=== PATIENT | female | born 1990 | race Caucasian/White ===

== ENCOUNTER 2017-12-17 17:15 | Outpatient (CLI) | payer MEDICAID, SELFPAY ==
[2017-12-17 18:26] VITALS: BMI 34.2
--- NOTE | 2017-12-17 18:59 | OB.TRI.NOTE ---
History of Present Illness Date of Service: 12/17/17 Was patient seen by the physician?: Yes Reason For Visit: R/O LABOR Date of Service: 12/17/17 Final PETE Source: US <20 weeks Gestational age: 32.2 History of Present Illness: 27yo G! @ 32 2/7wga with c/o severe, sudden, sharp lower abdominal pains x 3. Pains were short lived and lasted for several seconds. Denies nausea, vomiting, diarrhea. She relates baseline constipation since the beginning of . Also complaints of frontal headache. She has a history of chronic headaches and previously took Ibuprofen up to 4 times daily outside of . She notes that the headaches she has now persists despite Tylenol. She denies ear pain, sore throat. +rhinorrhea, denies congestion. She notes dizziness with sudden movements. + FM, no leaking of fluid or vaginal bleeding. Home Medications Medication Instructions Recorded HydrOXYzine [Atarax] 25 mg PO PRN PRN 12/17/17 Ranitidine [Zantac] 150 mg PO DAILY 12/17/17 Allergies No Known Allergies Allergy (Verified 12/17/17 18:29) Physical Exam Vitals: AVSS General: Alert, Oriented x3, Cooperative, No apparent distress Cardiovascular: Regular rate, Regular Rhythm Lungs: Normal air movement Abdomen: Soft, Non Tender, Non-Distended, Gravid Extremities:: No edema Estimated gestational size: Appropriate for gestational size NST - FHR Rate Baby A Baseline: 125 Variability:: Moderate Accelerations:: 15 x 15 Decelerations:: None NST Reactive:: Yes FHR Category:: Category I Uterine Activity:: 0/10 Impression/Plan 27yo G1 @ 32 2/7wga with false labor, Cat I FHR -History not c/w preeclampsia, suggestive of sinus headache. otc sinus remedies reviewed. -Bennett Dugan discussed. Reviewed si/sx labor. -d/c home, f/u in office with Dr. Urias as scheduled for transfer of OB care Code Visit Office Visits / Consults: [id number] OV L2 New
--- NOTE | 2017-12-17 19:07 | OB.TRI.HP_ITS ---
History of Present Illness Date of Service: 12/17/17 Was patient seen by the physician?: Yes Reason For Visit: R/O LABOR Date of Service: 12/17/17 Final PETE Source: US <20 weeks Gestational age: 32.2 History of Present Illness: 27yo G! @ 32 2/7wga with c/o severe, sudden, sharp lower abdominal pains x 3. Pains were short lived and lasted for several seconds. Denies nausea, vomiting , diarrhea. She relates baseline constipation since the beginning of . Also complaints of frontal headache. She has a history of chronic headaches and previously took Ibuprofen up to 4 times daily outside of . She notes that the headaches she has now persists despite Tylenol. She denies ear pain, sore throat. +rhinorrhea, denies congestion. She notes dizziness with sudden movements. + FM, no leaking of fluid or vaginal bleeding. Home Medications Medication Instructions Recorded HydrOXYzine [Atarax] 25 mg PO PRN PRN 12/17/17 Ranitidine [Zantac] 150 mg PO DAILY 12/17/17 Allergies No Known Allergies Allergy (Verified 12/17/17 18:29) Physical Exam Vitals: AVSS General: Alert, Oriented x3, Cooperative, No apparent distress Cardiovascular: Regular rate, Regular Rhythm Lungs: Normal air movement Abdomen: Soft, Non Tender, Non-Distended, Gravid Extremities:: No edema Estimated gestational size: Appropriate for gestational size NST - FHR Rate Baby A Baseline: 125 Variability:: Moderate Accelerations:: 15 x 15 Decelerations:: None NST Reactive:: Yes FHR Category:: Category I Uterine Activity:: 0/10 Impression/Plan 27yo G1 @ 32 2/7wga with false labor, Cat I FHR -History not c/w preeclampsia, suggestive of sinus headache. otc sinus remedies reviewed. -Bennett Dugan discussed. Reviewed si/sx labor. -d/c home, f/u in office with Dr. Urias as scheduled for transfer of OB care Code Visit Office Visits / Consults: [id number] OV L2 New
== END 2017-12-17 19:10 | disposition home or self-care (01) ==
LOC: WPOUT 17:39 → WP 17:40
PROVIDERS: Family Provider Family Medicine; PCP Family Medicine; Visit Provider Obstetrics & Gynecology
DX: O47.03 False labor before 37 completed weeks of gestation, third trimester (principal); O99.89 Other specified diseases and conditions complicating pregnancy, childbirth and the puerperium; R51 Headache; Z3A.32 32 weeks gestation of pregnancy
CPT/HCPCS: 59025; 59050; 99218; G0378

== ENCOUNTER → 2018-01-17 11:20 | Outpatient (CLI) | payer MEDICAID, SELFPAY | PROVIDERS: Visit Provider Obstetrics & Gynecology | DX: Z36.85 Encounter for antenatal screening for Streptococcus B (principal) | CPT/HCPCS: 87077; 87081; 87186 ==

== ENCOUNTER 2018-01-26 02:40 | Outpatient (CLI) | payer MEDICAID, SELFPAY ==
[2018-01-26 03:12] VITALS: BMI 35.4
[2018-01-26 03:27] LABS: Red Blood Cells-Urine 0 SEEN /hpf (0-5)
[2018-01-26 03:30] LABS: Color, Urine Yellow (Yellow); Glucose, Dipstick Normal (Normal); Ketone-Dipstick 5 mg/dl (Negative); Leukocyte Esterase-Dipstick 25 /ul (Negative); Nitrite-Dipstick Negative (Negative); Occult Blood-Urine Negative /ul (Negative); Protein-Dipstick 15 mg/dl (Negative); Urine Bilirubin Dipstick Negative (Negative); Urine Clarity Sl. Cloudy (Clear); Urine Urobilinogen Normal (Normal); Urine pH 6.5 (5.0 - 8.0)
[2018-01-26 03:39] LABS: Amorphous Sediment 1+; Bacteria RARE /hpf (None Seen); Mucous, Urine 1+ /hpf (<or=2+); Squamous Epithelial Cells - UA 5-10 SEEN /hpf (5-10); White Blood Cells 0-5 SEEN /hpf (0-5)
[2018-01-26 03:42] LABS: ROM Internal Control Test YES-OK TO RESULT pt. (Internal QC); ROM Patient Test Negative (Negative)
[2018-01-26] MEDS: Nalbuphine 10 MG/ML Ampul 5 MG IM (05:15)
--- NOTE | 2018-01-26 09:20 | OB.TRI.NOTE ---
History of Present Illness Was patient seen by the physician?: No Reason For Visit: R/O LABOR Date of Service: 01/26/18 Gestational age: 38+ weeks History of Present Illness: 38+ week intrauterine presents with vaginal discomfort and pain. care remarkable for late presentation of care to our practice. Home Medications Medication Instructions Recorded Hydroxyzine HCl 25 mg PO QHS 05/03/17 Vits [Prenatabs FA] 1 tablet PO DAILY 08/23/17 Ranitidine [Zantac] 150 mg PO BID 08/23/17 Miconazole Nitrate [Monistat 7] 1 applic VAGINAL QHS 01/26/18 Allergies No Known Allergies Allergy (Verified 01/26/18 03:12) NST - FHR Rate Baby A NST Reactive:: Yes Impression/Plan 38+ week intrauterine with vaginal discomfort likely false labor. Pain subsided after observation and a single dose of IM Nubain. Released to home with routine instructions. Reactive NST. No cervical change after several hours of observation.
== END 2018-01-26 09:05 | disposition home or self-care (01) ==
LOC: WPOUT 03:07 → WP 03:08
PROVIDERS: Family Provider Family Medicine; PCP Family Medicine; Visit Provider Obstetrics & Gynecology
DX: O26.893 Other specified pregnancy related conditions, third trimester (principal); R10.2 Pelvic and perineal pain; Z3A.38 38 weeks gestation of pregnancy
CPT/HCPCS: 96374; 59025; 59050; 81001; 84112; 99218; G0378

== ENCOUNTER 2018-02-09 04:00 | Inpatient (IN) | payer MEDICAID, SELFPAY ==
[2018-02-09 03:58] LABS: ROM Internal Control Test YES-OK TO RESULT pt. (Internal QC)
[2018-02-09 03:59] LABS: ROM Patient Test POSITIVE (Negative)
[2018-02-09] MEDS: Lactated Ringers 1,000 ML 50 ML IV (04:15)
[2018-02-09 04:34] VITALS: BMI 35.6
[2018-02-09 04:43] LABS: Hematocrit 34.3 % (37-47); Hemoglobin 11.5 g/dl (12.0-15.0); Mean Corp Hgb Conc 33.5 g/gl (32-36); Mean Corpuscular Hgb 27.4 pg (27.0-32.0); Mean Corpuscular Volume 81.9 fL (81-99); Platelet Count 262 K/mm3 (150-450); RBC Distribution Width CV 14.6 % (11.6-14.6); RBC Distribution Width SD 42.6 fl (35.1-43.9); Red Blood Count 4.19 M/mm3 (4.2-5.4); White Blood Count 13.1 K/mm3 (4.4-11.0)
[2018-02-09 04:51] LABS: Scan Indicated on CBC? Y/N NO
[2018-02-09] MEDS: fentaNYL-bupivacaine (epidural) 100 ML BAG EPIDURAL (05:41)
[2018-02-09] MEDS: Oxytocin 30 units/NS 500 ml 30 UNITS/500 ML IV.SOLN IV (08:24)
[2018-02-09] MEDS: Acetaminophen 325 MG Tablet PO (10:05)
--- NOTE | 2018-02-09 10:28 | PCM.PN.OB ---
Subjective: Comfortable with epidural. Feels some pressure with contractions. Objective: Afeb VSS FHR tracing Cat 1 with some variable decelerations with contractions. - Physical Exam General: Alert, Oriented x3, Cooperative, No apparent distress Comment: CE FD +2 station Weight: 195 lb Body Mass Index (BMI) 35.6 Laboratory Tests Past 24 Hrs 02/09/18 02/09/18 02/09/18 03:45 04:15 04:15 WBC 13.1 H RBC 4.19 L Hgb 11.5 L Hct 34.3 L MCV 81.9 MCH 27.4 MCHC 33.5 RDW 14.6 RDW Differential 42.6 Plt Count 262 MPV 9.0 Vag Amniotic Fld Detect POSITIVE H Blood Type O POSITIVE Antibody Screen NEGATIVE Medical Necessity - Tobacco Use Smoking Status: Light Smoker (<10/day) Assessment/Plan Will start pushing efforts. Reassuring FHR tracing.
[2018-02-09] MEDS: Oxytocin 30 units/NS 500 ml 30 UNITS/500 ML IV.SOLN 334 UNITS IV (10:45)
--- NOTE | 2018-02-09 10:54 | PCM.OB.VAG ---
- Problem List (1) Spontaneous vaginal delivery Status: Acute Vaginal Delivery Maternal Presentation: Active Labor, Spontaneous Rupture of Membranes Presents at 40 weeks ega with SROM Amniotic Membrane Rupture Type: Spontaneous at home Rupture of Membrane time: 0400 Amniotic Fluid Description: Clear Final PETE: 02/09/18 Final PETE Source: US <20 weeks Gestational age: 40 Weeks and 0 Days doctor who attended delivery (if requested by OB): Joseph Moran Date of Procedure: 02/09/18 Pre-Operative Diagnosis: Labor Post-Operative Diagnosis: Same Surgery/ Procedure Performed: Spontaneous Vaginal Delivery Anesthesiologist: Souleymane Ortiz Type of Anesthesia: Epidural Description of Procedure: Progressed to FD then pushed for a short time to deliver a live female without complication. There was a loose nuchal cord x 1 which was reduced easily at delivery. Dr. Alfaro was present at delivery due to meconium stained amniotic fluid. Apgars were 8/9. The placenta delivered spontaneously intact with a centrally located 3VC. The upper vagina, cervix lower vagina and perineum were intact. The uterus contracted well after delivery. Presentation: Vertex Placental Delivery Description: Spontaneous Placenta Disposition: [facility] Percentage of Placenta Abruption: 0 Cord Vessel Description: 3 Vessels Nuchal Cord Compression: Without compression Cord Entanglement: Around neck x 1, loose Drain: Gallardo to straight drain Estimated Blood Loss: 200cc A gender: Female (1 minute): 8 (5 minute): 9 Episiotomy Description: None Laceration: None Medications given after delivery: IV Pitocin Complications: None
--- NOTE | 2018-02-09 11:01 | DCINST_ITS ---
Discharge Diet: No Restrictions Discharge Activity: Return to Normal Activity, May Drive, May Shower Return to work on:: 04/11/18 May shower in (days): 0 May resume sexual activity in: 4-6 weeks Call your doctor if your incision/area has: Sudden Increased Bleeding, Increased Pain/ Swelling, Foul Smelling Discharge Call your doctor if you observe: Fever of 101 or Higher, Inability to urinate, Inability to have a bowel movement, Using more than one pad per hour, Shortness of breath, Chest pain, Calf discomfort, Uncontrolled pain Cleanse incision/area with: Soap & Water Additional Instructions: If you experience any of the following, contact your healthcare provider. * Bleeding that soaks a pad every hour for 2 hours * Fever 100.4 or higher * Unrelieved incision or abdominal pain * Swelling, redness, discharge or bleeding from your incision or episiotomy site * Your incision begins to separate * Problems urinating (including inability to urinate or burning while urinating) . * Visual changes * Severe headache * Flu-like symptoms * Pain or redness in one of both of your breasts * Pain, warmth, tenderness or swelling in your legs, especially the calf area * Frequent nausea and vomiting * Symptoms of depression or anxiety If you experience any of the following, call 911 or go to the nearest Emergency Room. * Chest pain * Problems breathing * Seizure activity * Partial or complete paralysis of a body part, slurred speech, weakness or drooping of the face, or a sudden inability to walk or hold your balance Allergies/Adverse Reactions: Allergies No Known Allergies Allergy (Verified 02/09/18 04:38) Medications to take at Discharge Hydroxyzine HCl 25 mg PO QHS 05/03/17 Vits [Prenatabs FA ] 1 tablet PO DAILY 08/23/17 Ranitidine [Zantac] 150 mg PO BID 08/23/17 Ibuprofen [Motrin] 800 mg PO TID PRN PRN #30 tab 02/09/18 The following prescriptions were given: Ibuprofen [Motrin] 800 mg PO TID PRN PRN #30 tab PRN Reason: pain or cramping Please Follow Up With: Mel Urias MD When: 6 weeks Primary Care Physician: Don Solis MD [Primary Care Provider] - Proposed Discharge Date: 02/11/18
[2018-02-09] MEDS: Oxytocin 30 units/NS 500 ml 30 UNITS/500 ML IV.SOLN 167 UNITS IV (11:17)
[2018-02-09] MEDS: Lactated Ringers 1,000 ML 15 ML IV (12:17)
[2018-02-09] MEDS: Ibuprofen 600 MG Tablet PO (12:47)
[2018-02-09] MEDS: 0.9% Saline Lock 10 ML Syringe IV (12:47)
[2018-02-09 15:50] VITALS: BP 124/70; PULSE 72; RESP 18; TEMP 36.8
[2018-02-09] MEDS: oxyCODONE 5 MG Tablet PO ×2 (15:51→21:44)
[2018-02-09 19:45] VITALS: BP 127/81; PULSE 63; RESP 16; TEMP 36.6; O2SAT 96
[2018-02-09] MEDS: Famotidine 20 MG Tablet PO (21:45)
[2018-02-09] MEDS: hydrOXYzine PAM 25 MG Capsule PO (21:45)
--- NOTE | 2018-02-09 22:49 | NURSING ---
mom not in room, diaper changing demo given to dad. Dad states he has never changed a diaper. Bulb syringe demo given to dad.
[2018-02-10] VITALS: BP 126/80; PULSE 68; RESP 17; TEMP 36.7; O2SAT 95
[2018-02-10 03:20] VITALS: BP 110/64; PULSE 74; RESP 18; TEMP 36.8; O2SAT 95
[2018-02-10] MEDS: Ibuprofen 600 MG Tablet PO (06:01)
[2018-02-10 06:28] LABS: Hematocrit 32.8 % (37-47); Hemoglobin 10.7 g/dl (12.0-15.0); Mean Corp Hgb Conc 32.6 g/gl (32-36); Mean Corpuscular Volume 82.8 fL (81-99); Mean Platelet Vol. 8.7 fl (6.2-12.0); Platelet Count 208 K/mm3 (150-450); RBC Distribution Width CV 14.5 % (11.6-14.6); RBC Distribution Width SD 44.1 fl (35.1-43.9); Red Blood Count 3.96 M/mm3 (4.2-5.4); Scan Indicated on CBC? Y/N NO; White Blood Count 13.6 K/mm3 (4.4-11.0)
[2018-02-10 08:23] VITALS: BP 121/77; PULSE 77; RESP 18; TEMP 37
--- NOTE | 2018-02-10 08:23 | PCM.PN.OB ---
Patient Problems: Active and Suspected Problems Spontaneous vaginal delivery (Acute) Subjective: Complaints of some uterine cramping and left lower abdomen pain. Bleeding light. Bottle feeding. Objective: Afeb VSS Hgb stable PP day#1. - Physical Exam General: Alert, Oriented x3, Cooperative, No apparent distress Lungs: Clear to auscultation, Normal air movement Cardiovascular: Regular rate, Regular Rhythm Abdomen: Soft, Non Tender, Non-Distended, - - Fundus firm nontender Extremities: No edema Skin: No rashes Neurological: Neuro grossly intact Psych/Mental Status: Normal Affect Comment: Lochia light Vital Signs Temp Pulse Resp BP Pulse Ox 98.3 F 74 18 110/64 95 02/10/18 03:20 02/10/18 03:20 02/10/18 03:20 02/10/18 03:20 02/10/18 03:20 Oxygen Delivery Method Room Air Weight: 195 lb Body Mass Index (BMI) 35.6 Intake and Output for Last 24 Hours 02/08/18 02/09/18 02/10/18 23:59 23:59 23:59 Intake Total 2348 / 2348 Output Total 900 / 900 Balance 1448 / 1448 Laboratory Tests Past 24 Hrs 02/10/18 06:05 WBC 13.6 H RBC 3.96 L Hgb 10.7 L Hct 32.8 L MCV 82.8 MCH 27.0 MCHC 32.6 RDW 14.5 RDW Differential 44.1 H Plt Count 208 MPV 8.7 Medical Necessity - Tobacco Use Smoking Status: Light Smoker (<10/day) Assessment/Plan Active and Suspected Problems Spontaneous vaginal delivery (Acute) Doing well on PP day#1. Will hold discharge until after clinical social work therapist consult completed tomorrow.
[2018-02-10 14:00] VITALS: BP 132/88; PULSE 67; RESP 18; TEMP 36.6
[2018-02-10 20:00] VITALS: BP 142/88; PULSE 75; RESP 16; TEMP 36.3; O2SAT 99
[2018-02-10] MEDS: Acetaminophen 500 MG Tablet 1000 MG PO (20:14)
--- NOTE | 2018-02-10 20:30 | NURSING ---
pt expressed concern to this RN regarding children services coming to see her tomorrow and pt was questioning why they would be coming to talk with her. This RN discussed [facility] social services manager would be coming to talk with her tomorrow prior to discharge to home due to history of anxiety. pt reported to this RN that she was concerned that children services would be coming to talk to her due to having an open case against her due to someone getting mad and called them and accused me of being on drugs when i was .
--- NOTE | 2018-02-10 21:05 | NURSING ---
nicotine patch present to right deltoid
[2018-02-10] MEDS: Famotidine 20 MG Tablet PO (22:05)
[2018-02-11 00:46] VITALS: BP 120/78; PULSE 76; RESP 16; TEMP 36.6; O2SAT 99
[2018-02-11] MEDS: Ibuprofen 600 MG Tablet PO (00:48)
--- NOTE | 2018-02-11 00:57 | NURSING ---
pt requested nicotine patch to be removed due to making my arm sore RN removed nicotine patch from right deltoid and discarded it.
--- NOTE | 2018-02-11 01:00 | NURSING ---
FOB called this RN into room due to pt having severe abd pain. pt rates pain to upper right abd, stabbing in nature, and tender upon palpation. pt reports increased pain with deep breathing. pt denies chest pressure/pain/ SOB. pt denies headache or nausea, reflexes brisk +3. no clonus, trace edema noted to BLE. vital signs obtained(see vital sign intervention), medicated with Motrin. will continue to monitor
[2018-02-11 01:51] VITALS: BP 129/87; PULSE 63; RESP 16; TEMP 36.9; O2SAT 98
--- NOTE | 2018-02-11 02:02 | NURSING ---
pt reports improvement in right upper quadrant pain after motrin was given. pt requesting baby to go to [place] for her and fob to get some rest. rooming in discussed and encouraged, pt and fob verbalized understanding and requested baby to go to [place].
--- NOTE | 2018-02-11 06:54 | PN.OBGYN_ITS ---
Patient Problems: Active and Suspected Problems Spontaneous vaginal delivery (Acute) Subjective: Doing well. Some cramping. Bleeding light. Objective: Afeb VSS - Physical Exam General: Alert, Oriented x3, Cooperative, No apparent distress Lungs: Clear to auscultation, Normal air movement Cardiovascular: Regular rate, Regular Rhythm Abdomen: Soft, Non Tender, Non-Distended, - - Fundus nontender Extremities: No edema Skin: No rashes Neurological: Neuro grossly intact Psych/Mental Status: Normal Affect Comment: Lochia light Vital Signs Temp Pulse Resp BP Pulse Ox 98.4 F 63 16 129/87 H 98 02/11/18 01:51 02/11/18 01:51 02/11/18 01:51 02/11/18 01:51 02/11/18 01:51 Oxygen Delivery Method Room Air Weight: 195 lb Body Mass Index (BMI) 35.6 Intake and Output for Last 24 Hours 02/09/18 02/10/18 02/11/18 23:59 23:59 23:59 Intake Total 2348 / 2348 Output Total 900 / 900 Balance 1448 / 1448 Medical Necessity - Tobacco Use Smoking Status: Light Smoker (<10/day) Assessment/Plan Active and Suspected Problems Spontaneous vaginal delivery (Acute) Doing well on PP day#2. Cleared for discharge home today. May be discharged after social service coordinator consult today.
--- NOTE | 2018-02-11 06:54 | PCM.DC.SUM ---
Discharge Date and Diagnosis - Problem List Patient Problems: Active and Suspected Problems Spontaneous vaginal delivery (Acute) Date of Admission: 02/09/18 Date of Discharge: 02/11/18 - Primary Discharge Diagnosis Active and Suspected Problems Spontaneous vaginal delivery (Acute) Hospital Course and Treatment Consultations 02/09/18 04:06 Consult: Anesthesia Routine Comment: Reason For Exam: labor Operations: None Procedures: - - Epidural, pitocin augmentation, Summary of Care Provided: The patient is a 27 year old F [admitted in active labor with SROM. Progressed to FD pushed for short time to deliver a live without complication., Post course unremarkable. Discharged home on PP day#2.] Discharge Diet: No Restrictions Discharge Activity: Return to Normal Activity, May Drive, May Shower Return to work on:: 04/11/18 May shower in (days): 0 May resume sexual activity in: 4-6 weeks Call your doctor if your incision/area has: Sudden Increased Bleeding, Increased Pain/ Swelling, Foul Smelling Discharge Call your doctor if you observe: Fever of 101 or Higher, Inability to urinate, Inability to have a bowel movement, Using more than one pad per hour, Shortness of breath, Chest pain, Calf discomfort, Uncontrolled pain Cleanse incision/area with: Soap & Water Home Medications: Medications to take at Discharge RX: Hydroxyzine HCl 25 mg PO QHS 05/03/17 RX: Vits [Prenatabs FA ] 1 tablet PO DAILY 08/23/17 RX: Ranitidine [Zantac] 150 mg PO BID 08/23/17 RX: Ibuprofen [Motrin] 800 mg PO TID PRN PRN #30 tab 02/09/18 Following Prescrptions Were Given to Patient: RX: Ibuprofen [Motrin] 800 mg PO TID PRN PRN #30 tab PRN Reason: pain or cramping Primary Care Physician: Don Solis MD [Primary Care Provider] - Please Follow Up With: Mel Urias MD When: 6 weeks Disposition: Home Minutes spent on discharge:: 15 Patient Condition:: Good Medical Necessity - Tobacco Use Smoking Status: Light Smoker (<10/day) Meaningful Use Info Meaningful Use Diagnoses (Choose all that apply): None applicable
[2018-02-11 08:14] VITALS: BP 127/82; PULSE 70; RESP 16; TEMP 36.6; O2SAT 98
[2018-02-11 08:16] VITALS: PULSE 70; RESP 16; O2SAT 98
[2018-02-11] MEDS: Famotidine 20 MG Tablet PO (11:54)
[2018-02-11] MEDS: Prenatal Vits Tablet 1 TABLET PO (11:54)
--- NOTE | 2018-02-11 11:57 | NURSING ---
This certified nursing attendant gave a vitamin and pepcid with Ezequiel Soni, student nurse. Although the med was due at 1000, the high school social studies tutor, Josephine was in with patient and this certified nursing attendant waited until Josephine's assessment was completed as to not interrupt.
--- NOTE | 2018-02-11 12:06 | NURSING ---
medications given with instructor, Shaneka Olguin.
--- NOTE | 2018-02-11 13:09 | NURSING ---
This director school of nursing reviewed the charting completed by the student Ezequiel Soni, and it is complete.
[2018-02-11 14:02] VITALS: BP 133/87; PULSE 66; RESP 16; TEMP 36.4; O2SAT 96
[2018-02-11 14:03] VITALS: PULSE 66; O2SAT 96
--- NOTE | 2018-02-12 11:38 | CASEMGMT ---
Social Work - Labor and Delivery Unit Summary: Social Work Assessment completed with patient/mother of baby (MOB) on 02-11-18, prior to MOB being discharged, and after referral received from the tin dipper. Full assessment details documented in the infant's chart. Referral related to MOB having a history of anxiety and noncustody of older child who is 4 years old. MOB also shared during assessment with this verse writer a history of involvement with [facility] during this . Through conversation with MOB, the MOB did agree to have nephrology social worker arranged mental health intake, choosing [facility] as the mental health provider. MOB also agreed to a [facility] referral. MOB reporting to have support at home, and to have needed baby supplies. MOB was discharged on 02-11-18, going to hotel status on the labor and delivery unit while baby remained a patient for NIGHAT scoring. MOB disclosed to this verse writer during assessment on 02-11-18 of maternal opiate prescription use in the third trimester. MOB had reported prescriptions had been prescribed due to dental issues. 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 MOB denies use of any illicit drug use during or history of such outside of , as well as denies allegations of homelessness that the child's father accused MOB in 2016. This verse writer did call [facility] ([facility]) on 02-11-18 about baby born this admission, as well as [facility] in [place] (related to information MOB shared with this verse writer about the 4 year old). MOB was made aware of intent to call both children services agencies. (See more detailed note in baby's chart, which is linked to this visit number for MOB) Today, 02-12-18, this verse writer received message from MOB that has chosen to go with [facility] for counseling. Arranged mental health intake for MOB at [facility], met with MOB in room on the labor and delivery unit, reviewing date and time of appointment with MOB. Father of baby (FOB) also in the room at the time. MOB reports agreement to the date and time arranged, denies any needs or concerns with arrangements made for mental health follow up. Provided MOB with community resources information, verbally reviewing information given, and also reviewed also plan to make referral to [facility]. MOB expressed thanks for information given, and denies other needs for home going. Spoke with pediatric hospitalist today and babys NIGHAT scores have been in the lower range. Baby is cleared medically for discharge today. Called [facility] ([facility]) egg factory worker, January Tray at [phone], extension [phone]. Message left with updates on NIGHAT scores and intention for baby to be discharged home today. Assessment: MOB sitting in bed when nephrology social worker arrived today, [facility], appearing to be sleeping. MOB gazed at baby and smiled. FOB sitting on bed, calm and gazing at baby. MOB thanked this verse writer for resources, reports agreement to follow up and denies other needs for home going. Intervention: Provided MOB with list of community resources for [facility], including handouts on [facility], Moms/Dads support group, shaken baby/tips to soothe baby, and safe sleeping. Information given on mood and anxiety disorders. Information given about [place] [employer] services. Information on metro approached apartments in this area. Submitted [facility] referral through the [facility] secure web based online referral system. Release of information signed to [facility] today, mental health intake set for MOB on Sunday02-19-18 at 1315 with Laila De La Cruz. On 02-11-18, referrals made to [facility] in [place] and to [facility] in [place] on. (See previous social work documentation this admission for details of referrals) Plan: MOB and baby to home today. Referrals and resources in place. No other services requested or indicated. -KAYE Turcios, JUNIOR ENGINEER
== END 2018-02-11 14:20 | disposition home or self-care (01) | DRG 373 ==
LOC: WPOUT 04:02
PROVIDERS: Admitting Provider Obstetrics & Gynecology; Family Provider Family Medicine; PCP Family Medicine; Visit Provider Obstetrics & Gynecology
DX: O42.02 Full-term premature rupture of membranes, onset of labor within 24 hours of rupture (principal); O69.81X0 Labor and delivery complicated by cord around neck, without compression, not applicable or unspecified; O77.0 Labor and delivery complicated by meconium in amniotic fluid; O99.333 Smoking (tobacco) complicating pregnancy, third trimester; O99.820 Streptococcus B carrier state complicating pregnancy; O99.613 Diseases of the digestive system complicating pregnancy, third trimester; K21.9 Gastro-esophageal reflux disease without esophagitis; O99.343 Other mental disorders complicating pregnancy, third trimester; F41.9 Anxiety disorder, unspecified; Z3A.40 40 weeks gestation of pregnancy; Z37.0 Single live birth
CPT/HCPCS: 59050; 84112; 85027; 86850; 86900; 99218; J7120; A4216; G0378; J0290

== ENCOUNTER → 2018-03-26 14:13 | Outpatient (CLI) | payer MEDICAID, SELFPAY ==
[2018-03-29 12:59] LABS: HPV Reflexed? NOT INDICATED
== END ==
PROVIDERS: Visit Provider Obstetrics & Gynecology
DX: Z12.4 Encounter for screening for malignant neoplasm of cervix (principal)
CPT/HCPCS: 88175; G0145

== ENCOUNTER 2018-03-27 13:49 | Emergency (ER) | payer MEDICAID, SELFPAY ==
[2018-03-27 13:50] VITALS: BP 143/93; PULSE 65; RESP 16; TEMP 36.9; O2SAT 97; BMI 34.5
--- NOTE | 2018-03-27 14:33 | ED.DCSUM_ITS ---
- ER Visit Summary Date of Service: 03/27/18 Chief Complaint: [Infected fingers] History of Present Illness: The patient is a 27 F [presents to the emergency department complaint of infection to her fingers. Patient states that 2 days ago she was cutting her nail cuticles and skin around the edges of her nails and then went swimming in a pond. Patient states that in the past she has had small infections like this before that with just drain small amounts and then heal without too much discomfort. Patient complains of discomfort today to the right ring finger and left index finger around the nails. Patient states that on the left index finger she was able to peel the edge of the nail back and then nail fold and had small amount of drainage from the wound no slightly green in color and and the swelling went down. Patient complaining of most of the discomfort to the right ring finger today. Patient denies any fevers. Patient up-to-date on tetanus.] Physical Examination: [HEENT-PERRLA, EOMI. Cranial nerves II through XII grossly intact. TMs clear. Mucous membranes moist. No adenopathy. Cardiovascular-regular rate and rhythm without murmur or ectopy Lungs-clear to auscultation, chest wall stable without crepitus or subcu emphysema Abdomen-normoactive bowel sounds, soft, nontender, no rebound or rigidity, no peritoneal signs. Extremities-intact ?4, normal range of motion, normal pulses, atraumatic. Right hand-patient does have what appears to be early paronychia of the right ring finger with some erythema around the nail but there is no drainage noted there is no real fluctuance noted. Patient also has some erythema around the nail of the left index finger with some tenderness to palpation and there was some small amount of drainage noted next to the nail here.] Test Results: [None indicated] Emergency Department Course and Treatment: [Patient advised to use warm soaks and will start on Keflex and Bactrim.] Treatment Plan: [Keflex and Bactrim and warm soaks. Patient will be referred to Dr. Danny Nuñez who is on-call for orthopedics for follow-up in 3-5 days. Patient advised to return if increasing pain, redness, swelling, or condition should worsen in any way. Patient understands that sometimes these paronychia need to be drained although I do not feel they are amenable to this at this point as they are early.] Disposition: [Discharged home in stable condition] Impression: [Paronychia right ring finger and left index finger] This note was generated with fitkit dictation software. It may contain incorrect words, spelling, and punctuation that were not noted in review of the chart prior to signing ED Disposition - Plan for ED Patient: Chief Complaint: Other, Pain/Inj Referrals: Don Solis MD [Primary Care Provider] -
--- NOTE | 2018-03-27 14:33 | ED.DEP ---
ED Disposition - Plan for ED Patient: Chief Complaint: Other, Pain/Inj Instructions: ED Fingernail Infec Prescriptions: Cephalexin [Keflex] 250 mg PO Q6 #40 cap Smz/Tmp Ds [Bactrim Ds] 1 tab PO BID #20 tab Referrals: Danny Nuñez DO [STAFF PHYSICIAN] - 3-5 Days
[2018-03-27] MEDS: Smz/Tmp Ds Tablet 1 TABLET PO (14:37)
[2018-03-27] MEDS: Cephalexin 250 MG Capsule 500 MG PO (14:37)
[2018-03-27 14:43] VITALS: RESP 16
--- NOTE | 2018-03-27 14:44 | ED.RN ---
REVIEWED D/C INSTRUCTIONS, FOLLOW UP CARE, PRESCRIPTIONS, AND S/S THAT WOULD WARRANT A RETURN TO THE ED WITH PT. PT VERBALIZED AN UNDERSTANDING AND DENIES FURTHER QUESTIONS FOR THIS RN. PT SKIN P/W/D, RESP EVEN AND UNLABORED, PT A&O X 3, NO DISTRESS NOTED. PT AMBULATED OUT OF ED, GAIT STEADY.
== END 2018-03-27 14:45 | disposition home or self-care (01) ==
LOC: ED 14:32
PROVIDERS: Emergency Provider Emergency Medicine; Family Provider Family Medicine; PCP Family Medicine
DX: L03.011 Cellulitis of right finger (principal); Z90.89 Acquired absence of other organs; Z72.0 Tobacco use
CPT/HCPCS: 99283

== ENCOUNTER 2018-04-15 15:59 | Emergency (ER) | payer MEDICAID, SELFPAY ==
[2018-04-15 15:59] VITALS: BP 154/96; PULSE 74; RESP 14; TEMP 36.1; O2SAT 96; BMI 32.9
--- NOTE | 2018-04-15 17:12 | ED.VISSUMM ---
- ER Visit Summary Date of Service: 04/15/18 Chief Complaint: Abscess left axilla History of Present Illness: The patient is a 27 F presenting with abscess left axilla. She noticed this on . She states this progressively worsened. It has not drained at home. No fever. No history of same. No other complaints. Physical Examination: Vitals are stable. Patient is afebrile. Alert no acute distress. HEENT exam is unremarkable. Neck is supple. Lungs are clear and equal bilaterally. Heart is regular rate and rhythm. Extremities 2 cm abscess left axilla with induration and area of fluctuance. 1 cm indurated abscess Skin is warm and dry. No focal neurologic deficit. Remainder of exam is unremarkable. Emergency Department Course and Treatment: I&D was performed. Anesthetized with lidocaine, incised with 11 blade. Moderate amount of pus was drained. Probed to break up loculations. Irrigated with saline. Patient tolerated this well. She is given Bactrim and Keflex. Advised follow-up with her primary care physician. Advised return to ED for worsening complaints. Disposition: Discharge home Impression: Abscess left axilla, incision and drainage This note was generated with [employer] dictation software. It may contain incorrect words, spelling, and punctuation that were not noted in review of the chart prior to signing ED Disposition - Plan for ED Patient: Chief Complaint: Abscess Instructions: ED Abscess IandD Prescriptions: Cephalexin [Keflex] 500 mg PO Q6 #40 capsule Smz/Tmp Ds [Bactrim Ds] 1 tablet PO BID #14 tablet Referrals: Don Solis MD [Primary Care Provider] -
[2018-04-15] MEDS: Cephalexin 250 MG Capsule 500 MG PO (17:41)
[2018-04-15] MEDS: Smz/Tmp Ds Tablet 1 TABLET PO (17:41)
[2018-04-15] MEDS: HYDROcodone Bitartrate/Apap 5/325 Tablet PO (17:56)
== END 2018-04-15 18:00 | disposition home or self-care (01) ==
PROVIDERS: Emergency Provider Emergency Medicine; Family Provider Family Medicine; PCP Family Medicine
DX: L02.412 Cutaneous abscess of left axilla (principal); B96.89 Other specified bacterial agents as the cause of diseases classified elsewhere; Z72.0 Tobacco use
CPT/HCPCS: 10060; 99283

== ENCOUNTER 2018-04-18 21:05 | Emergency (ER) | payer MEDICAID, SELFPAY ==
[2018-04-18 21:06] VITALS: BP 149/103; PULSE 77; RESP 18; TEMP 36.6; O2SAT 100; BMI 31.6
--- NOTE | 2018-04-18 22:00 | ED.VISSUMM ---
- ER Visit Summary Date of Service: 04/18/18 Chief Complaint: Abscess left axilla History of Present Illness: The patient is a 27 F here 3 days ago for abscess left axilla that was drained. States another region inferior to this has gotten larger. Tender. Ibuprofen 30 minutes ago. Patient does shave her armpits. Prior to 3 days a denies any previous abscesses. No fevers. No history of diabetes. She is taking her antibiotics of Bactrim and Keflex. Physical Examination: General: Alert and oriented ?3, no acute distress HEENT: Normocephalic, atraumatic. Moist mucosa membranes Neck: supple, nontender. Cardiovascular: Regular rate and rhythm, no murmurs Respiratory: Normal breath sounds, symmetric, no distress Abdomen: Soft, nontender, nondistended Extremities: Nontender, no edema, pulses intact ?4 Neuro: no focal neurological deficits. Skin: Left axilla, 2 x 2 centimeter induration slight erythema inferior. Additional 1 cm induration with a cruciate incision that is healed, there is no drainage, minimal erythema. Nontender. Test Results: [] Emergency Department Course and Treatment: Patient with an additional abscess inferior to her recent abscess. Nontoxic. Discussed incision and drainage which she agreed. There was copious exudates, wound care discussed. She will continue her antibiotics. She continue ibuprofen. She will follow-up as an outpatient. Return if any worsening symptoms. All questions were answered. Treatment Plan: [] Disposition: Discharge Impression: 1. Abscess left axilla status post incision and drainage This note was generated with [employer] dictation software. It may contain incorrect words, spelling, and punctuation that were not noted in review of the chart prior to signing ED Disposition - Plan for ED Patient: Disposition: Home or Assisted Living Chief Complaint: Abscess Diagnosis: Abscess of left axilla Instructions: ED Abscess IandD Referrals: Don Solis MD [Primary Care Provider] - 3-5 Days Additional Instructions: Finish your antibiotics. Continue Motrin every 6 hours as needed.
[2018-04-18 23:22] VITALS: BP 136/90; PULSE 78; RESP 16; O2SAT 98
== END 2018-04-18 23:22 | disposition home or self-care (01) ==
PROVIDERS: Emergency Provider Emergency Medicine; Family Provider Family Medicine; PCP Family Medicine
DX: L02.412 Cutaneous abscess of left axilla (principal); Z72.0 Tobacco use
CPT/HCPCS: 10060; 99283

== ENCOUNTER 2018-04-22 15:18 | Emergency (ER) | payer MEDICAID, SELFPAY ==
[2018-04-22 15:19] VITALS: BP 127/94; PULSE 83; RESP 18; TEMP 36.3; O2SAT 99; BMI 31.6
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
[2018-04-22] MEDS: HYDROcodone Bitartrate/Apap 5/325 Tablet PO (16:01)
[2018-04-22] MEDS: Ondansetron ODT 4 MG Tablet PO (16:01)
== END 2018-04-22 16:03 | disposition home or self-care (01) ==
LOC: ED 15:53
PROVIDERS: Emergency Provider Emergency Medicine; Family Provider Family Medicine; PCP Family Medicine
DX: M54.2 Cervicalgia (principal); Z72.0 Tobacco use
CPT/HCPCS: 99283

== ENCOUNTER 2018-12-15 10:21 | Emergency (ER) | payer MEDICAID, SELFPAY ==
[2018-12-15 10:23] VITALS: BP 100/49; PULSE 117; RESP 28; TEMP 36.6; O2SAT 100; BMI 26.5
[2018-12-15 10:38] VITALS: BP 112/75; PULSE 122; RESP 16; TEMP 36.8; O2SAT 98
--- NOTE | 2018-12-15 11:07 | CT_ITS ---
STUDY: CT ABDOMEN AND PELVIS WITHOUT CONTRAST REASON FOR EXAM: Female, 28 years old. Left flank pain RADIATION DOSAGE (If Supplied By Facility): CTDIvol = ( 6.10 ) mGy, DLP = ( 322.93 ) mGycm TECHNIQUE: Transaxial images were obtained from the dome of the diaphragm to the symphysis pubis without oral contrast, and without intravenous contrast. Sagittal and coronal images were reconstructed. Individualized dose optimization techniques were used for this CT. COMPARISON: None. FINDINGS: The visualized lung bases are unremarkable. The visualized portions of the heart are within normal limits. The liver is mildly, diffusely enlarged with diffuse diminished density. Normal gallbladder and extrahepatic biliary system. Normal spleen. Normal pancreas. Normal bilateral adrenal glands. Normal right kidney. Mild degree of fullness of the left collecting system with perinephric and periureteral edema. No ureteral calculi are identified, however. Nonobstructing calculus of the upper left kidney measures 3 mm. Normal visualized stomach. No small bowel dilation identified. Much of the small bowel is situated in the right abdomen with medialization of the cecum and right colon. The duodenal-jejunal junction is right of midline. Small calcifications in the central mesentery (axial image 125) likely sequela of prior infection or surgery (probable appendectomy) Normal abdominal aorta. Normal inferior vena cava. Normal retroperitoneum. Normal urinary bladder. Normal abdominal wall. Normal osseous structures. CT/Abdomen/Pelvis without Cont IMPRESSION: 1. Mild ectasis and left perinephric/periureteral stranding suggesting recently passed stone or urinary tract infection/pyelonephritis. Correlation with urinalysis is suggested. No urinary calcifications are seen. 2. Nonobstructing left renal calculus. 3. Suspect bowel malrotation but no evidence of bowel obstruction or acute inflammatory process. Electronically Signed: Garcia Linton MD at 12:31 EST , Service support ,
--- NOTE | 2018-12-15 11:08 | ED.VISSUMM ---
- ER Visit Summary Date of Service: 12/15/18 Chief Complaint: Left flank pain History of Present Illness: The patient is a 28 F who presents with left flank pain that has been constant for the past 3 days. Patient describes the pain is sharp and stabbing. Patient states pain is worse with deep breathing and coughing. Patient states the pain does radiate into her left leg. Patient denies any nausea or vomiting. Patient denies any diarrhea, melena, or hematochezia. Patient does admit to some burning at the end of urination. Patient denies any hematuria. Patient admits to subjective fevers. Physical Examination: Vital signs are stable except for tachycardia of 122. Patient is afebrile. Patient is in no acute distress. Oral mucosa is pink and moist. Neck is supple. Trachea is midline. There is no JVD noted. Heart was regular and tachycardic. Lungs are clear and equal bilateral. Abdomen is soft. There is some left upper and lower quadrant tenderness. There is left CVA tenderness. There is no rebound or guarding noted. Cranial nerves II through XII are intact. There are no focal motor or sensory deficits noted. The remaining physical exam is within normal limits. Test Results: CBC showed a mild leukocytosis of 14.5. Urinalysis shows evidence of urinary tract infection. Basic metabolic profile showed a mild hypokalemia of 3.0. CT scan of the abdomen and pelvis was obtained. There is some left perinephric stranding consistent with pyelonephritis. Emergency Department Course and Treatment: Patient was given IV fluids, Toradol, and Zofran here. Patient was sleeping but later stated her pain was starting to come back. Patient was given a dose of morphine. Patient was given a dose of IV Rocephin. Patient was given a prescription for Macrobid. Patient was given p.o. fluids here. Patient was able to tolerate p.o. fluids. Patient was instructed to start with liquids and advance her diet as tolerated. Patient was instructed to follow-up with her primary care physician in 3-5 days. Patient understood and was agreeable with the plan. All questions were answered. Disposition: Discharge home Impression: Pyelonephritis This note was generated with [employer] dictation software. It may contain incorrect words, spelling, and punctuation that were not noted in review of the chart prior to signing ED Disposition - Plan for ED Patient: Disposition: Home or Assisted Living Diagnosis: Pyelonephritis Instructions: ED Kidney Infec Female Prescriptions: Nitrofurantoin Macrocrystals [Macrobid] 100 mg PO Q12 #14 cap Referrals: Don Solis MD [Primary Care Provider] -
[2018-12-15] MEDS: Ketorolac 30 MG/ML Syringe IV (11:13)
[2018-12-15] MEDS: 0.9% Normal Saline 1,000 ML 250 ML IV (11:13)
[2018-12-15] MEDS: Ondansetron 4 MG/2 ML Vial IV (11:13)
[2018-12-15 11:20] LABS: Color, Urine Yellow (Yellow); Glucose, Dipstick Normal (Normal); Ketone-Dipstick 5 mg/dl (Negative); Leukocyte Esterase-Dipstick 500 /ul (Negative); Nitrite-Dipstick Negative (Negative); Occult Blood-Urine 25 /ul (Negative); Protein-Dipstick 100 mg/dl (Negative); Urine Bilirubin Dipstick Negative (Negative); Urine Clarity Cloudy (Clear); Urine Urobilinogen 1 mg/dl (Normal)
[2018-12-15 11:23] LABS: Absolute Lymphocyte Count 1.55 X10^3/ul (0.83-4.51); Absolute Neutrophil Count 11.3 X10^3/uL (2.0-7.7); Basophil# 0.02 X10^3/uL; Basophil% 0.1 % (0-1); Eosinophils% 0.7 % (0-5); Hematocrit 38.1 % (37-47); Hemoglobin 12.6 g/dl (12.0-15.0); Lymphocyte # 1.55 X10^3/ul (4.0); Lymphocyte % 10.7 % (19-41); Mean Corp Hgb Conc 33.1 g/gl (32-36); Mean Corpuscular Hgb 27.3 pg (27.0-32.0); Mean Corpuscular Volume 82.6 fL (81-99); Mean Platelet Vol. 8.4 fl (6.2-12.0); Monocyte# 1.53 X10^3/uL; Monocyte% 10.5 % (0-10); Neutrophil % 77.9 % (47-70); Platelet Count 263 K/mm3 (150-450); RBC Distribution Width SD 39.6 fl (35.1-43.9); Red Blood Count 4.61 M/mm3 (4.2-5.4); White Blood Count 14.5 K/mm3 (4.4-11.0)
[2018-12-15 11:24] LABS: Differential Indicated SCAN CRITERIA MET; POSITIVE COUNT NO; POSITIVE DIFFERENTIAL YES; POSITIVE MORPHOLOGY NO
[2018-12-15 11:29] VITALS: BP 119/74; PULSE 102; RESP 16; TEMP 36.8; O2SAT 97
[2018-12-15 11:35] LABS: Bacteria 1+ /hpf (None Seen); Hyaline Cast 0-5 SEEN /lpf (0-5); Mucous, Urine RARE /hpf (<or=2+); Red Blood Cells-Urine 0-5 SEEN /hpf (0-5); Squamous Epithelial Cells - UA 5-10 SEEN /hpf (5-10); White Blood Cells 25-50 SEEN /hpf (0-5)
[2018-12-15 11:37] LABS: BUN 14 mg/dL (7-18); Creatinine, Serum 0.75 mg/dL (0.55-1.02); EST Glomerular Filtration Rate 99 mL/min (>60); Est Glom Filt Rate - Afr Amer 120 mL/min (>60); Glucose 93 mg/dL (74-106)
[2018-12-15 11:38] LABS: Anion Gap 9 (5-15); BUN/Creat Ratio 18.7 RATIO (10-20); Calcium,Total 8.3 mg/dL (8.5-10.1); Chloride 106 mmol/L (98-107); Sodium Level 137 mmol/L (136-145)
[2018-12-15 11:57] LABS: Pregnancy, Serum, hCG Quali. NEGATIVE Negative (0-9 Nonpreg)
[2018-12-15 12:05] VITALS: BP 123/69; PULSE 97; RESP 18; TEMP 36.7; O2SAT 100
[2018-12-15 13:00] VITALS: BP 120/76; PULSE 91; RESP 20; TEMP 37; O2SAT 96
[2018-12-15] MEDS: Morphine 2 MG/ML Syringe IV (13:21)
[2018-12-15] MEDS: Ceftriaxone 1 GM/50 ML BAG IV (13:21)
== END 2018-12-15 14:05 | disposition home or self-care (01) ==
PROVIDERS: Emergency Provider Emergency Medicine; Family Provider Family Medicine; PCP Family Medicine
DX: N12 Tubulo-interstitial nephritis, not specified as acute or chronic (principal); F41.9 Anxiety disorder, unspecified; Z72.0 Tobacco use
CPT/HCPCS: 74176; 80048; 81001; 84703; 85025; 96365; 96375; 99282; J7030; A4216; J2405

== ENCOUNTER 2019-04-21 20:14 | Emergency (ER) | payer MEDICAID, SELFPAY ==
[2019-04-21 20:15] VITALS: BP 128/94; PULSE 110; RESP 17; TEMP 36.6; O2SAT 98; BMI 26.5
[2019-04-21 21:16] LABS: Color, Urine Yellow (Yellow); Glucose, Dipstick Normal (Normal); Ketone-Dipstick 5 mg/dl (Negative); Leukocyte Esterase-Dipstick 500 /ul (Negative); Nitrite-Dipstick Negative (Negative); Occult Blood-Urine 150 /ul (Negative); Protein-Dipstick 100 mg/dl (Negative); Urine Bilirubin Dipstick Negative (Negative); Urine Clarity Sl. Cloudy (Clear); Urine Urobilinogen Normal (Normal); Urine pH 6.5 (5.0 - 8.0)
[2019-04-21 21:32] LABS: Bacteria 2+ /hpf (None Seen); Mucous, Urine 1+ /hpf (<or=2+); Red Blood Cells-Urine 25-50 SEEN /hpf (0-5); Squamous Epithelial Cells - UA 10-25 SEEN /hpf (5-10); White Blood Cells >100 SEEN /hpf (0-5)
--- NOTE | 2019-04-21 21:46 | ED.VISSUMM ---
- ER Visit Summary Date of Service: 04/21/19 Chief Complaint: Migraine, flank pain] History of Present Illness: The patient is a 28 F who has a history of migraines and recurrent pyelonephritis presents to the emergency department headache and flank pain. The patient states that for the past 3 days, she had a dull progressive migraine. States it feels similar to her prior headaches. She describes nausea and a few bouts of vomiting. Over the past 24 hours, she had dysuria, urinary frequency, and right flank pain. She has not noticed any blood in the urine. She denies any fevers or chills. She states she cannot find anything to help her get comfortable. Physical Examination: Well-appearing patient is in no acute distress. Head is normocephalic, atraumatic. Pupils equal round reactive, extraocular muscles intact. There is no temporal artery tenderness. There is no vesicular rash. Neck supple. Kernig's and Brudzinski's are negative. Heart regular rate and rhythm. Lungs clear, chest nontender. Abdomen soft, nontender, nondistended. Neuro exam displays no focal or lateralizing deficit. 2+ symmetric lower extremity reflexes. No clonus. No ataxia or gait abnormality. No significant CVA tenderness. Test Results: [] Emergency Department Course and Treatment: The patient has a reassuring neurologic examination. She is not encephalopathic. Her abdomen was soft and nontender. She was treated with migraine abortive medications. Screening labs do show mild leukocytosis. She also has evidence of urinary tract infection. I do suspect that she likely has pyelonephritis. On reevaluation, she is feeling markedly improved. She was given IV Rocephin. I do feel the patient is safe for outpatient therapy. I am going to continue her on Bactrim and she also given Zofran for nausea. She was counseled on concerning symptoms and reasons to return. She will be discharged home. Treatment Plan: [] Disposition: Discharge Impression: 1. Migraine 2. Pyelonephritis This note was generated with [employer] dictation software. It may contain incorrect words, spelling, and punctuation that were not noted in review of the chart prior to signing ED Disposition - Plan for ED Patient: Instructions: HEADACHE, Migraine (Classical), PYELONEPHRITIS, Female (Adult) Prescriptions: Smz/Tmp Ds [Bactrim Ds] 1 tab PO BID #14 tab Prescription Printed Ondansetron [Zofran Odt] 4 mg PO Q8H PRN PRN #10 tab PRN Reason: Nausea Prescription Printed Referrals: Don Solis MD [Primary Care Provider] -
[2019-04-21] MEDS: Ketorolac 30 MG/ML Syringe IV (21:47)
[2019-04-21] MEDS: proCHLORPERazine 10 MG/2 ML Vial IV (21:47)
[2019-04-21] MEDS: Morphine 4 MG/ML Syringe IV (21:47)
[2019-04-21] MEDS: DiphenhydrAMINE 50 MG/ML Syringe IV (21:48)
[2019-04-21] MEDS: 0.9% Normal Saline 1,000 ML 999 ML IV (21:48)
[2019-04-21] MEDS: Ceftriaxone 1 GM/50 ML BAG IV (21:48)
[2019-04-21 21:52] LABS: Absolute Lymphocyte Count 1.47 X10^3/ul (0.83-4.51); Absolute Neutrophil Count 12.6 X10^3/uL (2.0-7.7); Basophil# 0.01 X10^3/uL; Basophil% 0.1 % (0-1); Eosinophil# 0.01 X10^3/uL; Eosinophils% 0.1 % (0-5); Hematocrit 39.1 % (37-47); Hemoglobin 12.8 g/dl (12.0-15.0); Lymphocyte # 1.47 X10^3/ul (4.0); Lymphocyte % 9.5 % (19-41); Mean Corp Hgb Conc 32.7 g/gl (32-36); Mean Corpuscular Hgb 25.8 pg (27.0-32.0); Mean Corpuscular Volume 78.8 fL (81-99); Mean Platelet Vol. 8.4 fl (6.2-12.0); Monocyte# 1.32 X10^3/uL; Monocyte% 8.5 % (0-10); Neutrophil # 12.64 X10^3/uL (2.7-7.7); Neutrophil % 81.6 % (47-70); Platelet Count 318 K/mm3 (150-450); RBC Distribution Width CV 14.2 % (11.6-14.6); RBC Distribution Width SD 40.2 fl (35.1-43.9); Red Blood Count 4.96 M/mm3 (4.2-5.4); White Blood Count 15.5 K/mm3 (4.4-11.0)
[2019-04-21 21:56] LABS: POSITIVE COUNT NO; POSITIVE DIFFERENTIAL NO; POSITIVE MORPHOLOGY NO
--- NOTE | 2019-04-21 21:59 | ED.RN ---
MOTHER OF THIS PT CALLED AND REQUESTED TO SPEAK TO HER DAUGHTER, PT DECLINED THIS CALL AND THAT WAS RELAYED TO CALLER, MOTHER WAS VERY RUDE AND ACCUSED ME OF JUST NOT WANTING TO LET HER SPEAK TO HER DAUGHTER AND HUNG UP THE PHONE
[2019-04-21 22:00] LABS: Anion Gap 6 (5-15); BUN 6 mg/dL (7-18); BUN/Creat Ratio 8.2 RATIO (10-20); Calcium,Total 8.6 mg/dL (8.5-10.1); Chloride 102 mmol/L (98-107); Creatinine, Serum 0.73 mg/dL (0.55-1.02); EST Glomerular Filtration Rate 102 mL/min (>60); Est Glom Filt Rate - Afr Amer 124 mL/min (>60); Estimated Creatinine Clearance 92.36 ml/min; Glucose 119 mg/dL (74-106); Potassium 3.5 mmol/L (3.5-5.1); Sodium Level 134 mmol/L (136-145)
[2019-04-21 22:03] LABS: Internal QC Validated? YES +Cl - CLEAR BKGD; Pregnancy, Serum, hCG Quali. NEGATIVE Negative
[2019-04-21 23:48] VITALS: BP 105/70; PULSE 85; RESP 16; RESP 18; O2SAT 100; O2SAT 99
== END 2019-04-21 23:49 | disposition home or self-care (01) ==
LOC: ED 22:37
PROVIDERS: Emergency Provider Emergency Medicine; Family Provider Family Medicine; PCP Family Medicine
DX: G43.909 Migraine, unspecified, not intractable, without status migrainosus (principal); N12 Tubulo-interstitial nephritis, not specified as acute or chronic
CPT/HCPCS: 80048; 81001; 84703; 85025; 87077; 87086; 87088; 87186; 96365; 96366; 96375; 99284; J7030; A4216

== ENCOUNTER 2019-09-16 10:27 | Emergency (ER) | payer SELFPAY ==
[2019-09-16 10:28] VITALS: BP 127/91; PULSE 82; RESP 16; TEMP 36.8; O2SAT 100; BMI 29.0
--- NOTE | 2019-09-16 10:48 | ED.VIS.GEN ---
History of Present Illness Chief Complaint: Upper Extremity Injury Informant: Patient Onset: Weeks - 2 Narrative: Presents for evaluation of bilateral Pain and burning sensation in hands for 2 weeks. Symptoms worsen in the morning. 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 [id number]. Sent from work for evaluation. Is not claiming as Worker's Comp. Reports that intermittent symptoms started 2 years ago. Denies any trauma. No history of gastric ulcers or kidney injury. Prior similar symptoms: Yes Past Medical History - Allergies and Home Meds Allergies/Adverse Reactions: Allergies No Known Allergies Allergy (Verified 09/16/19 10:28) Primary Care Physician: Don Solis MD [Primary Care Provider] - Smoking Status: Light Smoker (<10/day) Review of Systems General: Denies: Chills, Fever, Sweats Eyes: Denies: Visual changes - bilaterally, Diplopia ENT: Denies: Rhinorrhea, Sore throat Cardiovascular: Denies: Chest pain, Palpitations Respiratory: Denies: Dyspnea, Cough, Dyspnea on exertion Gastrointestinal: Denies: Abdominal pain, Nausea, Vomiting, Diarrhea, Melena, Hematochezia Genitourinary: Denies: Dysuria, Hematuria, Frequency Musculoskeletal: Reports: Arthralgias. Denies: Back pain, Extremity Pain Skin: Denies: Rash, Wounds Neurological: Reports: Parasthesia. Denies: Headache, Weakness, Numbness Physical Exam Vital Signs/Narrative: Vital Signs Temp Pulse Resp BP Pulse Ox 09/16/19 10:28 98.2 F 82 16 127/91 H 100 Inital Vital Signs reviewed: Yes General: Well nourished, Well developed, No Acute Distress Head: Normocephalic, Atraumatic Eyes: Perrl, EOMI ENT: Moist mucous membranes, No rhinorrhea Neck: Supple, Nontender Cardiovascular: Regular rate, Regular rhythm, No murmurs Respiratory: No distress, CTA bilaterally, Chest nontender Abdomen: Soft, Nontender, Nondistended, Normal bowel sounds Back: Nontender, Normal Inspection Extremities: No edema, - - Positive failings test to both upper extremities. Cap refill is intact in all digits. Strength intact to handgrip. Skin: Normal color, No rash Neurological: Alert, Oriented x3, Cranial nerves II-XII grossly intact, Normal Strength, Normal Sensation Psychological: Normal affect, Normal Mood Diagnostic/Tx/Re-eval - Medical Decision Making Patient exam concerns for carpal tunnel syndrome. Bilateral wrist splints, started on NSAIDs in the ED. Work note given. Discussed maintaining splints especially when she sleeps, follow-up as an outpatient further testing and treatment as needed. All questions were answered. ED Disposition - Plan for ED Patient: Disposition: Home or Assisted Living Diagnosis: Bilateral carpal tunnel syndrome Instructions: What Is Carpal Tunnel Syndrome (CTS)?, Carpal Tunnel Syndrome Prevention Tips Prescriptions: Ibuprofen [Motrin] 600 mg PO Q6H PRN PRN #20 tablet PRN Reason: Pain Score 1-10/10 Referrals: Don Solis MD [Primary Care Provider] - 5-7 Days
[2019-09-16] MEDS: Ibuprofen 600 MG Tablet PO (10:55)
[2019-09-16 11:46] VITALS: RESP 16
== END 2019-09-16 11:46 | disposition home or self-care (01) ==
LOC: ED 10:51
PROVIDERS: Emergency Provider Emergency Medicine; Family Provider Family Medicine; PCP Family Medicine
DX: G56.03 Carpal tunnel syndrome, bilateral upper limbs (principal); F17.200 Nicotine dependence, unspecified, uncomplicated
CPT/HCPCS: 99283

== ENCOUNTER → 2020-12-22 11:57 | Outpatient (CLI) | payer MEDICAID, SELFPAY ==
[2020-12-25 03:06] LABS: Chlamydia By Nucleic Acid AMP Negative (Negative)
[2020-12-25 09:19] LABS: Gonococcus By Nucleic Acid AMP Negative (Negative)
[2020-12-29 12:53] LABS: HPV APTIMA, High Risk Positive (Negative)
[2020-12-29 12:57] LABS: HPV Reflexed? YES, CHARGE PATIENT
== END ==
PROVIDERS: PCP Family Medicine; Visit Provider Student in an Organized Health Care Education/Training Program
DX: Z34.81 Encounter for supervision of other normal pregnancy, first trimester (principal)
CPT/HCPCS: 87491; 87591; 87624; 88175; G0145

== ENCOUNTER 2021-04-02 22:47 | Emergency (ER) | payer MEDICAID, SELFPAY ==
[2021-04-02 22:49] VITALS: BP 161/128; PULSE 132; RESP 15; TEMP 37.9; O2SAT 99; BMI 34.6
[2021-04-02 22:52] VITALS: BP 161/128; PULSE 132; RESP 15; TEMP 37.9; O2SAT 99
[2021-04-02] MEDS: 0.9% Normal Saline 1,000 ML 1000 ML IV (23:24)
[2021-04-02] MEDS: Morphine 4 MG/ML Syringe IV (23:25)
[2021-04-02] MEDS: Ondansetron 4 MG/2 ML Vial IV (23:25)
[2021-04-02 23:30] LABS: Absolute Neutrophil Count 18.3 X10^3/uL (2.0-7.7); Basophil# 0.04 X10^3/uL; Basophil% 0.2 % (0-1); Eosinophil# 0.03 X10^3/uL; Eosinophils% 0.1 % (0-5); Hematocrit 31.4 % (37-47); Hemoglobin 10.6 g/dL (12.0-15.0); Lymphocyte % 3.8 % (19-41); Mean Corp Hgb Conc 33.8 g/dL (32-36); Mean Corpuscular Hgb 27.2 pg (27.0-32.0); Mean Corpuscular Volume 80.7 fL (81-99); Mean Platelet Vol. 9.1 fl (6.2-12.0); Monocyte# 1.33 X10^3/uL; Monocyte% 6.4 % (0-10); NRBC Flagged by Analyzer 0 % (0-5); Neutrophil % 87.8 % (47-70); Platelet Count 222 K/mm3 (150-450); RBC Distribution Width CV 14.4 % (11.6-14.6); RBC Distribution Width SD 42.2 fl (35.1-43.9); Red Blood Count 3.89 M/mm3 (4.2-5.4); White Blood Count 20.9 K/mm3 (4.4-11.0)
[2021-04-02 23:36] LABS: Mucous, Urine 0 SEEN /hpf (<or=2+)
--- NOTE | 2021-04-02 23:38 | ED.VIS.GI ---
HPI HPI - GI History of Present Illness Chief Complaint: Abd Pain Informant: patient Abdominal Pain/Flank Pain Onset: Days (4) Context: Gradual Onset Timing: Continuous Quality: Sharp Location: RUQ and RLQ Worsened by: Nothing Relieved by: Nothing Nausea/Vomiting/Emesis GI Symptom: Negative for Nausea and Vomiting Diarrhea/Melena/Hematochezia GI Symptom: Negative for Diarrhea, Melena and Hematochezia Associated Symptoms Associated Symptoms: Negative for Dysuria and Hematuria Narrative Narrative: Patient presents with abdominal pain that has been getting worse over the past 4 days. Patient states pain is constant. Patient states pain is sharp. Patient states the pain is worse over the right side of her abdomen. Patient denies any nausea or vomiting. Patient denies any diarrhea, melena, or hematochezia. Patient states nothing makes her pain better or worse. Patient denies any dysuria or hematuria. Patient states she has been having some difficulty urinating however. PFSH PFSH Home Medications hydroxyzine HCl 25 mg PO QHS 05/03/17 [History Last Taken 12/15/18] Ranitidine [Zantac] 150 mg PO DAILY 12/17/17 [History Last Taken 12/17/17 09:00] hydroxyzine HCl 25 mg PO PRN PRN 12/17/17 [History Last Taken Unknown] Control 1 tab PO DAILY 04/15/18 [History Last Taken 12/15/18] ondansetron 4 mg PO Q8H PRN PRN #10 tab 04/21/19 [Rx Last Taken Unknown] ranitidine HCl 150 mg PO DAILY 04/21/19 [History Last Taken Unknown] sulfamethoxazole-trimethoprim 1 tab PO BID #14 tab 04/21/19 [Rx Last Taken Unknown] ibuprofen 600 mg PO Q6H PRN PRN #20 tab 09/16/19 [Rx Last Taken Unknown] gabapentin 300 mg PO QHS 04/02/21 [History Last Taken Unknown] amoxicillin-pot clavulanate 875 mg PO Q12H #20 tablet 04/03/21 [Rx Last Taken Unknown] Allergy/AdvReac Type Severity Reaction Status Date / Time No Known Allergies Allergy Verified 04/02/21 22:57 Social History Smoking Status: Light Smoker (<10/day) ROS ROS ED Constitutional Constitutional ED: Denies chills or fever(s) ENT ENT ED: Denies rhinorrhea or sore throat Cardiovascular Cardiovascular: Denies chest pain or palpitations Respiratory/Chest Respiratory/Chest: Denies cough or dyspnea Gastrointestinal Gastrointestinal: Reports abdominal pain; Denies diarrhea, nausea or vomiting Genitourinary Genitourinary ED: Denies dysuria or hematuria Musculoskeletal Musculoskeletal: Denies back pain or neck pain Integumentary Denies abscess or rash Neurologic Neurologic: Denies paresthesias or weakness Allergic/Immunologic Allergic/Immunologic ED: Denies mouth swelling or urticaria EXAM Physical Exam Const Vital Signs: 04/02/21 22:49 04/02/21 22:52 04/02/21 23:52 Temperature 100.3 F H 100.3 F H 100.1 F H Temperature Source Oral Oral Oral Pulse Rate 132 H 132 H 84 Respiratory Rate 15 15 16 Blood Pressure 161/128 H 161/128 H 152/90 H Blood Pressure Mean 139 139 110 Pulse Ox 99 99 99 Oxygen Delivery Method Room Air Room Air Room Air Positive well nourished and well developed General Appearance ED: well developed HEENT Reports moist mucous membranes Neck supple and no JVD Resp normal respiratory effort and clear to auscultation bilaterally Cardio regular rate, regular rhythm and no murmurs GI non-distended Palpation: soft and tender RUQ; Negative for guarding or rebound tenderness present Neuro CN's II-XII intact bilaterally, moves all extremities and no sensory deficits noted Sensorium / Orientation: alert, oriented to person, oriented to place and oriented to time Psych mental status grossly normal MDM MDM MDM Narrative Medical decision making narrative: Patient was given IV fluids, morphine, and Zofran. CBC shows a leukocytosis of 20.9. Comprehensive metabolic profile was essentially within normal limits. Quantitative [place]CG [place] [address]. Urinalysis shows leukocyte esterase of 500 with positive nitrites. There were greater than 100 white blood cells. There were 10-25 epithelial cells. There is 3+ bacteria. Urine culture was sent. Patient was given a dose of Rocephin. Patient was still having pain on her right side. Patient was given a dose of Dilaudid. Patient states she is feeling better and wants to go home. I offered admission, but she states she would feel better if she went home. Patient was given a prescription for Augmentin. Patient was instructed to follow-up with her primary care physician and [employer] in 2 to 3 days. Patient was instructed return if worse in any way. Patient understood and was agreeable with the plan. All questions were answered. Lab Data Attestation: I reviewed the patient's lab results. Labs: Laboratory Results - last 24 hr 04/02/21 04/02/21 04/02/21 22:50 22:50 22:50 WBC 20.9 H RBC 3.89 L Hgb 10.6 L Hct 31.4 L MCV 80.7 L MCH 27.2 MCHC 33.8 RDW Std Deviation 42.2 RDW Coeff of Erika 14.4 Plt Count 222 MPV 9.1 Immature Gran % (Auto) 1.700 H Neut % (Auto) 87.8 H Lymph % (Auto) 3.8 L [place] % (Auto) 6.4 Eos % (Auto) 0.1 Baso % (Auto) 0.2 Absolute Neuts (auto) 18.3 H Absolute Lymphs (auto) 0.80 L Nucleated RBC % 0 Sodium 135 L Potassium 3.4 L Chloride 103 Carbon Dioxide 22.0 Anion Gap 10 BUN 7 Creatinine 0.64 Estim Creat Clear Calc 103.51 Est GFR (MDRD) Af Amer 142 Est GFR (MDRD) Non-Af 117 BUN/Creatinine Ratio 10.9 Glucose 89 Calcium 8.3 L Total Bilirubin 0.40 AST 14 L ALT 14 Alkaline Phosphatase 162 H Total Protein 5.5 L Albumin 1.7 L Globulin 3.8 Albumin/Globulin Ratio 0.4 L HCG, Quant 10113 H Urine Color Urine Clarity Urine pH Ur Specific [place] Urine Protein Urine Glucose (UA) Urine Ketones Urine Occult Blood Urine Nitrite Urine Bilirubin Urine Urobilinogen Ur Leukocyte Esterase Urine RBC Urine WBC Ur Squamous Epith Cells Ur Transition Epith Cell Urine Bacteria Urine Mucus 04/02/21 23:30 WBC RBC Hgb Hct MCV MCH MCHC RDW Std Deviation RDW Coeff of Erika Plt Count MPV Immature Gran % (Auto) Neut % (Auto) Lymph % (Auto) [place] % (Auto) Eos % (Auto) Baso % (Auto) Absolute Neuts (auto) Absolute Lymphs (auto) Nucleated RBC % Sodium Potassium Chloride Carbon Dioxide Anion Gap BUN Creatinine Estim Creat Clear Calc Est GFR (MDRD) Af Amer Est GFR (MDRD) Non-Af BUN/Creatinine Ratio Glucose Calcium Total Bilirubin AST ALT Alkaline Phosphatase Total Protein Albumin Globulin Albumin/Globulin Ratio HCG, Quant Urine Color Yellow Urine Clarity Sl. Cloudy Urine pH 7.0 Ur Specific [place] 1.005 Urine Protein 30 H Urine Glucose (UA) Normal Urine Ketones Negative Urine Occult Blood 250 H Urine Nitrite Positive H Urine Bilirubin Negative Urine Urobilinogen Normal Ur Leukocyte Esterase 500 H Urine RBC 5-10 SEEN Urine WBC >100 SEEN Ur Squamous Epith Cells 10-25 SEEN Ur Transition Epith Cell 5-10 SEEN Urine Bacteria 3+ Urine Mucus 0 SEEN Discharge Plan Triage Chief Complaint: Abd Pain ED Provider: Ismael Donahue Dx/Rx/DC Orders Clinical Impression: Pyelonephritis Instructions: ED Pyelonephritis, Female (Adult) Prescriptions: New amoxicillin-pot clavulanate [amoxicillin-pot clavulanate] 875 MG tablet 875 mg PO Q12H Qty: 20 RF: 0 No Action hydroxyzine HCl 25 MG tablet 25 mg PO QHS RF: 0 hydroxyzine HCl 10 MG tablet 25 mg PO PRN PRN (Reason: Anxiety) RF: 0 Ranitidine [Zantac] 150 MG tablet 150 mg PO DAILY RF: 0 Control 1 tab PO DAILY RF: 0 ranitidine HCl 150 MG tablet 150 mg PO DAILY RF: 0 sulfamethoxazole-trimethoprim 1 TABLET tablet 1 tab PO BID Qty: 14 RF: 0 ondansetron 4 MG tablet 4 mg PO Q8H PRN PRN (Reason: Nausea) Qty: 10 RF: 0 ibuprofen 600 MG tablet 600 mg PO Q6H PRN PRN (Reason: Pain Score 1-10/10) Qty: 20 RF: 0 gabapentin 300 mg capsule 300 mg PO QHS RF: 0 Primary Care Provider: Don Solis Referrals: Don Solis MD [Primary Care Provider] - 3-5 Days Disposition Disposition: Home, self care
[2021-04-02 23:45] LABS: Color, Urine Yellow (Yellow); Glucose, Dipstick Normal (Normal); Ketone-Dipstick Negative (Negative); Leukocyte Esterase-Dipstick 500 /ul (Negative); Nitrite-Dipstick Positive (Negative); Occult Blood-Urine 250 /ul (Negative); Protein-Dipstick 30 mg/dl (Negative); Specific Gravity, Urine 1.005 (1.002-1.030); Urine Bilirubin Dipstick Negative (Negative); Urine Clarity Sl. Cloudy (Clear); Urine Urobilinogen Normal (Normal)
[2021-04-02 23:52] VITALS: BP 152/90; PULSE 84; RESP 16; TEMP 37.8; O2SAT 99
[2021-04-02 23:52] LABS: ALB/GLOB Ratio 0.4 RATIO (0.9-2.4); AST(SGOT) 14 U/L (15-37); Alanine Aminotransfer ALT/SGPT 14 U/L (13-56); Albumin, Serum 1.7 g/dL (3.2-5.0); Alkaline Phosphatase 162 U/L (45-117); Anion Gap 10 (5-15); BUN 7 mg/dL (7-18); BUN/Creat Ratio 10.9 RATIO (10-20); Calcium,Total 8.3 mg/dL (8.5-10.1); Chloride 103 mmol/L (98-107); Creatinine, Serum 0.64 mg/dL (0.55-1.02); EST Glomerular Filtration Rate 117 mL/min (>60); Est Glom Filt Rate - Afr Amer 142 mL/min (>60); Estimated Creatinine Clearance 103.51 ml/min; Globulin 3.8 g/dL (2.2-4.2); Glucose 89 mg/dL (74-106); Potassium 3.4 mmol/L (3.5-5.1); Protein, Total 5.5 g/dL (6.4-8.2); Sodium Level 135 mmol/L (136-145)
[2021-04-02 23:59] LABS: Bacteria 3+ /hpf (None Seen); Red Blood Cells-Urine 5-10 SEEN /hpf (0-5); Squamous Epithelial Cells - UA 10-25 SEEN /hpf (5-10); Transitional Epithelial - Ur 5-10 SEEN /hpf (0-5); White Blood Cells >100 SEEN /hpf (0-5)
[2021-04-03 00:14] LABS: hCG Titer Quant., Serum 10431 mIU/mL (1-3)
[2021-04-03] MEDS: Ceftriaxone 1 GM/50 ML BAG IV (00:24)
[2021-04-03] MEDS: HYDROmorphone 1 MG/ML Syringe 0.5 MG IV (00:32)
[2021-04-03 02:20] VITALS: BP 123/83; PULSE 140; RESP 18; O2SAT 94
== END 2021-04-03 02:21 | disposition home or self-care (01) ==
PROVIDERS: Emergency Provider Emergency Medicine; PCP Family Medicine
DX: N12 Tubulo-interstitial nephritis, not specified as acute or chronic (principal); F17.200 Nicotine dependence, unspecified, uncomplicated; Z79.899 Other long term (current) drug therapy
CPT/HCPCS: 80053; 81001; 84702; 85025; 87086; 87088; 87186; 96365; 96375; 99285; J7050; J2405

== ENCOUNTER 2021-06-27 23:19 | Emergency (ER) | payer MEDICAID, SELFPAY ==
[2021-06-27 23:20] VITALS: BP 158/103; PULSE 82; RESP 16; TEMP 36.3; O2SAT 99; BMI 32.0
--- NOTE | 2021-06-27 23:39 | RAD_ITS ---
STUDY: X-RAY - RIGHT ANKLE REASON FOR EXAM: Female, 30 years old. ROLLED ANKLE TECHNIQUE: 3 view(s) of the ankle. COMPARISON: None. FINDINGS: Normal visualized distal tibia and fibula. Normal medial and lateral malleoli. Normal tibiotalar articulation and ankle mortise. There is a subtle calcific density lateral to the medial malleolus on the AP view not seen on other views. There is a visualized plantar spur. The visualized subtalar, talonavicular, calcaneocuboid and tarsal articulations are normal. The soft tissue structures are unremarkable. RAD/Ankle min 3 Views IMPRESSION: Subtle punctate calcification projected tibial talar joint may represent soft tissue calcification doubtful for motion there is no significant soft tissue edema. However, If pain persists an MRI may be warranted. Plantar spur. Electronically Signed: Ruby Matta MD at 0:49 EDT Tel , Service support ,
--- NOTE | 2021-06-28 01:23 | ED.VIS.LOWEX ---
HPI History of Present Illness Chief Complaint: Lower Extremity Injury Informant: patient Occured/Mechanism Mechanism/Context: Yes injury Onset/Context/Timing Onset: Yesterday Context: Sudden Onset Timing: Continuous Quality of Pain: Sharp Current Severity: Mild Maximum Severity: Mild Associated Symptoms Associated Symptoms: Negative for Parasthesia, Weakness and Loss of Funtion Narrative Narrative: 30-year-old female jumped out of the back of the truck and twisted her right ankle inverting it. This occurred around 3:00 on Sunday. She is complaining of pain and difficulty ambulating. No prior history of fracture or surgery to this ankle. She denies any knee or hip pain or other injuries. Prior similar symptoms: No Recent Illness/Hospitalization: No [facility] Medical History Carpal tunnel syndrome Pyelonephritis Home Medications hydroxyzine HCl 25 mg PO QHS 05/03/17 [History Last Taken 12/15/18] Ranitidine [Zantac] 150 mg PO DAILY 12/17/17 [History Last Taken 12/17/17 09:00] hydroxyzine HCl 25 mg PO PRN PRN 12/17/17 [History Last Taken Unknown] Control 1 tab PO DAILY 04/15/18 [History Last Taken 12/15/18] ondansetron 4 mg PO Q8H PRN PRN #10 tab 04/21/19 [Rx Last Taken Unknown] ranitidine HCl 150 mg PO DAILY 04/21/19 [History Last Taken Unknown] sulfamethoxazole-trimethoprim 1 tab PO BID #14 tab 04/21/19 [Rx Last Taken Unknown] ibuprofen 600 mg PO Q6H PRN PRN #20 tab 09/16/19 [Rx Last Taken Unknown] gabapentin 300 mg PO QHS 04/02/21 [History Last Taken Unknown] amoxicillin-pot clavulanate 875 mg PO Q12H #20 tablet 04/03/21 [Rx Last Taken Unknown] Allergy/AdvReac Type Severity Reaction Status Date / Time No Known Allergies Allergy Verified 06/27/21 23:22 Social History Smoking Status: Light Smoker (<10/day) ROS ROS ED ROS Narrative Denies recent illness. Review of Systems ROS Unobtainable: Denies due to encephalopathy Constitutional Constitutional ED: Denies chills, fever(s) or subjective Eyes Eyes: Denies change in vision ENT ENT ED: Denies ear pain or sore throat Cardiovascular Cardiovascular: Denies chest pain Respiratory/Chest Respiratory/Chest: Denies cough or dyspnea Gastrointestinal Gastrointestinal: Denies abdominal pain, diarrhea, nausea or vomiting Genitourinary Genitourinary ED: Denies dysuria Musculoskeletal Musculoskeletal: Denies myalgias Integumentary Denies rash Neurologic Neurologic: Denies headache(s) Psychiatric Psychiatric: Denies depression Endocrine Endocrinology: Denies polyuria Hematologic/Lymphatic Hematologic/Lymphatic: Denies easy bruising Allergic/Immunologic Allergic/Immunologic ED: Denies urticaria EXAM Physical Exam Narrative Exam Narrative: Well-appearing 22-year-old female. Vital signs stable afebrile. H EENT exam atraumatic. Neck nontender. Lungs are clear. Heart regular rhythm. Chest nontender. Abdomen soft nontender. Back nontender. Remedies moves all 4. Neurovascularly intact right hip and knee are nontender full range of motion no swelling. Right ankle minimal swelling and tenderness in the lateral malleolus. Medial malleolus nontender. Achilles tendon intact. Dorsi plantarflexion intact. Palpable DP pulse. Able to wiggle her toes. No deformity or significant tenderness to the foot. Otherwise exam unremarkable. Const Vital Signs: 06/27/21 23:20 Temperature 97.4 F L Temperature Source Temporal Pulse Rate 82 Respiratory Rate 16 Blood Pressure 158/103 H Blood Pressure Mean 121 Pulse Ox 99 Oxygen Delivery Method Room Air Positive well nourished and well developed; Negative for obese, cachectic, contractures or unkempt General Appearance ED: well developed and NAD; Negative for unkempt, cachectic or contractures Nutritional Appearance: Negative for cachectic or obese HEENT Reports moist mucous membranes normocephalic and atraumatic; Negative for trauma or tenderness Eyes PERRL Neck full ROM and supple Thyroid: Negative for tender Chest Wall inspection of chest normal and palpation of chest normal Resp normal respiratory effort, no retractions and clear to auscultation bilaterally Auscultation: Negative for rales, rhonchi or wheezes Cardio regular rate, regular rhythm, S1 normal heart sound, S2 normal heart sound and no murmurs GI non-tender, non-distended and no masses Inspection: Negative for abdominal distention Auscultation: normoactive bowel sounds Palpation: soft; Negative for tender or guarding Back/Spine no CVA tenderness General Back: Negative for CVA tenderness Cervical Spine: Negative for cervical spine tenderness Thoracic Spine / Upper Back: Negative for thoracic spinal tenderness Lumbar Spine / Lower Back: Negative for lumbar spinal tenderness Extremity normal to inspection Extremity Narrative: Except right ankle mild swelling lateral malleolus. Mild tenderness. Achilles tendon intact. Dorsi plantar flexion intact. DP pulse intact. No deformity tenderness to the foot. Able to wiggle toes. Normal touch sensation. Neuro oriented x3 and moves all extremities Sensorium / Orientation: alert, oriented to person, oriented to place and oriented to time; Negative for orientation impaired, confused, lethargic or stuporous Motor Exam: strength 5/5 throughout Psych mental status grossly normal Appearance: Negative for unkempt Skin Lesions: no lesions Rashes: no rashes MDM MDM MDM Narrative Medical decision making narrative: X-rays obtained right ankle 3 views showed no acute abnormality. Interpreted by myself and the radiologist. Patient be placed in an Aircast and crutches and increase activity as tolerated. Ice and elevate. Motrin for pain. Radiography Diagnostic Testing: Radiology Impression Ankle X-Ray 06/27/21 23:39 IMPRESSION: Subtle punctate calcification projected tibial talar joint may represent soft tissue calcification doubtful for motion there is no significant soft tissue edema. However, If pain persists an MRI may be warranted. Plantar spur. Electronically Signed: Ruby Matta MD at 0:49 EDT Tel , Service support , Right ankle x-ray 3 views interpreted by myself and radiologist shows no acute abnormality. No fracture. No significant soft tissue swelling. No dislocation. Discharge Plan Triage Chief Complaint: Lower Extremity Injury ED Provider: Ash Ortega Dx/Rx/DC Orders Clinical Impression: Moderate right ankle sprain Instructions: ED Ankle Sprain (Adult) Prescriptions: No Action hydroxyzine HCl 25 MG tablet 25 mg PO QHS RF: 0 hydroxyzine HCl 10 MG tablet 25 mg PO PRN PRN (Reason: Anxiety) RF: 0 Ranitidine [Zantac] 150 MG tablet 150 mg PO DAILY RF: 0 Control 1 tab PO DAILY RF: 0 ranitidine HCl 150 MG tablet 150 mg PO DAILY RF: 0 sulfamethoxazole-trimethoprim 1 TABLET tablet 1 tab PO BID Qty: 14 RF: 0 ondansetron 4 MG tablet 4 mg PO Q8H PRN PRN (Reason: Nausea) Qty: 10 RF: 0 ibuprofen 600 MG tablet 600 mg PO Q6H PRN PRN (Reason: Pain Score 1-10/10) Qty: 20 RF: 0 gabapentin 300 mg capsule 300 mg PO QHS RF: 0 amoxicillin-pot clavulanate [amoxicillin-pot clavulanate] 875 MG tablet 875 mg PO Q12H Qty: 20 RF: 0 Primary Care Provider: Don Solis Referrals: Don Solis MD [Primary Care Provider] - 1 Week if not improving Activity Restrictions/Additional Instructions: Ice and elevate your right ankle to decrease pain and swelling. Slowly increase activity as tolerated. Follow-up with your doctor if not improving in 7 to 10 days. Motrin for pain and swelling and Tylenol for pain. Disposition Disposition: Home, Self Care
[2021-06-28] MEDS: Ibuprofen 600 MG Tablet PO (01:48)
== END 2021-06-28 01:48 | disposition home or self-care (01) ==
LOC: ED 06-28 01:28
PROVIDERS: Emergency Provider Emergency Medicine; PCP Family Medicine
DX: S93.401A Sprain of unspecified ligament of right ankle, initial encounter (principal); F17.200 Nicotine dependence, unspecified, uncomplicated; X50.1XXA Overexertion from prolonged static or awkward postures, initial encounter
CPT/HCPCS: 73610; 99284

== ENCOUNTER 2022-01-15 19:51 | Emergency (ER) | payer MEDICAID, SELFPAY ==
[2022-01-15 19:52] VITALS: BP 142/106; PULSE 88; RESP 16; RESP 18; TEMP 35.6; O2SAT 100; BMI 31.0
--- NOTE | 2022-01-15 20:05 | RAD_ITS ---
INDICATION: chest pain EXAMINATION/TECHNIQUE: X-RAY - XR Chest 1 View COMPARISON: None. FINDINGS: LINES/DEVICES: None. LUNGS: Symmetric normal lung volumes. No airspace opacity or abnormal interstitial pattern. No nodule or mass. No pleural effusion or pneumothorax. MEDIASTINUM AND CARDIOVASCULAR STRUCTURES: Normal size and contour of the cardiomediastinal silhouette. No evidence of pulmonary vascular congestion. BONES AND SOFT TISSUES: There is a mild, gradual, lateral curvature thoracic spine, convex left. No focal malalignment. Normal shape and vertebrae. No fracture or focal osseous lesion. RAD/Chest 1 View (Portable) IMPRESSION: 1. No radiographic evidence of acute cardiopulmonary disease. 2. Mild, gradual lateral curvature thoracic spine, convex left. Correlate clinically for possible scoliosis. Electronically Signed: Joshua Castro DO at 20:49 EDT ,
--- NOTE | 2022-01-15 20:05 | EKG12_ITS ---
Test Reason : CP Blood Pressure : / mmHG Vent. Rate : 084 BPM Atrial Rate : 084 BPM P-R Int : 140 ms QRS Dur : 088 ms QT Int : 388 ms P-R-T Axes : 040 021 035 degrees QTc Int : 458 ms Normal sinus rhythm Normal ECG Confirmed by LUANA MALLORY, LIZANDRO ([id number]), editor producer RADHA FAGAN ([id number]) on 01/19/2022 9:20:57 AM Referred By: EDWARDO Confirmed By:LIZANDRO CRAFT MD
[2022-01-15 20:36] LABS: Absolute Lymphocyte Count 2.48 X10^3/uL (0.83-4.51); Absolute Neutrophil Count 4.6 X10^3/uL (2.0-7.7); Basophil# 0.02 X10^3/uL; Basophil% 0.3 % (0-1); Eosinophil# 0.21 X10^3/uL; Eosinophils% 2.7 % (0-5); Hematocrit 40.8 % (37-47); Hemoglobin 13.6 g/dL (12.0-15.0); Lymphocyte # 2.48 X10^3/ul (0.83-4.51); Mean Corp Hgb Conc 33.3 g/dL (32-36); Mean Corpuscular Hgb 25.6 pg (27.0-32.0); Mean Corpuscular Volume 76.8 fL (81-99); Mean Platelet Vol. 8.3 fl (6.2-12.0); Monocyte# 0.44 X10^3/uL; Monocyte% 5.7 % (0-10); NRBC Flagged by Analyzer 0 % (0-5); Neutrophil # 4.58 X10^3/uL (2.7-7.7); Neutrophil % 59.2 % (47-70); Platelet Count 408 K/mm3 (150-450); RBC Distribution Width CV 14.8 % (11.6-14.6); RBC Distribution Width SD 41.1 fl (35.1-43.9); Red Blood Count 5.31 M/mm3 (4.2-5.4); White Blood Count 7.7 K/mm3 (4.4-11.0)
--- NOTE | 2022-01-15 20:38 | ED.VIS.CHEST ---
HPI History of Present Illness Chief Complaint: Chest Pain Narrative Narrative: Patient presenting with chest pain. He states he became very upset and hot headed and when she does this her blood pressure and heart rate go up. She states she took her metoprolol 25 mg which she normally takes. She states he is currently feeling more calm but felt like her anxiety had taken over and she was scared she might faint. Patient denies any history of CA. No history of DVT/PE. Patient states she does have hypertension which is known and is always worse when she gets angry. [facility] Medical History Carpal tunnel syndrome Pyelonephritis Home Medications hydroxyzine HCl 25 mg PO QHS 05/03/17 [History Last Taken 12/15/18] Ranitidine [Zantac] 150 mg PO DAILY 12/17/17 [History Last Taken 12/17/17 09:00] ranitidine HCl 150 mg PO DAILY 04/21/19 [History Last Taken Unknown] sulfamethoxazole-trimethoprim 1 tab PO BID #14 tab 04/21/19 [Rx Last Taken Unknown] gabapentin 300 mg PO QHS 04/02/21 [History Last Taken Unknown] buspirone 5 mg PO DAILY 01/15/22 [History Last Taken Unknown] metoprolol succinate 25 mg PO DAILY 01/15/22 [History Last Taken Unknown] Allergy/AdvReac Type Severity Reaction Status Date / Time No Known Allergies Allergy Verified 06/27/21 23:22 Social History Smoking Status: Light Smoker (<10/day) [facility] ED Constitutional Constitutional ED: Denies chills or fever(s) Eyes Eyes: Denies blurry vision or change in vision ENT ENT ED: Denies rhinorrhea or sore throat Cardiovascular Cardiovascular: Reports as per HPI Respiratory/Chest Respiratory/Chest: Denies cough or dyspnea Gastrointestinal Gastrointestinal: Denies abdominal pain, nausea or vomiting Genitourinary Genitourinary ED: Denies dysuria Musculoskeletal Musculoskeletal: Denies arthralgias or myalgias Integumentary Denies rash Neurologic Neurologic: Denies headache(s) or paresthesias Psychiatric Psychiatric: Reports anxiety; Denies depression EXAM Physical Exam Const Vital Signs: 01/15/22 19:52 01/15/22 20:16 Temperature 96.0 F L Temperature Source Temporal Pulse Rate 88 Respiratory Rate 18 Blood Pressure 142/106 H Blood Pressure Mean 118 Pulse Ox 100 Oxygen Delivery Method Room Air Room Air Positive well developed General Appearance ED: well developed and NAD; Negative for pallor HEENT Reports moist mucous membranes normocephalic and atraumatic Eyes PERRL and EOMs intact bilaterally Resp normal respiratory effort Effort and Inspection: respiratory distress Cardio regular rate and regular rhythm GI normal to inspection, nondistended, normoactive bowel sounds Neuro oriented x3 Sensorium / Orientation: awake and alert Psych mental status grossly normal Mood & Affect: anxious Skin General Skin Exam: Negative for jaundice or pallor Heart Score History: Slightly/Non-Suspicious ECG: Normal Age: </= 45 years Risk Factors: 1 or 2 Risk Factors Troponin: </= Normal Limit Score: 1 MDM MDM MDM Narrative Medical decision making narrative: Patient presenting with chest pain after becoming angry. Is currently feeling better and her anxiety is resolving. I obtained an EKG which on my interpretation shows a normal sinus rhythm with a ventricular rate of 84 bpm without sign of ischemic change. Chest x-ray my interpretation shows no acute cardiopulmonary process and the radiologist does agree. CBC currently within normal limits. BMP shows normal renal function. Electrolytes are normal exception of potassium of 3.0 which was repleted with 40 mill complex of potassium. Patient counseled on high potassium diet as it appears that she always has low potassium. Chest x-ray on my interpretation shows no acute cardiopulmonary process and the radiologist does agree. High-sensitivity troponin is 16. I do not believe the patient needs a delta troponin as this does not sound cardiac in nature and I believe that she likely was just angry. Impression: 1. Chest pain noncardiac 2. Hypokalemia Lab Data Attestation: I reviewed the patient's lab results. Labs: Laboratory Results - last 24 hr 01/15/22 01/15/22 20:20 20:20 WBC 7.7 RBC 5.31 Hgb 13.6 Hct 40.8 MCV 76.8 L MCH 25.6 L MCHC 33.3 RDW Std Deviation 41.1 RDW Coeff of Erika 14.8 H Plt Count 408 MPV 8.3 Immature Gran % (Auto) 0.100 Neut % (Auto) 59.2 Lymph % (Auto) 32.0 [place] % (Auto) 5.7 Eos % (Auto) 2.7 Baso % (Auto) 0.3 Absolute Neuts (auto) 4.6 Absolute Lymphs (auto) 2.48 Nucleated RBC % 0 Sodium 140 Potassium 3.0 L Chloride 109 H Carbon Dioxide 25.0 Anion Gap 6 BUN 10 Creatinine 0.78 Estim Creat Clear Calc 84.17 Est GFR (MDRD) Af Amer 113 Est GFR (MDRD) Non-Af 93 BUN/Creatinine Ratio 12.9 Glucose 86 Calcium 9.3 Troponin I High Sens 15 Radiography Diagnostic Testing: Clinical Impression(s) from Imaging Studies Chest X-Ray 01/15/22 20:05 IMPRESSION: 1. No radiographic evidence of acute cardiopulmonary disease. 2. Mild, gradual lateral curvature thoracic spine, convex left. Correlate clinically for possible scoliosis. Electronically Signed: Joshua Castro DO at 20:49 EDT , Discharge Plan Triage Chief Complaint: Chest Pain ED Provider: Huy Hammond Dx/Rx/DC Orders Instructions: ED Chest Pain, Noncardiac Prescriptions: No Action hydroxyzine HCl 25 MG tablet 25 mg PO QHS RF: 0 Ranitidine [Zantac] 150 MG tablet 150 mg PO DAILY RF: 0 ranitidine HCl 150 MG tablet 150 mg PO DAILY RF: 0 sulfamethoxazole-trimethoprim 1 TABLET tablet 1 tab PO BID Qty: 14 RF: 0 gabapentin 300 mg capsule 300 mg PO QHS RF: 0 buspirone 5 mg tablet 5 mg PO DAILY RF: 0 metoprolol succinate 25 mg Tablet Extended Release 24 Hr 25 mg PO DAILY RF: 0 Primary Care Provider: Don Solis Referrals: Don Solis MD [Primary Care Provider] - Disposition Disposition: Home, Self Care
[2022-01-15 21:14] LABS: Anion Gap 6 (5-15); BUN 10 mg/dL (7-18); BUN/Creat Ratio 12.9 RATIO (10-20); Calcium,Total 9.3 mg/dL (8.5-10.1); Chloride 109 mmol/L (98-107); Creatinine, Serum 0.78 mg/dL (0.55-1.02); EST Glomerular Filtration Rate 93 mL/min (>60); Est Glom Filt Rate - Afr Amer 113 mL/min (>60); Estimated Creatinine Clearance 84.17 ml/min; Glucose 86 mg/dL (74-106); Sodium Level 140 mmol/L (136-145); Troponin-I HS 15 pg/mL (3.0-54.0)
[2022-01-15] MEDS: Potassium Chloride Oral Tablet 20 MEQ 40 MEQ PO (21:55)
[2022-01-15 21:57] VITALS: BP 148/105; PULSE 83; RESP 16; O2SAT 100
[2022-01-15 22:01] VITALS: BP 148/105; PULSE 83; RESP 16; O2SAT 100
== END 2022-01-15 22:04 | disposition home or self-care (01) ==
PROVIDERS: Emergency Provider Student in an Organized Health Care Education/Training Program; PCP Family Medicine; Visit Provider Student in an Organized Health Care Education/Training Program
DX: R07.89 Other chest pain (principal); E87.6 Hypokalemia; F17.200 Nicotine dependence, unspecified, uncomplicated; Z79.899 Other long term (current) drug therapy
CPT/HCPCS: 71045; 80048; 84484; 85025; 93005; 99284; A4216

== ENCOUNTER 2022-03-02 18:50 | Emergency (ER) | payer MEDICAID, SELFPAY ==
[2022-03-02 18:51] VITALS: BP 94/64; PULSE 109; RESP 24; TEMP 36; O2SAT 97; BMI 29.2
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
[2022-03-02] MEDS: Lidocaine 1% (20 ml mdv) 20 ML Vial INFILT (20:23)
[2022-03-02] MEDS: Ibuprofen 400 MG Tablet 800 MG PO (20:23)
== END 2022-03-02 20:30 | disposition home or self-care (01) ==
PROVIDERS: Emergency Provider Emergency Medicine; PCP Family Medicine; Visit Provider Emergency Medicine
DX: S01.81XA Laceration without foreign body of other part of head, initial encounter (principal); F17.200 Nicotine dependence, unspecified, uncomplicated; X58.XXXA Exposure to other specified factors, initial encounter
CPT/HCPCS: 12011; 99283

== ENCOUNTER 2022-03-09 13:11 | Emergency (ER) | payer MEDICAID, SELFPAY ==
[2022-03-09 13:12] VITALS: BP 124/79; PULSE 94; RESP 16; TEMP 36.6; O2SAT 100; BMI 30.2
--- NOTE | 2022-03-09 13:42 | EDS_ITS ---
HPI <DANIEL Smith - Last Filed: 03/09/22 13:46> History of Present Illness Chief Complaint: Wound Check Narrative Narrative: 31-year-old female presents to the emergency department for a suture removal. Patient had a facial injury 1 week ago, 2 simple interrupted sutures were placed to the right eyebrow. There was no indication of any infection. Patient is here because she could not get into her PCP to have the sutures removed. Patient denies any complications. PFSH <DANIEL Smith - Last Filed: 03/09/22 13:46> [facility] Medical History Carpal tunnel syndrome Pyelonephritis Home Medications hydroxyzine HCl 25 mg PO QHS 05/03/17 [History Last Taken 12/15/18] Ranitidine [Zantac] 150 mg PO DAILY 12/17/17 [History Last Taken 12/17/17 09:00] ranitidine HCl 150 mg PO DAILY 04/21/19 [History Last Taken Unknown] sulfamethoxazole-trimethoprim 1 tab PO BID #14 tab 04/21/19 [Rx Last Taken Unknown] gabapentin 300 mg PO QHS 04/02/21 [History Last Taken Unknown] buspirone 5 mg PO DAILY 01/15/22 [History Last Taken Unknown] metoprolol succinate 25 mg PO DAILY 01/15/22 [History Last Taken Unknown] Allergy/AdvReac Type Severity Reaction Status Date / Time No Known Allergies Allergy Verified 03/09/22 13:13 Social History (Updated 03/02/22 @ 20:[address] Jose J Meng DO) Smoking Status: Light Smoker (<10/day) ROS <DANIEL Smith - Last Filed: 03/09/22 13:46> ROS ED ROS Narrative Constitutional: Negative for fever, chills, weight loss, weakness Eyes: Negative for vision loss, vision change, double vision. Positive for 2 sutures to the right eyebrow ENT: Negative for any sore throat, ear pain, congestion Cardiovascular: Negative for any chest pain, tightness, palpitations, racing heartbeat Respiratory: Negative for any cough, sputum production, hemoptysis, shortness of breath, shortness of breath on exertion, orthopnea Gastrointestinal: Negative for any abdominal pain, nausea, vomiting, diarrhea, constipation, blood in stool, blood in vomit : Negative for any urinary frequency, incontinence, dysuria, retention, blood in urine Muscle skeletal: Negative for any muscle joint pain, stiffness, myalgias, arthralgias, neck pain, back pain Neurological: Negative for any headache, dizziness, syncope, numbness or tingling Skin: Negative for any rashes, lumps, itching, abrasions, lacerations Psychiatric: Negative for any depression, anxiety, stress, suicidal ideation, homicidal ideation Hematologic: Negative for any easy bruising, excessive bruising, easy bleeding Allergies: Negative for any eczema, hives, rash EXAM <DANIEL Smith - Last Filed: 03/09/22 13:46> Physical Exam Narrative Exam Narrative: Vital signs reviewed. HEET: Head normocephalic atraumatic, TMs clear bilaterally. Posterior pharynx is clear, moist mucous membranes. Nares clear bilaterally. Patient did have 2 simple interrupted sutures placed to the right eyebrow, there was no signs or symptoms of infection, negative for any erythema, edema. Negative for any drainage. I was able to remove the sutures easily in its entirety. Patient tolerated well Neck: Supple with no lymphadenopathy or tenderness. No signs of meningismus, negative jolt sign. Skin: Clean dry and intact with no rash, purpura, petechiae, vesicles or pustules. Backslash flank: No CVA tenderness, no midline spinal tenderness, no deformity. Psych: Normal mood and affect. No SI, HI or acute psychosis. Const Vital Signs: 03/09/22 13:12 Temperature 97.9 F Temperature Source Temporal Pulse Rate 94 Respiratory Rate 16 Blood Pressure 124/79 H Blood Pressure Mean 94 Pulse Ox 100 Oxygen Delivery Method Room Air Positive well nourished and well developed General Appearance ED: well developed <Dr. Eliot Rushing MD - Last Filed: 03/09/22 13:48> Physical Exam Const Vital Signs: 03/09/22 13:12 Temperature 97.9 F Temperature Source Temporal Pulse Rate 94 Respiratory Rate 16 Blood Pressure 124/79 H Blood Pressure Mean 94 Pulse Ox 100 Oxygen Delivery Method Room Air MDM <DANIEL Smith - Last Filed: 03/09/22 13:46> MDM MDM Narrative Medical decision making narrative: Patient appears well, patient appears nontoxic, vital signs are stable. Patient presents to the emergency department to have sutures removed from her right eyebrow. Patient had no complaints, the sutures looked well, there was no signs or symptoms of infection. I was able to take these 2 sutures out without complication. Patient tolerated well. <Dr. Eliot Rushing MD - Last Filed: 03/09/22 13:48> [facility] Narrative Medical decision making narrative: Seen and evaluated independently and in conjunction with nurse practitioner. Agree with notes above unless documented otherwise. Patient here for suture removal. No pain or symptoms of infection or discharge. Exam: Healing laceration right lateral eyebrow without tenderness it is mildly swollen no dehiscence or bleeding or purulent discharge. Sutures removed without difficulty or dehiscence. Supportive care advised. <Dr. Eliot Rushing MD - Last Filed: 03/09/22 13:48> Other Procedures Procedure(s): #2 Sutures removed without complication after isopropanol prep. Tolerated well. Discharge Plan Triage Chief Complaint: Wound Check ED Midlevel Provider: Valerio Taveras ED Provider: Eliot Rushing Dx/Rx/DC Orders Clinical Impression: Visit for suture removal Instructions: ED Stitches/Staple Removal No ... Prescriptions: No Action hydroxyzine HCl 25 MG tablet 25 mg PO QHS RF: 0 Ranitidine [Zantac] 150 MG tablet 150 mg PO DAILY RF: 0 ranitidine HCl 150 MG tablet 150 mg PO DAILY RF: 0 sulfamethoxazole-trimethoprim 1 TABLET tablet 1 tab PO BID Qty: 14 RF: 0 gabapentin 300 mg capsule 300 mg PO QHS RF: 0 buspirone 5 mg tablet 5 mg PO DAILY RF: 0 metoprolol succinate 25 mg Tablet Extended Release 24 Hr 25 mg PO DAILY RF: 0 Primary Care Provider: Don Solis Referrals: Don Solis MD [Primary Care Provider] - Print Language: Bahraini Disposition Disposition: Home, Self Care
== END 2022-03-09 13:53 | disposition home or self-care (01) ==
PROVIDERS: Emergency Provider Emergency Medicine; PCP Family Medicine; Visit Provider Emergency Medicine
DX: Z48.02 Encounter for removal of sutures (principal); F17.200 Nicotine dependence, unspecified, uncomplicated
CPT/HCPCS: 99282

== ENCOUNTER 2022-11-03 07:10 | Emergency (ER) | payer MEDICAID, SELFPAY ==
[2022-11-03 07:11] VITALS: BP 128/76; PULSE 110; RESP 16; TEMP 36.2; O2SAT 100; BMI 25.6
--- NOTE | 2022-11-03 07:54 | ED.VIS.FEGU ---
HPI HPI - Female History of Present Illness Chief Complaint: Vag Bld, Preg Informant: patient Narrative Narrative: Presents increasing vaginal bleeding today. Is day 5 of her menstrual period. Typically lasts 5 days a day was increased going through 4 pads an hour states had discomfort when she placed the pads. No lightheaded symptoms no anticoagulations. She states occasional abnormal menstrual. She missed her menstrual period 2 months ago had a normal one last month. Sexually active. Her youngest child is 1-1/2 years old. Her last delivery was in [facility]. She is seeing [facility] here once before with 1 delivery. Prior similar symptoms: Yes [facility] Medical History Carpal tunnel syndrome Pyelonephritis Home Medications hydroxyzine HCl 25 mg tablet 25 mg PO QHS anxiety 05/03/17 [History Last Taken 12/15/18] Ranitidine [Zantac] 150 mg PO DAILY 12/17/17 [History Last Taken 12/17/17 09:00] ranitidine HCl 150 mg tablet 150 mg PO DAILY 04/21/19 [History Last Taken Unknown] sulfamethoxazole 800 mg-trimethoprim 160 mg tablet 1 tab PO BID #14 tabs 04/21/19 [Rx Last Taken Unknown] gabapentin 300 mg capsule 300 mg PO QHS 04/02/21 [History Last Taken Unknown] buspirone 5 mg tablet 5 mg PO DAILY 01/15/22 [History Last Taken Unknown] metoprolol succinate 25 mg tablet,extended release 24 hr 25 mg PO DAILY 01/15/22 [History Last Taken Unknown] Allergy/AdvReac Type Severity Reaction Status Date / Time No Known Allergies Allergy Verified 11/03/22 07:13 Social History Smoking Status: Light Smoker (<10/day) ROS ROS ED Constitutional Constitutional ED: Denies chills, fever(s) or sweats Eyes Eyes: Denies change in vision ENT ENT ED: Denies dysphagia or sore throat Cardiovascular Cardiovascular: Denies chest pain, leg edema, palpitations or racing heartbeat Respiratory/Chest Respiratory/Chest: Denies cough, dyspnea or dyspnea on exertion Gastrointestinal Gastrointestinal: Denies abdominal pain, diarrhea, nausea or vomiting Genitourinary Genitourinary ED: Reports other Details: Abnormal vaginal bleeding ; Denies dysuria, hematuria or urinary frequency Musculoskeletal Musculoskeletal: Denies back pain, extremity pain or neck pain Integumentary Denies rash or wounds Neurologic Neurologic: Denies headache(s), paresthesias or weakness EXAM Physical Exam Const Vital Signs: 11/03/22 07:11 11/03/22 11:16 11/03/22 11:16 Temperature 97.1 F L 97.8 F Temperature Source Temporal Pulse Rate 110 H 78 Respiratory Rate 16 16 16 Blood Pressure 128/76 H Blood Pressure Mean 93 Pulse Ox 100 99 99 Oxygen Delivery Method Room Air Room Air Positive well nourished and well developed General Appearance ED: well developed and NAD HEENT Reports moist mucous membranes normocephalic and atraumatic Eyes PERRL, EOMs intact bilaterally and conjunctivae normal General Eye ED: Yes normal appearance of both eyes Neck no lymphadenopathy and supple General: Negative for tenderness Chest Wall Chest: Negative for tenderness Resp normal respiratory effort and normal air movement Effort and Inspection: symmetric chest movement; Negative for respiratory distress Cardio regular rate, regular rhythm and no murmurs Peripheral Pulses: pulses 2+ throughout GI normal to inspection, nondistended, normoactive bowel sounds and non-tender Palpation: Negative for guarding or rebound tenderness present Narrative: Declined pelvic exam Back/Spine no CVA tenderness and no thoracic nor lumbar tenderness Extremity normal to inspection General Extremety ED: Negative for edema or tenderness General Extremity: Negative for edema Neuro oriented x3 and no sensory deficits noted Sensorium / Orientation: awake and alert Skin no rashes or lesions noted and no wounds MDM MDM MDM Narrative Medical decision making narrative: Patient presents dysfunctional uterine bleeding day 5. Nontoxic. No anticoagulation medicines. Work-up with a urine was positive. No pelvic pain currently for concerns for ectopic . Patient had ABO Rh in the system she is O+ from records. Quant hCG is 2904. Initial plan for pelvic exam however reevaluation she declined this. She has seen [facility] in the past. Discussed threatened miscarriage with the patient. She is a G5, P3 currently with 1 miscarriage in the past. Discussed pelvic rest. Discussed monitoring bleeding. Discussed following with her OB for recheck quant and further testing as an outpatient. Return precautions. All questions were answered. Lab Data Attestation: I reviewed the patient's lab results. Labs: Laboratory Results - last 24 hr 11/03/22 11/03/22 11/03/22 08:09 08:09 09:35 HCG, Quant 2904 H Urine Color Red Urine Clarity Turbid Urine pH 5.0 Ur Specific [place] 1.020 Urine Protein 500 H Urine Glucose (UA) Normal Urine Ketones 15 H Urine Occult Blood 250 H Urine Nitrite Negative Urine Bilirubin Negative Urine Urobilinogen Normal Ur Leukocyte Esterase Negative Urine RBC > 100 SEEN Urine WBC 5-10 SEEN Ur Squamous Epith Cells 0-5 SEEN Ur Transition Epith Cell 0 SEEN Urine Bacteria 0 SEEN Urine Mucus 0 SEEN Urine Test Positive H Chlam trachomat DNA PCR Cancelled N.gonorrhoeae DNA (PCR) Cancelled Discharge Plan Triage Chief Complaint: Vag Bld, Preg ED Provider: Anson García Dx/Rx/DC Orders Clinical Impression: Miscarriage, threatened, early Instructions: ED Possible Miscarriage ... Prescriptions: No Action hydroxyzine HCl 25 MG tablet 25 mg PO QHS Ranitidine [Zantac] 150 MG tablet 150 mg PO DAILY ranitidine HCl 150 MG tablet 150 mg PO DAILY sulfamethoxazole-trimethoprim 1 TABLET tablet 1 tab PO BID Qty: 14 0RF gabapentin 300 mg capsule 300 mg PO QHS Label Comments: take 1 capsule by mouth at bedtime buspirone 5 mg tablet 5 mg PO DAILY metoprolol succinate 25 mg Tablet Extended Release 24 Hr 25 mg PO DAILY Primary Care Provider: Don Solis Referrals: Don Solis MD [Primary Care Provider] - Rahul Villanueva MD [Med Staff - Active Staff] - 3-5 Days Activity Restrictions/Additional Instructions: hCG quant 2904. Start prenatals. Pelvic rest. Monitor for bleeding. Follow-up with Dr. Villanueva for recheck hCG. Disposition Disposition: Home, Self Care Discharge Date/Time: 11/03/22 11:22
[2022-11-03 08:15] LABS: Bacteria 0 SEEN /hpf (None Seen); Mucous, Urine 0 SEEN /hpf (<or=2+)
[2022-11-03 08:49] LABS: Color, Urine Red (Yellow); Glucose, Dipstick Normal (Normal); Ketone-Dipstick 15 mg/dl (Negative); Leukocyte Esterase-Dipstick Negative /ul (Negative); Nitrite-Dipstick Negative (Negative); Occult Blood-Urine 250 /ul (Negative); Protein-Dipstick 500 mg/dl (Negative); Urine Bilirubin Dipstick Negative (Negative); Urine Clarity Turbid (Clear); Urine Urobilinogen Normal (Normal)
[2022-11-03 09:03] LABS: Red Blood Cells-Urine > 100 SEEN /hpf (0-5)
[2022-11-03 09:05] LABS: White Blood Cells 5-10 SEEN /hpf (0-5)
[2022-11-03 09:06] LABS: Internal QC Validated? YES +Cl - CLEAR BKGD; Squamous Epithelial Cells - UA 0-5 SEEN /hpf (5-10); Transitional Epithelial - Ur 0 SEEN /hpf (0-5)
[2022-11-03 09:09] LABS: Pregnancy, Urine Positive Negative
--- NOTE | 2022-11-03 10:14 | ED.RN ---
ATTEMPTED TO DO A PELVIC EXAM BUT PT WAS TOO TIRED AND REFUSED EXAM AND ADDITIONAL TEST.
[2022-11-03 10:37] LABS: hCG Titer Quant., Serum 2904 mIU/mL (1-3)
[2022-11-03 11:16] VITALS: PULSE 78; RESP 16; TEMP 36.6; O2SAT 99
== END 2022-11-03 11:22 | disposition home or self-care (01) ==
PROVIDERS: Emergency Provider Emergency Medicine; PCP Family Medicine; Visit Provider Emergency Medicine
DX: O20.0 Threatened abortion (principal); O99.891 Other specified diseases and conditions complicating pregnancy; N93.8 Other specified abnormal uterine and vaginal bleeding; F17.200 Nicotine dependence, unspecified, uncomplicated
CPT/HCPCS: 87491; 87591; 36415; 81001; 81025; 84702; 99282

== ENCOUNTER 2023-03-05 18:07 | Emergency (ER) | payer MEDICAID, SELFPAY ==
[2023-03-05 18:08] VITALS: BP 144/113; PULSE 135; RESP 26; TEMP 36.1; O2SAT 100
--- NOTE | 2023-03-05 19:07 | ED.RN ---
PT RESTED IN WAITINGROOM WAITING ON ROOM. WOKE. CALM FEELING SLEEPY BUT BETTER SATS98% RA HEART RATE 105. FAMILY AND PT STATES THEY WANT TO LEAVE FEELS OKAY TO GO HOME DOESNT WANT TO STAY AND BE SEE AT THIS TIME.
== END 2023-03-05 19:05 | disposition left against medical advice (07) ==
LOC: ED 19:14
PROVIDERS: PCP Family Medicine
DX: Z53.21 Procedure and treatment not carried out due to patient leaving prior to being seen by health care provider (principal)

== ENCOUNTER 2024-06-05 02:40 | Emergency (ER) | payer MEDICAID, SELFPAY ==
[2024-06-05 02:41] VITALS: BP 162/112; PULSE 121; RESP 18; TEMP 35.8; O2SAT 99; BMI 31.8
--- NOTE | 2024-06-05 02:57 | EDS_ITS ---
HPI History of Present Illness Chief Complaint: Dental Informant: patient Onset/Context/Timing Onset: Month(s) Context: Gradual Onset Timing: Continuous Quality: Sharp, stabbing Location: Right lower premolars Worsened by: Nothing Relieved by: - (Nothing) Narrative Narrative: Patient presents with right lower dental pain that has been constant for the past month but became worse tonight. Patient describes the pain as sharp and stabbing. Patient states that this is over the right lower premolars. Patient states nothing makes it better and nothing makes it worse. Patient states she has been using Orajel and ibuprofen with no improvement. Patient admits to some hot and cold sensitivity. Patient denies any fevers or chills. Patient denies any swelling over the jaw or face. [facility] Medical History (Updated 06/05/24 @ 03:[address] Ismael Donahue DO) Carpal tunnel syndrome Pyelonephritis Home Medications ?Medication ?Instructions ?Recorded ?Last Taken ?Type hydroxyzine HCl 25 mg tablet 25 mg PO QHS anxiety 05/03/17 12/15/18 History Ranitidine [Zantac] 150 mg PO DAILY 12/17/17 12/17/17 09:00 History ranitidine HCl 150 mg tablet 150 mg PO DAILY 04/21/19 Unknown History sulfamethoxazole 800 1 tab PO BID #14 tabs 04/21/19 Unknown Rx mg-trimethoprim 160 mg tablet gabapentin 300 mg capsule 300 mg PO QHS 04/02/21 Unknown History buspirone 5 mg tablet 5 mg PO DAILY 01/15/22 Unknown History metoprolol succinate 25 mg 25 mg PO DAILY 01/15/22 Unknown History tablet,extended release 24 hr naproxen 500 mg tablet 500 mg PO BID PRN #20 tabs 06/05/24 Unknown Rx penicillin V potassium 500 mg 500 mg PO 4X/DAY #40 tabs 06/05/24 Unknown Rx tablet Allergy/AdvReac Type Severity Reaction Status Date / Time No Known Allergies Allergy Verified 06/05/24 02:41 Surgical History (Updated 06/05/24 @ 03:[address] Ismael Donahue DO) History of carpal tunnel surgery of right wrist History of carpal tunnel surgery of left wrist Hx of appendectomy Social History Smoking Status: Current every day smoker tobacco type: cigarettes EXAM Physical Exam Const Vital Signs: 06/05/24 02:41 Temperature 96.4 F L Temperature Source Axillary Pulse Rate 121 H Respiratory Rate 18 Blood Pressure 162/112 H Blood Pressure Mean 128 Pulse Ox 99 Oxygen Delivery Method Room Air Positive well nourished and well developed General Appearance ED: well developed and NAD HEENT HEENT Narrative: There are multiple dental caries over the right lower premolars and canine teeth. There is some gingival edema around these teeth. There is no fluctuance. There is no evidence of any abscess. Oropharynx is clear. Airway is patent. There is no sublingual edema or evidence of Rodney's angina. There is no cervical lymphadenopathy noted. Teeth and Gingiva: caries and gingiva abnormal Positive for gingival edema Throat: posterior oropharynx normal Neck no lymphadenopathy, supple and no JVD General: normal visual inspection; Negative for anterior neck swelling, tenderness or submandibular swelling Neuro oriented x3, CN's II-XII intact bilaterally, moves all extremities, no focal motor deficits and no sensory deficits noted Sensorium / Orientation: alert Motor Exam: strength 5/5 throughout MDM MDM MDM Narrative Medical decision making narrative: Smoking cessation was discussed. Patient was advised that these are most likely infected dental caries. Patient was given a dose of Pen-Vee K here. Patient was also given a dose of Naprosyn. Patient was given prescriptions for Pen-Vee K and Naprosyn. Patient was instructed to follow-up with her dentist in 5 to 7 days. Patient understood and was agreeable with the plan. All questions were answered. Discharge Plan Triage Chief Complaint: Dental ED Provider: Ismael Donahue Dx/Rx/DC Orders Clinical Impression: Infected dental caries, Tobacco use disorder Instructions: ED Dental Pain, ED Dental Cavity Prescriptions: New penicillin V potassium 500 mg tablet 500 mg PO 4X/DAY Qty: 40 0RF naproxen 500 mg tablet 500 mg PO BID PRN Qty: 20 0RF No Action hydroxyzine HCl 25 MG tablet 25 mg PO QHS Ranitidine [Zantac] 150 MG tablet 150 mg PO DAILY ranitidine HCl 150 MG tablet 150 mg PO DAILY sulfamethoxazole-trimethoprim 1 TABLET tablet 1 tab PO BID Qty: 14 0RF gabapentin 300 mg capsule 300 mg PO QHS Patient Comments: take 1 capsule by mouth at bedtime buspirone 5 mg tablet 5 mg PO DAILY metoprolol succinate 25 mg Tablet Extended Release 24 Hr 25 mg PO DAILY Primary Care Provider: Don Solis Referrals: Don Solis MD [Primary Care Provider] - 5-7 Days Dentist,Meri [STAFF PHYSICIAN] - 3-5 Days Print Language: Telugu Disposition Disposition: Home, Self Care
[2024-06-05] MEDS: Penicillin Vk 250 MG Tablet 500 MG PO (03:39)
[2024-06-05] MEDS: Naproxen 500 MG Tablet PO (03:39)
== END 2024-06-05 03:40 | disposition home or self-care (01) ==
PROVIDERS: Emergency Provider Emergency Medicine; PCP Family Medicine; Visit Provider Emergency Medicine
DX: K02.9 Dental caries, unspecified (principal); F17.210 Nicotine dependence, cigarettes, uncomplicated
CPT/HCPCS: 99282

== ENCOUNTER 2024-10-14 20:33 | Emergency (ER) | payer MEDICAID, SELFPAY ==
[2024-10-14 20:34] VITALS: BP 155/99; PULSE 82; RESP 16; TEMP 37.1; O2SAT 99; BMI 34.8
--- NOTE | 2024-10-14 20:54 | EDS_ITS ---
HPI History of Present Illness Chief Complaint: Shortness of Breath Informant: patient Onset/Context/Timing Onset: Weeks (1) Context: Gradual Onset Timing: Continuous Quality: Aching Location: Right chest Worsened by: Nothing Relieved by: Nothing Narrative Narrative: Patient presents with chest pain that has been constant for the past month. Patient states it is mainly over the right side of her chest. Patient describes it as aching. Patient states nothing makes it better and nothing makes it worse. Patient states it has been constant for the past month but has gotten worse over the past 2 days. Patient states she has been having some episodes of lightheadedness. Patient admits to some subjective fevers. Patient is 15 weeks . Patient admits to some nausea and vomiting. Patient admits to some urinary frequency. [facility] Medical History (Updated 10/14/24 @ 22:[address] Ismael Donahue, ) Anxiety Hypertension Carpal tunnel syndrome Pyelonephritis Home Medications ?Medication ?Instructions ?Recorded ?Last Taken ?Type hydroxyzine HCl 25 mg tablet 25 mg PO QHS anxiety 05/03/17 12/15/18 History Ranitidine [Zantac] 150 mg PO DAILY 12/17/17 12/17/17 09:00 History ranitidine HCl 150 mg tablet 150 mg PO DAILY 04/21/19 Unknown History sulfamethoxazole 800 1 tab PO BID #14 tabs 04/21/19 Unknown Rx mg-trimethoprim 160 mg tablet gabapentin 300 mg capsule 300 mg PO QHS 04/02/21 Unknown History buspirone 5 mg tablet 5 mg PO DAILY 01/15/22 Unknown History metoprolol succinate 25 mg 25 mg PO DAILY 01/15/22 Unknown History tablet,extended release 24 hr naproxen 500 mg tablet 500 mg PO BID PRN #20 tabs 06/05/24 Unknown Rx penicillin V potassium 500 mg 500 mg PO 4X/DAY #40 tabs 06/05/24 Unknown Rx tablet cephalexin 500 mg capsule 500 mg PO Q6 #12 CAPSULES 10/14/24 Unknown Rx Allergy/AdvReac Type Severity Reaction Status Date / Time No Known Allergies Allergy Verified 10/14/24 20:34 Surgical History History of carpal tunnel surgery of right wrist History of carpal tunnel surgery of left wrist Hx of appendectomy Social History Smoking Status: Current every day smoker tobacco type: cigarettes ROS ROS ED Constitutional Constitutional ED: Reports fever(s) and subjective; Denies chills Eyes Eyes: Denies blurry vision or change in vision ENT ENT ED: Denies rhinorrhea or sore throat Cardiovascular Cardiovascular: Reports chest pain; Denies palpitations Respiratory/Chest Respiratory/Chest: Reports cough and dyspnea Gastrointestinal Gastrointestinal: Reports nausea and vomiting; Denies abdominal pain Genitourinary Genitourinary ED: Reports urinary frequency; Denies dysuria or hematuria Musculoskeletal Musculoskeletal: Reports neck pain; Denies back pain Integumentary Reports rash; Denies abscess Neurologic Neurologic: Denies headache(s) or weakness Allergic/Immunologic Allergic/Immunologic ED: Denies mouth swelling or urticaria EXAM Physical Exam Const Vital Signs: 10/14/24 20:34 10/14/24 20:46 10/14/24 22:34 Temperature 98.7 F Temperature Source Oral Pulse Rate 82 74 Respiratory Rate 16 20 H Respiratory Effort Short of Breath Respiratory Depth Normal Respiratory Pattern Normal Blood Pressure 155/99 H 128/90 H Blood Pressure Mean 117 102 Pulse Ox 99 98 Oxygen Delivery Method Room Air Room Air Positive well nourished and well developed General Appearance ED: well developed and NAD HEENT Reports moist mucous membranes Neck supple and no JVD Chest Wall Chest Narrative: There is reproducible tenderness over the right upper chest wall. There is no bony crepitance or step-off. There is no subcutaneous emphysema noted. Resp normal respiratory effort and clear to auscultation bilaterally Cardio regular rate and regular rhythm GI non-tender and non-distended Palpation: soft Extremity normal to inspection General Extremety ED: Negative for edema or tenderness General Extremity: Negative for edema Neuro oriented x3, CN's II-XII intact bilaterally and no sensory deficits noted Sensorium / Orientation: alert Motor Exam: strength 5/5 throughout Psych mental status grossly normal MDM MDM MDM Narrative Medical decision making narrative: Differential diagnosis includes musculoskeletal pain, pneumonia, cardiac dysrhythmia, cardiac ischemia, hypertensive urgency, preeclampsia, and electrolyte abnormality. EKG will be obtained to assess for cardiac dysrhythmia and cardiac ischemia. Chest x-ray will be obtained to assess for pneumonia and pneumothorax. CBC will be obtained to assess for leukocytosis, hemolysis, thrombocytopenia, and anemia. Comprehensive metabolic profile will be obtained to assess for electrolyte abnormality, hepatic function, and renal function. Urinalysis will be obtained to assess for urinary tract infection and hematuria. Quantitative hCG will be obtained to assess for . Patient blood type is O+. Therefore, blood type and Rh will not be necessary. Lab Data Attestation: I reviewed the patient's lab results. Lab results narrative: CBC was reviewed and was within normal limits. Comprehensive metabolic profile was reviewed and was within normal limits. Quantitative hCG was reviewed and was 8115. Urinalysis was reviewed. Leukocyte esterase was 100 with greater than 100 white blood cells. There is 2+ bacteria. There are 10-25 epithelial cells. Labs: Laboratory Results - last 24 hr 10/14/24 10/14/24 21:17 21:42 WBC 9.8 RBC 4.71 Hgb 12.6 Hct 37.4 MCV 79.4 L MCH 26.8 L MCHC 33.7 RDW Std Deviation 40.2 RDW Coeff of Erika 14.0 Plt Count 276 MPV 8.7 Immature Gran % (Auto) 1.200 H Neut % (Auto) 59.3 Lymph % (Auto) 26.3 Humphreys % (Auto) 8.2 Eos % (Auto) 4.6 Baso % (Auto) 0.4 Absolute Neuts (auto) 5.8 Absolute Lymphs (auto) 2.58 Nucleated RBC % 0 Sodium 138 Potassium 3.5 Chloride 110 H Carbon Dioxide 25.0 Anion Gap 3 L BUN 8 Creatinine 0.58 Estim Creat Clear Calc 143.42 Est GFR (MDRD) Af Amer 153 Est GFR (MDRD) Non-Af 127 BUN/Creatinine Ratio 13.7 Glucose 98 Calcium 8.9 Total Bilirubin 0.20 AST 10 L ALT 14 Alkaline Phosphatase 87 Total Protein 6.5 Albumin 2.9 L Globulin 3.6 Albumin/Globulin Ratio 0.8 L HCG, Quant 8115 H Urine Color Yellow Urine Clarity Sl. Cloudy Urine pH 6.0 Ur Specific [place] 1.020 Urine Protein 15 H Urine Glucose (UA) Normal Urine Ketones Negative Urine Occult Blood Negative Urine Nitrite Negative Urine Bilirubin Negative Urine Urobilinogen Normal Ur Leukocyte Esterase 100 H Urine RBC 0 SEEN Urine WBC >100 SEEN Ur Squamous Epith Cells 10-25 SEEN Amorphous Sediment 1+ Urine Bacteria 2+ Urine Mucus 2+ Radiography Chest X-Ray - ED: 2 View, Read by ED Physician, Read by Radiologist and No Acute Disease Diagnostic Testing: Clinical Impression(s) from Imaging Studies Chest X-Ray 10/14/24 21:22 IMPRESSION: Normal x-ray examination of the chest. Electronically Signed: Eliot Ford MD at 22:32 EST , PA and lateral chest x-ray was obtained. There are 2 views. On my independent interpretation, lung dorsey are clear. There is normal cardiac silhouette. Bony thorax is normal. There is no acute process noted. Radiologist also interpreted the x-ray and agrees. EKG Initial EKG: Attestation: I personally reviewed and interpreted this EKG as follows: Interpretation: Sinus Rhythm (76) and No Acute Injury Pattern Comments: EKG was obtained. On my independent interpretation, it showed a normal sinus rhythm with a rate of 76. DC interval, QRS interval, and QTc intervals were all normal. [place] was normal. There are no acute ST or T wave changes. Prior EKG tracings: available for review Prior: Unchanged (01/15/2022) Additional Tests and Interventions Additional Tests or Interventions: Urine culture was ordered. Treatment and Re-Evaluation :: Smoking cessation was discussed. Patient was advised of her findings. Patient was given a dose of Keflex here. Patient was given a prescription for Keflex. Patient was instructed to follow-up with her [employer] MANAGER in 2 to 3 days. Patient was instructed to return if worse in any way. Patient understood and was agreeable with the plan. All questions were answered. Discharge Plan Triage Chief Complaint: Shortness of Breath ED Provider: Ismael Donahue Dx/Rx/DC Orders Clinical Impression: Urinary tract infection, Second trimester , Elevated blood pressure reading Instructions: ED Cystitis Female Adult, ED Established ... Prescriptions: New cephalexin 500 mg capsule 500 mg PO Q6 Qty: 12 0RF No Action hydroxyzine HCl 25 MG tablet 25 mg PO QHS Ranitidine [Zantac] 150 MG tablet 150 mg PO DAILY ranitidine HCl 150 MG tablet 150 mg PO DAILY sulfamethoxazole-trimethoprim 1 TABLET tablet 1 tab PO BID Qty: 14 0RF gabapentin 300 mg capsule 300 mg PO QHS Patient Comments: take 1 capsule by mouth at bedtime buspirone 5 mg tablet 5 mg PO DAILY metoprolol succinate 25 mg Tablet Extended Release 24 Hr 25 mg PO DAILY penicillin V potassium 500 mg tablet 500 mg PO 4X/DAY Qty: 40 0RF naproxen 500 mg tablet 500 mg PO BID PRN Qty: 20 0RF Primary Care Provider: Don Solis Referrals: Don Solis MD [Primary Care Provider] - 5-7 Days Activity Restrictions/Additional Instructions: Follow-up with your [employer]QUIS[employer] MARKETING MANAGER in 2 to 3 days. Print Language: Luxembourger Disposition Disposition: Home, Self Care
--- NOTE | 2024-10-14 21:12 | EKG12_ITS ---
Test Reason : SOB Blood Pressure : */* mmHG Vent. Rate : 76 BPM Atrial Rate : 76 BPM P-R Int : 138 ms QRS Dur : 84 ms QT Int : 376 ms P-R-T Axes : 28 21 21 degrees QTcB Int : 423 ms Normal sinus rhythm with sinus arrhythmia Normal ECG Confirmed by LUANA MALLORY, LIZANDRO ([id number]), magazine editor RADHA FAGAN ([id number]) on 10/16/2024 10:49:15 AM Referred By: Confirmed By: LIZANDRO CRAFT MD
--- NOTE | 2024-10-14 21:22 | RAD_ITS ---
STUDY: X-RAY CHEST REASON FOR EXAM: Female, 33 years old. Chest pain -- Shield abdomen TECHNIQUE: PA and lateral views of the chest. COMPARISON: January 15, 2022. FINDINGS: The lungs are clear and expanded. There is no demonstrated pleural abnormality. Normal size heart. Normal mediastinum and leslie. Normal visualized pulmonary arteries. Normal visualized aortic arch and descending thoracic aorta. Normal visualized thoracic spine. Normal visualized ribs, clavicles, and shoulders. There is no demonstrated abnormality of the visualized soft tissue structures of the upper abdomen. RAD/Chest PA and Lateral IMPRESSION: Normal x-ray examination of the chest. Electronically Signed: Eliot Ford MD at 22:32 EST ,
[2024-10-14 21:23] LABS: Absolute Lymphocyte Count 2.58 X10^3/uL (0.83-4.51); Absolute Neutrophil Count 5.8 X10^3/uL (2.0-7.7); Basophil# 0.04 X10^3/uL; Basophil% 0.4 % (0-1); Eosinophil# 0.45 X10^3/uL; Eosinophils% 4.6 % (0-5); Hematocrit 37.4 % (37-47); Hemoglobin 12.6 g/dL (12.0-15.0); Lymphocyte # 2.58 X10^3/ul (0.83-4.51); Lymphocyte % 26.3 % (19-41); Mean Corp Hgb Conc 33.7 g/dL (32-36); Mean Corpuscular Hgb 26.8 pg (27.0-32.0); Mean Corpuscular Volume 79.4 fL (81-99); Mean Platelet Vol. 8.7 fl (6.2-12.0); Monocyte% 8.2 % (0-10); NRBC Flagged by Analyzer 0 % (0-5); Neutrophil # 5.82 X10^3/uL (2.7-7.7); Neutrophil % 59.3 % (47-70); Platelet Count 276 K/mm3 (150-450); RBC Distribution Width SD 40.2 fl (35.1-43.9); Red Blood Count 4.71 M/mm3 (4.2-5.4); White Blood Count 9.8 K/mm3 (4.4-11.0)
[2024-10-14 21:48] LABS: Red Blood Cells-Urine 0 SEEN /hpf (0-5)
[2024-10-14 21:49] LABS: ALB/GLOB Ratio 0.8 RATIO (0.9-2.4); AST(SGOT) 10 U/L (15-37); Alanine Aminotransfer ALT/SGPT 14 U/L (13-56); Albumin, Serum 2.9 g/dL (3.2-5.0); Alkaline Phosphatase 87 U/L (45-117); Anion Gap 3 (5-15); BUN 8 mg/dL (7-18); BUN/Creat Ratio 13.7 RATIO (10-20); Calcium,Total 8.9 mg/dL (8.5-10.1); Chloride 110 mmol/L (98-107); Creatinine, Serum 0.58 mg/dL (0.55-1.02); EST Glomerular Filtration Rate 127 mL/min (>60); Est Glom Filt Rate - Afr Amer 153 mL/min (>60); Estimated Creatinine Clearance 143.42 ml/min; Globulin 3.6 g/dL (2.2-4.2); Glucose 98 mg/dL (74-106); Potassium 3.5 mmol/L (3.5-5.1); Protein, Total 6.5 g/dL (6.4-8.2); Sodium Level 138 mmol/L (136-145)
[2024-10-14 21:55] LABS: Color, Urine Yellow (Yellow); Glucose, Dipstick Normal (Normal); Ketone-Dipstick Negative (Negative); Leukocyte Esterase-Dipstick 100 /ul (Negative); Nitrite-Dipstick Negative (Negative); Occult Blood-Urine Negative /ul (Negative); Protein-Dipstick 15 mg/dl (Negative); Urine Bilirubin Dipstick Negative (Negative); Urine Clarity Sl. Cloudy (Clear); Urine Urobilinogen Normal (Normal)
[2024-10-14 22:05] LABS: hCG Titer Quant., Serum 8115 mIU/mL (1-3)
[2024-10-14 22:20] LABS: Amorphous Sediment 1+; Bacteria 2+ /hpf (None Seen); Mucous, Urine 2+ /hpf (<or=2+); Squamous Epithelial Cells - UA 10-25 SEEN /hpf (5-10); White Blood Cells >100 SEEN /hpf (0-5)
[2024-10-14 22:34] VITALS: BP 128/90; PULSE 74; RESP 20; O2SAT 98
[2024-10-14] MEDS: Cephalexin 500 MG Capsule PO (22:56)
[2024-10-14 22:57] VITALS: BP 136/93; PULSE 105; RESP 18; TEMP 36.6; O2SAT 98
== END 2024-10-14 23:04 | disposition home or self-care (01) ==
PROVIDERS: Emergency Provider Emergency Medicine; PCP Family Medicine; Visit Provider Emergency Medicine
DX: O23.42 Unspecified infection of urinary tract in pregnancy, second trimester (principal); O26.892 Other specified pregnancy related conditions, second trimester; R03.0 Elevated blood-pressure reading, without diagnosis of hypertension; F17.210 Nicotine dependence, cigarettes, uncomplicated; Z3A.15 15 weeks gestation of pregnancy
CPT/HCPCS: 71046; 80053; 81001; 84702; 85025; 87086; 87088; 93005; 99284; A4216

== ENCOUNTER 2024-10-16 18:09 | Emergency (ER) | payer MEDICAID, SELFPAY ==
[2024-10-16 18:10] VITALS: BP 107/96; PULSE 86; RESP 15; TEMP 36.3; O2SAT 100; BMI 35.8
--- NOTE | 2024-10-16 18:33 | ED.VIS.GI ---
HPI HPI - GI History of Present Illness Chief Complaint: Nausea/Vomiting/Diarrhea Informant: patient and spouse/S.O. Nausea/Vomiting/Emesis GI Symptom: Positive for Nausea and Vomiting Onset: Today and Hours Severity: Mild Diarrhea/Melena/Hematochezia GI Symptom: Positive for Diarrhea; Negative for Melena or Hematochezia Onset: Today and Hours Stool Quality: Positive for Loose Severity: Mild Associated Symptoms Associated Symptoms: Negative for Dysuria, Frequency, Hematuria or Urgency Narrative Narrative: 34-year-old female history of hypertension. Currently 15 weeks . Ab1. Says she was recent diagnosed with possible UTI was started on antibiotic which she just recently started. I did look up the urine culture it was contaminated. Patient states this morning she started having nausea, vomiting diarrhea. No fever. No significant abdominal pain. Denies any dysuria. No vaginal bleeding. Prior similar symptoms: Yes Recent Illness/Hospitalization: No PFSH PFSH Medical History Anxiety Hypertension Carpal tunnel syndrome Pyelonephritis Home Medications ?Medication ?Instructions ?Recorded ?Last Taken ?Type hydroxyzine HCl 25 mg tablet 25 mg PO QHS anxiety 05/03/17 12/15/18 History Ranitidine [Zantac] 150 mg PO DAILY 12/17/17 12/17/17 09:00 History ranitidine HCl 150 mg tablet 150 mg PO DAILY 04/21/19 Unknown History sulfamethoxazole 800 1 tab PO BID #14 tabs 04/21/19 Unknown Rx mg-trimethoprim 160 mg tablet gabapentin 300 mg capsule 300 mg PO QHS 04/02/21 Unknown History buspirone 5 mg tablet 5 mg PO DAILY 01/15/22 Unknown History metoprolol succinate 25 mg 25 mg PO DAILY 01/15/22 Unknown History tablet,extended release 24 hr naproxen 500 mg tablet 500 mg PO BID PRN #20 tabs 06/05/24 Unknown Rx penicillin V potassium 500 mg 500 mg PO 4X/DAY #40 tabs 06/05/24 Unknown Rx tablet cephalexin 500 mg capsule 500 mg PO Q6 #12 CAPSULES 10/14/24 Unknown Rx ondansetron 4 mg disintegrating 4 mg PO Q6H PRN nausea and 10/16/24 Unknown Rx tablet vomiting #10 tabs Allergy/AdvReac Type Severity Reaction Status Date / Time No Known Allergies Allergy Verified 10/16/24 18:12 Surgical History History of carpal tunnel surgery of right wrist History of carpal tunnel surgery of left wrist Hx of appendectomy Social History Smoking Status: Current every day smoker tobacco type: cigarettes ROS ROS ED ROS Narrative Nausea, vomiting and diarrhea Constitutional Constitutional ED: Denies chills or fever(s) ENT ENT ED: Denies ear pain Cardiovascular Cardiovascular: Denies chest pain Respiratory/Chest Respiratory/Chest: Denies cough Gastrointestinal Gastrointestinal: Reports diarrhea, nausea and vomiting; Denies abdominal pain, constipation or melena Genitourinary Genitourinary ED: Denies dysuria or hematuria Musculoskeletal Musculoskeletal: Denies arthralgias or back pain Integumentary Denies abscess Neurologic Neurologic: Denies headache(s) Psychiatric Psychiatric: Denies anxiety Endocrine Endocrinology: Denies polydipsia Hematologic/Lymphatic Hematologic/Lymphatic: Denies easy bleeding Allergic/Immunologic Allergic/Immunologic ED: Denies mouth swelling EXAM Physical Exam Narrative Exam Narrative: 15-year-old female no acute distress vital signs stable afebrile. H EENT exam pupils round react to light. Mildly dry mucous membranes. Neck nontender no lymphadenopathy. Lungs clear to auscultation bilaterally. Heart regular rhythm rate about 85 no murmur. Chest wall ribs nontender. Abdomen soft nondistended normal bowel sounds without peritoneal signs. Gravid nontender uterus. Right upper or right lower quadrant unremarkable. No hernia or mass. No obstruction. Soft. Moving all 4 extremities. Nontender no edema. Back nontender. She is awake alert. No focal motor deficits. Const Vital Signs: 10/16/24 18:10 Temperature 97.4 F L Temperature Source Temporal Pulse Rate 86 Respiratory Rate 15 Blood Pressure 107/96 H Blood Pressure Mean 99 Pulse Ox 100 Oxygen Delivery Method Room Air Positive well nourished and well developed; Negative for cachectic, contractures or unkempt General Appearance ED: well developed and NAD; Negative for unkempt, cachectic, contractures or pallor Nutritional Appearance: Negative for cachectic HEENT Reports dry mucous membranes; Denies moist mucous membranes normocephalic and atraumatic; Negative for trauma or tenderness Mouth ED: Yes dry mucous membranes Mouth: dry mucous membranes Eyes PERRL and EOMs intact bilaterally Neck no lymphadenopathy, supple and no JVD Resp normal respiratory effort and clear to auscultation bilaterally Effort and Inspection: Negative for respiratory distress Auscultation: Negative for rales, rhonchi, wheezes or diminished lung sounds Cardio regular rhythm, S1 normal heart sound, S2 normal heart sound and no murmurs Rate: Negative for bradycardia or tachycardic Rhythm: Negative for abnormal rhythm GI non-tender, non-distended and no masses GI Narrative: Gravid nontender uterus. Inspection: Negative for abdominal distention Palpation: soft; Negative for tender, guarding, rigid, hernia, mass, pulsatile mass or rebound tenderness present Back/Spine no CVA tenderness General Back: Negative for CVA tenderness Cervical Spine: Negative for cervical spine tenderness Thoracic Spine / Upper Back: Negative for thoracic spinal tenderness Lumbar Spine / Lower Back: Negative for lumbar spinal tenderness Extremity full ROM General Extremety ED: Negative for edema or tenderness General Extremity: Negative for edema Neuro CN's II-XII intact bilaterally and moves all extremities Sensorium / Orientation: alert, oriented to person, oriented to place and oriented to time; Negative for orientation impaired or confused Motor Exam: strength 5/5 throughout Psych mental status grossly normal and thought process normal Appearance: Negative for unkempt Attitude: No agitated Mood & Affect: Negative for depressed, anxious or tearful Skin no wounds General Skin Exam: Negative for jaundice or pallor Lesions: no lesions Rashes: no rashes MDM MDM MDM Narrative Medical decision making narrative: 34-year-old female currently 15 weeks with nausea vomiting diarrhea consistent with viral gastroenteritis. She will be treated with IV fluids. Zofran and p.o. fluid challenge. I do not think she needs any imaging or labs. She had recent labs which look like a contaminated urine specimen the culture was gram-positive. Repeat exam patient is doing well at 7:05 PM. Abdomen benign. Nausea resolved. Patient is drinking ice water. She has received IV fluids and will be discharged to home. History & Record Review Discussion w/independent historian: Patient and Family Discharge Plan Triage Chief Complaint: Nausea/Vomiting/Diarrhea ED Provider: Ash Ortega Dx/Rx/DC Orders Clinical Impression: Viral gastroenteritis, Second trimester Instructions: ED Gastroenteritis, Viral (Adult) Prescriptions: New ondansetron 4 mg tablet,disintegrating 4 mg PO Q6H PRN (Reason: nausea and vomiting) Qty: 10 0RF No Action hydroxyzine HCl 25 MG tablet 25 mg PO QHS Ranitidine [Zantac] 150 MG tablet 150 mg PO DAILY ranitidine HCl 150 MG tablet 150 mg PO DAILY sulfamethoxazole-trimethoprim 1 TABLET tablet 1 tab PO BID Qty: 14 0RF gabapentin 300 mg capsule 300 mg PO QHS Patient Comments: take 1 capsule by mouth at bedtime buspirone 5 mg tablet 5 mg PO DAILY metoprolol succinate 25 mg Tablet Extended Release 24 Hr 25 mg PO DAILY cephalexin 500 mg capsule 500 mg PO Q6 Qty: 12 0RF penicillin V potassium 500 mg tablet 500 mg PO 4X/DAY Qty: 40 0RF naproxen 500 mg tablet 500 mg PO BID PRN Qty: 20 0RF Primary Care Provider: Don Solis Referrals: Don Solis MD [Primary Care Provider] - As Needed Activity Restrictions/Additional Instructions: Plenty of fluids and rest. Increase your diet slowly as tolerated. Zofran as needed for nausea which you may swallow or let it dissolve on your tongue. Follow-up with your doctor or your [employer] if not improving or return if you are feeling worse or unable to keep fluids down. Print Language: Hungarian Disposition Disposition: Home, Self Care
[2024-10-16] MEDS: Ondansetron 4 MG/2 ML Vial IV (18:43)
[2024-10-16] MEDS: 0.9% Normal Saline (1000mL) 1,000 ML 1000 ML IV (18:43)
[2024-10-16 19:28] VITALS: BP 104/60; PULSE 85; RESP 16; TEMP 36.7; O2SAT 97
== END 2024-10-16 19:30 | disposition home or self-care (01) ==
LOC: ED 18:50
PROVIDERS: Emergency Provider Emergency Medicine; PCP Family Medicine; Visit Provider Emergency Medicine
DX: O99.612 Diseases of the digestive system complicating pregnancy, second trimester (principal); A08.4 Viral intestinal infection, unspecified; O99.332 Smoking (tobacco) complicating pregnancy, second trimester; F17.210 Nicotine dependence, cigarettes, uncomplicated; Z3A.15 15 weeks gestation of pregnancy
CPT/HCPCS: 96361; 96374; 99283; A4216; J2405

== ENCOUNTER 2024-11-19 18:45 | Emergency (ER) | payer MEDICAID, SELFPAY ==
[2024-11-19 18:46] VITALS: BP 166/109; PULSE 81; RESP 20; TEMP 36.4; O2SAT 100; BMI 35.5
[2024-11-19 20:40] LABS: Bacteria 0 SEEN /hpf (None Seen); Mucous, Urine 0 SEEN /hpf (<or=2+); Red Blood Cells-Urine 0 SEEN /hpf (0-5)
[2024-11-19 20:42] LABS: Absolute Lymphocyte Count 2.76 X10^3/uL (0.83-4.51); Absolute Neutrophil Count 6.4 X10^3/uL (2.0-7.7); Basophil# 0.08 X10^3/uL; Basophil% 0.8 % (0-1); Color, Urine Yellow (Yellow); Eosinophils% 4.8 % (0-5); Glucose, Dipstick Normal (Normal); Hemoglobin 14.3 g/dL (12.0-15.0); Ketone-Dipstick Negative (Negative); Leukocyte Esterase-Dipstick 100 /ul (Negative); Lymphocyte # 2.76 X10^3/ul (0.83-4.51); Lymphocyte % 26.2 % (19-41); Mean Corp Hgb Conc 32.5 g/dL (32-36); Mean Corpuscular Hgb 26.3 pg (27.0-32.0); Mean Platelet Vol. 9.1 fl (6.2-12.0); Monocyte# 0.71 X10^3/uL; Monocyte% 6.7 % (0-10); NRBC Flagged by Analyzer 0 % (0-5); Neutrophil # 6.39 X10^3/uL (2.7-7.7); Neutrophil % 60.7 % (47-70); Nitrite-Dipstick Negative (Negative); Occult Blood-Urine Negative /ul (Negative); Platelet Count 368 K/mm3 (150-450); Protein-Dipstick 30 mg/dl (Negative); RBC Distribution Width CV 13.9 % (11.6-14.6); RBC Distribution Width SD 40.2 fl (35.1-43.9); Red Blood Count 5.43 M/mm3 (4.2-5.4); Urine Bilirubin Dipstick Negative (Negative); Urine Clarity Clear (Clear); Urine Urobilinogen Normal (Normal); White Blood Count 10.5 K/mm3 (4.4-11.0)
[2024-11-19] MEDS: 0.9% Normal Saline (1000mL) 1,000 ML 999 ML IV (20:42)
[2024-11-19 20:44] VITALS: BP 160/107; PULSE 66; RESP 18; O2SAT 100
[2024-11-19 20:54] LABS: Squamous Epithelial Cells - UA 0-5 SEEN /hpf (5-10); White Blood Cells 0-5 SEEN /hpf (0-5)
[2024-11-19 21:12] LABS: ALB/GLOB Ratio 0.9 RATIO (0.9-2.4); AST(SGOT) 25 U/L (15-37); Alanine Aminotransfer ALT/SGPT 31 U/L (13-56); Albumin, Serum 3.7 g/dL (3.2-5.0); Alkaline Phosphatase 100 U/L (45-117); Anion Gap 8 (5-15); BUN 9 mg/dL (7-18); BUN/Creat Ratio 13.1 RATIO (10-20); Calcium,Total 9.2 mg/dL (8.5-10.1); Chloride 105 mmol/L (98-107); Creatinine, Serum 0.69 mg/dL (0.55-1.02); EST Glomerular Filtration Rate 105 mL/min (>60); Est Glom Filt Rate - Afr Amer 128 mL/min (>60); Estimated Creatinine Clearance 120.72 ml/min; Glucose 76 mg/dL (74-106); Potassium 3.4 mmol/L (3.5-5.1); Protein, Total 7.7 g/dL (6.4-8.2); Sodium Level 140 mmol/L (136-145)
[2024-11-19] MEDS: Ketorolac 15 MG/ML Vial IV (21:23)
[2024-11-19 22:00] VITALS: BP 159/116; PULSE 74; RESP 18; O2SAT 98
--- NOTE | 2024-11-19 22:01 | EX.ED.DYSGE1 ---
HPI History of Present Illness Chief Complaint: Hypertension Narrative Narrative: Patient is 34-year-old female with recent recent 19-week delivery (follows with [facility] [place]) on 11/12/23 presenting with elevated blood pressure. Patient states that should have appointment her [facility] today where her blood pressure was through the roof. She came to the ER for further evaluation. Here she is a worsening headache over the past few days and notes sinus pressure. She notes that she previously was on metoprolol but is been off it for 2 years. States her blood pressures been in the 140s to 150s. States that overall she has been feeling well has had a lot of anxiety. No other complaints or concerns reported at this time denies any chest pain, shortness of breath. Denies any leg swelling. Not having any vaginal bleeding. Does report that since July she has been having intermittent episodes of wheezing, nasal congestion and what sounds like postnasal drip. [facility] Medical History Anxiety Hypertension Carpal tunnel syndrome Pyelonephritis Home Medications ?Medication ?Instructions ?Recorded ?Last Taken ?Type hydroxyzine HCl 25 mg tablet 25 mg PO QHS anxiety 05/03/17 12/15/18 History Ranitidine [Zantac] 150 mg PO DAILY 12/17/17 12/17/17 09:00 History ranitidine HCl 150 mg tablet 150 mg PO DAILY 04/21/19 Unknown History sulfamethoxazole 800 1 tab PO BID #14 tabs 04/21/19 Unknown Rx mg-trimethoprim 160 mg tablet gabapentin 300 mg capsule 300 mg PO QHS 04/02/21 Unknown History buspirone 5 mg tablet 5 mg PO DAILY 01/15/22 Unknown History metoprolol succinate 25 mg 25 mg PO DAILY 01/15/22 Unknown History tablet,extended release 24 hr naproxen 500 mg tablet 500 mg PO BID PRN #20 tabs 06/05/24 Unknown Rx penicillin V potassium 500 mg 500 mg PO 4X/DAY #40 tabs 06/05/24 Unknown Rx tablet ondansetron 4 mg disintegrating 4 mg PO Q6H PRN nausea and 10/16/24 Unknown Rx tablet vomiting #10 tabs acetaminophen 500 mg tablet (Pain 1,000 mg PO Q6H PRN PRN pain 11/19/24 Unknown History Relief Extra Strength (acetaminophen)) cetirizine 10 mg capsule (Zyrtec) 10 mg PO DAILY #14 CAPSULES 11/19/24 Unknown Rx metoprolol tartrate 25 mg tablet 25 mg PO BID #60 tabs 11/19/24 Unknown Rx metronidazole 500 mg tablet mg 11/19/24 Unknown History Allergy/AdvReac Type Severity Reaction Status Date / Time No Known Allergies Allergy Verified 11/19/24 18:50 Family History no significant family his Surgical History History of carpal tunnel surgery of right wrist History of carpal tunnel surgery of left wrist Hx of appendectomy Social History Smoking Status: Current every day smoker tobacco type: cigarettes and e-cigarettes ROS ROS ED Constitutional Constitutional ED: Denies chills or fever(s) Eyes Eyes: Denies blurry vision or change in vision Gastrointestinal Gastrointestinal: Denies nausea or vomiting Musculoskeletal Musculoskeletal: Denies arthralgias or myalgias Integumentary Denies rash Neurologic Neurologic: Reports headache(s); Denies paresthesias or weakness Psychiatric Psychiatric: Reports anxiety Hematologic/Lymphatic Hematologic/Lymphatic: Denies easy bleeding or easy bruising EXAM Physical Exam Const Vital Signs: 11/19/24 18:46 11/19/24 19:46 11/19/24 20:44 Temperature 97.5 F L Temperature Source Temporal Pulse Rate 81 66 Respiratory Rate 20 H 18 Respiratory Effort Normal Respiratory Pattern Normal Blood Pressure 166/109 H 160/107 H Blood Pressure Mean 128 124 Pulse Ox 100 100 Oxygen Delivery Method Room Air Room Air 11/19/24 22:00 Temperature Temperature Source Pulse Rate 74 Respiratory Rate 18 Respiratory Effort Respiratory Pattern Blood Pressure 159/116 H Blood Pressure Mean 130 Pulse Ox 98 Oxygen Delivery Method Room Air Positive well nourished and well developed General Appearance ED: well developed and NAD HEENT Reports TM's clear and moist mucous membranes HEENT Narrative: Normal oropharynx. Tympanic Membrane ED: Yes TM's clear Neck supple and no JVD Chest Wall inspection of chest normal Resp normal respiratory effort Resp Narrative: Subtle and expiratory wheezing present in the anterior lung dorsey Auscultation: Negative for rales or rhonchi Cardio regular rate and regular rhythm GI normal to inspection, nondistended, normoactive bowel sounds and non-tender Auscultation: normoactive bowel sounds Palpation: soft; Negative for tender or guarding Extremity normal to inspection Neuro oriented x3 Psych mental status grossly normal Skin no rashes or lesions noted and no wounds MDM MDM MDM Narrative Medical decision making narrative: Patient valuate for elevated blood pressure. Had recent miscarriage at 19 weeks. Had reports prior history of hypertension. Concern for hypertension causing headache versus sinus headache versus eclampsia which I think would be unlikely given that she was only 19 weeks. Patient's blood pressure is mildly elevated 166/109. She is not any focal neurologic deficits. I do not think she requires CT of the brain. Low suspicion for subarachnoid based on the HPI. Do not think she requires LP. CBC, CMP and urinalysis largely normal. Normal kidney function. No transaminitis. Normal platelets. Minimal proteinuria in the urine. Given that she just had a miscarriage 1 week ago urine not performed. Patient given IV fluids and Toradol for her headache. As of given albuterol inhaler and dose of metoprolol. Plan to restart her on her metoprolol and start her on Zyrtec as I suspect she is component of allergies. Did speak to OB on-call for [facility] [place] who states that in the office her pressure was in the 170s to 180s systolic. They states she actually had demise at 13 weeks but had been incarcerated and was sent to [facility] D&E at 19 weeks. Encouraged patient to follow-up with primary care doctor. Do not think this is an obstetric complication. Patient will be restarted on her metoprolol as previously planned and given 1 month supply. Will be agreeable plan of care. Patient agreeable with plan of care. Given return precautions. Lab Data Attestation: I reviewed the patient's lab results. Labs: Laboratory Results - last 24 hr 11/19/24 19:42 WBC 10.5 RBC 5.43 H Hgb 14.3 Hct 44.0 MCV 81.0 MCH 26.3 L MCHC 32.5 RDW Std Deviation 40.2 RDW Coeff of Erika 13.9 Plt Count 368 MPV 9.1 Immature Gran % (Auto) 0.800 Neut % (Auto) 60.7 Lymph % (Auto) 26.2 [place] % (Auto) 6.7 Eos % (Auto) 4.8 Baso % (Auto) 0.8 Absolute Neuts (auto) 6.4 Absolute Lymphs (auto) 2.76 Nucleated RBC % 0 Sodium 140 Potassium 3.4 L Chloride 105 Carbon Dioxide 27.0 Anion Gap 8 BUN 9 Creatinine 0.69 Estim Creat Clear Calc 120.72 Est GFR (MDRD) Af Amer 128 Est GFR (MDRD) Non-Af 105 BUN/Creatinine Ratio 13.1 Glucose 76 Calcium 9.2 Total Bilirubin 0.40 AST 25 ALT 31 Alkaline Phosphatase 100 Total Protein 7.7 Albumin 3.7 Globulin 4.0 Albumin/Globulin Ratio 0.9 Urine Color Yellow Urine Clarity Clear Urine pH 6.0 Ur Specific Mullin 1.020 Urine Protein 30 H Urine Glucose (UA) Normal Urine Ketones Negative Urine Occult Blood Negative Urine Nitrite Negative Urine Bilirubin Negative Urine Urobilinogen Normal Ur Leukocyte Esterase 100 H Urine RBC 0 SEEN Urine WBC 0-5 SEEN Ur Squamous Epith Cells 0-5 SEEN Urine Bacteria 0 SEEN Urine Mucus 0 SEEN Discharge Plan Triage Chief Complaint: Hypertension ED Provider: Frieda Jack Dx/Rx/DC Orders Clinical Impression: Hypertension, Headache Instructions: ED Hypertension, Established, ED Sinus Headache Prescriptions: New Zyrtec 10 mg capsule 10 mg PO DAILY Qty: 14 0RF metoprolol tartrate 25 mg tablet 25 mg PO BID Qty: 60 0RF No Action hydroxyzine HCl 25 MG tablet 25 mg PO QHS Ranitidine [Zantac] 150 MG tablet 150 mg PO DAILY ranitidine HCl 150 MG tablet 150 mg PO DAILY sulfamethoxazole-trimethoprim 1 TABLET tablet 1 tab PO BID Qty: 14 0RF gabapentin 300 mg capsule 300 mg PO QHS Patient Comments: take 1 capsule by mouth at bedtime buspirone 5 mg tablet 5 mg PO DAILY metoprolol succinate 25 mg Tablet Extended Release 24 Hr 25 mg PO DAILY ondansetron 4 mg tablet,disintegrating 4 mg PO Q6H PRN (Reason: nausea and vomiting) Qty: 10 0RF metronidazole 500 mg tablet acetaminophen [Pain Relief ES (acetaminophen)] 500 mg tablet 1,000 mg PO Q6H PRN PRN (Reason: pain) penicillin V potassium 500 mg tablet 500 mg PO 4X/DAY Qty: 40 0RF naproxen 500 mg tablet 500 mg PO BID PRN Qty: 20 0RF Primary Care Provider: Don Solis Referrals: Don Solis MD [Primary Care Provider] - Activity Restrictions/Additional Instructions: Your blood pressure was elevated today. You have been restarted on metoprolol. There did not appear to be any complication associated with your recent miscarriage. Is important that you follow-up with your primary care doctor. You have been given an albuterol inhaler. Use 1 to 2 puffs every 4-6 hours as needed for wheezing, shortness of breath or coughing. In addition you been started on Zyrtec. I suspect you have a component of allergies. Do recommend you quit smoking. Print Language: Mosotho Disposition Disposition: Home, Self Care
[2024-11-19] MEDS: Albuterol Sulfate 8 gm Inhaler (60 puffs) 2 PUFF INHALATION (22:07)
[2024-11-19] MEDS: Metoprolol Tartrate 25 MG Tablet PO (22:16)
[2024-11-19 22:30] VITALS: BP 154/93; PULSE 76; RESP 18; TEMP 36.9; O2SAT 97
== END 2024-11-19 22:34 | disposition home or self-care (01) ==
PROVIDERS: Emergency Provider Emergency Medicine; PCP Family Medicine; Visit Provider Emergency Medicine
DX: I10 Essential (primary) hypertension (principal); R51.9 Headache, unspecified; F41.9 Anxiety disorder, unspecified; F17.210 Nicotine dependence, cigarettes, uncomplicated; F17.290 Nicotine dependence, other tobacco product, uncomplicated; Z79.899 Other long term (current) drug therapy
CPT/HCPCS: 80053; 81001; 85025; 96361; 96374; 96376; 99284

== ENCOUNTER 2025-03-09 21:59 | Emergency (ER) | payer MEDICAID, SELFPAY ==
[2025-03-09 22:01] VITALS: BP 115/95; PULSE 79; RESP 18; TEMP 37.3; O2SAT 98; BMI 36.3
== END 2025-03-09 23:05 | disposition left against medical advice (07) ==
LOC: ED 23:11
DX: Z53.21 Procedure and treatment not carried out due to patient leaving prior to being seen by health care provider (principal)

== ENCOUNTER 2025-03-10 17:12 | Emergency (ER) | payer MEDICAID, SELFPAY ==
[2025-03-10 17:14] VITALS: BP 123/84; PULSE 69; RESP 20; TEMP 36.4; O2SAT 99; BMI 35.7
[2025-03-10 17:29] VITALS: BP 123/70; PULSE 91; RESP 19; TEMP 36.7; O2SAT 98
--- NOTE | 2025-03-10 17:33 | EDS_ITS ---
HPI History of Present Illness Chief Complaint: General Illness Informant: patient and spouse/S.O. Onset/Context/Timing Onset: Yesterday Context: Sudden Onset Narrative Narrative: 34-year-old female history of IBS, anxiety and hypertension. States that yesterday was having a bowel movement. A long skinny something came out of her buttocks. After bowel movement. She was concerned and possibly may be a tapeworm. Denies any blood or bleeding. No pain. No recent weight loss. No prior diagnosis. Prior similar symptoms: Yes Recent Illness/Hospitalization: No PFSH PFSH Medical History Anxiety Hypertension Carpal tunnel syndrome Pyelonephritis Home Medications ?Medication ?Instructions ?Recorded ?Last Taken ?Type gabapentin 300 mg capsule 300 mg PO TID 04/02/21 Unkno wn History buspirone 5 mg tablet 5 mg PO TID 01/15/22 Unknown History ondansetron 4 mg disintegrating 4 mg PO Q6H PRN nausea and 10/16/24 Unknown Rx tablet vomiting #10 tabs acetaminophen 500 mg tablet (Pain 1,000 mg PO Q6H PRN PRN pain 11/19/24 Unknown History Relief Extra Strength (acetaminophen)) metoprolol tartrate 25 mg tablet 25 mg PO BID #60 tabs 11/19/24 Unknown Rx albuterol sulfate 90 mcg/actuation 1 puff inhalation Q 6H PRN PRN 03/09/25 Unknown History aerosol inhaler wheezing cetirizine 10 mg capsule (Zyrtec) 10 mg PO DAILY PRN a llergy symptoms 03/09/25 Unknown History Allergy/AdvReac Type Severity Reaction Status Date / Time No Known Allergies Allergy Verified 03/10/25 17:14 Surgical History History of carpal tunnel surgery of right wrist History of carpal tunnel surgery of left wrist Hx of appendectomy Social History Smoking Status: Current every day smoker tobacco type: cigarettes and e- cigarettes ROS ROS ED ROS Narrative Denies recent illness. Weight gain no weight loss. Constitutional Constitutional ED: Denies chills or fever(s) Eyes Eyes: Denies blurry vision ENT ENT ED: Denies ear pain Respiratory/Chest Respiratory/Chest: Denies cough or dyspnea Gastrointestinal Gastrointestinal: Denies abdominal pain, constipation, diarrhea, melena, nausea or vomiting Genitourinary Genitourinary ED: Denies dysuria or hematuria Musculoskeletal Musculoskeletal: Denies arthralgias Integumentary Denies abscess Neurologic Neurologic: Denies headache(s) Psychiatric Psychiatric: Denies anxiety Endocrine Endocrinology: Denies cold intolerance Hematologic/Lymphatic Hematologic/Lymphatic: Reports none Allergic/Immunologic Allergic/Immunologic ED: Denies mouth swelling, tongue swelling or urticaria EXAM Physical Exam Narrative Exam Narrative: Appearing 34-year-old female. Vital signs stable afebrile. No distress. Significant other at bedside. H EENT exam pupils round react light. Extra motions intact. Moist mucous membranes. Neck nontender no JVD. No lymphadenopathy. Lungs clear to auscultation bilaterally. Heart regular rhythm no murmur. Chest wall ribs nontender. Abdomen soft nontender. Moving all 4 extremities. Nontender no edema. Normal strength. Normal range of motion. Back nontender. Neurologic exam awake alert. No focal motor deficits. Her anus showed no foreign body. No blood or bleeding. And no external hemorrhoids. Her significant other was present during that exam. Very benign exam. Const Vital Signs: 03/10/25 17:14 03/10/25 17:29 Temperature 97.6 F L 98.1 F Temperature Source Temporal Pulse Rate 69 91 Respiratory Rate 20 H 19 H Blood Pressure 123/84 H 123/70 H Blood Pressure Mean 97 87 Pulse Ox 99 98 Oxygen Delivery Method Room Air Positive well nourished and well developed; Negative for cachectic, contractures or unkempt General Appearance ED: well developed and NAD; Negative for unkempt, cachectic, contractures, cyanotic, diaphoretic or pallor Nutritional Appearance: Negative for cachectic HEENT Reports moist mucous membranes Negative for trauma or tenderness Eyes PERRL and EOMs intact bilaterally General Eye ED: Negative for pale conjunctiva or scleral icterus Neck no lymphadenopathy, supple and no JVD Chest Wall inspection of chest normal and palpation of chest normal Resp normal respiratory effort and clear to auscultation bilaterally Cardio regular rate, regular rhythm, S1 normal heart sound, S2 normal heart sound and no murmurs GI normal to inspection, nondistended, normoactive bowel sounds, non-tender, non- distended and no masses Auscultation: normoactive bowel sounds Palpation: soft; Negative for tender, guarding or rebound tenderness present Back/Spine no CVA tenderness General Back: Negative for CVA tenderness Cervical Spine: Negative for cervical spine tenderness Thoracic Spine / Upper Back: Negative for thoracic spinal tenderness or paraspinal muscle tenderness Lumbar Spine / Lower Back: Negative for lumbar spinal tenderness Extremity normal to inspection General Extremety ED: Negative for edema or tenderness General Extremity: Negative for edema Neuro oriented x3 and CN's II-XII intact bilaterally Sensorium / Orientation: alert; Negative for orientation impaired, lethargic or stuporous Motor Exam: strength 5/5 throughout; Negative for general weakness Psych mental status grossly normal Appearance: Negative for unkempt Mood & Affect: Negative for depressed, anxious or tearful Skin no rashes or lesions noted, no wounds and skin turgor normal General Skin Exam: elasticity normal; Negative for jaundice or pallor Lesions: No lesion noted Rashes: No rashes noted Trauma: Negative for abrasion Wounds: Negative for wounds noted MDM MDM MDM Narrative Medical decision making narrative: 34-year-old female history of IBS past something history in her rectum. Denies any pain or bleeding. She is concerned it may be a tapeworm. Exam is benign today. She will need outpatient follow-up. I explained to her there is really no testing for that in the emergency department.She will be referred to GI. History & Record Review Discussion w/independent historian: Patient and Family Additional record(s) reviewed:: Prior inpatient record, Prior outpatient record, Prior ED visit and Prior labs Discharge Plan Triage Chief Complaint: General Illness ED Provider: Ash Ortega Dx/Rx/DC Orders Clinical Impression: Adult wellness visit Instructions: ED Tapeworm Prescriptions: No Action gabapentin 300 mg capsule 300 mg PO TID Patient Comments: take 1 capsule by mouth at bedtime buspirone 5 mg tablet 5 mg PO TID ondansetron 4 mg tablet,disintegrating 4 mg PO Q6H PRN (Reason: nausea and vomiting) Qty: 10 0RF acetaminophen [Pain Relief ES (acetaminophen)] 500 mg tablet 1,000 mg PO Q6H PRN PRN (Reason: pain) metoprolol tartrate 25 mg tablet 25 mg PO BID Qty: 60 0RF albuterol sulfate 90 mcg/actuation HFA aerosol inhaler 1 puff INHALATION Q6H PRN PRN (Reason: wheezing) Zyrtec 10 mg capsule 10 mg PO DAILY PRN (Reason: allergy symptoms) Primary Care Provider: Care Physician,No Primary Referrals: Friend,Herminio, [Med Staff - Active Staff] - As soon as possible Care Physician,No Primary [Primary Care Provider] - Activity Restrictions/Additional Instructions: What you are describing may or may not be a tapeworm. Unlikely but possible. Follow-up with GI for further evaluation. There is no real testing in the emergency department we can do for this. Call their office to get an appointment to be seen in follow-up. Print Language: Amharic Disposition Disposition: Home, Self Care
== END 2025-03-10 17:51 | disposition home or self-care (01) ==
PROVIDERS: Emergency Provider Emergency Medicine; Visit Provider Emergency Medicine
DX: Z00.00 Encounter for general adult medical examination without abnormal findings (principal); F17.210 Nicotine dependence, cigarettes, uncomplicated; F17.290 Nicotine dependence, other tobacco product, uncomplicated
CPT/HCPCS: 99282

== ENCOUNTER 2025-05-10 21:19 | Emergency (ER) | payer MEDICAID, SELFPAY ==
[2025-05-10 21:19] VITALS: BP 149/113; PULSE 83; RESP 16; TEMP 36.4; O2SAT 98
[2025-05-10 21:21] VITALS: BMI 37.1
--- OUTSIDE RECORDS SUMMARY | 2025-05-10 23:03 | XMS RPT_ITS | CCD ---
Author Organization [facility] CliniSymd Care Team Providers Care Oven Dauber Name Role Phone Chari Huff Unavailable Unavailable Don Rosario Unavailable Unavailable Don Rosario Unavailable Unavailable No, Physician Primary Care Provider Unavailabl e JUANCHO ESTRADA Attending Unavailab le NO, PHYSICIAN Primary Care Unavailable VALERIO ROBLERO Attending Unavailabl e NO, PHYSICIAN Primary Care Unavailable NO, PHYSICIAN Primary Care Unavailable JUNO JAMA Attending Unavailab le ARMANDO AYALA CNM Attending Unavailable ARMANDO AYALA CNM Primary Care Unavailable ARMANDO AYALA CNM Admitting Unavailable NO, DOCTOR ON Consulting Unavailable Don Rosario MD Primary Care Provider Don Rosario MD Primary Care Provider Don Rosario MD Primary Care Provider Reese DIRECTOR OF USER EXPERIENCE.Eneida CANNON Unavailable Elsie Harris PA-C Unavailable DON ROSARIO MD Primary Care Physician Don Rosario MD Primary Care Provider Reese DIRECTOR OF USER EXPERIENCE.Eneida CANNON Unavailable Elsie Harris PA-C Unavailable MONIQUE SAUCEDO MD Attending Unavail able DON ROSARIO MD Primary Care Unavailable DON ROSARIO MD Primary Care Unavailable LINDA CUEVAS MD Attending Unavailable Unavailable Primary Care Provider UnavailELVER Crawford Attending Unavailable ELVER COOK Admitting Unavailable KARINE SAUCEDO Referring Unavailable TONA MACK Referring Unavailable TONA MACK Attending Unavailable KARINE SAUCEDO Attending Unavailable TONA MACK Referring Unavailable LEONEL RIOJAS Attending Unavailable TONA MACK Attending Unavailable KARINE SAUCEDO Referring Unavailable Dr. Don Rosario MD Primary Care Provider Dr. Frieda Jack DO Attending Provider Dr. Frieda Jack DO Emergency Provider Provider, Ed Physician Referring Provider Unavai lable Provider, Ed Physician Emergency Provider Unavai lable Care Physician, No Primary Primary Care Provider Unavailable Dr. Ash Ortega MD Emergency Provider Don Rosario Primary Care Unavailable Ismael Donahue Attending Unavailable Don Rosario Primary Care Unavailable Ash Ortega Attending Unavailable Frieda Jack Attending Unavailable Don Rosario Primary Care Unavailable Care Physician, No Primary Primary Care Unava ilable Ash Ortega Attending Unavailable Provider, Ed Physician Referring Unavailab le Provider, Ed Physician Attending Unavailab le Care Physician, No Primary Primary Care Unava ilable Don Rosario Primary Care Unavailable Ismael Donahue Attending Unavailable Allergies Allergy Classification Reported Allergen(s) Allergy Type Date of Onset Reaction(s) Facility (20 sources) Escitalopram; Translations: [ESCITALOPRAM] Drug Allergy 07-03-2020 Other: See Comments [facility] Work Phone: (20 sources) rOPINIRole; Translations: [ROPINIROLE] Drug Allergy 07-03-2020 Other: See Comments [facility] Work Phone: Medications Current Medications Medication Drug Class(es) Dates Sig (Normalized) Sig (Original) acetaminophen 500 mg oral tablet (6 sources) Start: 11-19-2024 take 1 tablet by mouth every six hours as needed for pain Acetaminophen (Acetaminophen 500 Mg Tablet) 500 mg tablet Active 1000 mg PO EVERY 6 HOURS NEEDED as needed for pain November 19, 2024 1:00am Start: 11-13-2024 End: 12-21-2024 take 2 tablets by mouth every six hours as needed acetaminophen (TYLENOL) 500 mg tablet Take 2 tablets by mouth every 6 hours as needed for pain. 100 tablet 2 11/13/2024 12/21/2024 Active Start: 12-01-2019 take 1 dose by mouth every six hours Tylenol Dose : 1,000 mg =, Oral, q6hr Start Date: 12/01/19 Status: Ordered Repeat number: 1 [id number] 200 actuat albuterol 0.09 mg/actuat metered dose inhaler (2 sources) beta2-Adrenergic Agonist Start: 03-09-2025 Albuterol Sulfate 90 mcg/actuation HFA aerosol inhaler Active 1 NMA INHALATION EVERY 6 HOURS NEEDED as needed for wheezing March 09, 2025 12:00am albuterol MDI (90 mcg/inh) CFC free inhalation aerosol (1 source) Start: 10-12-2024 take 1 puff(s) by inhalation every six hours as needed for wheezing albuterol MDI (90 mcg/inh) CFC free inhalation aerosol 1 puff(s), Inhalation, q6h, PRN as needed for wheezing, # 8.5 gram(s), 0 Refill(s) Start Date: 10/12/24 Status: Ordered Quantity: 8.5 Unit: g Repeat number: 1 busPIRone hydrochloride 5 mg oral tablet (9 sources) Start: 01-15-2022 take 1 tablet by mouth three times daily Buspirone 5 mg tablet Active 5 mg PO THREE TIMES A DAY January 15, 2022 12:00am Start: 01-15-2022 take 5 mg by mouth once daily Buspirone Active 5 MG PO DAILY January 15, 2022 12:00am Start: 10-20-2021 take 2 tablets by mo [facility] twice daily busPIRone (BUSPAR) 5 mg tablet Indications: Generalized anxiety disorder Take 2 tablets by mouth twice daily. 120 tablet 5 10/20/2021 Active Comment on above: Take 2 tablets by mo [facility] twice daily. cetirizine hydrochloride 10 mg oral capsule (7 sources) Histamine-1 Receptor Antagonist Start: End: take 1 capsule by mouth once daily as needed Cetirizine (Zyrtec) 10 mg capsule Active 10 mg PO DAILY as needed for allergy symptoms March 09, 2025 12:00am Start: 10-20-2021 take 1 tablet by malgorzata once daily cetirizine (ZYRTEC) 10 mg tablet Take 1 tablet by mouth once daily. 30 tablet 3 10/20/2021 Active Comment on above: Take 1 tablet by malgorzata once daily. cyclobenzaprine hydrochloride 10 mg oral tablet (3 sources) Muscle Relaxant Start: 12-01-19 take 1 tablet by mouth three times daily for muscle spasms cyclobenzaprine 10 mg oral tablet take 1 tablet by mouth three times a day for if needed for muscle spasm Start Date: 12/01/19 Status: Ordered Repeat number: 1 Start: 06-13-2019 take 1 tablet by malgorzata three times daily as needed for muscle spasms cyclobenzaprine (FLEXERIL) 10 MG tablet Take 1 (one) tablet (10 mg total) by mouth 3 (three) times a day as needed for muscle spasms . 15 tablet 0 06/13/2019 Active Start: 06-13-2019 End: 06-13-2019 cyclobenzaprine (FLEXERIL) t ablet 10 mg dicyclomine hydrochloride 10 mg oral capsule (3 sources) Anticholinergic Start: 10-20-2021 take 1 capsule by mouth at bedtime dicyclomine (BENTYL) 10 mg capsule Take 1 capsule by mouth before meals and at bedtime. 120 capsule 5 10/20/2021 Active Comment on above: Take 1 capsule by mo [facility] before meals and at bedtime. fluticasone propionate 0.05 mg/actuat metered dose nasal spray (4 sources) Corticosteroid Start: 10-20-2021 take 2 spray(s) by mouth once daily fluticasone (FLONASE) 50 mcg/actuation nasal spray Use 2 Sprays in each nostril once daily. Rinse mouth after use. 1 Each 5 10/20/2021 Active take 2 spray(s) nasal route once daily fluticasone propionate (FLONASE) 50 mcg/actuation nasal spray Instill 2 sprays into each nostril daily . 0 Active Comment on above: Use 2 Sprays in each nostril once daily. Rinse mouth after use. gabapentin 300 mg oral capsule (19 sources) Anti-epileptic Agent Start: 04-02-2021 take 1 capsule by mouth three times daily Gabapentin 300 mg capsule Active 300 mg PO THREE TIMES A DAY April 02, 2021 12:00am Start: 04-02-2021 End: 04-18-2022 take 1 capsule by mouth once daily at bedtime gabapentin (NEURONTIN) 300 mg capsule Take 1 capsule by mouth daily at bedtime for 180 days. 30 capsule 5 10/20/2021 Suspended Comment on above: Take 1 capsule by mo [facility] daily at bedtime for 180 days. hydrOXYzine hydrochloride 25 mg oral tablet (13 sources) Antihistamine Start: 06-05-20 End: 06-04-20 take 1 capsule by mouth three times daily as needed hydrOXYzine (VISTARIL) 50 MG capsule Indications: Bites Take 1 (one) capsule (50 mg total) by mouth 3 (three) times a day as needed for itching . 30 capsule 0 06/05/2019 06/04/2020 Active Start: 05-03-2017 End: 03-09-2025 take 1 tablet by mouth at bedtime Hydroxyzine Hcl 25 MG tablet Discontinued 25 mg PO AT BEDTIME May 03, 2017 12:00am March 09, 2025 10:02pm take 1 tablet by malgorzata three times daily as needed hydrOXYzine (ATARAX) 10 MG tablet Take 10 mg by mouth 3 (three) times a day as needed for itching . 0 Active Comment on above: Take 1 tablet by malgorzata once daily. Take once a day by mouth at bedtime ibuprofen 600 mg oral tablet (5 sources) Nonsteroidal Anti-inflammatory Drug Start: 11-13-2024 End: 02-11-2025 take 1 tablet by mouth every six hours as needed ibuprofen (MOTRIN) 600 mg tablet Take 1 tablet by mouth every 6 hours as needed for pain. 100 tablet 2 11/13/2024 02/11/2025 Active Start: 12-01-2019 take 1 dose by mouth every six hours Motrin Dose : 800 mg =, Oral, q6hr Start Date: 12/01/19 Status: Ordered Repeat number: 1 metoprolol tartrate 25 mg oral tablet (11 sources) beta-Adrenergic Basim Start: 11-19-2024 take 1 tablet by mouth twice daily Metoprolol Tartrate 25 mg tablet Active 25 mg PO TWICE A DAY 60 November 19, 2024 1:00am Start: 10-20-2021 End: 03-09-2025 take 1 tablet by mouth once daily Metoprolol Succinate 25 mg Tablet Extended Release 24 Hr Discontinued 25 mg PO DAILY January 15, 2022 12:00am March 09, 2025 10:02pm Comment on above: Take 1 tablet by malgorzata once daily. olopatadine 1 mg/ml ophthalmic solution (3 sources) Histamine-1 Receptor Inhibitor Start: 10-20-2021 take 1 drop(s) into the eye(s) twice daily olopatadine (PATANOL) 0.1 % ophthalmic solution Use 1 Drop in both eyes twice daily. 5 mL 3 10/20/2021 Active Start: 10-20-2021 take 1 drop(s) into the eye(s) twice daily olopatadine (PATANOL) 0.1 % ophthalmic solution Use 1 Drop in both eyes twice daily. 5 mL 3 10/20/2021 Active Comment on above: Use 1 Drop in both e yes twice daily. ondansetron 4 mg disintegrating oral tablet (2 sources) Serotonin-3 Receptor Antagonist Start: take 1 tablet by mouth every six hours as needed for nausea and vomiting Ondansetron 4 mg tablet,disintegratin g Active 4 mg PO EVERY 6 HOURS as needed for nausea and vomiting October 16, 2024 1:00am triamcinolone acetonide 1 mg/ml topical lotion (5 sources) Corticosteroid Start: 019 End: triamcinolone (KENALOG) 0.1 % lotion Indications: Bites Apply topically 2 (two) times a day . 60 mL 0 06/05/2019 06/04/2020 Active Start: 06-05-2019 End: 06-05-2019 triamcinolone acetonide (AVERY ALOG-40) injection 40 mg Start: 06-05-2019 End: 06-05-2019 triamcinolone acetonide (AVERY ALOG-40) injection 40 mg Start: 06-05-2019 End: 06-05-2019 triamcinolone acetonide (AVERY ALOG-40) injection 40 mg Completed/Discontinued Medications Medication Drug Class(es) Dates Sig (Normalized) Sig (Original) cephalexin 500 mg oral capsule (2 sources) Cephalosporin Antibacterial Start: 10-14-2024 End: 11-19-2024 take 1 capsule by mouth every six hours Cephalexin 500 mg capsule Discontinued 500 mg PO EVERY 6 HOURS October 14, 2024 1:00am November 19, 2024 8:51pm famotidine 20 mg oral tablet (6 sources) Histamine-2 Receptor Antagonist Start: 05-03-2017 End: 05-09-2017 take 1 tablet by mouth twice daily Famotidine (Pepcid) 20 MG tablet Discontinued 20 mg PO TWICE A DAY May 03, 2017 12:00am May 09, 2017 11:09pm 1 ml ketorolac tromethamine 30 mg/ml injection (1 source) Nonsteroidal Anti-inflammatory Drug, Cyclooxygenase Inhibitor Start: 06-13-2019 End: 06-13-2019 ketorolac (TORADOL) injection 30 mg metroNIDAZOLE 500 mg oral tablet (10 sources) Nitroimidazole Antimicrobial Start: 11-13-2024 End: 03-09-2025 Metronidazole 500 mg tablet Discontinued mg November 19, 2024 1:00am March 09, 2025 10:02pm Start: 11-11-2024 End: 03-09-2025 take 1 tablet by mouth twice daily metroNIDAZOLE (FLAGYL) 500 mg tablet Indications: Trichomoniasis Take 1 tablet by mouth two times a day for 7 days. 14 tablet 01/05/2025 01/12/2025 Active naproxen 500 mg oral tablet (4 sources) Nonsteroidal Anti-inflammatory Drug Start: 06-05-2024 End: 03-09-2025 take 1 tablet by mouth twice daily as needed Naproxen 500 mg tablet Discontinued 500 mg PO TWICE DAILY NEEDED June 05, 2024 12:00am March 09, 2025 10:02pm Start: 12-01-2019 take 1 tablet by malgorzata twice daily at mealtime naproxen 500 mg oral delayed release tablet take 1 tablet by mouth twice a day with meals Start Date: 12/01/19 Status: Ordered Repeat number: 1 Start: 06-13-2019 End: 06-20-2019 take 1 tablet by mouth twice daily at mealtime naproxen (EC NAPROSYN) 500 MG EC tablet Take 1 (one) tablet (500 mg total) by mouth 2 (two) times a day with meals for 14 doses . 14 tablet 0 06/13/2019 06/20/2019 Active penicillin v potassium 500 mg oral tablet (2 sources) Start: 06-05-2024 End: 03-09-2025 take 1 tablet by mouth four times daily Penicillin V Potassium 500 mg tablet Discontinued 500 mg PO 4 TIMES DAILY June 05, 2024 12:00am March 09, 2025 10:02pm predniSONE 20 mg oral tablet (6 sources) Start: 05-03-2017 End: 05-09-2017 take 2 tablets by mouth once daily Prednisone 20 MG tablet Discontinued 40 mg PO DAILY@0800 10 May 03, 2017 12:00am May 09, 2017 11:09pm Start: 05-03-2017 End: 05-09-2017 take 40 mg by mouth once daily Prednisone Discontinued 40 MG PO DAILY@0800 May 03, 2017 12:00am May 09, 2017 11:09pm VITS 5-LMOW-KFQAZ-D [place] ORAL (10 sources) Start: 08-23-2017 VITS 8-SYIV-EGEYP-DHA ORAL DAILY 08/23/2017 Suspended Start: 08-23-2017 VITS 9-WEBU-VSLHI-DHA ORAL DAILY 08/23/2017 Active raNITIdine 150 mg oral tablet (14 sources) Histamine-2 Receptor Antagonist Start: 12-17-2017 End: 03-09-2025 take 1 tablet by mouth once daily Ranitidine Hcl 150 MG tablet Discontinued 150 mg PO DAILY April 21, 2019 12:00am March 09, 2025 10:02pm take 1 tablet by mouth twice evon ly ranitidine (ZANTAC) 150 MG tablet Take 150 mg by mouth 2 (two) times a day . 0 Active take 1 tablet by mouth twice evon ly ranitidine (ZANTAC) 75 MG tablet Take 75 mg by mouth 2 (two) times a day . 0 Active sulfamethoxazole 800 mg / trimethoprim 160 mg oral tablet (6 sources) Dihydrofolate Reductase Inhibitor Antibacterial, Sulfonamide Antimicrobial Start: 04-21-2019 End: 03-09-2025 Sulfamethoxazole-Trimethopri m 1 TABLET tablet Discontinued 1 {tbl} PO TWICE A DAY April 21, 2019 12:00am March 09, 2025 10:02pm Start: 04-21-2019 take 1 tablet by malgorzata th twice daily Sulfamethoxazole-Trimethoprim Active 1 T ABLET PO TWICE A DAY April 21, 2019 12:00am Problems Active Problems Problem Classification Problem Date Documented Da te Episodic/Chronic Anxiety disorders (20 sources) Generalized anxiety disorder; Translations: [Generalized anxiety disorder] Onset: 7 Chronic Appendicitis and other appendiceal conditions (1 source) Appendicitis 03-03-2018 Episodic Cardiac dysrhythmias (15 sources) Tachycardia; Translations: [Tachycardia, unspecified] Onset: 7 04-30-2017 Episodic Esophageal disorders (2 sources) Gastro-esophageal reflux disease with esophagitis; Translations: [Gastro-esophageal reflux disease with esophagitis] Onset: 7 Chronic Essential hypertension (20 sources) Essential hypertension; Translations: [Essential (primary) hypertension] Onset: 1 10-20-2021 Chronic Headache; including migraine (2 sources) Headache; Translations: [Headache] 11-27-2024 Episodic Hemorrhage during ; abruptio placenta; placenta previa (4 sources) Threatened miscarriage in first trimester; Translations: [Threatened ] 11-11-2022 Episodic Hypertension complicating ; childbirth and the puerperium (2 sources) Hypertensive disorder; Translations: [Unspecified maternal hypertension, complicating the puerperium] Onset: 5 11-19-2024 Chronic Intestinal infection (2 sources) Viral gastroenteritis; Translations: [Viral intestinal infection, unspecified] 10-24-2024 Episodic Open wounds of head; neck; and trunk (5 sources) Facial laceration ; Translations: [Laceration without foreign body of other part of head, initial encounter] 03-10-2022 Episodic Other aftercare (4 sources) Surgical follow-up; Translations: [Encounter for removal of sutures] 03-17-2022 Episodic Other circulatory disease (2 sources) Elevated blood pressure; Translations: [Elevated blood-pressure reading, without diagnosis of hypertension] 10-22-2024 Episodic Other complications of (6 sources) with abortive outcome; Translations: [Missed ] Onset: 5 11-10-2024 Episodic Other complications of (1 source) Missed ; Translations: [Missed ] Onset: 5 Episodic Other gastrointestinal disorders (13 sources) Irritable bowel syndrome with diarrhea; Translations: [Irritable bowel syndrome with diarrhea] Onset: 0 07-03-2020 Chronic Other hereditary and degenerative nervous system conditions (13 sources) Restless legs; Translations: [Restless legs syndrome] Onset: 0 07-03-2020 Chronic Other infections; including parasitic (1 source) Trichomoniasis, unspecified; Translations: [Trichomoniasis] Onset: 5 Episodic Other injuries and conditions due to external causes (1 source) Bite - wound; Translations: [Bites] Episodic Other nervous system disorders (6 sources) Carpal tunnel syndrome; Translations: [Carpal tunnel syndrome, bilateral upper limbs] 09-17-2019 Chronic Other and delivery including normal (12 sources) Vaginal delivery; Translations: [Encounter for full-term uncomplicated delivery] Onset: 5 09-16-2019 Episodic Comment on above: System added from do cumentation. Status documented as Yes on Admission Residual codes; unclassified (1 source) Gestation period, 13 weeks; Translations: [13 weeks gestation of ] 11-10-2024 Episodic Residual codes; unclassified (1 source) Procedure and treatment not carried out due to patient leaving prior to being seen by health care provider; Translations: [Procedure and treatment not carried out due to patient leaving prior to being seen by health care provider] Onset: 5 Episodic Sexually transmitted infections (not HIV or hepatitis) (3 sources) Human papillomavirus deoxyribonucleic acid test positive, high risk on cervical specimen; Translations: [Cervical high risk human papillomavirus (HPV) DNA test positive] 11-14-2024 Episodic Skin and subcutaneous tissue infections (6 sources) Abscess of axilla; Translations: [Cutaneous abscess of left axilla] 04-19-2018 Episodic Spondylosis; intervertebral disc disorders; other back problems (1 source) Acute low back pain; Translations: [Acute bilateral low back pain without sciatica] Episodic Sprains and strains (6 sources) Sprain of ankle; Translations: [Sprain of unspecified ligament of right ankle, initial encounter] 06-28-2021 Episodic Substance-related disorders (17 sources) Nicotine dependence, unspecified, uncomplicated; Translations: [Smoker] Onset: 7 04-30-2017 Chronic Unclassified (2 sources) Other specified disorders of teeth and supporting structures; Translations: [Other specified disorders of teeth and supporting structures] Onset: 7 Urinary tract infections (14 sources) Pyelonephritis; Translations: [Tubulo-interstitial nephritis, not specified as acute or chronic] 04-03-2021 Episodic Past or Other Problems Problem Classification Problem Date Documented Date Episodic/Chronic Administrative/social admission (20 sources) Homeless; Translations: [Homeless] Onset: 11-10-2024 11-10-2024 Episodic Allergic reactions (13 sources) Eczema; Translations: [Dermatitis, unspecified] Onset: 04-30-2017 04-30-2017 Episodic Disorders of teeth and jaw (5 sources) Dental caries, unspecified; Translations: [Dental caries] Onset: 07-04-2017 06-13-2024 Episodic Nausea and vomiting (1 source) Nausea with vomiting, unspecified; Translations: [Nausea with vomiting, unspecified] Onset: 11-12-2024 Episodic Other circulatory disease (11 sources) H/O: hypertension; Translations: [Personal history of other diseases of the circulatory system] Onset: 11-10-2024 11-10-2024 Episodic Other complications of (11 sources) Late entry into care; Translations: [Supervision of with insufficient care, second trimester] Onset: 11-10-2024 Resolved: 11-13-2024 11-10-2024 Episodic Other complications of (11 sources) Maternal tobacco use; Translations: [Smoking (tobacco) complicating , second trimester] Onset: 11-10-2024 Resolved: 11-13-2024 11-10-2024 Episodic Other complications of (11 sources) High risk ; Translations: [Supervision of other high risk pregnancies, second trimester] Onset: 11-10-2024 Resolved: 01-05-2025 11-10-2024 Episodic Other complications of (7 sources) Missed miscarriage; Translations: [Missed ] Onset: 11-12-2024 Resolved: 01-05-2025 11-10-2024 Episodic Other infections; including parasitic (9 sources) Infection by Trichomonas; Translations: [Trichomoniasis, unspecified] Onset: 11-12-2024 11-12-2024 Episodic Other lower respiratory disease (1 source) Shortness of breath; Translations: [Shortness of breath] Onset: 11-11-2024 Episodic Other screening for suspected conditions (not mental disorders or infectious disease) (20 sources) Patient encounter status; Translations: [Encounter for screening for cardiovascular disorders] Onset: 04-30-2017 Resolved: 11-10-2024 04-30-2017 Episodic Other skin disorders (1 source) Eruption; Translations: [Rash] Episodic Residual codes; unclassified (11 sources) History of hemorrhage; Translations: [Personal history of other complications of , childbirth and the puerperium] Onset: 11-10-2024 Resolved: 11-13-2024 11-10-2024 Episodic Residual codes; unclassified (11 sources) FH: Congenital anomaly; Translations: [Family history of other congenital malformations, deformations and chromosomal abnormalities] Onset: 11-10-2024 11-10-2024 Episodic Unclassified (2 sources) Acquired absence of other specified parts of digestive tract; Translations: [Acquired absence of other specified parts of digestive tract] Onset: 07-04-2017 Episodic Results Test Name Value Interpretation Reference Range Facility Emergency Department Summary on 03-10-2025 Emergency Department Summary [facility] Medical Records Department [address] [place] [address] Emergency Department Summary 03/10/25 MR#: [id number] Acct: [id number] Name: SELMA POON JUANIS Rep #: [id number] : 1990 34 From: Ash Ortega MD PCP: Care Physician,No Primary Status:PRE ER Location: ED HPI History of Present Illness Chief Complaint: General Illness Informant: patient and spouse/S.O. Onset/Context/Timin g Onset: Yesterday Context: Sudden Onset Narrative Narrative: 34-year-old female history of IBS, anxiety and hypertension. States that yesterday was having a bowel movement. A long skinny something came out of her buttocks. After bowel movement. She was concerned and possibly may be a tapeworm. Denies any blood or bleeding. No pain. No recent weight loss. No prior diagnosis. Prior similar symptoms: Yes Recent Illness/Hospitaliza tion: No [facility] Medical History Anxiety Hypertension Carpal tunnel syndrome Pyelonephritis Home Medications ???Medication ???Instructions ???Recorded ???Last Taken ???Type gabapentin 300 mg capsule 300 mg PO TID 04/02/21 Unknown His tory buspirone 5 mg tablet 5 mg PO TID 01/15/22 Unknown Histo ry ondansetron 4 mg disintegrating 4 mg PO Q6H PRN nausea and 4 Unknown Rx tablet vomiting #10 tabs acetaminophen 500 mg tablet (Pain 1,000 mg PO Q6H PRN PRN pain 10/30 12/23 Unknown History Relief Extra Strength (acetaminophen)) metoprolol tartrate 25 mg tablet 25 mg PO BID #60 tabs 11/19/24 Unk nown Rx albuterol sulfate 90 mcg/actuation 1 puff inhalation Q6H PRN PRN Unknown History aerosol inhaler wheezing cetirizine 10 mg capsule (Zyrtec) 10 mg PO DAILY PRN allergy sympto ms 03/09/25 Unknown History Allergy/AdvReac Type Severity Reaction Status Date / Time No Known Allergies Allergy Verified 03/10/25 17:14 Surgical History History of carpal tunnel surgery of right wrist History of carpal tunnel surgery of left wrist Hx of appendectomy Social History Smoking Status: Current every day smoker tobacco type: cigarettes and e-cigarettes ROS ROS ED ROS Narrative Denies recent illness. Weight gain no weight loss. Constitutional Constitutional ED: Denies chills or fever(s) Eyes Eyes: Denies blurry vision ENT ENT ED: Denies ear pain Respiratory/Chest Respiratory/Chest: Denies cough or dyspnea Gastrointestinal Gastrointestinal: Denies abdominal pain, constipation, diarrhea, melena, nausea or vomiting Genitourinary Genitourinary ED: Denies dysuria or hematuria Musculoskeletal Musculoskeletal: Denies arthralgias Integumentary Denies abscess Neurologic Neurologic: Denies headache(s) Psychiatric Psychiatric: Denies anxiety Endocrine Endocrinology: Denies cold intolerance Hematologic/Lymphat ic Hematologic/Lymphat ic: Reports none Allergic/Immunologi c Allergic/Immunologi c ED: Denies mouth swelling, tongue swelling or urticaria EXAM Physical Exam Narrative Exam Narrative: Appearing 34-year-old female. Vital signs stable afebrile. No distress. Significant other at bedside. H EENT exam pupils round react light. Extra motions intact. Moist mucous membranes. Neck nontender no JVD. No lymphadenopathy. Lungs clear to auscultation bilaterally. Heart regular rhythm no murmur. Chest wall ribs nontender. Abdomen soft nontender. Moving all 4 extremities. Nontender no edema. Normal strength. Normal range of motion. Back nontender. Neurologic exam awake alert. No focal motor deficits. Her anus showed no foreign body. No blood or bleeding. And no external hemorrhoids. Her significant other was present during that exam. Very benign exam. Const Vital Signs: 03/10/25 17:14 03/10/25 17:29 Temperature 97.6 F L 98.1 F Temperature Source Temporal Pulse Rate 69 91 Respiratory Rate 20 H 19 H Blood Pressure 123/84 H 123/70 H Blood Pressure Mean 97 87 Pulse Ox 99 98 Oxygen Delivery Method Room Air Positive well nourished and well developed; Negative for cachectic, contractures or unkempt General Appearance ED: well developed and NAD; Negative for unkempt, cachectic, contractures, cyanotic, diaphoretic or pallor Nutritional Appearance: Negative for cachectic HEENT Reports moist mucous membranes Negative for trauma or tenderness Eyes PERRL and EOMs intact bilaterally General Eye ED: Negative for pale conjunctiva or scleral icterus Neck no lymphadenopathy, supple and no JVD Chest Wall inspection of chest normal and palpation of chest normal Resp normal respiratory effort and clear to auscultation bilaterally Cardio regular rate, regular rhythm, S1 normal heart sound (more content not included)... Normal [facility] BACTERIAL VAGINOSIS NAATon 0 01-05-2025 Lactobacillus crispatus+gasseri+villafuerte ii + Gardnerella vaginalis + Atopobium vaginae rRNA CARMEN+probe Ql (Vag fld) Not detected Normal Not detected [facility] Comment on above: Order Comment: Speci men Type: SWABOrdering Facility: [facility] Address: [address] [place] [address] Performed By: #### B VAMP, CVTV ####[facility] LABCLIA [id number] [place] [address] [place] C. trachomatis+N. gonorrhoea e DNA CARMEN+probe Ql (Unsp spec)on 01-05-2025 C. trachomatis rRNA CARMEN+probe Ql (Unsp spec) Not detected Normal Not detected [facility] Comment on above: Order Comment: Speci men Type: SWABOrdering Facility: [facility] Address: [address] [place] [address] Performed By: #### 3 6902-5 ####[facility] LABCLIA [id number] [place] [address] [place] N. gonorrhoeae rRNA CARMEN+probe Ql (Unsp spec) Not detected Normal Not detected [facility] Comment on above: Order Comment: Speci men Type: SWABOrdering Facility: [facility] Address: [address] [place] [address] Performed By: #### 3 6902-5 ####[facility] LABCLIA [id number] [address] [place] PRUDENCIO/TRICHOMONAS NAATon 0 01-05-2025 C. glabrata RNA CARMEN+probe Ql (Vag fld) Not detected Normal Not detected [facility] Comment on above: Order Comment: Speci men Type: SWABOrdering Facility: [facility] Address: [address] [place] [address] Performed By: #### B VAMP, CVTV ####[facility] LABCLIA [id number] [address] [place] Prudencio sp DNA CARMEN+probe Ql (Vag fld) Not detected Normal Not detected [facility] Comment on above: Order Comment: Speci men Type: SWABOrdering Facility: [facility] Address: [address] [place] [address] Result Comment: The Prudencio species group target includes C. albicans, C. tropicalis, C. parapsilosis, and C. dubliniensis. Performed By: #### B VAMP, CVTV ####[facility] LABCLIA [id number] [address] [place] T. vaginalis DNA CARMEN+probe Ql (Unsp spec) Not detected Normal Not detected [facility] Comment on above: Order Comment: Speci men Type: SWABOrdering Facility: [facility] Address: [address] [place] [address] Performed By: #### B VAMP, CVTV ####[facility] LABCLIA [id number] [address] [place] CNOVon 01-05-2025 CNOV Office Visit (OBGYWM) ---- SELMA POON ([id number]) 1990 F Date Time Provider Department 01/05/25 1:40 PM KARINE SAUCEDO OBGYWM During your visit today, we recorded the following information about you: Blood pressure Weight 120/64 84.4 kg Karine Saucedo MD 01/05/2025 4:49 PM 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 The patient's last pap smear was Positive HPV from October 2024. Patient has a history of abnormal pap: Yes. The patient has had prior treatment: none. test: negative STD testing also. Treated for trich however partner has not been treated UNIVERSAL PROTOCOL / SAFETY CHECKLIST Procedure to be Performed: Colpo Sign In: A Moment of CARE was completed. Appropriate PPE (Personal Protective Equipment) worn by all providers involved with the procedure. Special equipment not required. Patient/Surrogate Stated/Verified: Patient name, Date of , Relevant allergies, and The intended procedure Time Out: Relevant labs, photos, and/or imaging studies have been reviewed. Intended patient and procedure match the source document(s) (e.g. consent, HANDP, associated studies [imaging, pathology]) match the intended patient and procedure. Consent obtained and matches the intended procedure. Yes. Correct side/site is not applicable. Medications required for this procedure are not applicable. Fire risk assessed and interventions discussed. Implants: are not applicable. Sign Out: Specimens are all correctly labeled and sent. All instruments, equipment, possible retained foreign bodies are accounted for. Yes. The post-procedure plan of care has been communicated to the patient or surrogate. PROCEDURE: EXTERNAL GENITALIA: Normal in appearance without lesions VAGINA: Normal in appearance without lesions CERVIX: Speculum placed in vagina and excellent visualization of cervix achieved. Cervix swabbed x 3 with 3% acetic acid solution. Cervix grossly normal. Squamocolumnar junction visualized. No acetowhite changes, punctations, mosaicism or atypical vasculature noted. BIOPSY: Not done. ECC: not done HEMOSTASIS: n/a Procedure Summary: Patient tolerated procedure well and colposcopy was adequate. ASSESSMENT: cervicitis PLAN: Repeat pap MD Tawny Meier BethanKEILA edwards 01/05/2025 1:10 PM Signed YOUR RECOVERY It may take a few weeks for your cervix to heal. While your cervix heals, you may have: - Vaginal bleeding (less than a normal menstrual period) - Mild cramping - A brown-black vaginal discharge (similar to coffee grounds) which is a result of the paste used to help stop bleeding from the procedure Do NOT put anything in the vagina for 1 week after your colposcopy if your doctor does a biopsy of your cervix. This includes sex, tampons, and douches. If you have any discomfort, you may take an over the counter pain medication (motrin, advil, ibuprofen, tylenol, etc). If this does not relieve your discomfort, contact your doctor's office for a prescription strength pain medication. It is okay to wear a sanitary pad until the discharge and spotting stops. RISKS Although problems seldom occur with colposcopy, there can be some complications. You may feel faint during and shortly after the procedure as well as have some bleeding and vaginal discharge after the procedure. There is also a risk of infection after the procedure. These complications are rare and can be easily treated. You should contact you doctor is you have any of the following: - Heavy bleeding (more than your normal period) - Bleeding with clots - Severe abdominal pain - Fever (more than 100.4F) - Foul smelling vaginal discharge RESULTS If a biopsy was taken, we will have the results of your biopsy in 1-2 weeks. If you do not hear the results of your biopsy after 2 weeks, please contact your physicians office for the results. Depending on the biopsy results, your doctor will determine your follow up plan which may include further testing or treatments. STAYING HEALTHY After the procedure, you will need to see your doctor for follow up visits during the year. At these visits your doctor will check the health of your cervix with a pap smear. After three normal pap smears, your doctor will allow you to return to having exams once a year. If you have another abnormal pap smear, you may need closer follow up for longer or you may need additional treatment. By making a few lifestyle changes after the procedure, you can help protect the health of your cervix: - Have regular pelvic exams and pap smears as ordered by your doctor. - Stop smoking as smoking increases your risk of developing a cancer of the cervix - If you have more than one sexual partner, limit your number of partners and use (more content not included)... 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 Pt asking if Will is willing to take her back as she needs documents for 180 stating that she has been diagnosed with anxiety and is wanting to get back on medication. Pt was informed that since its been over 3 yrs since she has been seen she is now a new pts and [facility]. Pt did not know she could use insurance as a ride to doctors appts and that's why she has not been in since then. Please advise if willing to accept pt back. Thank you Don Rosario MD 12/05/2024 9:55 AM Signed Not at this time. Practice is over full. Isabel Rodriguez MA 12/05/2024 11:41 AM Signed Pt notified and voiced understanding. Isabel Rodriguez MA Allergies As of Date: 12/05/2024 Noted Allergy Reaction LEXAPRO (ESCITALOPRAM) 07/03/2020 14 - Other: See Comments Comments: Made her angry REQUIP (ROPINIROLE) 07/03/2020 14 - Other: See Comments Comments: Made restless legs worse. Date Reviewed: 11/19/2024 Reviewed by: Shannon Dye MA - Fully Assessed Reason for Visit: Patient Question [1477] Prescriptions as of 12/05/2024 - acetaminophen (TYLENOL) 500 mg tablet Take 2 tablets by mouth every 6 hours as needed for pain. - ibuprofen (MOTRIN) 600 mg tablet Take 1 tablet by mouth every 6 hours as needed for pain. Problem List As Of Date 12/05/2024 Noted Resolved Generalized anxiety disorder [F41.1] 04/30/2017 Well adult exam [Z00.00] 04/30/2017 11/10/2024 Encounter for screening for cardiovascular diso*04/30/2017 11/10/2024 Hypertension, essential [I10] 10/20/2021 Late care affecting in secon*11/10/2024 11/13/2024 Homeless [Z59.00] 11/10/2024 Lost custody of children [Z65.3] 11/10/2024 History of hypertension [Z86.79] 11/10/2024 History of hemorrhage [Z87.59] 11/10/2024 11/13/2024 Family history of congenital anomaly [Z82.79] 11/10/2024 Maternal tobacco use in second trimester [O99.3*11/10/2024 11/13/2024 Supervision of other high risk pregnancies, sec*11/10/2024 Missed [O02.1] 11/12/2024 Trichomonas infection [A59.9] 11/12/2024 Encounter Status:Closed by ISABEL RODRIGUEZ on 12/05/24 Normal [facility] Absolute lymphocyte countOrd ered By: Frieda Jack on 01-22-2025 Lymphocytes Auto (Unsp spec) [#/Vol] 2.76 10*3/uL 0.83-4.51 [facility] Absolute neutrophil countOrd ered By: Frieda Jack on 11-19-2024 Neutrophils (Bld) [#/Vol] 6.4 10*3/uL 2.0-7.7 [facility] Albumin to globulin ratioOrd ered By: Frieda Jack on 11-19-2024 Albumin/Globulin [Mass ratio] 0.9 {ratio} 0.9-2.4 [facility] Automated lymphocyte count a s percentage of total leukocytesOrdered By: Frieda Jack on 11-19-2024 Lymphocytes/100 WBC Auto (Unsp spec) 26.2 % 19-41 [facility] Basophil percentageOrdered B y: Frieda Jack on 11-19-2024 Basophils/100 WBC (Bld) 0.8 % 0-1 [facility] Bilirubin Test strip Ql (U)O rdered By: Frieda Jack on 11-19-2024 Bilirubin Ql (U) Negative Negative [facility] Bilirubin, totalOrdered By: Frieda Jack on 11-19-2024 Bilirubin [Mass/Vol] 0.40 mg/dL 0.20-1.00 [facility] Comment on above: For patients on eltr ombopag therapy, use of Dimension [place] TBIL is not recommended. Blood urea nitrogen (BUN)/cr eatinine ratioOrdered By: Frieda Jack on 11-19-2024 Urea nitrogen/Creatinine [Mass ratio] 13.1 mg/mg 10-20 [facility] CBC W/Diff, Automatedon 10-30 Absolute Lymph 2.76 X10 3/uL Normal 0.83-4.51 [facility] Comment on above: Performed By: #### L 500.4050, L100.0100 #### [facility] [address] [place], [place], [id number] Absolute Neut 6.4 X10 3/uL Normal 2.0-7.7 [facility] Comment on above: Performed By: #### L 500.4050, L100.0100 #### [facility] [address] [place], [address] Basophils/100 WBC (Bld) 0.8 % Normal 0-1 [facility] Comment on above: Performed By: #### L 500.4050, L100.0100 #### [facility] [address] [place], [address] Eosinophils/100 WBC (Bld) 4.8 % Normal 0-5 [facility] Comment on above: Performed By: #### L 500.4050, L100.0100 #### [facility] [address] [place], [address] Erythrocyte distribution width (RBC) [Ratio] 13.9 % Normal 11.6-14.6 [facility] Comment on above: Performed By: #### L 500.4050, L100.0100 #### [facility] [address] [place], [address] Hematocrit (Bld) [Volume fraction] 44.0 % Normal 37-47 [facility] Comment on above: Performed By: #### L 500.4050, L100.0100 #### [facility] [address] [place], [address] Hemoglobin (Bld) [Mass/Vol] 14.3 g/dL Normal 12.0-15.0 [facility] Comment on above: Performed By: #### L 500.4050, L100.0100 #### [facility] [address] [place], [address] IG% 0.800 Normal 0.0-0.9 [facility] Comment on above: Result Comment: IG% - Immature Granulocytes (promyelocytes, myelocytes and metamyelocytes) > 1% indicates that a LEFT SHIFT is Present. Performed By: #### L 500.4050, L100.0100 #### [facility] [address] [place], [address] Lymphocytes/100 WBC (Bld) 26.2 % Normal 19-41 [facility] Comment on above: Performed By: #### L 500.4050, L100.0100 #### [facility] [address] [place], [address] MCH (RBC) [Entitic mass] 26.3 pg Low 27.0-32.0 [facility] Comment on above: Performed By: #### L 500.4050, L100.0100 #### [facility] [address] [place], [address] MCHC (RBC) [Mass/Vol] 32.5 g/dL Normal 32-36 [facility] Comment on above: Performed By: #### L 500.4050, L100.0100 #### [facility] [address] [place], [address] MCV (RBC) [Entitic vol] 81.0 fL Normal 81-99 [facility] Comment on above: Performed By: #### L 500.4050, L100.0100 #### [facility] [address] [place], [address] Monocytes/100 WBC (Bld) 6.7 % Normal 0-10 [facility] Comment on above: Performed By: #### L 500.4050, L100.0100 #### [facility] [address] [place], [address] Neutrophils/100 WBC (Bld) 60.7 % Normal 47-70 [facility] Comment on above: Performed By: #### L 500.4050, L100.0100 #### [facility] [address] [place], [address] Nucleated RBC (Bld) [#/Vol] 0 10*3/uL Normal 0-5 [facility] Comment on above: Performed By: #### L 500.4050, L100.0100 #### [facility] [address] [place], [address] Platelet mean volume (Bld) [Entitic vol] 9.1 fL Normal 6.2-12.0 [facility] Comment on above: Performed By: #### L 500.4050, L100.0100 #### [facility] [address] [place], [address] Platelets (Bld) [#/Vol] 368 10*3/uL Normal 150-450 [facility] Comment on above: Performed By: #### L 500.4050, L100.0100 #### [facility] [address] [place], [address] RBC (Bld) [#/Vol] 5.43 10*6/uL High 4.2-5.4 [facility] Comment on above: Performed By: #### L 500.4050, L100.0100 #### [facility] [address] [place], [address] RDW SD 40.2 fl Normal 35.1-43.9 [facility] Comment on above: Performed By: #### L 500.4050, L100.0100 #### [facility] [address] [place], [address] WBC (Bld) [#/Vol] 10.5 10*3/uL Normal 4.4-11.0 [facility] Comment on above: Performed By: #### L 500.4050, L100.0100 #### [facility] [address] [place], [address] Carbon dioxide measurementOr dered By: Frieda Jack on 11-19-2024 CO2 [Moles/Vol] 27.0 mmol/L 21.0-32.0 [facility] Chloride measurementOrdered By: Frieda Jack on 11-19-2024 Chloride [Moles/Vol] 105 mmol/L 98-107 [facility] Comprehensive Metabolic Prof ilon 11-19-2024 Albumin [Mass/Vol] 3.7 g/dL Normal 3.2-5.0 [facility] Comment on above: Performed By: #### L 500.4050, L100.0100 ####[facility] [address] [place], [address] Albumin/Globulin [Mass ratio] 0.9 {ratio} Normal 0.9-2.4 [facility] Comment on above: Performed By: #### L 500.4050, L100.0100 ####[facility] [address] [place], [address] ALK P 100 U/L Normal 45-117 [facility] Comment on above: Performed By: #### L 500.4050, L100.0100 ####[facility] [address] [place], [address] ALT [Catalytic activity/Vol] 31 U/L Normal 13-56 [facility] Comment on above: Performed By: #### L 500.4050, L100.0100 ####[facility] [address] [place], [address] AST [Catalytic activity/Vol] 25 U/L Normal 15-37 [facility] Comment on above: Performed By: #### L 500.4050, L100.0100 ####[facility] [address] [place], [address] Bilirubin [Mass/Vol] 0.40 mg/dL Normal 0.20-1.00 [facility] Comment on above: Result Comment: For patients on eltrombopag therapy, use of Dimension [place] TBIL is not recommended. Performed By: #### L 500.4050, L100.0100 ####[facility] [address] [place], [address] BUN/CRE 13.1 RATIO Normal 10-20 [facility] Comment on above: Performed By: #### L 500.4050, L100.0100 ####[facility] [address] [place], [address] CA,Total 9.2 mg/dL Normal 8.5-10.1 [facility] Comment on above: Performed By: #### L 500.4050, L100.0100 ####[facility] [address] [place], [address] Chloride [Moles/Vol] 105 mmol/L Normal 98-107 [facility] Comment on above: Performed By: #### L 500.4050, L100.0100 ####[facility] [address] [place], [address] CO2 [Moles/Vol] 27.0 mmol/L Normal 21.0-32.0 [facility] Comment on above: Performed By: #### L 500.4050, L100.0100 ####[facility] [address] [place], [address] Creatinine [Mass/Vol] 0.69 mg/dL Normal 0.55-1.02 [facility] Comment on above: Result Comment: The validity of the calculated GFR GFRAA in patients over 70 years has not been determined. Clinical correlation is essential. Performed By: #### L 500.4050, L100.0100 ####[facility] [address] [place], [address] ECRCL 120.72 ml/min Normal [facility] Comment on above: Performed By: #### L 500.4050, L100.0100 ####[facility] [address] [place], [address] EST GFR - AA 128 mL/min Normal >60 [facility] Comment on above: Result Comment: Afri can [place] GFR Calc Performed By: #### L 500.4050, L100.0100 ####[facility] [address] [place], [address] GAP 8 Normal 5-15 [facility] Comment on above: Performed By: #### L 500.4050, L100.0100 ####[facility] [address] [place], [address] GFR/1.73 sq M.predicted among non-blacks MDRD (S/P/Bld) [Vol rate/Area] 105 mL/min/{1.73_m2} Normal >60 [facility] Comment on above: Result Comment: Non- GFR Calc Performed By: #### L 500.4050, L100.0100 ####[facility] [address] [place], [address] Globulin (S) [Mass/Vol] 4.0 g/dL Normal 2.2-4.2 [facility] Comment on above: Performed By: #### L 500.4050, L100.0100 ####[facility] [address] [place], [address] Glucose [Mass/Vol] 76 mg/dL Normal 74-106 [facility] Comment on above: Performed By: #### L 500.4050, L100.0100 ####[facility] [address] [place], [address] Potassium [Moles/Vol] 3.4 mmol/L Low 3.5-5.1 [facility] Comment on above: Performed By: #### L 500.4050, L100.0100 ####[facility] [address] [place], [address] Sodium [Moles/Vol] 140 mmol/L Normal 136-145 [facility] Comment on above: Performed By: #### L 500.4050, L100.0100 ####[facility] [address] [place], [address] T PROT 7.7 g/dL Normal 6.4-8.2 [facility] Comment on above: Performed By: #### L 500.4050, L100.0100 ####[facility] [address] [place], [address] Urea nitrogen [Mass/Vol] 9 mg/dL Normal 7-18 [facility] Comment on above: Performed By: #### L 500.4050, L100.0100 ####[facility] [address] [place], [address] Emergency Department Summary on 11-19-2024 Emergency Department Summary [facility] Medical Records Department [address] [place] [address] Emergency Department Summary 11/19/24 MR#: [id number] Acct: [id number] Name: SELMA POON JUANIS Rep #: [id number] : 1990 34 From: Frieda Jack DO PCP: Dr. Don Rosario MD Status:REG ER Location: ED HPI History of Present Illness Chief Complaint: Hypertension Narrative Narrative: Patient is 34-year-old female with recent recent 19-week delivery (follows with [facility]) on 11/12/23 presenting with elevated blood pressure. Patient states that should have appointment her RN TESTING today where her blood pressure was through the roof. She came to the ER for further evaluation. Here she is a worsening headache over the past few days and notes sinus pressure. She notes that she previously was on metoprolol but is been off it for 2 years. States her blood pressures been in the 140s to 150s. States that overall she has been feeling well has had a lot of anxiety. No other complaints or concerns reported at this time denies any chest pain, shortness of breath. Denies any leg swelling. Not having any vaginal bleeding. Does report that since July she has been having intermittent episodes of wheezing, nasal congestion and what sounds like postnasal drip. [facility] Medical History Anxiety Hypertension Carpal tunnel syndrome Pyelonephritis Home Medications ???Medication ???Instructions ???Recorded ???Last Taken ???Type hydroxyzine HCl 25 mg tablet 25 mg PO QHS anxiety 05/03/17 12/15/18 History Ranitidine [Zantac] 150 mg PO DAILY 12/17/17 12/17/17 09:00 History ranitidine HCl 150 mg tablet 150 mg PO DAILY 04/21/19 Unknown History sulfamethoxazole 800 1 tab PO BID #14 tabs 04/21/19 Unknown Rx mg-trimethoprim 160 mg tablet gabapentin 300 mg capsule 300 mg PO QHS 04/02/21 Unknown History buspirone 5 mg tablet 5 mg PO DAILY 01/15/22 Unknown History metoprolol succinate 25 mg 25 mg PO DAILY 01/15/22 Unknown History tablet,extended release 24 hr naproxen 500 mg tablet 500 mg PO BID PRN #20 tabs 06/05/24 Unknown Rx penicillin V potassium 500 mg 500 mg PO 4X/DAY #40 tabs 06/05/24 Unknown Rx tablet ondansetron 4 mg disintegrating 4 mg PO Q6H PRN nausea and 10/16/24 Unknown Rx tablet vomiting #10 tabs acetaminophen 500 mg tablet (Pain 1,000 mg PO Q6H PRN PRN pain 11/19/24 Unknown History Relief Extra Strength (acetaminophen)) cetirizine 10 mg capsule (Zyrtec) 10 mg PO DAILY #14 CAPSULES 11/19/24 Unknown Rx metoprolol tartrate 25 mg tablet 25 mg PO BID #60 tabs 11/19/24 Unknown Rx metronidazole 500 mg tablet mg 11/19/24 Unknown History Allergy/AdvReac Type Severity Reaction Status Date / Time No Known Allergies Allergy Verified 11/19/24 18:50 Family History no significant family his Surgical History History of carpal tunnel surgery of right wrist History of carpal tunnel surgery of left wrist Hx of appendectomy Social History Smoking Status: Current every day smoker tobacco type: cigarettes and e-cigarettes ROS ROS ED Constitutional Constitutional ED: Denies chills or fever(s) Eyes Eyes: Denies blurry vision or change in vision Gastrointestinal Gastrointestinal: Denies nausea or vomiting Musculoskeletal Musculoskeletal: Denies arthralgias or myalgias Integumentary Denies rash Neurologic Neurologic: Reports headache(s); Denies paresthesias or weakness Psychiatric Psychiatric: Reports anxiety Hematologic/Lymphat ic Hematologic/Lymphat ic: Denies easy bleeding or easy bruising EXAM Physical Exam Const Vital Signs: 11/19/24 18:46 11/19/24 19:46 11/19/24 20:44 Temperature 97.5 F L Temperature Source Temporal Pulse Rate 81 66 Respiratory Rate 20 H 18 Respiratory Effort Normal Respiratory Pattern Normal Blood Pressure 166/109 H 160/107 H Blood Pressure Mean 128 124 Pulse Ox 100 100 Oxygen Delivery Method Room Air Room Air 11/19/24 22:00 Temperature Temperature Source Pulse Rate 74 Respiratory Rate 18 Respiratory Effort Respiratory Pattern Blood Pressure 159/116 H Blood Pressure Mean 130 Pulse Ox 98 Oxygen Delivery Method Room Air Positive well nourished and well developed General Appearance ED: well developed and NAD HEENT Reports TM's clear and moist mucous membranes HEENT Narrative: Normal oropharynx. Tympanic Membrane ED: Yes TM's clear Neck supple and no JVD Chest Wall inspection of chest normal Resp normal respiratory effort Resp Narrative: Subtle and expiratory wheezing present in the anterior lung dorsey Auscultation: Negative for rales (more content not included)... Normal [facility] Eosinophil percentageOrdered By: Frieda Jack on 11-19-2024 Eosinophils/100 WBC (Bld) 4.8 % 0-5 [facility] Erythrocyte distribution wid th ratioOrdered By: Frieda Jack on 11-19-2024 Erythrocyte distribution width (RBC) [Ratio] 13.9 % 11.6-14.6 [facility] Erythrocyte distribution wid th standard deviationOrdered By: Frieda Jack on 11-19-2024 Erythrocyte distribution width (RBC) [Ratio] 40.2 fl 35.1-43.9 [facility] Glomerular filtration rate ( GFR) estimationOrdered By: Frieda Jack on 11-19-2024 GFR/1.73 sq M.predicted among non-blacks MDRD (S/P/Bld) [Vol rate/Area] 105 mL/min/{1.73_m2} >60 [facility] Comment on above: Non- GFR Calc Glucose measurementOrdered B y: Frieda Jack on 11-19-2024 Glucose [Mass/Vol] 76 mg/dL 74-106 [facility] Hematocrit Auto (Bld) [Volum e fraction]Ordered By: Frieda Jack on 11-19-2024 Hematocrit (Bld) [Volume fraction] 44.0 % 37-47 [facility] Hemoglobin measurementOrdere d By: Frieda Jack on 11-19-2024 Hemoglobin (Bld) [Mass/Vol] 14.3 g/dL 12.0-15.0 [facility] Immature granulocytes/100 WB C Auto (Bld)Ordered By: Frieda Jack on 11-19-2024 Immature granulocytes/100 WBC (Bld) 0.800 % 0.0-0.9 [facility] Comment on above: IG% - Immature Granu locytes (promyelocytes, myelocytes and metamyelocytes) > 1% indicates that a LEFT SHIFT is Present. Ketones Test strip Ql (U)Ord ered By: Frieda Jack on 11-19-2024 Ketones Ql (U) Negative Negative [facility] Laboratory - Chemistry and C hemistry - challengeOrdered By: Frieda Jack on 11-19-2024 AST [Catalytic activity/Vol] 25 U/L 15-37 [facility] MCV (mean corpuscular volume ) determinationOrdered By: Frieda Jack on 11-19-2024 MCV (RBC) [Entitic vol] 81.0 fL 81-99 [facility] Mean corpuscular hemoglobin (MCH) determinationOrdered By: Frieda Jack on 11-19-2024 MCH (RBC) [Entitic mass] 26.3 pg Low 27.0-32.0 [facility] Mean corpuscular hemoglobin concentration (MCHC) determinationOrdered By: Frieda Jack on 11-19-2024 MCHC (RBC) [Mass/Vol] 32.5 g/dL 32-36 [facility] Mean platelet volume determi nationOrdered By: Frieda Jack on 11-19-2024 Platelet mean volume (Bld) [Entitic vol] 9.1 fL 6.2-12.0 [facility] Microscopic analysis of urin e for red blood cells (RBC)Ordered By: Frieda Jack on 11-19-2024 Microscopic analysis of urine for red blood cells (RBC) 0 SEEN /hpf 0-5 [facility] Monocyte percentageOrdered B y: Frieda Jack on 11-19-2024 Monocytes/100 WBC (Bld) 6.7 % 0-10 [facility] Mucus LM Ql (Urine sed)Order ed By: Frieda Jack on 11-19-2024 Mucus Ql (Urine sed) 0 SEEN /hpf [facility] Neutrophil percentageOrdered By: Frieda Jack on 11-19-2024 Neutrophils/100 WBC (Bld) 60.7 % 47-70 [facility] Nitrite Test strip Ql (U)Ord ered By: Frieda Jack on 11-19-2024 Nitrite Ql (U) Negative Negative [facility] Nucleated red blood cell per centageOrdered By: Frieda Jack on 11-19-2024 Nucleated RBC/100 WBC (Bld) [Ratio] 0 % 0-5 [facility] Platelet countOrdered By: Vernon Jack on 11-19-2024 Platelets (Bld) [#/Vol] 368 10*3/uL 150-450 [facility] Potassium measurementOrdered By: Frieda Jack on 11-19-2024 Potassium [Moles/Vol] 3.4 mmol/L Low 3.5-5.1 [facility] Protein Test strip Ql (U)Ord ered By: Frieda Jack on 11-19-2024 Protein Ql (U) 30 mg/dl High Negative [facility] RBC Auto (Bld) [#/Vol]Ordere d By: Frieda Jack on 11-19-2024 RBC (Bld) [#/Vol] 5.43 10*6/uL High 4.2-5.4 [facility] Serum anion gap measurementO rdered By: Frieda Jack on 11-19-2024 Anion gap [Moles/Vol] 8 mmol/L 5-15 [facility] Serum globulin measurementOr dered By: Frieda Jack on 11-19-2024 Globulin (S) [Mass/Vol] 4.0 g/dL 2.2-4.2 [facility] Serum or plasma alanine durán otransferase (ALT) measurementOrdered By: Frieda Jack on 11-19-2024 ALT [Catalytic activity/Vol] 31 U/L 13-56 [facility] Serum or plasma albumin nancy urement (mass/volume)Ordered By: Frieda Jack on 11-19-2024 Albumin [Mass/Vol] 3.7 g/dL 3.2-5.0 [facility] Serum or plasma alkaline gayle sphatase measurementOrdered By: Frieda Jack on 11-19-2024 ALP [Catalytic activity/Vol] 100 U/L 45-117 [facility] Serum or plasma calcium nancy urement (mass/volume)Ordered By: Frieda Jack on 11-19-2024 Calcium [Mass/Vol] 9.2 mg/dL 8.5-10.1 [facility] Serum or plasma creatinine m easurement (mass/volume)Ordered By: Frieda Jack on 11-19-2024 Creatinine [Mass/Vol] 0.69 mg/dL 0.55-1.02 [facility] Comment on above: The validity of the calculated GFR & GFRAA in patients over 70 years has not been determined. Clinical correlation is essential. Serum or plasma urea nitroge n measurement (mass/volume)Ordered By: Frieda Jack on 11-19-2024 Urea nitrogen [Mass/Vol] 9 mg/dL 7-18 [facility] Sodium levelOrdered By: Darcy Jack on 11-19-2024 Sodium [Moles/Vol] 140 mmol/L 136-145 [facility] Squamous epithelial cells de tection in urine sediment by light microscopyOrdered By: Frieda Jack on 11-19-2024 Epithelial cells.squamous LM Ql (Urine sed) 0-5 SEEN /hpf 5-10 [facility] Total proteinOrdered By: Deanna Jack on 11-19-2024 Protein [Mass/Vol] 7.7 g/dL 6.4-8.2 [facility] Urinalysis, Completeon 11-19 EPI,SQUAMOUS 0-5 SEEN Normal 5-10 [facility] Comment on above: Order Comment: COLLE CTOR TO SPECIFY Performed By: #### L 400.0001 #### [facility] [address] [place], [address] WBC 0-5 SEEN Normal 0-5 [facility] Comment on above: Order Comment: ELFEGO CTOR TO SPECIFY Performed By: #### L 400.0001 #### [facility] [address] [place], [address] BACTERIA 0 SEEN Normal None Seen [facility] Comment on above: Order Comment: ELFEGO CTOR TO SPECIFY Performed By: #### L 400.0001 #### [facility] [address] [place], [address] Mucus Ql (Urine sed) 0 SEEN Normal [facility] Comment on above: Order Comment: ELFEGO CTOR TO SPECIFY Performed By: #### L 400.0001 #### [facility] [address] [place], [address] RBC 0 SEEN Normal 0-5 [facility] Comment on above: Order Comment: ELFEGO CTOR TO SPECIFY Performed By: #### L 400.0001 #### [facility] [address] [place], [address] Urine clarityOrdered By: Deanna Jack on 11-19-2024 Clarity (U) Clear Clear [facility] Urine color determinationOrd ered By: Frieda Jack on 11-19-2024 Color (U) Yellow Yellow [facility] Urine glucose detectionOrder ed By: Frieda Jack on 11-19-2024 Glucose Ql (U) Normal mg/dl Normal [facility] Urine leukocyte esterase det ection by dipstickOrdered By: Frieda Jack on 11-19-2024 Leukocyte esterase Test strip Ql (U) 100 /ul High Negative [facility] Urine pHOrdered By: Frieda melvin on 11-19-2024 pH (U) 6.0 [pH] 5.0 - 8.0 [facility] Urine sediment bacteria coun t by microscopy (number/high power field)Ordered By: Frieda Jack on 11-19-2024 Bacteria LM.HPF (Urine sed) [#/Area] 0 /[HPF] None Seen [facility] Urine specific gravity measu rementOrdered By: Frieda Jack on 11-19-2024 Specific gravity (U) [Rel density] 1.020 1.002-1.030 [facility] Urine urobilinogen measureme ntOrdered By: Frieda Jack on 11-19-2024 Urobilinogen Ql (U) Normal mg/dl Normal [facility] White blood cell (WBC) count Ordered By: Frieda Jack on 11-19-2024 WBC (Bld) [#/Vol] 10.5 10*3/uL 4.4-11.0 [facility] White blood cell countOrdere d By: Frieda Jack on 11-19-2024 White blood cell count 0-5 SEEN /hpf 0-5 [facility] CNPNon 11-14-2024 CNPN Telephone (OBGYWM) ---- SELMA POON ([id number]) 1990 F Date Time Provider Department 11/14/24 TONA MACK During your visit today, we recorded the following information about you: Nikky Bruce RN 11/14/2024 2:05 PM Signed ----- Message from Tona Mack APRN.CNM sent at 11/14/2024 1:01 PM EST ----- Pap smear abnormal. Recommend colposcopy 6 weeks after missed . GARTH Ariza Lindsey, RN 11/14/2024 2:06 PM Signed Patient notified and voiced understanding. Appointment scheduled. Please file pended colposcopy order. FELIZ Pena Jessica, APRN.CNM 11/21/2024 11:58 AM Signed Order signed. Tona Mack APRN.CNM Allergies As of Date: 11/14/2024 Noted Allergy Reaction LEXAPRO (ESCITALOPRAM) 07/03/2020 14 - Other: See Comments Comments: Made her angry REQUIP (ROPINIROLE) 07/03/2020 14 - Other: See Comments Comments: Made restless legs worse. Date Reviewed: 11/12/2024 Reviewed by: Luz Marina Raya RN - Fully Assessed Reason for Visit: Results [95] Primary Visit Diagnosis:Cervical high risk HPV (human papillomavirus) test positive [R87.810] Order(s):COLPOSCOPY [[id number]] Order #: [id number] Prescriptions as of 11/21/2024 - metroNIDAZOLE (FLAGYL) 500 mg tablet Take 1 tablet by mouth every 12 hours for 6 days. - metroNIDAZOLE (FLAGYL) 500 mg tablet Take 1 tablet by mouth two times a day for 7 days. - acetaminophen (TYLENOL) 500 mg tablet Take 2 tablets by mouth every 6 hours as needed for pain. - ibuprofen (MOTRIN) 600 mg tablet Take 1 tablet by mouth every 6 hours as needed for pain. Problem List As Of Date 11/14/2024 Noted Resolved Generalized anxiety disorder [F41.1] 04/30/2017 Well adult exam [Z00.00] 04/30/2017 11/10/2024 Encounter for screening for cardiovascular diso*04/30/2017 11/10/2024 Hypertension, essential [I10] 10/20/2021 Late care affecting in secon*11/10/2024 11/13/2024 Homeless [Z59.00] 11/10/2024 Lost custody of children [Z65.3] 11/10/2024 History of hypertension [Z86.79] 11/10/2024 History of hemorrhage [Z87.59] 11/10/2024 11/13/2024 Family history of congenital anomaly [Z82.79] 11/10/2024 Maternal tobacco use in second trimester [O99.3*11/10/2024 11/13/2024 Supervision of other high risk pregnancies, sec*11/10/2024 Missed [O02.1] 11/12/2024 Trichomonas infection [A59.9] 11/12/2024 Encounter Status:Closed by KELSEY CARDENAS on 11/21/24 Normal [facility] CNDSon 11-13-2024 CNDS HNO ID: [id number] Author: ELVER MATTHEW MD Service: Obstetrics Author Type: Resident Type: Discharge Summary Filed: 11/13/2024 06:34 Note Text: ---- Attestation signed by Elver Matthew I, MD at 11/13/2024 6:34 AM Patient was evaluated and is stable, agree with the discharge note as documented by Dr. Faulkner. Elver Matthew MD ---- DISCHARGE NOTE (Patient Admitted Less than 48 Hours) SERVICE DATE: 11/13/2024 SERVICE TIME: 4:49 AM ADMISSION DATE: 11/12/2024 DISCHARGE DISPOSITION: Home with Self Care DIET: Regular ACTIVITY AFTER DISCHARGE: Resume pre-hospital activity FOLLOW UP CARE REQUIRED: Patient to follow up with primary OBGYN in 2 weeks DISCHARGE MEDICATIONS: Medication List START taking these medications acetaminophen 500 mg tablet Commonly known as: TYLENOL Take 2 tablets by mouth every 6 hours as needed for pain. ibuprofen 600 mg tablet Commonly known as: MOTRIN Take 1 tablet by mouth every 6 hours as needed for pain. CHANGE how you take these medications metroNIDAZOLE 500 mg tablet Commonly known as: FLAGYL Take 1 tablet by mouth every 12 hours for 6 days. What changed: when to take this Another medication with the same name was removed. Continue taking this medication, and follow the directions you see here. STOP taking these medications gabapentin 300 mg capsule Commonly known as: NEURONTIN VITS 2-EIDC-NYNCC-DHA ORAL Where to Get Your Medications These medications were sent to [facility] - [place] [address] - [address] - [phone] [address] [place] [address] acetaminophen 500 mg tablet ibuprofen 600 mg tablet metroNIDAZOLE 500 mg tablet FINAL DIAGNOSIS: Missed Plan of care discussed with Provider, RN, Patient SIGNATURE: Meme Faulkner MD PATIENT NAME: Selma Poon DATE: November 13, 2024 TIME: 4:49 AM Normal [facility] CBC W Auto Differential pane l (Bld)on 11-12-2024 Basophils (Bld) [#/Vol] 0.08 10*3/uL Normal <0.11 [facility] Comment on above: Order Comment: Speci men Type: BLOOD SPECIMENOrdering Facility: [facility] Address: [address] [place] [address] Performed By: #### 5 7021-8 ####[facility] LABORATORYCLIA [id number] [place] [address] [place] Basophils/100 WBC (Bld) 0.8 % Normal [facility] Comment on above: Order Comment: Speci men Type: BLOOD SPECIMENOrdering Facility: [facility] Address: [address] [place] [address] Performed By: #### 5 7021-8 ####[facility]ORATORYCLIA [id number] [place] [address] [place] Differential cell count method Nom (Bld) Auto Normal [facility] Comment on above: Order Comment: Speci men Type: BLOOD SPECIMENOrdering Facility: [facility] Address: [address] [place] [address] Performed By: #### 5 7021-8 ####[facility] LABORATORYCLIA [id number] [place] [address] [place] Eosinophils (Bld) [#/Vol] 0.50 10*3/uL High <0.46 [facility] Comment on above: Order Comment: Speci men Type: BLOOD SPECIMENOrdering Facility: [facility] Address: [address] [place] [address] Performed By: #### 5 7021-8 ####[facility] LABORATORYCLIA [id number] [address] Eosinophils/100 WBC (Bld) 5.1 % Normal [facility] Comment on above: Order Comment: Speci men Type: BLOOD SPECIMENOrdering Facility: [facility] Address: [address] [place] [address] Performed By: #### 5 7021-8 ####[facility] LABORATORYCLIA [id number] [address] [place] Erythrocyte distribution width (RBC) [Ratio] 13.8 % Normal 11.5-15.0 [facility] Comment on above: Order Comment: Speci men Type: BLOOD SPECIMENOrdering Facility: [facility] Address: [address] [place] [address] Performed By: #### 5 7021-8 ####[facility] LABORATORYCLIA [id number] [address] Hematocrit (Bld) [Volume fraction] 44.9 % Normal 36.0-46.0 [facility] Comment on above: Order Comment: Speci men Type: BLOOD SPECIMENOrdering Facility: [facility] Address: [address] [place] [address] Performed By: #### 5 7021-8 ####[facility]ORATORYCLIA [id number] [address] [place] Hemoglobin (Bld) [Mass/Vol] 15.0 g/dL Normal 11.5-15.5 [facility] Comment on above: Order Comment: Speci men Type: BLOOD SPECIMENOrdering Facility: [facility] Address: [address] [place] [address] Performed By: #### 5 7021-8 ####[facility]ATORYCLIA [id number] [address] Immature granulocytes (Bld) [#/Vol] 0.15 10*3/uL High <0.10 [facility] Comment on above: Order Comment: Speci men Type: BLOOD SPECIMENOrdering Facility: [facility] Address: [address] [place] [address] Performed By: #### 5 7021-8 ####[facility]ORATORYCLIA [id number] [address] Immature granulocytes/100 WBC (Bld) 1.5 % Normal [facility] Comment on above: Order Comment: Speci men Type: BLOOD SPECIMENOrdering Facility: [facility] Address: [address] [place] [address] Performed By: #### 5 7021-8 ####[facility]ATORYCLIA [id number] [address] Lymphocytes (Bld) [#/Vol] 2.39 10*3/uL Normal 1.00-4.00 [facility] Comment on above: Order Comment: Speci men Type: BLOOD SPECIMENOrdering Facility: [facility] Address: [address] [place] [address] Performed By: #### 5 7021-8 ####[facility]ATORYCLIA [id number] [address] Lymphocytes/100 WBC (Bld) 24.6 % Normal [facility] Comment on above: Order Comment: Speci men Type: BLOOD SPECIMENOrdering Facility: [facility] Address: [address] [place] [address] Performed By: #### 5 7021-8 ####[facility]ATORYCLIA [id number] [address] [place] [facility] MCH (RBC) [Entitic mass] 26.8 pg Normal 26.0-34.0 [facility] Comment on above: Order Comment: Speci men Type: BLOOD SPECIMENOrdering Facility: [facility] Address: [address] [place] [address] Performed By: #### 5 7021-8 ####[facility]ATORYCLIA [id number] [address] MCHC (RBC) [Mass/Vol] 33.4 g/dL Normal 30.5-36.0 [facility] Comment on above: Order Comment: Speci men Type: BLOOD SPECIMENOrdering Facility: [facility] Address: [address] [place] [address] Performed By: #### 5 7021-8 ####[facility]ORATORYCLIA [id number] [address] [place] MCV (RBC) [Entitic vol] 80.3 fL Normal 80.0-100.0 A [facility] Comment on above: Order Comment: Speci men Type: BLOOD SPECIMENOrdering Facility: [facility] Address: [address] [place] [address] Performed By: #### 5 7021-8 ####[facility]ORATORYCLIA [id number] [address] [place] Monocytes (Bld) [#/Vol] 0.73 10*3/uL Normal <0.87 [facility] Comment on above: Order Comment: Speci men Type: BLOOD SPECIMENOrdering Facility: [facility] Address: [address] [place] [address] Performed By: #### 5 7021-8 ####[facility]ATORYCLIA [id number] [address] Monocytes/100 WBC (Bld) 7.5 % Normal [facility] Comment on above: Order Comment: Speci men Type: BLOOD SPECIMENOrdering Facility: [facility] Address: [address] [place] [address] Performed By: #### 5 7021-8 ####[facility]ORATORYCLIA [id number] [address] [place] Neutrophils (Bld) [#/Vol] 5.87 10*3/uL Normal 1.45-7.50 [facility] Comment on above: Order Comment: Speci men Type: BLOOD SPECIMENOrdering Facility: [facility] Address: [address] [place] [address] Performed By: #### 5 7021-8 ####[facility]ATORYCLIA [id number] [address] Neutrophils/100 WBC (Bld) 60.5 % Normal [facility] Comment on above: Order Comment: Speci men Type: BLOOD SPECIMENOrdering Facility: [facility] Address: [address] [place] [address] Performed By: #### 5 7021-8 ####[facility]ORATORYCLIA [id number] [address] [place] Nucleated RBC (Bld) [#/Vol] 10*3/uL Normal <0.01 [facility] Comment on above: Order Comment: Speci men Type: BLOOD SPECIMENOrdering Facility: [facility] Address: [address] [place] [address] Performed By: #### 5 7021-8 ####[facility]ATORYCLIA [id number] [address] Nucleated RBC/100 WBC (Bld) [Ratio] 0.0 /100 WBC Normal [facility] Comment on above: Order Comment: Speci men Type: BLOOD SPECIMENOrdering Facility: [facility] Address: [address] [place] [address] Performed By: #### 5 7021-8 ####[facility]ORATORYCLIA [id number] [address] [place] Platelet mean volume (Bld) [Entitic vol] 8.4 fL Low 9.0-12.7 [facility] Comment on above: Order Comment: Speci men Type: BLOOD SPECIMENOrdering Facility: [facility] Address: [address] [place] [address] Performed By: #### 5 7021-8 ####[facility]ORATORYCLIA [id number] [address] [place] Platelets (Bld) [#/Vol] 289 10*3/uL Normal 150-400 [facility] Comment on above: Order Comment: Speci men Type: BLOOD SPECIMENOrdering Facility: [facility] Address: [address] [place] [address] Performed By: #### 5 7021-8 ####[facility] LABORATORYCLIA [id number] [address] [facility] RBC (Bld) [#/Vol] 5.59 10*6/uL High 3.90-5.20 [facility] Comment on above: Order Comment: Speci men Type: BLOOD SPECIMENOrdering Facility: [facility] Address: [address] [place] [address] Performed By: #### 5 7021-8 ####[facility] LABORATORYCLIA [id number] [address] WBC (Bld) [#/Vol] 9.72 10*3/uL Normal 3.70-11.00 [facility] Comment on above: Order Comment: Speci men Type: BLOOD SPECIMENOrdering Facility: [facility] Address: [address] [place] [address] Performed By: #### 5 7021-8 ####[facility] LABORATORYCLIA [id number] [address] CNPNon 11-12-2024 CNPN Telephone (OBGYWM) ---- SELMA POON ([id number]) 1990 F Date Time Provider Department 11/12/24 TONA MACK During your visit today, we recorded the following information about you: Loren Zarate, FELIZ 11/12/2024 8:44 AM Signed ----- Message from Tona Mack APRN.CNM sent at 11/11/2024 4:18 PM EST ----- Positive trichomonas. mychart message sent to patient for treatment information. Will treat with Flagyl 500mg PO BID x 7 days. Will need partners information for EPT. Tona Mack APRN.CNM Loren Zarate RN 11/12/2024 8:51 AM Signed Expedited Partner Therapy (EPT) EPT is being prescribed today to the patient?s partner(s) as the following conditions have been met: The intended recipient is a sexual partner of Selma Poon. Selma Poon has been diagnosed with trichomoniasis. Selma Poon reports that sexual partner is unable or unlikely to be evaluated or treated by a health professional. EPT is being prescribed for no more than two sexual partners. Selma Poon's sexual partner(s) have been contacted: Yes Sexual partner(s) have been informed by Pt that he may have been exposed to trichomoniasis. Sexual partner(s) have been encouraged to seek treatment and testing from a healthcare professional. Treatment options available have been explained. Loren Zarate RN 11/12/2024 8:44 AM Signed Expedited Partner Treatment Trichomonas: Guide for Partners who Receive Metronidazole Why am I getting this prescription or medication? Trichomonas is a sexually transmitted infection (STI). Although some patients with trichomonas experience symptoms, many do not have any signs or symptoms. Symptoms of trichomonas can include: pain or burning when you pee, fluid/discharge from the vagina, penis, or rectum that smells or looks strange, or pain with sex. You can give trichomonas to others you have sex with; so, it is important to get treatment. Untreated trichomonas can lead to worsening symptoms and a higher chance of getting HIV. It is important to complete the entire treatment for this infection. What is the treatment for trichomonas? The prescription you are given today is for an oral antibiotic called metronidazole. Do NOT take this antibiotic if you have a severe allergy to metronidazole. This antibiotic can be taken with food to help prevent an upset stomach. Side effects can include nausea, vomiting, abdominal pain, diarrhea, metallic taste, and headache. If you experience any symptoms of an allergic reaction such as trouble breathing, chest tightness, closing of the throat, swelling of the lips or tongue, and itchy bumps on your skin, seek medical attention right away. What else should I do? Do not have sex for at least 7 days after you AND your sexual partner have been treated. See a healthcare provider for additional testing for other STIs, including HIV and syphilis. It is important to be tested for other STIs because this medication will only treat trichomonas. Using condoms correctly and consistently during sex is the best way to prevent other STIs. Loren Zarate RN 11/12/2024 8:51 AM Signed Pt notified. Pt opts for EPT. Please address in REBECCA absence. FELIZ Awad Trisha, RN 11/17/2024 2:19 PM Signed Patient did not pickling grader rx for partner and it was now canceled. She did get hers. Rx pended again. Please file. FELIZ Odell Trisha, RN 11/17/2024 2:20 PM Signed Addended by: KELSEY CARDENAS on: 11/17/2024 02:20 PM Modules accepted: Tona Finley APRN.CNM 11/17/2024 4:55 PM Signed Order signed. Tona Mack APRN.CNM 11/17/2024 4:55 PM Signed Addended by: TONA MACK on: 11/17/2024 04:55 PM Modules accepted: Kelsey Fallon RN 11/17/2024 5:00 PM Signed Left message for patient that requested rx was sent to her pharmacy and to call office with any questions. Kelsey Cardenas RN Allergies As of Date: 11/12/2024 Noted Allergy Reaction LEXAPRO (ESCITALOPRAM) 07/03/2020 14 - Other: See Comments Comments: Made her angry REQUIP (ROPINIROLE) 07/03/2020 14 - Other: See Comments Comments: Made restless legs worse. Date Reviewed: 11/12/2024 Reviewed by: Luz Marina Raya RN - Fully Assessed Reason for Visit: Results [95] Primary Visit Diagnosis:Trichomon iasis [A59.9] Order(s):EXPEDITED PARTNER TREATMENT [5851111] Order #: [id number]: 1 metroNIDAZOLE (FLAGYL) 500 mg tabletTake 1 tablet by mouth two times a day for 7 days.Disp: 14 tabletRfl: 0 Prescriptions as of 11/17/2024 - metroNIDAZOLE (FLAGYL) 500 mg tablet Take 1 tablet by mouth two times a day for 7 days. - metroNIDAZOLE (FLAGYL) 500 mg tablet Take 1 tablet by mouth every 12 hours for 6 days. - acetaminophen (TYLENOL) 500 mg tablet Take 2 tablets by mouth every 6 hours as needed for pain. - ibuprofen (MOTRIN) 600 mg tablet Take 1 t (more content not included)... Normal [facility] metabolic 2000 panelon 11-12-2024 Albumin [Mass/Vol] 3.9 g/dL Normal 3.9-4.9 [facility] Comment on above: Order Comment: Speci men Type: BLOOD SPECIMENOrdering Facility: [facility] Address: [address] [place] [address] Performed By: #### 2 4323-8 ####[facility] LABORATORYCLIA [id number] [address] STATES [facility] ALP [Catalytic activity/Vol] 112 U/L Normal 34-123 [facility] Comment on above: Order Comment: Speci men Type: BLOOD SPECIMENOrdering Facility: [facility] Address: [address] [place] [address] Performed By: #### 2 4323-8 ####[facility] LABORATORYCLIA [id number] [address] STATES [facility] ALT With P-5'-P [Catalytic activity/Vol] 12 U/L Normal 7-38 [facility] Comment on above: Order Comment: Speci men Type: BLOOD SPECIMENOrdering Facility: [facility] Address: [address] [place] [address] Performed By: #### 2 4323-8 ####[facility] LABORATORYCLIA [id number] [address] STATES [facility] Anion gap [Moles/Vol] 11 mmol/L Normal 8-15 [facility] Comment on above: Order Comment: Speci men Type: BLOOD SPECIMENOrdering Facility: [facility] Address: [facility] [place] [address] Performed By: #### 2 4323-8 ####[facility] LABORATORYCLIA [id number] [address] AST With P-5'-P [Catalytic activity/Vol] 18 U/L Normal 13-35 [facility] Comment on above: Order Comment: Speci men Type: BLOOD SPECIMENOrdering Facility: [facility] Address: [address] [place] [address] Performed By: #### 2 4323-8 ####[facility]ORATORYCLIA [id number] [place] [address] [place] Bilirubin [Mass/Vol] 0.2 mg/dL Normal 0.2-1.3 [facility] Comment on above: Order Comment: Speci men Type: BLOOD SPECIMENOrdering Facility: [facility] Address: [address] [place] [address] Performed By: #### 2 4323-8 ####[facility] LABORATORYCLIA [id number] [place] [address] [place] Calcium [Mass/Vol] 9.0 mg/dL Normal 8.5-10.2 [facility] Comment on above: Order Comment: Speci men Type: BLOOD SPECIMENOrdering Facility: [facility] Address: [address] [place] [address] Performed By: #### 2 4323-8 ####[facility]ORATORYCLIA [id number] [place] [address] [place] Chloride [Moles/Vol] 103 mmol/L Normal 98-107 [facility] Comment on above: Order Comment: Speci men Type: BLOOD SPECIMENOrdering Facility: [facility] Address: [address] [place] [address] Performed By: #### 2 4323-8 ####[facility]ORATORYCLIA [id number] [place] [address] [place] CO2 [Moles/Vol] 24 mmol/L Normal 22-30 [facility] Comment on above: Order Comment: Speci men Type: BLOOD SPECIMENOrdering Facility: [facility] Address: [address] [place] [address] Performed By: #### 2 4323-8 ####[facility]ORATORYCLIA [id number] [place] [address] [place] Creatinine [Mass/Vol] 0.58 mg/dL Normal 0.58-0.96 [facility] Comment on above: Order Comment: Sherley anguiano Type: BLOOD SPECIMENOrdering Facility: [facility] Address: [address] [place] [address] Performed By: #### 2 4323-8 ####[facility] LABORATORYCLIA [id number] [address] OF [facility] Creatinine and Glomerular filtration rate.predicted panel (S/P/Bld) 123 mL/min/1.73m??? Normal >=60 [facility] Comment on above: Order Comment: Sherley anguiano Type: BLOOD SPECIMENOrdering Facility: [facility] Address: [address] [place] [address] Result Comment: Kayy mated Glomerular Filtration Rate (eGFR) is calculated using the 2020 CKD-EPI creatinine equation. This equation utilizes serum creatinine, sex, and age as parameters. The creatinine assay has traceable calibration to isotope dilution-mass spectrometry. Refer to KDIGO guidelines for clinical interpretation. In patients with unstable renal function, e.g. those with acute kidney injury, the eGFR may not accurately reflect actual GFR. Performed By: #### 2 4323-8 ####[facility]ORATORYCLIA [id number] [address] STATES OF [facility] Glucose [Mass/Vol] 92 mg/dL Normal 74-99 [facility] Comment on above: Order Comment: Sherley anguiano Type: BLOOD SPECIMENOrdering Facility: [facility] Address: [address] [place] [address] Result Comment: The [place] Diabetes Association (ADA) provides guidance for cutoff values for fasting glucose and random glucose. The ADA defines fasting as no caloric intake for at least 8 hours. Fasting plasma glucose results between 100 to 125 mg/dL indicate increased risk for diabetes (prediabetes). Fasting plasma glucose results greater than or equal to 126 mg/dL meet the criteria for diagnosis of diabetes. In the absence of unequivocal hyperglycemia, results should be confirmed by repeat testing. In a patient with classic symptoms of hyperglycemia or hyperglycemic crisis, random plasma glucose results greater than or equal to 200 mg/dL meet the criteria for diagnosis of diabetes. Reference: Standards of Medical Care in Diabetes 2016, [place] [employer] Association. Diabetes Care. 2016.39(Suppl 1). Performed By: #### 2 4323-8 ####[facility] LABORATORYCLIA [id number] [address] STATES [facility] Potassium [Moles/Vol] 4.2 mmol/L Normal 3.7-5.1 [facility] Comment on above: Order Comment: Speci men Type: BLOOD SPECIMENOrdering Facility: [facility] Address: [address] [place] [address] Performed By: #### 2 4323-8 ####[facility] LABORATORYCLIA [id number] [address] STATES [facility] Protein [Mass/Vol] 6.7 g/dL Normal 6.3-8.0 [facility] Comment on above: Order Comment: Speci men Type: BLOOD SPECIMENOrdering Facility: [facility] Address: [address] [place] [address] Performed By: #### 2 4323-8 ####[facility] LABORATORYCLIA [id number] [address] Sodium [Moles/Vol] 138 mmol/L Normal 136-144 [facility] Comment on above: Order Comment: Speci men Type: BLOOD SPECIMENOrdering Facility: [facility] Address: [address] [place] [address] Performed By: #### 2 4323-8 ####[facility] LABORATORYCLIA [id number] [address] STATES [facility] Urea nitrogen [Mass/Vol] 7 mg/dL Normal 7-21 [facility] Comment on above: Order Comment: Speci men Type: BLOOD SPECIMENOrdering Facility: [facility] Address: [address] [place] [address] Performed By: #### 2 4323-8 ####[facility] LABORATORYCLIA [id number] [place] [address] [place] Fibrinogen PPP-mCncon 2024 Fibrinogen Coag (PPP) [Mass/Vol] 341 mg/dL Normal 200-400 [facility] Comment on above: Order Comment: Speci men Type: BLOOD SPECIMENOrdering Facility: [facility] Address: [address] [place] [address] Performed By: #### 3 4528-0, 55096-5, 3255-7 ####[facility] LABORATORYCLIA [id number] [place] [address] [facility] HISTORY PHYSICALon HISTORY PHYSICAL HNO ID: [id number] Author: ELVER MATTHEW MD Service: Obstetrics Author Type: Resident Type: H&P Filed: 11/12/2024 17:29 Note Text: ---- Attestation signed by Elver Matthew I, MD at 11/12/2024 5:29 PM Patient was seen and evaluated, plan of care was discussed with patient, medical management was chosen and side effects and possible complications were discussed including bleeding and the possibility of requiring completion with dilation and curettage. Agree with the history and physical examination as documented by Dr. Bowen. Elver Matthew MD ---- OBSTETRICS HISTORY AND PHYSICAL SERVICE DATE: November 12, 2024 SERVICE TIME: 10:23 AM Subjective Patient's stated reason for arrival: CHIEF COMPLAINT: missed HISTORY OF THE PRESENT ILLNESS: The patient is a 34 year old female, , who is at 19w5d with an PETE of 04/03/2025, by Last Menstrual Period dating method. Patient is here for missed management. She was seen in office earlier this week and noted to have demise measuring 13w5d. Elected for medical management. HSV denies MRSA denies Denies HIV, HepB, HepC Admits to tobacco use 1/2 PPD. HISTORY REVIEW PAST MEDICAL HISTORY Diagnosis Date Generalized anxiety disorder 04/30/2017 Hypertension hemorrhage received 2 units of blood RLS (restless legs syndrome) 07/03/2020 Smoker 04/30/2017 Started at age 16 up to 1 PPD. PAST SURGICAL HISTORY Procedure Laterality Date APPENDECTOMY HX NEUROPLASTY AND/TRANSPOS MEDIAN NRV CARPAL TUNNE Bilateral 06/11/2020 Bilateral carpal tunnel release FAMILY HISTORY Problem Relation Age of Onset Diabetes Mother Hyperlipidemia Mother Bipolar disorder Mother Neuropathy Mother Hypertension Mother Stroke Father Colon Polyps Father No Known Problems Sister No Known Problems Sister No Known Problems Sister Heart Brother 16 No Known Problems Brother Psychiatry Maternal Grandmother Heart Attack Maternal Grandfather Kidney failure Maternal Grandfather No Known Problems Paternal Grandmother No Known Problems Paternal Grandfather Social History Tobacco Use Smoking status: Every Day Current packs/day: 1.00 Average packs/day: 1 pack/day for 10.0 years (10.0 ttl pk-yrs) Types: Cigarettes Smokeless tobacco: Never Vaping Use Vaping status: current everyday user Substances: Nicotine Devices: Disposable Substance Use Topics Alcohol use: Not Currently Comment: occasionly 1-2 cans 12 oz 1-2 times a month- not while Drug use: Never Obstetric History T3 L3 SAB1 IAB0 Ectopic0 Multiple0 Live Births3 Name of Baby 1: Caryn Date: 11/23/15 GA: 41w0d Type: Vaginal, Spontaneous Apgar1: Not recorded Apgar5: Not recorded Living: Living Name of Baby 2: Inez Date: 02/09/18 GA: 40w0d Type: Vaginal, Spontaneous Apgar1: Not recorded Apgar5: Not recorded Living: Living Name of Baby 3: Isaak Date: 07/22/21 GA: 40w0d Type: Vaginal, Spontaneous Apgar1: Not recorded Apgar5: Not recorded Living: Living Name of Baby 4: Not recorded Date: 06/23/22 GA: Not recorded Type: SPONTANEOUS Apgar1: Not recorded Apgar5: Not recorded Living: Not recorded Name of Baby 5: Not recorded Date: Not recorded GA: Not recorded Type: Not recorded Apgar1: Not recorded Apgar5: Not recorded Living: Not recorded Active Non-Hospital Problems Diagnosis Date Noted Generalized anxiety disorder 04/30/2017 Priority: A Lost custody of children 11/10/2024 Overview Note: 11/07/24-Does not have custody of any of her children due to homelessness per patient. Toan Mack APRN.CNDelai Family history of congenital anomaly 11/10/2024 Overview Note: Patient's half brother born with enlarged heart. Had corrective surgery at age 12. Supervision of other high risk pregnancies, second trimester 11/10/2024 Hypertension, essential 10/20/2021 ALLERGIES Allergen Reactions Lexapro [Escitalopr* Other: See Comments Made her angry Requip [Ropinirole] Other: See Comments Made restless legs worse. Prior to Admission Medications Prescriptions Last Dose Informant Patient Reported? Taking? VITS 3-UTFY-WJITR-DHA ORAL Yes No Sig: DAILY gabapentin (NEURONTIN) 300 mg capsule No No Sig: Take 1 capsule by mouth daily at bedtime for 180 days. metroNIDAZOLE (FLAGYL) 500 mg tablet No No Sig: Take 1 tablet by mouth two times a day for 7 days. metroNIDAZOLE (FLAGYL) 500 mg tablet No No Sig: Take 1 tablet by mouth two times a day for 7 days. Facility-Administer ed Medications: None REVIEW OF SYSTEMS: The remainder of the review of systems is negative. Objective LAST VITALS: Pulse BP Resp O2 Sat Temp Pain 84 147/101 18 37.1 ?C (98.8 ?F) 0 HT/WT/BMI: Height Weight BMI 157.5 cm (5' 2) 87.1 kg (192 (more content not included)... Normal [facility] LD NOTEon 11-12-2024 LD NOTE HNO ID: [id number] Author: ELVER MATTHEW MD Service: Obstetrics Author Type: Resident Type: L&D Delivery Note Filed: 11/13/2024 06:32 Note Text: ---- Attestation signed by Elver Matthew I, MD at 11/13/2024 6:32 AM I was present during the delivery, agree with the delivery note as documented by Dr. Faulkner. Elver Matthew MD ---- OBSTETRICS DELIVERY SUMMARY - VAGINAL DELIVERY Gestational Age at Delivery: 19w5d Service Date: 11/12/24 Service Time: 8:13 PM Labor Events Rupture Date: 11/12/2024 Rupture Time: 8:13 PM Total Time from ROM to Delivery: rupture date, rupture time, delivery date, or delivery time have not been documented Rupture Type: SROM Total Hours from ROM to Onset of Labor hours Fluid Color: Blood Tinged Fluid Odor: No Odor Induction: Yes Induction Method: Misoprostol Curt Poon FD [[id number]] Episiotomy/Lacerati on: Episiotomy: None Lacerations: None Date and Time of : Date of : 11/12/24 Time of : 2012 Delivery Information: Primary Reason for Delivery : Demise Additional Clinicial Indicator(s) for delivery: N/A Delivery type: Vaginal, Spontaneous Intrapartum Complications: None Delivery between 22w0d - 36w6d?: No Shoulder Dystocia Present: No Vacuum Used: No Forceps Used: No Presentation AND Position Presentation: Vertex Was patient breech in the past month and version attempted?: No Cord: Complications: None Delayed Cord Clamping: No Placenta: Delivered: 11/12/2024 9:29 PM Removal: Spontaneous Appearance: Intact Anesthesia: Method: None Measurements, Apgars: Weight: 1.3 oz Weight (gms): 37 g One Minute : 0 Five Minute : 0 Resuscitation Team Present: No I/O Blood Loss per time range on right. Intrapartum AND : 11/12/24812 - 11/12/242133 Delivery Admission: 11/12/24 0813 - 11/12/242133 Intrapartum AND Delivery Admission Calculated Blood Loss (mL) Hospital Encounter 150 150 Total 150 cc 150 cc Clinical Course: Selma Pono is a 34 year old female who presented to [facility] at 19w5d by LMP for medical management of a demise measuring 13w5d. Her course was complicated by late care, homelessness, a history of hypertension, a history of hemorrhage, and tobacco use. At the time of presentation, the patient received a one-time dose of 200mg Mifepristone and 800mcg of vaginal Cytotec. She then received a second dose of 400mcg of vaginal Cytotec. Approximately 1.5 hours later, the patient noticed increasing vaginal bleeding and a pelvic exam was performed. The fetus was noted to be in the vaginal vault with intact amniotic sac. The patient then delivered the fetus from a vertex position with one push, during which the membranes spontaneously ruptured for brown fluid, although non-malodorous. The placenta was noted to still be in situ and did not deliver with the patient bearing down. Pitocin was then started, the uterus felt firm, and there was minimal to no vaginal bleeding. The decision was then made to allow the patient additional time to deliver the placenta spontaneously, although she was thoroughly counseled about the possible need for a DANDC. Approximately one hour after delivery, the patient was using the restroom and delivered the placenta into the hat placed in the toilet. The placenta was inspected and noted to be intact. The patient was reassessed and noted to have no vaginal bleeding and a firm uterus at this time. A digital sweep of the vaginal canal was performed by Meme Faulkner MD and it was ascertained that no instruments or other foreign bodies are retained within the cavity. Sponge, lap, and needle counts were correct times two. Expected post-delivery care and anticipated transfer reviewed. Plan of care discussed with: Provider, RN, Patient. Dr Matthew was present for delivery of the fetus. SIGNATURE: Meme Falukner MD PATIENT NAME: Selma Poon DATE: November 12, 2024 TIME: 9:34 PM Normal [facility] PT panel Coag (PPP)on 2024 INR Coag (PPP) [Relative time] 0.9 {INR} Normal 0.9-1.3 [facility] Comment on above: Order Comment: Sherley anguiano Type: BLOOD SPECIMENOrdering Facility: [facility] Address: [address] [place] [address] Result Comment: Susy min K Antagonist (VKA) Therapeutic Range: INR 2 to 3 (Target INR of 2.5) Note: For patients treated with VKA drugs, such as warfarin, the [place] [employer] 2012 Guideline recommends a therapeutic INR range of 2 to 3 (target INR of 2.5). This recommendation includes high-risk patients with antiphospholipid syndrome with previous arterial or venous thromboembolism, current-generation mechanical or bioprosthetic aortic heart valve replacement. Note: Patients with mechanical aortic valve replacement and additional risk factors for thromboembolic events (atrial fibrillation, previous thromboembolism, LV dysfunction, hypercoagulable conditions) or an older generation mechanical AVR (i.e., ball in-Cage) or any mechanical MVR should have a INR therapeutic range of 2.5 to 3.5 (target INR of 3). Fransisco MARTINEZ, et al. Chest 2012, 141:7S-47S Jossie RA, et al. [facility] 2017, 70: 252-289 Performed By: #### 3 4528-0, 61635-6, 3255-7 ####[facility]IA [id number] [place] [address] [place] PT Coag (PPP) [Time] 10.3 s Normal 9.7-13.0 [facility] Comment on above: Order Comment: Sherley anguiano Type: BLOOD SPECIMENOrdering Facility: [facility] Address: [address] [place] [address] Performed By: #### 3 4528-0, 24238-7, 3255-7 ####[facility] LABORATORYCLIA [id number] [address] [place] SURGICAL PATHOLOGYon 025 CASE REPORT Normal [facility] Comment on above: Order Comment: Sherley anguiano Type: TISSUE SPECIMEN [facility] Address: [address] [place] [address] Result Comment: Surg ical Pathology Report Case: [id number] Authorizing Provider: Elver Matthew I, MD Collected: 11/12/2024 11:06 PM Ordering Location: [place] [address] L&D Received: 11/14/2024 10:20 AM Pathologist: Paola Bhatti MD Specimens: A) - Products of Conception B) - Placenta, Single Performed By: #### S #### [facility] CLIA [id number] [address] [place] [address] [place] CLINICAL HISTORY missed ; at 19w5d by LMP; demise measuring 13w5d. course complicated by late care, homelessness, a history of hypertension, a history of hemorrhage, and tobacco use [facility] Comment on above: Order Comment: Speci silvio Type: TISSUE SPECIMEN Ordering Facility: [facility] Address: [address] [place] [address] Performed By: #### S #### [facility] CLIA [id number] [address] [place] [address] STATES [facility] DIAGNOSIS COMMENT Hypercoiling of the umbilical cord with stricture and growth restriction is a common association with second trimester demise. The presence of vascular thrombi attest to this malperfusion preceeding demise. [facility] Comment on above: Order Comment: Sherley anguiano Type: TISSUE SPECIMEN Ordering Facility: [facility] Address: [address] [place] [address] Performed By: #### S #### [facility] CLIA [id number] [address] [place] [address] OF [place]HANAEL FINAL DIAGNOSIS Normal [facility] Comment on above: Order Comment: Sherley anguiano Type: TISSUE SPECIMEN Ordering Facility: [facility] Address: [address] [place] [address] Result Comment: A. F etus, 19 weeks and 5 days gestation by LMP, vaginal delivery after demise: - Macerated male fetus, small for gestational age growth and grade 3 maceration - Birthweight 37 g, small for gestational age of 19 weeks, appropriate for gestational age of 13 weeks - Foot length 1.3 cm, small for gestational age of 19 weeks, appropriate for gestational age of 13 weeks - Hypercoiled umbilical cord with stricture at umbilicus - No anomalies of anatomic development identified (gross examination only) B. Placenta, 19 weeks and 5 days gestation by LMP, vaginal delivery after demise: - Fixed placental weight 41 g, small for gestational age of 19 weeks, expected weight for 14 weeks gestation - Immature chorionic villi, extensively avascular - Hypercoiled umbilical cord - Umbilical artery and vein thrombi, chorionic plate vessel thrombus, indicative of severe vascular malperfusion - Rounded intraplacental hematoma/infarction hematoma, suggestive of maternal vascular malperfusion [facility] 11/19/2024 Performed By: #### S #### [facility] CLIA [id number] [address] [place] [address] STATES OF [place]NAEL FINAL PERFORMING LAB Normal [facility] Comment on above: Order Comment: Speci men Type: TISSUE SPECIMEN Ordering Facility: [facility] Address: [address] [place] [address] Result Comment: Diag nostic interpretation performed at: [facility], [address] [place] [address] CLIA# [id number] Television Parts Tester: Ravi Nuñez MD Performed By: #### S #### [facility] CLIA [id number] [address] [place] [address] STATES OF [facility] GROSS DESCRIPTION Normal [facility] Comment on above: Order Comment: Speci men Type: TISSUE SPECIMEN Ordering Facility: [facility] Address: [address] [place] [address] Result Comment: A. P roducts of Conception Received fresh labeled products of conception is a macerated fetus. The body weighs 25 g and measures 9.0 cm from crown to rump and 12.2 cm from crown to heel. The toe heel length is 1.3 cm. The occipital circumference is 7.5 cm, the chest circumference at the nipple line is 7.0 cm, and abdominal circumference at the level of the umbilicus is 5.0 cm. The skin is shiny, hernandez-brown hernandez-brown with 100% desquamation. The head is normocephalic. The face is symmetric. The palpable fissures are open. Ear position is normal. The mouth is normal. The chin is normal. The palate is complete. The neck is unremarkable. The chest demonstrates normal configuration. The abdomen is flat. An umbilical cord measuring 1.7 cm in length attaches at the umbilicus. It shows 3 coils with indentations between the coils. The cord diameter is 0.4 cm at the cut end and 0.2 cm at the insertion. The external genitalia are consistent with normal male. The spine is straight and complete. The anus is patent and normally positioned. The extremities are normally positioned. The internal organs are not grossly visualized. No sections are submitted. The specimen is for gross examination only. Photographs are taken. Gross examination performed at [facility], [address] [place] [address] November 14, 2024 12:57 PM B. Placenta, Single Those are number formalin received in formalin, labeled as placenta single is a single placental disc with an attached umbilical cord and membranes. The dull brown umbilical cord measures 5.0 cm in length x 0.2 cm in maximum diameter. It shows 16 coils and inserts centrally. It contains 2 vessels on the cut section. The hernandez-brown membranes attach normally at disc margin. The area of membrane rupture is located 1.0 cm from the closest placental margin. The ovoid trimmed placental disc weighs 41 g and measures 9.5 x 6.5 x 1.5 cm. The surface is hernandez-brown with magistral dispersion of chorionic plate vessels. The maternal surface appears intact. Serial sectioning through the placental disc at 1 cm intervals reveals pink-red spongy parenchyma with one pink to dark red hemorrhagic lesion measuring 1.7 x 1.0 x 0.7 cm. The lesion is transmural and identified along the periphery. Dean Of Instruction sections are submitted as follows: B1-Umbilical cord, end, and two membrane rolls B2-Umbilical cord, placental end, and chorionic plate section near cord insertion N0-X2-Wjsayeh placenta, full-thickness section B5-uniforms sales representative section of solitary parenchymal lesion Performed By: #### S #### [facility] CLIA [id number] [address] [place] [address] [place] MICROSCOPIC DESCRIPTION Normal [facility] Comment on above: Order Comment: Speci men Type: TISSUE SPECIMEN Ordering Facility: [facility] Address: [address] [place] [address] Result Comment: Umbi lical cord: 3 vessels, collagenized stroma; luminal fibrin thrombus membranes: Degenerative changes of chorion Membranous decidua: None sampled Chorionic plate: No abnormalities Chorionic plate vasculature: Focal nonocclusive thrombus; extensive late chorionic vessel occlusive/involutional change Stem villi: Extensive late stem vessel occlusive/involutional change Terminal villi: Immature, extensively avascular Intervillous space: Recent rounded intraplacental hematoma with associated villous necrosis (infarction hematoma) Basal plate/decidua basalis: Maternal vessels adapted for identified in basal plate; chronic inflammation with plasma cells Performed By: #### S #### [facility] CLIA [id number] [address] [place] [address] STATES OF [place]EL TYPE + SCREEN PRENATALon ABO O [facility] Comment on above: Order Comment: Sherley anguiano Type: BLOOD SPECIMENOrdering Facility: [facility] Address: [address] [place] [address] Performed By: #### T SPN ####[facility] BLOOD BANKIA [id number] [address] STATES OF [place] Rh Nom (Bld) Positive Normal [facility] Comment on above: Order Comment: Speci men Type: BLOOD SPECIMENOrdering Facility: [facility] Address: [address] [place] [address] Performed By: #### T SPN ####[facility] BLOOD BANKCLIA [id number] [address] STATES OF [place]NAEL TYPE AND SCREEN EXPIRATION 11/15/2024 23:59 [facility] Comment on above: Order Comment: Speci men Type: BLOOD SPECIMENOrdering Facility: [facility] Address: [address] [place] [address], [place] [address] Performed By: #### T SPN ####[facility] BLOOD BANKCLIA [id number] [place] [id number] [facility] aPTT PPPon 11-12-2024 aPTT Coag (PPP) [Time] 28.7 s Normal 23.0-32.4 [facility] Comment on above: Order Comment: Speci men Type: BLOOD SPECIMENOrdering Facility: [facility] Address: [address] [place] [id number] Performed By: #### 3 4528-0, 19758-9, 3255-7 ####[facility] LABORATORYCLIA [id number] [place] [id number] [facility] CNPNon 11-10-2024 CNPN Telephone (OBGYWM) ---- SELMA POON ([id number]) 1990 F Date Time Provider Department 11/10/24 TONA MACK During your visit today, we recorded the following information about you: Kelsey Cardenas RN 11/10/2024 1:44 PM Signed Left message for Jazmyne at [facility] to schedule IUFD induction for Sunday11/12/24 at 8am. FELIZ Odell Trisha, RN 11/10/2024 3:02 PM Signed Spoke to Jazmyne. She may be able to be scheduled 11/12/24 at 12pm. She is going to check and will call the office back. FELIZ Odell Jennifer, RN 11/10/2024 3:11 PM Signed Patient is now scheduled at [facility] on 11/12 @ 12:00 PM. Patient to arrive at 10:00 AM. Patient made aware. FELIZ Whittington Jessica, DIRECTOR OF USER EXPERIENCE.CNM 11/10/2024 3:57 PM Signed Thank you so much. Please follow up on and make sure we get a follow up visit made in about 1-2 weeks with patient. I am happy to see her. Tona Mack APRN.Nikky Bose RN 11/13/2024 9:42 AM Signed Left message to call office. FELIZ Pena Lindsey, RN 11/14/2024 2:05 PM Signed Patient scheduled for follow up next week. Nikky Bruce RN Allergies As of Date: 11/10/2024 Noted Allergy Reaction LEXAPRO (ESCITALOPRAM) 07/03/2020 14 - Other: See Comments Comments: Made her angry REQUIP (ROPINIROLE) 07/03/2020 14 - Other: See Comments Comments: Made restless legs worse. Date Reviewed: 11/07/2024 Reviewed by: Deshaun Grier MA - Fully Assessed Reason for Visit: Induction [Other] Prescriptions as of 11/14/2024 - metroNIDAZOLE (FLAGYL) 500 mg tablet Take 1 tablet by mouth every 12 hours for 6 days. - acetaminophen (TYLENOL) 500 mg tablet Take 2 tablets by mouth every 6 hours as needed for pain. - ibuprofen (MOTRIN) 600 mg tablet Take 1 tablet by mouth every 6 hours as needed for pain. Problem List As Of Date 11/10/2024 Noted Resolved Generalized anxiety disorder [F41.1] 04/30/2017 Eczema [L30.9] 04/30/2017 Smoker [F17.200] 04/30/2017 Tachycardia [R00.0] 04/30/2017 Well adult exam [Z00.00] 04/30/2017 11/10/2024 Encounter for screening for cardiovascular diso*04/30/2017 11/10/2024 Irritable bowel syndrome with diarrhea [K58.0] 02/25/2020 RLS (restless legs syndrome) [G25.81] 07/03/2020 Hypertension, essential [I10] 10/20/2021 Late care affecting in [facility]*11/10/2024 Homeless [Z59.00] 11/10/2024 Lost custody of children [Z65.3] 11/10/2024 History of hypertension [Z86.79] 11/10/2024 History of hemorrhage [Z87.59] 11/10/2024 Family history of congenital anomaly [Z82.79] 11/10/2024 Maternal tobacco use in second trimester [O99.3*11/10/2024 Supervision of other high risk pregnancies, sec*11/10/2024 demise before 20 weeks with retention of *11/10/2024 Encounter for screening for maternal depression*11/10/19 Encounter Status:Closed by NIKKY BRUCE on 11/10/24 Normal [facility] Examination level ultrasound on 11-10-2024 Indication demise, dating Maternal obesity, BMI >30 Impression REMOTE READ A single intrauterine is visualized. No cardiac activity noted on todays imaging. Today's imaging lags behind the stated PETE by 6 weeks. Recommendations Follow up with provider Maternal Assessment Height 157 cm Height (ft) 5 ft Height (in) 2 in Physical Exam Initial weight (lb) 178 lb Initial BMI 32.56 kg/m Maternal assessment other: 5 Para 3 Method Transabdominal ultrasound examination Bui . Number of fetuses: 1 Dating LMP on: 06/27/2024 GA by LMP 19 w + 3 d PETE by LMP: 04/03/2025 GA by prior assessment 13 w + 5 d PETE by prior assessment: 05/13/2025 Assigned: based on stated PETE, selected on 11/10/2024 Assigned GA 13 w + 5 d Assigned PETE: 05/13/2025 General Evaluation Cardiac activity absent. FHR 0 bpm. movements: absent. Presentation: cephalic Placenta: Placental site: posterior Amniotic fluid: Amount of AF: normal amount Performed By: Nikky Sanchez RDMS, RVT Read By: Naman Mcfarland M.D. MATERNAL MEDICINE [facility] Radiology Study observation (narrative) [facility] BACTERIAL CULTURE, URINEOrde red By: Caryn Lees on 11-08-2024 Bacteria identified Cx Nom (U) 10,000 -<50,000 CFU/ml Normal urogenital dilan [facility] BACTERIAL VAGINOSIS NAATon 0 11-08-2024 Interpretation and review of laboratory results Normal [facility] Lactobacillus crispatus+gasseri+villafuerte ii + Gardnerella vaginalis + Atopobium vaginae rRNA CARMEN+probe Ql (Vag fld) Not detected Not detected [facility] Bacteria identified Cx Nom ( U)Ordered By: Caryn Lees on 11-08-2024 [facility] C. trachomatis+N. gonorrhoea e DNA CARMEN+probe Ql (Unsp spec)on 11-08-2024 C. trachomatis rRNA CARMEN+probe Ql (Unsp spec) Not detected Not detected [facility] Interpretation and review of laboratory results Normal [facility] N. gonorrhoeae rRNA CARMEN+probe Ql (Unsp spec) Not detected Not detected [facility] This FDA-approved assay has been modified to accept rectal swabs self-collected in a healthcare setting. For self-collected rectal swabs, the test was developed and its performance characteristics determined by the [facility]'s [facility] Justin ([facility]). It has not been cleared or approved by the FDA. [facility] is regulated under CLIA as qualified to perform high-complexity testing. This test is used for clinical purposes. It should not be regarded as investigational or for research. [facility] PRUDENCIO/TRICHOMONAS NAATon 0 11-08-2024 C. glabrata RNA CARMEN+probe Ql (Vag fld) Not detected Not detected [facility] Prudencio sp DNA CARMEN+probe Ql (Vag fld) Not detected Not detected [facility] Comment on above: The Prudencio species group target includes C. albicans, C. tropicalis, C. parapsilosis, and C. dubliniensis. Interpretation and review of laboratory results Abnormal [facility] T. vaginalis DNA CARMEN+probe Ql (Unsp spec) Detected Abnormal Not detected [facility] HbA1c (Bld)on 11-08-2024 Average glucose Estimated from glycated hemoglobin (Bld) [Mass/Vol] 88 mg/dL [facility] Comment on above: eAG: (Estimated aver age glucose) is a calculated value from HgbA1c and is uniforms sales representative of the average blood glucose level in the last 2-3 month period. HbA1c (Bld) [Mass fraction] 4.7 % 4.3 - 5.6 % [facility] Comment on above: [place] Diabetes As sociation guidelines indicate that patients with HgbA1c in the range 5.7-6.4% are at increased risk for development of diabetes, and intervention by lifestyle modification may be beneficial. HgbA1c greater or equal to 6.5% is considered diagnostic of diabetes. [facility] BACTERIAL VAGINOSIS NAATon 0 11-07-2024 Lactobacillus crispatus+gasseri+villafuerte ii + Gardnerella vaginalis + Atopobium vaginae rRNA CARMEN+probe Ql (Vag fld) Not detected Normal Not detected [facility] Comment on above: Order Comment: Speci men Type: SWABOrdering Facility: [facility] Address: [address] [place] [address] Performed By: #### C VTV, BVAMP ####[facility] LABCLIA [id number] [place] [address] [place] Bacteria Ur Culton Bacteria identified Cx Nom (U) ORGANISM ID: 1 10,000 -<50,000 CFU/ml Normal urogenital dilan Normal [facility] Comment on above: Performed By: #### 6 30-4 ####[facility] LABCLIA [id number] [place] [address] [place] C. trachomatis+N. gonorrhoea e DNA CARMEN+probe Ql (Unsp spec)on 11-07-2024 C. trachomatis rRNA CARMEN+probe Ql (Unsp spec) Not detected Normal Not detected [facility] Comment on above: Order Comment: Speci men Type: SWABOrdering Facility: [facility] Address: [address] [place] [address] Performed By: #### 3 6902-5 ####[facility] LABCLIA [id number] [place] [address] [place] N. gonorrhoeae rRNA CARMEN+probe Ql (Unsp spec) Not detected Normal Not detected [facility] Comment on above: Order Comment: Speci men Type: SWABOrdering Facility: [facility] Address: [address] [place] [address] Performed By: #### 3 6902-5 ####[facility] LABCLIA [id number] [place] [address] [place] PRUDENCIO/TRICHOMONAS NAATon 0 11-07-2024 C. glabrata RNA CARMEN+probe Ql (Vag fld) Not detected Normal Not detected [facility] Comment on above: Order Comment: Speci men Type: SWABOrdering Facility: [facility] Address: [address] [place] [address] Performed By: #### C VTV, BVAMP ####[facility] LABCLIA [id number] [address] STATES OF [place] Prudencio sp DNA CARMEN+probe Ql (Vag fld) Not detected Normal Not detected [facility] Comment on above: Order Comment: Speci men Type: SWABOrdering Facility: [facility] Address: [address] [place] [address] Result Comment: The Prudencio species group target includes C. albicans, C. tropicalis, C. parapsilosis, and C. dubliniensis. Performed By: #### C VTV, BVAMP ####[facility] LABCLIA [id number] [address] STATES OF [place] T. vaginalis DNA CARMEN+probe Ql (Unsp spec) Detected Abnormal Not detected [facility] Comment on above: Order Comment: Speci men Type: SWABOrdering Facility: [facility] Address: [address] [place] [address] Performed By: #### C VTV, BVAMP ####[facility] LABCLIA [id number] [place] [address] [place] CBC W Auto Differential pane l (Bld)on 11-07-2024 Basophils (Bld) [#/Vol] 0.05 10*3/uL Normal <0.11 [facility] Comment on above: Order Comment: Speci men Type: BLOOD SPECIMENOrdering Facility: [facility] Address: [address] [place] [address] Performed By: #### 5 7021-8 ####[facility] [id number] [place] [address] [place] Basophils/100 WBC (Bld) 0.6 % Normal [facility] Comment on above: Order Comment: Speci men Type: BLOOD SPECIMENOrdering Facility: [facility] Address: [address] [place] [address] Performed By: #### 5 7021-8 ####[facility] [id number] [place] [address] [place] Differential cell count method Nom (Bld) Auto Normal [facility] Comment on above: Order Comment: Speci men Type: BLOOD SPECIMENOrdering Facility: [facility] Address: [address] [place] [address] Performed By: #### 5 7021-8 ####[facility] [id number] [place] [address] [place] Eosinophils (Bld) [#/Vol] 0.54 10*3/uL High <0.46 [facility] Comment on above: Order Comment: Speci men Type: BLOOD SPECIMENOrdering Facility: [facility] Address: [address] [place] [address] Performed By: #### 5 7021-8 ####[facility] [id number] [place] [address] [place] Eosinophils/100 WBC (Bld) 6.8 % Normal [facility] Comment on above: Order Comment: Speci men Type: BLOOD SPECIMENOrdering Facility: [facility] Address: [address] [place] [address] Performed By: #### 5 7021-8 ####[facility] WESTNCLI [id number] [place] [address] [place] Erythrocyte distribution width (RBC) [Ratio] 13.9 % Normal 11.5-15.0 [facility] Comment on above: Order Comment: Speci men Type: BLOOD SPECIMENOrdering Facility: [facility] Address: [address] [place] [address] Performed By: #### 5 7021-8 ####[facility] OTILIABINDU [id number] [place] [address] [place] Hematocrit (Bld) [Volume fraction] 41.1 % Normal 36.0-46.0 [facility] Comment on above: Order Comment: Speci men Type: BLOOD SPECIMENOrdering Facility: [facility] Address: [address] [place] [address] Performed By: #### 5 7021-8 ####[facility] [id number] [place] [address] [place] Hemoglobin (Bld) [Mass/Vol] 13.6 g/dL Normal 11.5-15.5 [facility] Comment on above: Order Comment: Speci men Type: BLOOD SPECIMENOrdering Facility: [facility] Address: [address] [place] [address] Performed By: #### 5 7021-8 ####[facility] [id number] [place] [address] [place] Immature granulocytes (Bld) [#/Vol] 0.06 10*3/uL Normal <0.10 [facility] Comment on above: Order Comment: Speci men Type: BLOOD SPECIMENOrdering Facility: [facility] Address: [address] [place] [address] Performed By: #### 5 7021-8 ####[facility] WESTNCLIA [id number] [place] [address] [place] Immature granulocytes/100 WBC (Bld) 0.8 % Normal [facility] Comment on above: Order Comment: Speci men Type: BLOOD SPECIMENOrdering Facility: [facility] Address: [address] [place] [address] Performed By: #### 5 7021-8 ####[facility] MILLWNCLIA [id number] [place] [address] [place] Lymphocytes (Bld) [#/Vol] 2.37 10*3/uL Normal 1.00-4.00 [facility] Comment on above: Order Comment: Speci men Type: BLOOD SPECIMENOrdering Facility: [facility] Address: [address] [place] [address] Performed By: #### 5 7021-8 ####[facility] [id number] [place] [address] [place] Lymphocytes/100 WBC (Bld) 30.0 % Normal [facility] Comment on above: Order Comment: Speci men Type: BLOOD SPECIMENOrdering Facility: [facility] Address: [address] [place] [address] Performed By: #### 5 7021-8 ####[facility] [id number] [place] [address] [place] MCH (RBC) [Entitic mass] 26.5 pg Normal 26.0-34.0 [facility] Comment on above: Order Comment: Speci men Type: BLOOD SPECIMENOrdering Facility: [facility] Address: [address] [place] [address] Performed By: #### 5 7021-8 ####[facility] [id number] [place] [address] [place] MCHC (RBC) [Mass/Vol] 33.1 g/dL Normal 30.5-36.[address] [facility] Comment on above: Order Comment: Speci men Type: BLOOD SPECIMENOrdering Facility: [facility] Address: [address] [place] [address] Performed By: #### 5 7021-8 ####[facility] WESTNCLIA [id number] [place] [address] [place] MCV (RBC) [Entitic vol] 80.0 fL Normal 80.0-100.0 [facility] Comment on above: Order Comment: Speci men Type: BLOOD SPECIMENOrdering Facility: [facility] Address: [address] [place] [address] Performed By: #### 5 7021-8 ####[facility] WESTNCA [id number] [place] [address] [place] Monocytes (Bld) [#/Vol] 0.69 10*3/uL Normal <0.87 [facility] Comment on above: Order Comment: Speci men Type: BLOOD SPECIMENOrdering Facility: [facility] Address: [address] [place] [address] Performed By: #### 5 7021-8 ####[facility] [id number] [place] [address] [place] Monocytes/100 WBC (Bld) 8.7 % Normal [facility] Comment on above: Order Comment: Speci men Type: BLOOD SPECIMENOrdering Facility: [facility] Address: [address] [place] [address] Performed By: #### 5 7021-8 ####[facility] [id number] [place] [address] [place] Neutrophils (Bld) [#/Vol] 4.18 10*3/uL Normal 1.45-7.50 [facility] Comment on above: Order Comment: Speci men Type: BLOOD SPECIMENOrdering Facility: [facility] Address: [address] [place] [address] Performed By: #### 5 7021-8 ####[facility] WESTNCLIA [id number] [place] [address] [place] Neutrophils/100 WBC (Bld) 53.1 % Normal [facility] Comment on above: Order Comment: Speci men Type: BLOOD SPECIMENOrdering Facility: [facility] Address: [address] [place] [address] Performed By: #### 5 7021-8 ####[facility] OTILIABRADENTONJACOB [id number] [place] [address] [place] Nucleated RBC (Bld) [#/Vol] 10*3/uL Normal <0.01 [facility] Comment on above: Order Comment: Speci men Type: BLOOD SPECIMENOrdering Facility: [facility] Address: [address] [place] [address] Performed By: #### 5 7021-8 ####[facility] WESTNCSMITHA [id number] [place] [address] [place] Nucleated RBC/100 WBC (Bld) [Ratio] 0.0 /100 WBC Normal [facility] Comment on above: Order Comment: Speci men Type: BLOOD SPECIMENOrdering Facility: [facility] Address: [address] [place] [address] Performed By: #### 5 7021-8 ####[facility] WESTNCLIA [id number] [place] [address] [place] Platelet mean volume (Bld) [Entitic vol] 8.4 fL Low 9.0-12.7 [facility] Comment on above: Order Comment: Speci men Type: BLOOD SPECIMENOrdering Facility: [facility] Address: [address] [place] [address] Performed By: #### 5 7021-8 ####[facility] WESTNCLIA [id number] [place] [address] [place] Platelets (Bld) [#/Vol] 309 10*3/uL Normal 150-400 [facility] Comment on above: Order Comment: Speci men Type: BLOOD SPECIMENOrdering Facility: [facility] Address: [address] [place] [address] Performed By: #### 5 7021-8 ####[facility] WESTNCLIA [id number] [place] [address] [place] RBC (Bld) [#/Vol] 5.14 10*6/uL Normal 3.90-5.20 [facility] Comment on above: Order Comment: Speci men Type: BLOOD SPECIMENOrdering Facility: [facility] Address: [address] [place] [address] Performed By: #### 5 7021-8 ####[facility]NC[facility]AD[facility] [id number] [place] [address] [place] WBC (Bld) [#/Vol] 7.89 10*3/uL Normal 3.70-11.00 [facility] Comment on above: Order Comment: Speci men Type: BLOOD SPECIMENOrdering Facility: [facility] Address: [address] [place] [address] Performed By: #### 5 7021-8 ####[facility] [id number] [place] [address] [place] HIGH RISK HUMAN PAPILLOMA CARLITO (HPV), PCR FOR DETECTION AND GENOTYPINGon 11-07-2024 HPV 16 Ag Ql (Unsp spec) Detected Abnormal Not detecte d [facility] Comment on above: Order Comment: Speci men Type: FLUID SPECIMENOrdering Facility: [facility] Address: [address] [place] [address] Performed By: #### H PVHRT ####[facility] LABCLIA [id number] [place] [address] [place] HPV 18 Ag Ql (Unsp spec) Not detected Normal Not detec true [facility] Comment on above: Order Comment: Speci men Type: FLUID SPECIMENOrdering Facility: [facility] Address: [address] [place] [address] Performed By: #### H PVHRT ####[facility] LABCLIA [id number] [place] [address] [place] HPV 31+33+35+39+45+51+52+56+ 58+59+66+68 DNA CARMEN+probe Ql (Cvx) Not detected Normal Not detected [facility] Comment on above: Order Comment: Speci men Type: FLUID SPECIMENOrdering Facility: [facility] Address: [address] [place] [address] Result Comment: High Risk HPV Other Type includes HPV types 31, 33, 35, 39, 45, 51, 52, 56, 58, 59, 66 and 68. Performed By: #### H PVHRT ####[facility] LABIA [id number] [place] [address] [place] HbA1c (Bld)on 11-07-2024 Average glucose Estimated from glycated hemoglobin (Bld) [Mass/Vol] 88 mg/dL Normal [facility] Comment on above: Order Comment: Speci [facility] Type: BLOOD SPECIMENOrdering Facility: [facility] Address: [address] [place] [address] Result Comment: eAG: (Estimated average glucose) is a calculated value from HgbA1c and is uniforms sales representative of the average blood glucose level in the last 2-3 month period. Performed By: #### 5 5454-3 ####[facility] LABCLIA [id number] [address] STATES OF [facility] HbA1c (Bld) [Mass fraction] 4.7 % Normal 4.3-5.6 [facility] Comment on above: Order Comment: [facility] Type: BLOOD SPECIMENOrdering Facility: [facility] Address: [address] [place] [address] Result Comment: Amer [place] Diabetes Association guidelines indicate that patients with HgbA1c in the range 5.7-6.4% are at increased risk for development of diabetes, and intervention by lifestyle modification may be beneficial. HgbA1c greater or equal to 6.5% is considered diagnostic of diabetes. Performed By: #### 5 5454-3 ####[facility] LABCLIA [id number] [place] [address] [place] PAP TESTon 11-07-2024 ADEQUACY Satisfactory for interpretation. Normal [facility] Comment on above: Order Comment: Speci men Type: FLUID SPECIMENOrdering Facility: [facility] Address: [address] [place] [address] Performed By: #### L [id number] ####[facility] LABORATORYCLIA [id number] [address] LABCLIA [id number] [place] [address] [place] CASE REPORT Normal [facility] Comment on above: Order Comment: Speci men Type: FLUID SPECIMENOrdering Facility: [facility] Address: [address] [place] [address] Result Comment: Gyne cologic Cytology Report Case: [id number] Authorizing Provider: Tona Mack APRN.CNM Collected: 11/07/2024 02:07 PM Ordering Location: OB/Gynecology Received: 11/07/2024 04:06 PM First Screen: Karine Riojas, CT, ASCP Rescreen: Lorie Durant CT, ASCP Specimen: Pap Test, ThinPrep, Cervix Performed By: #### L [id number] ####[facility] LABORATORYCLIA [id number] [place] [id number] [facility] LABCLIA [id number] [place] [address] [place] CLINICAL HISTORY, CYTOLOGY, LEATHER BELT MAKER Routine Exam Normal [facility] Comment on above: Order Comment: Speci men Type: FLUID SPECIMENOrdering Facility: [facility] Address: [address] [place] [address] Performed By: #### L [id number] ####[facility] LABORATORYCLIA [id number] [place] [id number] [facility] LABCLIA [id number] [place] [address] [place] CYTOLOGY PAP OTHER INTERPRETATION Trichomonas vaginalis. Normal [facility] Comment on above: Order Comment: Speci men Type: FLUID SPECIMENOrdering Facility: [facility] Address: [address] [place] [address] Performed By: #### L [id number] ####[facility] LABORATORYCLIA [id number] [place] [address] [facility] LABCLIA [id number] [address] FINAL PERFORMING LAB Normal [facility] Comment on above: Order Comment: Speci men Type: FLUID SPECIMENOrdering Facility: [facility] Address: [address] [place] [address] Result Comment: Tech nical component, helper chicken farm screening performed at [facility], [address] [place] [address] CLIA# [id number] Diagnostic interpretation performed at [facility], [address] [place] [address] CLIA# [id number] [employer] Tester: Josh Argueta M.D. Performed By: #### L [id number] ####[facility] LABORATORYCLIA [id number] [place] [phone] [facility] LABCLIA [id number] [address] STATES [facility] INTERPRETATION, CYTOLOGY, LEATHER BELT MAKER Normal [facility] Comment on above: Order Comment: Speci men Type: FLUID SPECIMENOrdering Facility: [facility] Address: [address] [place] [address] Result Comment: Nega tive for intraepithelial lesion or malignancy. Performed By: #### L [id number] ####[facility] LABORATORYCLIA [id number] [place] [address] [facility] LABCLIA [id number] [place] [id number] [place] LMP 06/27/2024 Normal [facility] Comment on above: Order Comment: Speci men Type: FLUID SPECIMENOrdering Facility: [facility] Address: [address] [place] [address] Performed By: #### L [id number] ####[facility] LABORATORYCLIA [id number] [place] [phone] [facility] LABCLIA [id number] [address] [place] PAP DISCLAIMER COMMENT The Pap Smear is a screening test for cervical cancer. False negative results occur with all screening tests, emphasizing the need for rescreening at recommended intervals, and clinical correlation. Normal [facility] Comment on above: Order Comment: Speci men Type: FLUID SPECIMENOrdering Facility: [facility] Address: [address] [place] [address] Performed By: #### L [id number] ####[facility] LABORATORYCLIA [id number] [place] [phone] [facility] LABCLIA [id number] [place] [address] [place] PAP TOOL DESIGN DRAFTER COMMENT This specimen has been analyzed by the ThinPrep Imaging System, an automated imaging and review system, which assists the laboratory in evaluating cells on ThinPrep Pap tests. Following automated imaging, selected dorsey from every slide are reviewed by a helper chicken farm. Normal [facility] Comment on above: Order Comment: Speci men Type: FLUID SPECIMENOrdering Facility: [facility] Address: [address] [place] [address] Performed By: #### L [id number] ####[facility] LABORATORYCLIA [id number] [place] [phone] [facility] LABCLIA [id number] [address] [place] TYPE + SCREEN PRENATALon ABO O Normal [facility] Comment on above: Order Comment: Speci men Type: BLOOD SPECIMENOrdering Facility: [facility] Address: [address] [place], [place] [address] Performed By: #### T SPN ####[facility] BLOOD BANKCLIA [id number] [place] [id number] [place] Rh Nom (Bld) Positive Normal [facility] Comment on above: Order Comment: Speci men Type: BLOOD SPECIMENOrdering Facility: [facility] Address: [address] [place] [address] Performed By: #### T SPN ####[facility] BLOOD BANKCLIA [id number] [place] [address] [place] TYPE AND SCREEN EXPIRATION 11/10/2024 23:59 Normal [facility] Comment on above: Order Comment: Speci men Type: BLOOD SPECIMENOrdering Facility: [facility] Address: [address] [place] [address] Performed By: #### T SPN ####[facility] BLOOD BANKCLIA [id number] [place] [address] [place] ABO group Nom (Bld) O [facility] Blood group antibody screen Ql Negative [facility] Rh Nom (Bld) Positive [facility] Type and Screen Expiration 11/10/2024 23:59 [facility] .Auto Diffon 11-02-2024 Basophil, Absolute 0.1 10 3/mcL Normal 0.0-0.2 [facility] Comment on above: Performed By: #### A DIFF, CMP, TROPHS, ANEU, MDW, MG, CBC, GFR, TSHR #### [place] [address] [place], [place] [address] Basophils/100 WBC (Bld) 0.5 % Normal 0.0-2.5 A [facility] Comment on above: Performed By: #### A DIFF, CMP, TROPHS, ANEU, MDW, MG, CBC, GFR, TSHR #### [address] [address] Eosinophil, Absolute 0.5 10 3/mcL Normal 0.0-0.7 [facility] Comment on above: Performed By: #### A DIFF, CMP, TROPHS, ANEU, MDW, MG, CBC, GFR, TSHR #### [address] [address] Eosinophils/100 WBC (Bld) 4.8 % Normal 0.0-7.0 [facility] Comment on above: Performed By: #### A DIFF, CMP, TROPHS, ANEU, MDW, MG, CBC, GFR, TSHR #### [address] [address] Lymphocyte, Absolute 2.7 10 3/mcL Normal 0.9-4.3 [facility] Comment on above: Performed By: #### A DIFF, CMP, TROPHS, ANEU, MDW, MG, CBC, GFR, TSHR #### [address] [address] Lymphocytes/100 WBC (Bld) 26.3 % Normal 20.0-40.0 [facility] Comment on above: Performed By: #### A DIFF, CMP, TROPHS, ANEU, MDW, MG, CBC, GFR, TSHR #### [address] [address] Monocyte, Absolute 0.8 10 3/mcL Normal 0.1-1.4 [facility] Comment on above: Performed By: #### A DIFF, CMP, TROPHS, ANEU, MDW, MG, CBC, GFR, TSHR #### [address] [address] Monocytes/100 WBC (Bld) 7.7 % Normal 2.0-13.0 [facility] Comment on above: Performed By: #### A DIFF, CMP, TROPHS, ANEU, MDW, MG, CBC, GFR, TSHR #### [address] [address] Neutrophils/100 WBC (Bld) 60.7 % Normal 50.0-75.0 [facility] Comment on above: Performed By: #### A DIFF, CMP, TROPHS, ANEU, MDW, MG, CBC, GFR, TSHR #### [address] [address] .GFRon 11-02-2024 GFR 118 ml/min/1.73sqm [facility] Comment on above: Result Comment: GFR Population mean for , Non- Americans Ages 20-29 = 116 mL/min/1.73 sq.m. Ages 30-39 = 107 mL/min/1.73 sq.m. Ages 40-49 = 99 mL/min/1.73 sq.m. Ages 50-59 = 93 mL/min/1.73 sq.m. Ages 60-69 = 85 mL/min/1.73 sq.m. Ages 70+ = 75 mL/min/1.73 sq.m. Chronic Kidney Disease: Less than 60 mL/min/1.73 square meters End Stage Renal Disease: Less than 15 mL/min/1.73 square meters Performed By: #### A DIFF, CMP, TROPHS, ANEU, MDW, MG, CBC, GFR, TSHR #### [address] [address] GFR Non- 97 ml/min/1.73sqm [facility] Comment on above: Result Comment: GFR Population mean for , Non- Americans Ages 20-29 = 116 mL/min/1.73 sq.m. Ages 30-39 = 107 mL/min/1.73 sq.m. Ages 40-49 = 99 mL/min/1.73 sq.m. Ages 50-59 = 93 mL/min/1.73 sq.m. Ages 60-69 = 85 mL/min/1.73 sq.m. Ages 70+ = 75 mL/min/1.73 sq.m. Chronic Kidney Disease: Less than 60 mL/min/1.73 square meters End Stage Renal Disease: Less than 15 mL/min/1.73 square meters Performed By: #### A DIFF, CMP, TROPHS, ANEU, MDW, MG, CBC, GFR, TSHR #### [address] [address] .MDWon 11-02-2024 Monocyte Distribution Width 20.12 High 0.00-20.00 [facility] Comment on above: Result Comment: For adults in ED, MDW>20.0 may be associated with a higher risk of sepsis during the first 12hrs of hospital admission Performed By: #### A DIFF, CMP, TROPHS, ANEU, MDW, MG, CBC, GFR, TSHR #### [place] [id number] .NEUABSon 11-02-2024 Neutrophil, Absolute 6.2 10 3/mcL Normal 2.3-8.1 [facility] Comment on above: Performed By: #### A DIFF, CMP, TROPHS, ANEU, MDW, MG, CBC, GFR, TSHR #### [place] [address] CBCon 11-02-2024 Erythrocyte distribution width (RBC) [Ratio] 14.9 % Normal 11.5-15.5 [facility] Comment on above: Performed By: #### A DIFF, CMP, TROPHS, ANEU, MDW, MG, CBC, GFR, TSHR #### [place] [address] Hematocrit (Bld) [Volume fraction] 41.1 % Normal 34.0-46.0 [facility] Comment on above: Performed By: #### A DIFF, CMP, TROPHS, ANEU, MDW, MG, CBC, GFR, TSHR #### [place] [address] Hgb 14.0 G/dL Normal 12.0-16.0 [facility] Comment on above: Performed By: #### A DIFF, CMP, TROPHS, ANEU, MDW, MG, CBC, GFR, TSHR #### [place] [address] MCH (RBC) [Entitic mass] 27.0 pg Normal 27.0-33.0 [facility] Comment on above: Performed By: #### A DIFF, CMP, TROPHS, ANEU, MDW, MG, CBC, GFR, TSHR #### [address] [address] MCHC 34.1 G/dL Normal 32.0-36.0 [facility] Comment on above: Performed By: #### A DIFF, CMP, TROPHS, ANEU, MDW, MG, CBC, GFR, TSHR #### [address] [address] MCV (RBC) [Entitic vol] 79.1 fL Low 80.0-99.0 [facility] Comment on above: Performed By: #### A DIFF, CMP, TROPHS, ANEU, MDW, MG, CBC, GFR, TSHR #### [address] [address] Platelet 348 10 3/mcL Normal 150-450 [facility] Comment on above: Performed By: #### A DIFF, CMP, TROPHS, ANEU, MDW, MG, CBC, GFR, TSHR #### [address] [address] Platelet mean volume (Bld) [Entitic vol] 6.3 fL Low 6.6-10.5 [facility] Comment on above: Performed By: #### A DIFF, CMP, TROPHS, ANEU, MDW, MG, CBC, GFR, TSHR #### [address] [address] RBC 5.20 10 6/mcL Normal 4.10-5.30 [facility] Comment on above: Performed By: #### A DIFF, CMP, TROPHS, ANEU, MDW, MG, CBC, GFR, TSHR #### [address] [address] WBC 10.2 10 3/mcL Normal 4.5-10.8 [facility] Comment on above: Performed By: #### A DIFF, CMP, TROPHS, ANEU, MDW, MG, CBC, GFR, TSHR #### [address] [address] CMPon 11-02-2024 Albumin Level 3.4 G/dL Low 3.5-5.0 [facility] Comment on above: Performed By: #### A DIFF, CMP, TROPHS, ANEU, MDW, MG, CBC, GFR, TSHR #### [address] [address] Albumin/Globulin [Mass ratio] 1.0 {ratio} Low 1.1-2.5 [facility] Comment on above: Performed By: #### A DIFF, CMP, TROPHS, ANEU, MDW, MG, CBC, GFR, TSHR #### [place] [address] ALP [Catalytic activity/Vol] 118 U/L Normal 40-135 [facility] Comment on above: Performed By: #### A DIFF, CMP, TROPHS, ANEU, MDW, MG, CBC, GFR, TSHR #### [place] [address] ALT [Catalytic activity/Vol] 20 U/L Normal 14-59 [facility] Comment on above: Performed By: #### A DIFF, CMP, TROPHS, ANEU, MDW, MG, CBC, GFR, TSHR #### [place] [address] AST [Catalytic activity/Vol] 18 U/L Normal 10-40 [facility] Comment on above: Performed By: #### A DIFF, CMP, TROPHS, ANEU, MDW, MG, CBC, GFR, TSHR #### [place] [id number] Bili Total 0.3 mg/dL Normal 0.2-1.0 [facility] Comment on above: Result Comment: Use of this assay is not recommended for patients undergoing treatment with eltrombopag due to the potential for falsely elevated results. Performed By: #### A DIFF, CMP, TROPHS, ANEU, MDW, MG, CBC, GFR, TSHR #### [place] [address] BUN/Creatinine Ratio 11 ratio Normal 7-27 [facility] Comment on above: Performed By: #### A DIFF, CMP, TROPHS, ANEU, MDW, MG, CBC, GFR, TSHR #### [place] [address] Calcium [Mass/Vol] 9.1 mg/dL Normal 8.4-10.2 [facility] Comment on above: Performed By: #### A DIFF, CMP, TROPHS, ANEU, MDW, MG, CBC, GFR, TSHR #### [place] [address] Chloride [Moles/Vol] 104 mmol/L Normal 98-107 [facility] Comment on above: Performed By: #### A DIFF, CMP, TROPHS, ANEU, MDW, MG, CBC, GFR, TSHR #### [place] [address] CO2 [Moles/Vol] 27 mmol/L Normal 22-29 [facility] Comment on above: Performed By: #### A DIFF, CMP, TROPHS, ANEU, MDW, MG, CBC, GFR, TSHR #### [place] [address] Creatinine [Mass/Vol] 0.70 mg/dL Normal 0.55-1.02 [facility] Comment on above: Result Comment: Test ing performed on Siemens Dimension EXL analyzer using a modified kinetic Seema technique. Performed By: #### A DIFF, CMP, TROPHS, ANEU, MDW, MG, CBC, GFR, TSHR #### [place] [address] Electrolyte Balance 10.0 mEq/L Normal 4.0-15.0 [facility] Comment on above: Performed By: #### A DIFF, CMP, TROPHS, ANEU, MDW, MG, CBC, GFR, TSHR #### [place] [address] Globulin 3.5 G/dL Normal [facility] Comment on above: Performed By: #### A DIFF, CMP, TROPHS, ANEU, MDW, MG, CBC, GFR, TSHR #### [place] [id number] Glucose [Mass/Vol] 93 mg/dL Normal 70-105 [facility] Comment on above: Performed By: #### A DIFF, CMP, TROPHS, ANEU, MDW, MG, CBC, GFR, TSHR #### [address] [address] Potassium [Moles/Vol] 4.1 mmol/L Normal 3.5-5.1 [facility] Comment on above: Performed By: #### A DIFF, CMP, TROPHS, ANEU, MDW, MG, CBC, GFR, TSHR #### [address] [address] Sodium [Moles/Vol] 141 mmol/L Normal 136-145 [facility] Comment on above: Performed By: #### A DIFF, CMP, TROPHS, ANEU, MDW, MG, CBC, GFR, TSHR #### [address] [address] Total Protein 6.9 G/dL Normal 6.4-8.2 [facility] Comment on above: Performed By: #### A DIFF, CMP, TROPHS, ANEU, MDW, MG, CBC, GFR, TSHR #### [address] [address] Urea nitrogen [Mass/Vol] 8 mg/dL Normal 7-18 [facility] Comment on above: Performed By: #### A DIFF, CMP, TROPHS, ANEU, MDW, MG, CBC, GFR, TSHR #### [address] [address] LABORATORYOrdered By: SYSTEM SYSTEM on 11-02-2024 Albumin BCP dye [Mass/Vol] 3.4 G/dL Low 3.5 - 5.0 G/dL AO ADM SS Albumin/Globulin [Mass ratio] 1.0 {ratio} Low 1.1 - 2.5 ratio AO ADM SS ALP [Catalytic activity/Vol] 118 U/L Normal 40 - 135 U/L AO ADM SS ALT With P-5'-P [Catalytic activity/Vol] 20 U/L Normal 14 - 59 U/L AO ADM SS AST With P-5'-P [Catalytic activity/Vol] 18 U/L Normal 10 - 40 U/L AO ADM SS Basophils (Bld) [#/Vol] 0.1 103/mcL Normal 0.0 - 0.2 10^3/mcL AO Workflow SS Basophils/100 WBC (Bld) 0.5 % Normal 0.0 - 2.5 % AO Workflow SS Bilirubin [Mass/Vol] 0.3 mg/dL Normal 0.2 - 1 .0 mg/dL AO ADM SS Comment on above: Interpretive Data: U se of this assay is not recommended for patients undergoing treatment with eltrombopag due to the potential for falsely elevated results. Calcium [Mass/Vol] 9.1 mg/dL Normal 8.4 - 10. 2 mg/dL AO ADM SS Chloride [Moles/Vol] 104 mmol/L Normal 98 - 10 7 mmol/L AO ADM SS CO2 [Moles/Vol] 27 mmol/L Normal 22 - 29 mmol/L AO ADM SS Creatinine [Mass/Vol] 0.70 mg/dL Normal 0.55 - 1.02 mg/dL AO ADM SS Comment on above: Interpretive Data: T esting performed on Siemens Dimension EXL analyzer using a modified kinetic Seema technique. Electrolyte Balance 10.0 mEq/L Normal 4.0 - 15 .0 mEq/L AO ADM SS Eosinophil, Absolute 0.5 103/mcL Normal 0.0 - 0 .7 10^3/mcL AO Workflow SS Eosinophils/100 WBC (Bld) 4.8 % Normal 0.0 - 7.0 % AO Workflow SS Erythrocyte distribution width (RBC) [Ratio] 14.9 % Normal 11.5 - 15.5 % AO Workflow SS GFR/1.73 sq M.predicted among blacks MDRD (S/P/Bld) [Vol rate/Area] 118 ml/min/1.73sqm Invalid Interpretation Code AO Chemistry S Comment on above: Interpretive Data: GFR Population mean for , Non- Americans Ages 20-29 = 116 mL/min/1.73 sq.m. Ages 30-39 = 107 mL/min/1.73 sq.m. Ages 40-49 = 99 mL/min/1.73 sq.m. Ages 50-59 = 93 mL/min/1.73 sq.m. Ages 60-69 = 85 mL/min/1.73 sq.m. Ages 70+ = 75 mL/min/1.73 sq.m. Chronic Kidney Disease: Less than 60 mL/min/1.73 square meters End Stage Renal Disease: Less than 15 mL/min/1.73 square meters GFR/1.73 sq M.predicted among non-blacks MDRD (S/P/Bld) [Vol rate/Area] 97 ml/min/1.73sqm Invalid Interpretation Code AO Chemistry S Comment on above: Interpretive Data: GFR Population mean for , Non- Americans Ages 20-29 = 116 mL/min/1.73 sq.m. Ages 30-39 = 107 mL/min/1.73 sq.m. Ages 40-49 = 99 mL/min/1.73 sq.m. Ages 50-59 = 93 mL/min/1.73 sq.m. Ages 60-69 = 85 mL/min/1.73 sq.m. Ages 70+ = 75 mL/min/1.73 sq.m. Chronic Kidney Disease: Less than 60 mL/min/1.73 square meters End Stage Renal Disease: Less than 15 mL/min/1.73 square meters Globulin 3.5 G/dL Invalid Interpretation Code AO ADM SS Glucose [Mass/Vol] 93 mg/dL Normal 70 - 105 mg/dL AO ADM SS Hematocrit (Bld) [Volume fraction] 41.1 % Normal 34.0 - 46.0 % AO Workflow SS Hemoglobin (Bld) [Mass/Vol] 14.0 G/dL Normal 12.0 - 16.0 G/dL AO Workflow SS Lymphocytes (Bld) [#/Vol] 2.7 103/mcL Normal 0.9 - 4.3 10^3/mcL AO Workflow SS Lymphocytes/100 WBC (Bld) 26.3 % Normal 20.0 - 40.0 % AO Workflow SS Magnesium [Mass/Vol] 1.9 mg/dL Normal 1.8 - 2 .4 mg/dL AO ADM SS MCH (RBC) [Entitic mass] 27.0 pg Normal 27. 0 - 33.0 pg AO Workflow SS MCHC 34.1 G/dL Normal 32.0 - 36.0 G/dL AO Workflow SS MCV (RBC) [Entitic vol] 79.1 fL Low 80.0 - 99.0 fL AO Workflow SS Monocyte distribution width Auto (Bld) [Entitic vol] 20.12 1 High 0.00 - 20.00 AO Workflow SS Comment on above: Result Comment: For adults in ED, MDW>20.0 may be associated with a higher risk of sepsis during the first 12hrs of hospital admission Monocytes (Bld) [#/Vol] 0.8 103/mcL Normal 0.1 - 1.4 10^3/mcL AO Workflow SS Monocytes/100 WBC (Bld) 7.7 % Normal 2.0 - 13.0 % AO Workflow SS Neutrophils (Bld) [#/Vol] 6.2 103/mcL Normal 2.3 - 8.1 10^3/mcL AO Workflow SS Neutrophils/100 WBC (Bld) 60.7 % Normal 50.0 - 75.0 % AO Workflow SS Platelet mean volume (Bld) [Entitic vol] 6.3 fL Low 6.6 - 10.5 fL AO Workflow SS Platelets (Bld) [#/Vol] 348 103/mcL Normal 150 - 450 10^3/mcL AO Workflow SS Potassium [Moles/Vol] 4.1 mmol/L Normal 3.5 - 5.1 mmol/L AO ADM SS Protein [Mass/Vol] 6.9 G/dL Normal 6.4 - 8.2 G/dL AO ADM SS RBC (Bld) [#/Vol] 5.20 106/mcL Normal 4.10 - 5.3 0 10^6/mcL AO Workflow SS Sodium [Moles/Vol] 141 mmol/L Normal 136 - 145 mmol/L AO ADM SS Troponin I.cardiac DL <= 0.01 ng/mL [Mass/Vol] 17 ng/L Normal 0 - 51 ng/L AO ADM SS Comment on above: Interpretive Data: H igh Sensitive Troponin I Reference Ranges: Female: 0-51 ng/L Male: 0-76 ng/L Testing performed on PowerMag using a homogeneous sandwich chemiluminescent immunoassay based on [employer]ou[employer] technology. TSH Qn 1.29 m[IU]/L Normal 0.36 - 3.74 mcIU/mL AO ADM SS Urea nitrogen [Mass/Vol] 8 mg/dL Normal 7 - 18 mg/d L AO ADM SS Urea nitrogen/Creatinine [Mass ratio] 11 ratio Normal 7 - 27 ratio AO ADM SS WBC (Bld) [#/Vol] 10.2 103/mcL Normal 4.5 - 10.8 10^3/mcL AO Workflow SS MGon 11-02-2024 Magnesium [Mass/Vol] 1.9 mg/dL Normal 1.8-2.4 [facility] Comment on above: Performed By: #### A DIFF, CMP, TROPHS, ANEU, MDW, MG, CBC, GFR, TSHR #### [address] [address] TROPHSon 11-02-2024 High Sensitivity Troponin I 17 ng/L Normal 0-51 [facility] Comment on above: Result Comment: High Sensitive Troponin I Reference Ranges: Female: 0-51 ng/L Male: 0-76 ng/L Testing performed on PowerMag using a homogeneous sandwich chemiluminescent immunoassay based on Zouxi[employer] technology. Performed By: #### A DIFF, CMP, TROPHS, ANEU, MDW, MG, CBC, GFR, TSHR #### [address] [address] TSHRon 11-02-2024 TSH Qn 1.29 m[IU]/L Normal 0.36-3.74 [facility] Comment on above: Performed By: #### A DIFF, CMP, TROPHS, ANEU, MDW, MG, CBC, GFR, TSHR #### [address] [address] CNPShannon 10-20-2024 CNPN Telephone (OBGYWM) ---- SELMA POON ([id number]) 1990 F Date Time Provider Department 10/20/24 KAREN GUTHRIE During your visit today, we recorded the following information about you: Karen Guthrie APRN.CNP 10/20/2024 8:28 AM Signed Patient has an appointment tomorrow at 815 with me she will be 25 weeks she should be scheduled with a soaker meat or doc. She has not been seen at all for this with us. Karen Guthrie APRN.Karine Sommers RN 10/20/2024 11:52 AM Signed Left detailed message on identified voicemail that tomorrow's appointment has been cancelled with the [employer]. Advised she will need to reschedule her NOB with a nurse soaker meat given how far along she is. Karine Kelly RN Allergies As of Date: 10/20/2024 Noted Allergy Reaction LEXAPRO (ESCITALOPRAM) 07/03/2020 14 - Other: See Comments Comments: Made her angry REQUIP (ROPINIROLE) 07/03/2020 14 - Other: See Comments Comments: Made restless legs worse. Date Reviewed: 10/20/2021 Reviewed by: Kathy Maynard ([facility]) - Fully Assessed Reason for Visit: Appointment [186] Prescriptions as of 10/21/2024 - VITS 0-SIJU-UZKNA-DHA ORAL DAILY - gabapentin (NEURONTIN) 300 mg capsule Take 1 capsule by mouth daily at bedtime for 180 days. Problem List As Of Date 10/20/2024 Noted Resolved Generalized anxiety disorder [F41.1] 04/30/2017 Eczema [L30.9] 04/30/2017 Smoker [F17.200] 04/30/2017 Tachycardia [R00.0] 04/30/2017 Well adult exam [Z00.00] 04/30/2017 Encounter for screening for cardiovascular diso*04/30/2017 Encounter for screening for diabetes mellitus [*04/30/2017 Irritable bowel syndrome with diarrhea [K58.0] 02/25/2020 RLS (restless legs syndrome) [G25.81] 07/03/2020 Hypertension, essential [I10] 10/20/2021 Encounter Status:Closed by KELSEY CARDENAS on 10/21/24 [facility] [place] 10-17-2024 KIERAN Telephone (OBGYWM) ---- SLEMA POON ([id number]) 1990 F Date Time Provider Department 10/17/24 KAREN GUTHRIE OBGYWM During your visit today, we recorded the following information about you: Natasha Castro MA 10/17/2024 12:48 PM Signed Attempted to contact patient to go over new ob intake question. No answer. Left a voice mail. NatashaKEILA Quinones Jessica, APRN.CNM 11/07/2024 2:48 PM Signed Please assist patient in scheduling ultrasound for dating and missed prior to induction. I am working on induction plan for her but want this to get scheduled Sunday please. GARTH Ariza Trisha, RN 11/07/2024 3:40 PM Signed Patient notified and scheduled for 11am Sunday11/10/24. She is worried about transportation and will call back if unable to get a ride. If no ride available next dating u/s opening not until as of now. FELIZ Odell Jessica, APRN.CNM 11/07/2024 3:50 PM Signed She was going to get insurance for assistance. Thanks, GARTH Ariza Jessica, APRN.CNM 11/10/2024 8:32 AM Signed Can we please call patient to verify she is coming for US this morning. Would like to make sure we have a plan for her. Thank you, Tona Mack APRN.Nikky Bose RN 11/10/2024 9:28 AM Signed Left message to call office. FELIZ Pena Trisha, RN 11/10/2024 10:54 AM Signed Patient here for appointment now. Kelsey Cardenas RN Allergies As of Date: 10/17/2024 Noted Allergy Reaction LEXAPRO (ESCITALOPRAM) 07/03/2020 14 - Other: See Comments Comments: Made her angry REQUIP (ROPINIROLE) 07/03/2020 14 - Other: See Comments Comments: Made restless legs worse. Date Reviewed: 10/20/2021 Reviewed by: Kathy Maynard ([employer]) - Fully Assessed Prescriptions as of 11/10/2024 - VITS 3-UVRK-HWIOW-DHA ORAL DAILY - gabapentin (NEURONTIN) 300 mg capsule Take 1 capsule by mouth daily at bedtime for 180 days. Problem List As Of Date 10/17/2024 Noted Resolved Generalized anxiety disorder [F41.1] 04/30/2017 Eczema [L30.9] 04/30/2017 Smoker [F17.200] 04/30/2017 Tachycardia [R00.0] 04/30/2017 Well adult exam [Z00.00] 04/30/2017 Encounter for screening for cardiovascular diso*04/30/2017 Encounter for screening for diabetes mellitus [*04/30/2017 Irritable bowel syndrome with diarrhea [K58.0] 02/25/2020 RLS (restless legs syndrome) [G25.81] 07/03/2020 Hypertension, essential [I10] 10/20/2021 Encounter Status:Closed by KELSEY CARDENAS on 11/07/24 [facility] Emergency Department Summary on 10-16-2024 Emergency Department Summary [facility] Medical Records Department [address] [place] [address] Emergency Department Summary 10/16/24 MR#: [id number] Acct: [id number] Name: SELMA POON JUANIS Rep #: [id number] : 1990 34 From: Ash Ortega MD PCP: Dr. Don Rosario MD Status:REG ER Location: ED HPI HPI - GI History of Present Illness Chief Complaint: Nausea/Vomiting/Samanta rrhea Informant: patient and spouse/S.O. Nausea/Vomiting/Nieves sis GI Symptom: Positive for Nausea and Vomiting Onset: Today and Hours Severity: Mild Diarrhea/Melena/Hem atochezia GI Symptom: Positive for Diarrhea; Negative for Melena or Hematochezia Onset: Today and Hours Stool Quality: Positive for Loose Severity: Mild Associated Symptoms Associated Symptoms: Negative for Dysuria, Frequency, Hematuria or Urgency Narrative Narrative: 34-year-old female history of hypertension. Currently 15 weeks . Ab1. Says she was recent diagnosed with possible UTI was started on antibiotic which she just recently started. I did look up the urine culture it was contaminated. Patient states this morning she started having nausea, vomiting diarrhea. No fever. No significant abdominal pain. Denies any dysuria. No vaginal bleeding. Prior similar symptoms: Yes Recent Illness/Hospitaliza tion: No PFSH PFSH Medical History Anxiety Hypertension Carpal tunnel syndrome Pyelonephritis Home Medications ???Medication ???Instructions ???Recorded ???Last Taken ???Type hydroxyzine HCl 25 mg tablet 25 mg PO QHS anxiety 05/03/17 12/15/18 History Ranitidine [Zantac] 150 mg PO DAILY 12/17/17 12/17/17 09:00 History ranitidine HCl 150 mg tablet 150 mg PO DAILY 04/21/19 Unknown History sulfamethoxazole 800 1 tab PO BID #14 tabs 04/21/19 Unknown Rx mg-trimethoprim 160 mg tablet gabapentin 300 mg capsule 300 mg PO QHS 04/02/21 Unknown History buspirone 5 mg tablet 5 mg PO DAILY 01/15/22 Unknown History metoprolol succinate 25 mg 25 mg PO DAILY 01/15/22 Unknown History tablet,extended release 24 hr naproxen 500 mg tablet 500 mg PO BID PRN #20 tabs 06/05/24 Unknown Rx penicillin V potassium 500 mg 500 mg PO 4X/DAY #40 tabs 06/05/24 Unknown Rx tablet cephalexin 500 mg capsule 500 mg PO Q6 #12 CAPSULES 10/14/24 Unknown Rx ondansetron 4 mg disintegrating 4 mg PO Q6H PRN nausea and 10/16/24 Unknown Rx tablet vomiting #10 tabs Allergy/AdvReac Type Severity Reaction Status Date / Time No Known Allergies Allergy Verified 10/16/24 18:12 Surgical History History of carpal tunnel surgery of right wrist History of carpal tunnel surgery of left wrist Hx of appendectomy Social History Smoking Status: Current every day smoker tobacco type: cigarettes ROS ROS ED ROS Narrative Nausea, vomiting and diarrhea Constitutional Constitutional ED: Denies chills or fever(s) ENT ENT ED: Denies ear pain Cardiovascular Cardiovascular: Denies chest pain Respiratory/Chest Respiratory/Chest: Denies cough Gastrointestinal Gastrointestinal: Reports diarrhea, nausea and vomiting; Denies abdominal pain, constipation or melena Genitourinary Genitourinary ED: Denies dysuria or hematuria Musculoskeletal Musculoskeletal: Denies arthralgias or back pain Integumentary Denies abscess Neurologic Neurologic: Denies headache(s) Psychiatric Psychiatric: Denies anxiety Endocrine Endocrinology: Denies polydipsia Hematologic/Lymphat ic Hematologic/Lymphat ic: Denies easy bleeding Allergic/Immunologi c Allergic/Immunologi c ED: Denies mouth swelling EXAM Physical Exam Narrative Exam Narrative: 15-year-old female no acute distress vital signs stable afebrile. H EENT exam pupils round react to light. Mildly dry mucous membranes. Neck nontender no lymphadenopathy. Lungs clear to auscultation bilaterally. Heart regular rhythm rate about 85 no murmur. Chest wall ribs nontender. Abdomen soft nondistended normal bowel sounds without peritoneal signs. Gravid nontender uterus. Right upper or right lower quadrant unremarkable. No hernia or mass. No obstruction. Soft. Moving all 4 extremities. Nontender no edema. Back nontender. She is awake alert. No focal motor deficits. Const Vital Signs: 10/16/24 18:10 Temperature 97.4 F L Temperature Source Temporal Pulse Rate 86 Respiratory Rate 15 Blood Pressure 107/96 H Blood Pressure Mean 99 Pulse Ox 100 Oxygen Delivery Method Room Air Positive well nourished and well developed; Negative for cachectic, contractures or unkempt General Appearance ED: well developed and NAD; Negative for unkempt, cachectic, contractures or pallor Nutritional Appearance: Negative fo (more content not included)... Normal [facility] Urine Cultureon 10-16-2024 URC Mixed Gram Positive Organisms [place] Count 11,000-25,000 MIXC Mixed contaminants. Submit a new specimen if indicated. Normal [facility] Comment on above: Performed By: #### M 100.4120 #### [facility] [address] [place], [address] 12 Lead EKGon 10-14-2024 12 Lead EKG [facility] Cardiovascular Services [address] [place] [address] 12 Lead EKG 10/14/242117 MR#: [id number] Acct: [id number] Name: SELMA POON JUANIS Rep #: [id number] : 1990 33 From: Fransisco Brewer MD Attending Dr: Status: DEP ER Ordering Dr: Ismael Donahue DO Date: 10/14/24 Location: ED Sex: F C Admitted: Test Reason : SOB Blood Pressure : */* mmHG Vent. Rate : 76 BPM Atrial Rate : 76 BPM P-R Int : 138 ms QRS Dur : 84 ms QT Int : 376 ms P-R-T Axes : 28 21 21 degrees QTcB Int : 423 ms Normal sinus rhythm with sinus arrhythmia Normal ECG Confirmed by LUANA MALLORY, FRANSISCO ([id number]), film or videotape editor RADHA FAGAN ([id number]) on 10/16/2024 10:49:15 AM Referred By: Confirmed By: FRANSISCO BREWER MD 10/16/24 1049 Date Fransisco Brewer MD CC: Dr. Ismael Donahue DO; Dr. Don Rosario MD Signed Normal [facility] CBC W/Diff, Automatedon 09-28 Absolute Lymph 2.58 X10 3/uL Normal 0.83-4.51 [facility] Comment on above: Performed By: #### L 100.0100, L500.4050, L700.8000 #### [facility] [address] [place], [address] Absolute Neut 5.8 X10 3/uL Normal 2.0-7.7 [facility] Comment on above: Performed By: #### L 100.0100, L500.4050, L700.8000 #### [facility] [address] [place], [address] Basophils/100 WBC (Bld) 0.4 % Normal 0-1 [facility] Comment on above: Performed By: #### L 100.0100, L500.4050, L700.8000 #### [facility] [address] [place], [address] Eosinophils/100 WBC (Bld) 4.6 % Normal 0-5 [facility] Comment on above: Performed By: #### L 100.0100, L500.4050, L700.8000 #### [facility] [address] [place], [address] Erythrocyte distribution width (RBC) [Ratio] 14.0 % Normal 11.6-14.6 [facility] Comment on above: Performed By: #### L 100.0100, L500.4050, L700.8000 #### [facility] [address] [place], [address] Hematocrit (Bld) [Volume fraction] 37.4 % Normal 37-47 [facility] Comment on above: Performed By: #### L 100.0100, L500.4050, L700.8000 #### [facility] [address] [place], [address] Hemoglobin (Bld) [Mass/Vol] 12.6 g/dL Normal 12.0-15.0 [facility] Comment on above: Performed By: #### L 100.0100, L500.4050, L700.8000 #### [facility] [address] [place], [address] IG% 1.200 High 0.0-0.9 [facility] Comment on above: Result Comment: IG% - Immature Granulocytes (promyelocytes, myelocytes and metamyelocytes) > 1% indicates that a LEFT SHIFT is Present. Performed By: #### L 100.0100, L500.4050, L700.8000 #### [facility] [address] [place], [address] Lymphocytes/100 WBC (Bld) 26.3 % Normal 19-41 [facility] Comment on above: Performed By: #### L 100.0100, L500.4050, L700.8000 #### [facility] [address] [place], [address] MCH (RBC) [Entitic mass] 26.8 pg Low 27.0-32.0 [facility] Comment on above: Performed By: #### L 100.0100, L500.4050, L700.8000 #### [facility] [address] [place], [address] MCHC (RBC) [Mass/Vol] 33.7 g/dL Normal 32-36 [facility] Comment on above: Performed By: #### L 100.0100, L500.4050, L700.8000 #### [facility] [address] [place], [address] MCV (RBC) [Entitic vol] 79.4 fL Low 81-99 [facility] Comment on above: Performed By: #### L 100.0100, L500.4050, L700.8000 #### [facility] [address] [place], [address] Monocytes/100 WBC (Bld) 8.2 % Normal 0-10 [facility] Comment on above: Performed By: #### L 100.0100, L500.4050, L700.8000 #### [facility] [address] [place], [address] Neutrophils/100 WBC (Bld) 59.3 % Normal 47-70 [facility] Comment on above: Performed By: #### L 100.0100, L500.4050, L700.8000 #### [facility] [address] [place], [address] Nucleated RBC (Bld) [#/Vol] 0 10*3/uL Normal 0-5 [facility] Comment on above: Performed By: #### L 100.0100, L500.4050, L700.8000 #### [facility] [address] [place], [address] Platelet mean volume (Bld) [Entitic vol] 8.7 fL Normal 6.2-12.0 [facility] Comment on above: Performed By: #### L 100.0100, L500.4050, L700.8000 #### [facility] [address] [place], [address] Platelets (Bld) [#/Vol] 276 10*3/uL Normal 150-450 [facility] Comment on above: Performed By: #### L 100.0100, L500.4050, L700.8000 #### [facility] [address] [place], [address] RBC (Bld) [#/Vol] 4.71 10*6/uL Normal 4.2-5.4 [facility] Comment on above: Performed By: #### L 100.0100, L500.4050, L700.8000 #### [facility] [address] [place], [address] RDW SD 40.2 fl Normal 35.1-43.9 [facility] Comment on above: Performed By: #### L 100.0100, L500.4050, L700.8000 #### [facility] [address] [place], [address] WBC (Bld) [#/Vol] 9.8 10*3/uL Normal 4.4-11.0 [facility] Comment on above: Performed By: #### L 100.0100, L500.4050, L700.8000 #### [facility] [address] [place], [address] Chest PA and Lateralon 10-14 Chest PA and Lateral [facility] Imaging Services [address] [place] [address] Chest PA and Lateral MR#: [id number] Acct: [id number] Name: SELMA POON Rep #: [id number] : 1990 F 33 From: Eliot Ford MD PCP: Dr. Don Rosario MD Status: [facility] ER Study: Chest PA and Lateral Date of Exam: 10/14/24 Exam# [id number] Ordering Dr: Ismael Donahue DO -[id number] STUDY: X-RAY CHEST REASON FOR EXAM: Female, 33 years old. Chest pain -- Shield abdomen TECHNIQUE: PA and lateral views of the chest. COMPARISON: January 15, 2022. FINDINGS: The lungs are clear and expanded. There is no demonstrated pleural abnormality. Normal size heart. Normal mediastinum and leslie. Normal visualized pulmonary arteries. Normal visualized aortic arch and descending thoracic aorta. Normal visualized thoracic spine. Normal visualized ribs, clavicles, and shoulders. There is no demonstrated abnormality of the visualized soft tissue structures of the upper abdomen. RAD/Chest PA and Lateral IMPRESSION: Normal x-ray examination of the chest. Electronically Signed: Eliot Ford MD at 22:32 EST , CC: Dr. Ismael Donahue DO; Dr. Don Rosario MD Cofounder: Signed Normal [facility] Comprehensive Metabolic Prof ilon 10-14-2024 Albumin [Mass/Vol] 2.9 g/dL Low 3.2-5.0 [facility] Comment on above: Performed By: #### L 100.0100, L500.4050, L700.8000 #### [facility] [address] [place], [address] Albumin/Globulin [Mass ratio] 0.8 {ratio} Low 0.9-2.4 [facility] Comment on above: Performed By: #### L 100.0100, L500.4050, L700.8000 #### [facility] [address] [place], [address] ALK P 87 U/L Normal 45-117 [facility] Comment on above: Performed By: #### L 100.0100, L500.4050, L700.8000 #### [facility] [address] [place], [address] ALT [Catalytic activity/Vol] 14 U/L Normal 13-56 [facility] Comment on above: Performed By: #### L 100.0100, L500.4050, L700.8000 #### [facility] [address] [place], [address] AST [Catalytic activity/Vol] 10 U/L Low 15-37 [facility] Comment on above: Performed By: #### L 100.0100, L500.4050, L700.8000 #### [facility] [address] [place], [address] Bilirubin [Mass/Vol] 0.20 mg/dL Normal 0.20-1.00 [facility] Comment on above: Result Comment: For patients on eltrombopag therapy, use of Dimension [place] TBIL is not recommended. Performed By: #### L 100.0100, L500.4050, L700.8000 #### [facility] [address] [place], [address] BUN/CRE 13.7 RATIO Normal 10-20 [facility] Comment on above: Performed By: #### L 100.0100, L500.4050, L700.8000 #### [facility] [address] [place], [address] CA,Total 8.9 mg/dL Normal 8.5-10.1 [facility] Comment on above: Performed By: #### L 100.0100, L500.4050, L700.8000 #### [facility] [address] [place], [address] Chloride [Moles/Vol] 110 mmol/L High 98-107 [facility] Comment on above: Performed By: #### L 100.0100, L500.4050, L700.8000 #### [facility] [address] [place], [address] CO2 [Moles/Vol] 25.0 mmol/L Normal 21.0-32.0 [facility] Comment on above: Performed By: #### L 100.0100, L500.4050, L700.8000 #### [facility] [address] [place], [address] Creatinine [Mass/Vol] 0.58 mg/dL Normal 0.55-1.02 [facility] Comment on above: Result Comment: The validity of the calculated GFR GFRAA in patients over 70 years has not been determined. Clinical correlation is essential. Performed By: #### L 100.0100, L500.4050, L700.8000 #### [facility] [address] [place], [address] ECRCL 143.42 ml/min Normal [facility] Comment on above: Performed By: #### L 100.0100, L500.4050, L700.8000 #### [facility] [address] [place], [address] EST GFR - AA 153 mL/min Normal >60 [facility] Comment on above: Result Comment: Afri can [place] GFR Calc Performed By: #### L 100.0100, L500.4050, L700.8000 #### [facility] [address] [place], [address] GAP 3 Low 5-15 [facility] Comment on above: Performed By: #### L 100.0100, L500.4050, L700.8000 #### [facility] [address] [place], [address] GFR/1.73 sq M.predicted among non-blacks MDRD (S/P/Bld) [Vol rate/Area] 127 mL/min/{1.73_m2} Normal >60 [facility] Comment on above: Result Comment: Non- GFR Calc Performed By: #### L 100.0100, L500.4050, L700.8000 #### [facility] [address] [place], [address] Globulin (S) [Mass/Vol] 3.6 g/dL Normal 2.2-4.2 [facility] Comment on above: Performed By: #### L 100.0100, L500.4050, L700.8000 #### [facility] [address] [place], [address] Glucose [Mass/Vol] 98 mg/dL Normal 74-106 [facility] Comment on above: Performed By: #### L 100.0100, L500.4050, L700.8000 #### [facility] [address] [place], [address] Potassium [Moles/Vol] 3.5 mmol/L Normal 3.5-5.1 [facility] Comment on above: Performed By: #### L 100.0100, L500.4050, L700.8000 #### [facility] [address] [place], [address] Sodium [Moles/Vol] 138 mmol/L Normal 136-145 [facility] Comment on above: Performed By: #### L 100.0100, L500.4050, L700.8000 #### [facility] [address] [place], [address] T PROT 6.5 g/dL Normal 6.4-8.2 [facility] Comment on above: Performed By: #### L 100.0100, L500.4050, L700.8000 #### [facility] [address] [place], [address] Urea nitrogen [Mass/Vol] 8 mg/dL Normal 7-18 [facility] Comment on above: Performed By: #### L 100.0100, L500.4050, L700.8000 #### [facility] [address] [place], [address] Emergency Department Summary on 10-14-2024 Emergency Department Summary [facility] Medical Records Department [address] [place] [address] Emergency Department Summary 10/14/24 MR#: [id number] Acct: [id number] Name: SELMA PONO JUANIS Rep #: [id number] : 1990 33 From: Ismael Donahue DO PCP: Dr. Don Rosario MD Status:DEP ER Location: ED HPI History of Present Illness Chief Complaint: Shortness of Breath Informant: patient Onset/Context/Timin g Onset: Weeks (1) Context: Gradual Onset Timing: Continuous Quality: Aching Location: Right chest Worsened by: Nothing Relieved by: Nothing Narrative Narrative: Patient presents with chest pain that has been constant for the past month. Patient states it is mainly over the right side of her chest. Patient describes it as aching. Patient states nothing makes it better and nothing makes it worse. Patient states it has been constant for the past month but has gotten worse over the past 2 days. Patient states she has been having some episodes of lightheadedness. Patient admits to some subjective fevers. Patient is 15 weeks . Patient admits to some nausea and vomiting. Patient admits to some urinary frequency. [facility] Medical History (Updated 10/14/24 @ 22:[address] Ismael Schwiger, DO) Anxiety Hypertension Carpal tunnel syndrome Pyelonephritis Home Medications ???Medication ???Instructions ???Recorded ???Last Taken ???Type hydroxyzine HCl 25 mg tablet 25 mg PO QHS anxiety 05/03/17 12/15/18 History Ranitidine [Zantac] 150 mg PO DAILY 12/17/17 12/17/17 09:00 History ranitidine HCl 150 mg tablet 150 mg PO DAILY 04/21/19 Unknown History sulfamethoxazole 800 1 tab PO BID #14 tabs 04/21/19 Unknown Rx mg-trimethoprim 160 mg tablet gabapentin 300 mg capsule 300 mg PO QHS 04/02/21 Unknown History buspirone 5 mg tablet 5 mg PO DAILY 01/15/22 Unknown History metoprolol succinate 25 mg 25 mg PO DAILY 01/15/22 Unknown History tablet,extended release 24 hr naproxen 500 mg tablet 500 mg PO BID PRN #20 tabs 06/05/24 Unknown Rx penicillin V potassium 500 mg 500 mg PO 4X/DAY #40 tabs 06/05/24 Unknown Rx tablet cephalexin 500 mg capsule 500 mg PO Q6 #12 CAPSULES 10/14/24 Unknown Rx Allergy/AdvReac Type Severity Reaction Status Date / Time No Known Allergies Allergy Verified 10/14/24 20:34 Surgical History History of carpal tunnel surgery of right wrist History of carpal tunnel surgery of left wrist Hx of appendectomy Social History Smoking Status: Current every day smoker tobacco type: cigarettes ROS ROS ED Constitutional Constitutional ED: Reports fever(s) and subjective; Denies chills Eyes Eyes: Denies blurry vision or change in vision ENT ENT ED: Denies rhinorrhea or sore throat Cardiovascular Cardiovascular: Reports chest pain; Denies palpitations Respiratory/Chest Respiratory/Chest: Reports cough and dyspnea Gastrointestinal Gastrointestinal: Reports nausea and vomiting; Denies abdominal pain Genitourinary Genitourinary ED: Reports urinary frequency; Denies dysuria or hematuria Musculoskeletal Musculoskeletal: Reports neck pain; Denies back pain Integumentary Reports rash; Denies abscess Neurologic Neurologic: Denies headache(s) or weakness Allergic/Immunologi c Allergic/Immunologi c ED: Denies mouth swelling or urticaria EXAM Physical Exam Const Vital Signs: 10/14/24 20:34 10/14/24 20:46 10/14/24 22:34 Temperature 98.7 F Temperature Source Oral Pulse Rate 82 74 Respiratory Rate 16 20 H Respiratory Effort Short of Breath Respiratory Depth Normal Respiratory Pattern Normal Blood Pressure 155/99 H 128/90 H Blood Pressure Mean 117 102 Pulse Ox 99 98 Oxygen Delivery Method Room Air Room Air Positive well nourished and well developed General Appearance ED: well developed and NAD HEENT Reports moist mucous membranes Neck supple and no JVD Chest Wall Chest Narrative: There is reproducible tenderness over the right upper chest wall. There is no bony crepitance or step-off. There is no subcutaneous emphysema noted. Resp normal respiratory effort and clear to auscultation bilaterally Cardio regular rate and regular rhythm GI non-tender and non-distended Palpation: soft Extremity normal to inspection General Extremety ED: Negative for edema or tenderness General Extremity: Negative for edema Neuro oriented x3, CN's II-XII intact bilaterally and no sensory deficits noted Sensorium / Orientation: alert Motor Exam: strength 5/5 throughout Psych mental status grossly normal MDM MDM MDM Narrative Medical decision making narrative: Differential diagnosis includes musculoskeletal pain, pneumonia, cardiac dysrhythmia, cardiac (more content not included)... Normal [facility] Urinalysis, Completeon 10-14 AMORPHOUS 1+ Normal [facility] Comment on above: Order Comment: CLEAN CATCH Performed By: #### L 400.0001 #### [facility] [address] [place], [place], [id number] BACTERIA 2+ /hpf Normal None Seen [facility] Comment on above: Order Comment: CLEAN CATCH Performed By: #### L 400.0001 #### [facility] [address] [place], [address] EPI,SQUAMOUS 10-25 SEEN Normal - [facility] Comment on above: Order Comment: CLEAN CATCH Performed By: #### L 400.0001 #### [facility] [address] [place], [address] Mucus Ql (Urine sed) 2+ /hpf Normal [facility] Comment on above: Order Comment: CLEAN CATCH Performed By: #### L 400.0001 #### [facility] [address] [place], [address] WBC >100 SEEN Normal 0-5 [facility] Comment on above: Order Comment: CLEAN CATCH Performed By: #### L 400.0001 #### [facility] [address] [place], [address] BILIRUBIN URINE Negative Normal Negative [facility] Comment on above: Order Comment: CLEAN CATCH Performed By: #### L 400.0001 #### [facility] [address] [place], [address] Clarity (U) Sl. Cloudy Normal Clear [facility] Comment on above: Order Comment: CLEAN CATCH Performed By: #### L 400.0001 #### [facility] [address] [place], [address] Color (U) Yellow Normal Yellow [facility] Comment on above: Order Comment: CLEAN CATCH Performed By: #### L 400.0001 #### [facility] [address] [place], [address] GLUCOSE, UR Normal Normal Normal [facility] Comment on above: Order Comment: CLEAN CATCH Performed By: #### L 400.0001 #### [facility] [address] [place], [address] KETONE UR Negative Normal Negative [facility] Comment on above: Order Comment: CLEAN CATCH Performed By: #### L 400.0001 #### [facility] [address] [place], [address] LEUK ESTERASE 100 /ul Abnormal Negative [facility] Comment on above: Order Comment: CLEAN CATCH Performed By: #### L 400.0001 #### [facility] [address] [place], [address] Nitrite Ql (U) Negative Normal Negative [facility] Comment on above: Order Comment: CLEAN CATCH Performed By: #### L 400.0001 #### [facility] [address] [place], [address] OCCULT BLOOD-UR Negative Normal Negative [facility] Comment on above: Order Comment: CLEAN CATCH Performed By: #### L 400.0001 #### [facility] [address] [place], [address] pH UR 6.0 Normal 5.0 - 8.0 [facility] Comment on above: Order Comment: CLEAN CATCH Performed By: #### L 400.0001 #### [facility] [address] [place], [address] PROT DIPSTX 15 mg/dl Abnormal Negative [facility] Comment on above: Order Comment: CLEAN CATCH Performed By: #### L 400.0001 #### [facility] [address] [place], [address] SP.GR. DIPSTX 1.020 Normal 1.002-1.030 [facility] Comment on above: Order Comment: CLEAN CATCH Performed By: #### L 400.0001 #### [facility] [address] [place], [address] UROBILI Normal Normal Normal [facility] Comment on above: Order Comment: CLEAN CATCH Performed By: #### L 400.0001 #### [facility] [address] [place], [address] RBC 0 SEEN Normal 0-5 [facility] Comment on above: Order Comment: CLEAN CATCH Performed By: #### L 400.0001 #### [facility] [address] [place], [address] hCG Titer Quant., Serumon HCG QUANT. 8115 mIU/mL High 1-3 [facility] Comment on above: Result Comment: hCG levels with Gestational Age Gestational Age hCG mIU/mL (IU/L) 0.2 - 1 week 5 - 50 1-2 weeks 50 - 500 2-3 weeks 100 - 5000 3-4 weeks 500 - 72696 4-5 weeks 1000 - 86559 5-6 weeks 17123 - 100,000 6-8 weeks 86384 - 200,000 2-3 months 28813 - 100,000 Performed By: #### L 100.0100, L500.4050, L700.8000 #### [facility] [address] 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 Date Reviewed: 10/20/2021 Reviewed by: Kathy aMynard (Architectural Associate) - Fully Assessed Reason for Visit: PRAF [4193] Prescriptions as of 09/10/2024 - VITS 6-KVNT-ZUGEM-DHA ORAL DAILY - gabapentin (NEURONTIN) 300 mg capsule Take 1 capsule by mouth daily at bedtime for 180 days. Problem List As Of Date 09/10/2024 Noted Resolved Generalized anxiety disorder [F41.1] 04/30/2017 Eczema [L30.9] 04/30/2017 Smoker [F17.200] 04/30/2017 Tachycardia [R00.0] 04/30/2017 Well adult exam [Z00.00] 04/30/2017 Encounter for screening for cardiovascular diso*04/30/2017 Encounter for screening for diabetes mellitus [*04/30/2017 Irritable bowel syndrome with diarrhea [K58.0] 02/25/2020 RLS (restless legs syndrome) [G25.81] 07/03/2020 Hypertension, essential [I10] 10/20/2021 Encounter Status:Closed by JACE PIERRE on 09/10/24 [facility] 09-03-2024 CNPN Telephone (OBGYWM) ---- SELMA POON ([id number]) 1990 F Date Time Provider Department 09/03/24 KAREN GUTHRIE OBGYWM During your visit today, we recorded the following information about you: Rain Warren RN 09/03/2024 11:19 AM Addendum Patient had nurse intake questions completed today from [facility]-Contact #[phone]. Patient states that she believes her last menstrual period was April 29, 2024 which would make her 18 weeks 1 day. States that she recently found out she was while incarcerated and performed a test August 09, 2024. They told her at that time they thought she was around 3 to 4 months . No prior care. States she believes she has felt movement . Has an appointment on Sunday with Karen. Do we need to schedule ultrasound for uncertain dates? Please advise Karine Saucedo MD 09/03/2024 11:12 AM Signed Yes. Order signed for US Kelsey Cardenas RN 09/03/2024 11:25 AM Signed Spoke to [facility] and they stated patient was released shortly after PNOB phone call today. Left message for patient to call office on mobile number. KelseyFELIZ Hernandez Trisha, RN 09/05/2024 10:58 AM Signed Patient no showed NOB today. Kelsey Cardenas RN Allergies As of Date: 09/03/2024 Noted Allergy Reaction LEXAPRO (ESCITALOPRAM) 07/03/2020 14 - Other: See Comments Comments: Made her angry REQUIP (ROPINIROLE) 07/03/2020 14 - Other: See Comments Comments: Made restless legs worse. Date Reviewed: 10/20/2021 Reviewed by: Kathy Maynard (Architectural Associate) - Fully Assessed Reason for Visit: uncertain dates in [Other] Primary Visit Diagnosis: with uncertain dates, antepartum [Z34.90] Order(s):OBSTETRIC ULTRASOUND [facility] [[id number]] Order #: [id number]: 1 FUTURE Prescriptions as of 09/05/2024 - VITS 1-EALB-VERFX-DHA ORAL DAILY - gabapentin (NEURONTIN) 300 mg capsule Take 1 capsule by mouth daily at bedtime for 180 days. Problem List As Of Date 09/03/2024 Noted Resolved Generalized anxiety disorder [F41.1] 04/30/2017 Eczema [L30.9] 04/30/2017 Smoker [F17.200] 04/30/2017 Tachycardia [R00.0] 04/30/2017 Well adult exam [Z00.00] 04/30/2017 Encounter for screening for cardiovascular diso*04/30/2017 Encounter for screening for diabetes mellitus [*04/30/2017 Irritable bowel syndrome with diarrhea [K58.0] 02/25/2020 RLS (restless legs syndrome) [G25.81] 07/03/2020 Hypertension, essential [I10] 10/20/2021 Encounter Status:Closed by KELSEY CARDENAS on 09/05/24 Normal [facility] Emergency Department Summary on 06-05-2024 Emergency Department Summary [facility] Medical Records Department [address] [place] [address] Emergency Department Summary 06/05/24 MR#: [id number] Acct: [id number] Name: SELMA POON JUANIS Rep #: [id number] : 1990 33 From: Ismael Donahue DO PCP: Dr. Don Rosario MD Status:DEP ER Location: ED HPI History of Present Illness Chief Complaint: Dental Informant: patient Onset/Context/Melissa wing Onset: Month(s) Context: Gradual Onset Timing: Continuous Quality: Sharp, stabbing Location: Right lower premolars Worsened by: Nothing Relieved by: - (Nothing) Narrative Narrative: Patient presents with right lower dental pain that has been constant for the past month but became worse tonight. Patient describes the pain as sharp and stabbing. Patient states that this is over the right lower premolars. Patient states nothing makes it better and nothing makes it worse. Patient states she has been using Orajel and ibuprofen with no improvement. Patient admits to some hot and cold sensitivity. Patient denies any fevers or chills. Patient denies any swelling over the jaw or face. [facility] Medical History (Updated 06/05/24 @ 03:[address] Ismael Donahue, DO) Carpal tunnel syndrome Pyelonephritis Home Medications ???Medication ???Instructions ???Recorded ???Last Taken ???Type hydroxyzine HCl 25 mg tablet 25 mg PO QHS anxiety 05/03/17 12/15/18 History Ranitidine [Zantac] 150 mg PO DAILY 12/17/17 12/17/17 09:00 History ranitidine HCl 150 mg tablet 150 mg PO DAILY 04/21/19 Unknown History sulfamethoxazole 800 1 tab PO BID #14 tabs 04/21/19 Unknown Rx mg-trimethoprim 160 mg tablet gabapentin 300 mg capsule 300 mg PO QHS 04/02/21 Unknown History buspirone 5 mg tablet 5 mg PO DAILY 01/15/22 Unknown History metoprolol succinate 25 mg 25 mg PO DAILY 01/15/22 Unknown History tablet,extended release 24 hr naproxen 500 mg tablet 500 mg PO BID PRN #20 tabs 06/05/24 Unknown Rx penicillin V potassium 500 mg 500 mg PO 4X/DAY #40 tabs 06/05/24 Unknown Rx tablet Allergy/AdvReac Type Severity Reaction Status Date / Time No Known Allergies Allergy Verified 06/05/24 02:41 Surgical History (Updated 06/05/24 @ 03:[address] Ismael Donahue, DO) History of carpal tunnel surgery of right wrist History of carpal tunnel surgery of left wrist Hx of appendectomy Social History Smoking Status: Current every day smoker tobacco type: cigarettes EXAM Physical Exam Const Vital Signs: 06/05/24 02:41 Temperature 96.4 F L Temperature Source Axillary Pulse Rate 121 H Respiratory Rate 18 Blood Pressure 162/112 H Blood Pressure Mean 128 Pulse Ox 99 Oxygen Delivery Method Room Air Positive well nourished and well developed General Appearance ED: well developed and NAD HEENT HEENT Narrative: There are multiple dental caries over the right lower premolars and canine teeth. There is some gingival edema around these teeth. There is no fluctuance. There is no evidence of any abscess. Oropharynx is clear. Airway is patent. There is no sublingual edema or evidence of Rodney's angina. There is no cervical lymphadenopathy noted. Teeth and Gingiva: caries and gingiva abnormal Positive for gingival edema Throat: posterior oropharynx normal Neck no lymphadenopathy, supple and no JVD General: normal visual inspection; Negative for anterior neck swelling, tenderness or submandibular swelling Neuro oriented x3, CN's II-XII intact bilaterally, moves all extremities, no focal motor deficits and no sensory deficits noted Sensorium / Orientation: alert Motor Exam: strength 5/5 throughout MDM MDM MDM Narrative Medical decision making narrative: Smoking cessation was discussed. Patient was advised that these are most likely infected dental caries. Patient was given a dose of Pen-Vee K here. Patient was also given a dose of Naprosyn. Patient was given prescriptions for Pen-Vee K and Naprosyn. Patient was instructed to follow-up with her dentist in 5 to 7 days. Patient understood and was agreeable with the plan. All questions were answered. Discharge Plan Triage Chief Complaint: Dental ED Provider: Ismael Donahue Dx/Rx/DC Orders Clinical Impression: Infected dental caries, Tobacco use disorder Instructions: ED Dental Pain, ED Dental Cavity Prescriptions: New penicillin V potassium 500 mg tablet 500 mg PO 4X/DAY Qty: 40 0RF naproxen 500 mg tablet 500 mg PO BID PRN Qty: 20 0RF No Action hydroxyzine HCl 25 MG tablet 25 mg PO QHS Ranitidine [Zantac] 150 MG tablet 150 mg PO DAILY ranitidine HCl 150 MG tablet 150 mg PO DAILY sulfamethoxazole-tr imethoprim 1 TABLET tablet 1 tab PO BID Qty: 14 0RF gabapentin 300 mg capsule 300 mg PO QHS Patient Comments: ta (more content not included)... Normal [facility] Basophil percentageon 2022 Basophil percentage 5-10 SEEN /hpf 0-5 [facility] Work Phone: Bilirubin Test strip Ql (U)o n 11-03-2022 Bilirubin Ql (U) Negative Negative [facility] Work Phone: Ketones Test strip Ql (U)on 11-03-2022 Ketones Ql (U) 15 mg/dl Negative [facility] Work Phone: Laboratory - Chemistry and C hemistry - challengeon 11-03-2022 HCG ( test) Ql (U) Negative [facility] Work Phone: Comment on above: TEST is *P OSITIVE*CRITICAL VALUE VERIFIED. CALLED TO JOSE LANGEG011/03/22 0907 Kiana Carbajal.RESULTS READ BACK BY SAME. Mucus LM Ql (Urine sed)on Mucus Ql (Urine sed) 0 SEEN /hpf [facility] Work Phone: Nitrite Test strip Ql (U)on 11-03-2022 Nitrite Ql (U) Negative Negative [facility] Work Phone: No Panel Informationon 11-03 Urine Transitional Epithelial Cells 0 SEEN /hpf 0-5 [facility] Work Phone: Protein Test strip Ql (U)on 11-03-2022 Protein Ql (U) 500 mg/dl Negative [facility] Work Phone: Serum or plasma choriogonado tropin detectionon 11-03-2022 HCG ( test) Ql 2904 mIU/mL <4 [facility] Work Phone: Comment on above: hCG levels with Gest ational AgeGestational Age hCG mIU/mL (IU/L)0.2 - 1 week 5 - 501-2 weeks 50 - 5002-3 weeks 100 - 10579-0 weeks 500 - 723982-7 weeks 1000 - 617206-1 weeks 80393 - 100,0006-8 weeks 67795 - 200,0002-3 months 56239 - 100,000 Squamous epithelial cells de tection in urine sediment by light microscopyon 11-03-2022 Epithelial cells.squamous LM Ql (Urine sed) 0-5 SEEN /hpf 5-10 [facility] Work Phone: Urine blood detectionon - RBC Ql (U) 250 /ul Negative [facility] Work Phone: RBC Ql (U) > 100 SEEN /hpf 0-5 [facility] Work Phone: Urine clarityon 11-03-2022 Clarity (U) Turbid Clear [facility] Work Phone: Urine color determinationon 11-03-2022 Color (U) Red Yellow [facility] Work Phone: Urine glucose detectionon Glucose Ql (U) Normal mg/dl Normal [facility] Work Phone: Urine leukocyte esterase det ection by dipstickon 11-03-2022 Leukocyte esterase Test strip Ql (U) Negative Negative [facility] Work Phone: Urine pHon 11-03-2022 pH (U) 5.0 [pH] 5.0 - 8.0 [facility] Work Phone: Urine sediment bacteria coun t by microscopy (number/high power field)on 11-03-2022 Bacteria LM.HPF (Urine sed) [#/Area] 0 /[HPF] None Seen [facility] Work Phone: Urine specific gravity measu rementon 11-03-2022 Specific gravity (U) [Rel density] 1.020 1.002-1.030 [facility] Work Phone: Urobilinogen Auto test strip Ql (U)on 11-03-2022 Urobilinogen Ql (U) Normal mg/dl Normal [facility] Work Phone: CTPCRon 06-27-2022 C. trachomatis Interp Normal See CT Interp N [facility] ([place]) Comment on above: Result Comment: C. t rachomatis DNA not detected. Specimen is presumptive negative for C. trachomatis. A negative result does not preclude C. trachomatis infection because results depend on adequate specimen collection, absence of inhibitors, and sufficient DNA to be detected. See CT Interp N Performed By: #### C TPCR, NGPCR1 #### [place] [address] C.trachomatis PCR Negative Normal Negative [facility] ([place]) Comment on above: Result Comment: Centeno sport tube received with two swabs. Review collection procedure. Inappropriate collection may cause aberrant results. Molecular (PCR) assay performed on the [employer] El[employer] 4800 system. Performed By: #### C TPCR, NGPCR1 #### [place] [id number] Chlam Source Cervix Normal [facility] ([place]) Comment on above: Performed By: #### C TPCR, NGPCR1 #### [place] [address] [id number] 06-27-2022 GC PCR Source Cervix Normal [facility] ([place]) Comment on above: Performed By: #### C TPCR, NGPCR1 #### [place] [address] N. gonorrhoeae (PCR) Negative Normal Negative [facility] ([place]) Comment on above: Result Comment: Centeno sport tube received with two swabs. Review collection procedure. Inappropriate collection may cause aberrant results. Molecular (PCR) assay performed on the [employer] 4800 System. Performed By: #### C TPCR, NGPCR1 #### [place] [address] N. gonorrhoeae Interp Normal See NG Interp N [facility] ([place]) Comment on above: Result Comment: N. g onorrhoeae DNA not detected. Specimen is presumptive negative for N. gonorrhoeae. A negative result does not preclude Neisseria gonorrhoeae infection because results depend on adequate specimen collection, absence of inhibitors, and sufficient DNA to be detected. See NG Interp N Performed By: #### C TPCR, NGPCR1 #### [place] [address] .Auto Diffon 06-24-2022 Basophil, Absolute 0.0 10 3/mcL Normal 0.0-0.2 [facility] ([place]) Comment on above: Performed By: #### A GUI, HCGQ #### [address] [address] Basophils/100 WBC (Bld) 0.4 % Normal 0.0-2.5 A [facility] ([place]) Comment on above: Performed By: #### A GUI, HCGQ #### [address] [address] Eosinophil, Absolute 0.1 10 3/mcL Normal 0.0-0.4 [facility] ([place]) Comment on above: Performed By: #### A GUI, HCGQ #### [address] [address] Eosinophils/100 WBC (Bld) 0.9 % Normal 0.0-7.0 [facility] ([place]) Comment on above: Performed By: #### A GUI, HCGQ #### [address] [address] Lymphocyte, Absolute 2.1 10 3/mcL Normal 0.8-3.9 [facility] ([place]) Comment on above: Performed By: #### A GUI, HCGQ #### [address] [address] Lymphocytes/100 WBC (Bld) 19.0 % Normal 10.0-50.0 [facility] ([place]) Comment on above: Performed By: #### A BOG, HCGQ #### [address] [address] Monocyte, Absolute 0.8 10 3/mcL Normal 0.2-1.0 [facility] ([place]) Comment on above: Performed By: #### A BOG, HCGQ #### [address] [address] Monocytes/100 WBC (Bld) 7.4 % Normal 1.7-13.0 A [facility] ([place]) Comment on above: Performed By: #### A GUI HCGQ #### [address] [address] Neutrophils/100 WBC (Bld) 72.3 % Normal 37.0-80.0 [facility] ([place]) Comment on above: Performed By: #### A GUI HCGQ #### [address] [address] .MDWon 06-24-2022 Monocyte Distribution Width 17.19 Normal 0.00-20.00 [facility] ([place]) Comment on above: Result Comment: For ED adult patients suspected of sepsis, MDW<=20.0 does not rule out sepsis or risk of sepsis Performed By: #### A GUI HCGQ #### [place] [address] .Morphon 06-24-2022 Platelet Estimate Normal Normal [facility]) Comment on above: Performed By: #### A GUI HCGQ #### [place] [address] .NEUABSon 06-24-2022 Neutrophil, Absolute 8.1 10 3/mcL High 2.9-6.2 [facility] ([place]) Comment on above: Performed By: #### A GUI HCGQ #### [address] [address] CBCon 06-24-2022 Erythrocyte distribution width (RBC) [Ratio] 16.0 % High 11.5-14.5 [facility] ([place]) Comment on above: Performed By: #### A GUI HCGQ #### [address] [address] Hematocrit (Bld) [Volume fraction] 34.1 % Low 37.0-47.0 [facility] ([place]) Comment on above: Performed By: #### A GUI HCGQ #### [address] [address] Hgb 11.7 G/dL Low 12.0-16.0 [facility] ([place]) Comment on above: Performed By: #### A BOG, HCGQ #### [address] [address] MCH (RBC) [Entitic mass] 25.3 pg Low 27.0-31.2 [facility] ([place]) Comment on above: Performed By: #### A BOG, HCGQ #### [address] [address] MCHC 34.2 G/dL Normal 33.0-37.0 [facility] ([place]) Comment on above: Performed By: #### A GUI, HCGQ #### [address] [address] MCV (RBC) [Entitic vol] 73.8 fL Low 80.0-94.0 A [facility] ([place]) Comment on above: Performed By: #### A GUI, HCGQ #### [address] [address] Platelet 431 10 3/mcL High 130-400 [facility] ([place]) Comment on above: Performed By: #### A GUI HCGQ #### [address] [address] Platelet mean volume (Bld) [Entitic vol] 6.0 fL Low 7.4-10.4 [facility] ([place]) Comment on above: Performed By: #### A GUI, HCGQ #### [address] [address] RBC 4.62 10 6/mcL Normal 4.20-5.40 [facility] ([place]) Comment on above: Performed By: #### A GUI, HCGQ #### [address] [address] WBC 11.2 10 3/mcL High 4.6-10.8 [facility] ([place]) Comment on above: Performed By: #### A GUI, HCGQ #### [address] [address] Gel ABOon 06-24-2022 ABO/Rh Interp Positive Invalid Interpretation Code [facility] ([place]) Comment on above: Performed By: #### A GUI, HCGQ #### [place] [id number] [place], [place] [address] HCGQon 06-24-2022 hCG, quantitative 58.5 mIU/mL Normal [facility] ([place]) Comment on above: Result Comment: HCG Levels with Gestation age: 0.2- 1 week. . . . . . . . . . . . . . . 5 - 50 mIU/mL 1-2 weeks . . . . . . . . . . . . . . . 50 - 500 mIU/mL 2-3 weeks . . . . . . . . . . . . . . . 100 - 5,000 mIU/ml 3-4 weeks . . . . . . . . . . . . . . . 500 - 10,000 mIU/mL 4-5 weeks . . . . . . . . . . . . . . . 1,000 - 5,000 mIU/mL 5-6 weeks . . . . . . . . . . . . . . . 10,000 - 100,000 mIU/mL 6-8 weeks . . . . . . . . . . . . . . . 15,000 - 200,000 mIU/mL 2-3 months . . . . . . . . . . . . . . . 10,000 - 100,000 mIU/mL Performed By: #### A GUI, HCGQ #### Miriam [address] [address] Absolute lymphocyte counton 01-15-2022 Lymphocytes Auto (Unsp spec) [#/Vol] 2.48 10*3/uL 0.83-4.51 [facility] Work Phone: Basophil percentageon 2021 Basophils/100 WBC (Bld) 0.3 % 0-1 [facility] Work [facility]: Chloride [Moles/Vol] 109 mmol/L 98-107 [facility] Work Phone: [phone] Eosinophils/100 WBC (Bld) 2.7 % 0-5 [facility] Work Phone: Glucose [Mass/Vol] 86 mg/dL 74-106 [facility] Work Phone: Neutrophils (Bld) [#/Vol] 4.6 10*3/uL 2.0-7.7 [facility] Work Phone: Neutrophils/100 WBC (Bld) 59.2 % 47-70 [facility] Work Phone: Potassium [Moles/Vol] 3.0 mmol/L 3.5-5.1 [facility] Work Phone: [phone] Sodium [Moles/Vol] 140 mmol/L 136-145 [facility] Work Phone: WBC (Bld) [#/Vol] 7.7 10*3/uL 4.4-11.0 [facility] Work Phone: Blood erythrocytes count (nu mber/volume)on 01-15-2022 RBC (Bld) [#/Vol] 5.31 10*6/uL 4.2-5.4 [facility] Work Phone: Blood hemoglobin measurement (mass/volume)on 01-15-2022 Hemoglobin (Bld) [Mass/Vol] 13.6 g/dL 12.0-15.0 [facility] Work Phone: Blood lymphocytes/100 leukoc yteson 01-15-2022 Lymphocytes/100 WBC (Bld) 32.0 % 19-41 [facility] Work Phone: Blood monocytes/100 leukocyt eson 01-15-2022 Monocytes/100 WBC (Bld) 5.7 % 0-10 W [facility] Work Phone: Blood platelet mean volumeon 01-15-2022 Platelet mean volume (Bld) [Entitic vol] 8.3 fL 6.2-12.0 [facility] Work Phone: Determination of erythrocyte mean corpuscular volume (MCV)on 01-15-2022 MCV (RBC) [Entitic vol] 76.8 fL 81-99 W [facility] Work Phone: Hematocrit Auto (Bld) [Volum e fraction]on 01-15-2022 Hematocrit (Bld) [Volume fraction] 40.8 % 37-47 [facility] Work Phone: Laboratory - Chemistry and C hemistry - challengeon 01-15-2022 CO2 [Moles/Vol] 25.0 mmol/L 21.0-32.0 [facility] Work Phone: Urea nitrogen/Creatinine [Mass ratio] 12.9 mg/mg 10-20 [facility] Work Phone: Laboratory - Hematology and Cell countson 01-15-2022 Erythrocyte distribution width (RBC) [Entitic vol] 41.1 fL 35.1-43.9 [facility] Work Phone: Erythrocyte distribution width (RBC) [Ratio] 14.8 % 11.6-14.6 [facility] Work Phone: Immature granulocytes/100 WBC (Bld) 0.100 % 0.0-0.9 [facility] Work Phone: Comment on above: IG% - Immature Granu locytes (promyelocytes, myelocytes and metamyelocytes) > 1% indicates that a LEFT SHIFT is Present. MCH (RBC) [Entitic mass] 25.6 pg 27.0-32.0 [facility] Work Phone: Nucleated RBC/100 WBC (Bld) [Ratio] 0 % 0-5 [facility] Work Phone: MCHC Auto (RBC) [Mass/Vol]on 01-15-2022 MCHC (RBC) [Mass/Vol] 33.3 g/dL 32-36 [facility] Work Phone: No Panel Informationon 01-15 Estimated Creatinine Clearance Calc 84.17 ml/min [facility] Work Phone: Estimated GFR (MDRD) Amer 113 mL/min >60 [facility] Work Phone: Comment on above: GFR Calc Estimated GFR (MDRD) Non-Af Amer 93 mL/min >60 [facility] Work Phone: Comment on above: Non- GFR Calc Troponin I High Sensitivity 15 pg/mL 3.0-54.0 [facility] Work Phone: Comment on above: Please Note: New Matilde t Units and Gender Specific Reference Ranges. For more information see Policy Stat Procedure [place] High Sensitivity Troponin (TNIH) and attachments. Platelets bldon 01-15-2022 Platelets (Bld) [#/Vol] 408 10*3/uL 150-450 [facility] Work Phone: Serum or plasma calcium nancy urement (mass/volume)on 01-15-2022 Calcium [Mass/Vol] 9.3 mg/dL 8.5-10.1 [facility] Work Phone: Serum or plasma creatinine m easurement (mass/volume)on 01-15-2022 Creatinine [Mass/Vol] 0.78 mg/dL 0.55-1.02 [facility] Work Phone: Comment on above: The validity of the calculated GFR & GFRAA in patients over 70 years has not been determined. Clinical correlation is essential. Serum or plasma urea nitroge n measurement (mass/volume)on 01-15-2022 Urea nitrogen [Mass/Vol] 10 mg/dL 7-18 [facility] Work Phone: Thin prep Papanicolaou smear with manual screeningon 01-15-2022 Thin prep Papanicolaou smear with manual screening 6 5-15 [facility] Work Phone: POMERENE 3 [CCL]on 1 Hepatitis B Surf. Ag Negative Normal NEGAT [facility] Comment on above: Performed By: #### 2 27751 #### [facility],[address] [place] [address] Reagin Ab RPR Ql (S) Non-Reactive Normal NR [facility] Comment on above: Performed By: #### 2 28882 #### [facility],[address] [place] [address] Rubella IgG Ab 1.32 Indexlue Normal [facility] Comment on above: Result Comment: Inde x values are interpreted as follows: Negative specimens <0.90 Equivocol specimens 0.90 to 0.99 Positive specimens >0.99 The magnitude of the measured result is not indicative of the amount of antibody present. [facility] [address] [place] [address] Ravi Nuñez III, M.D. [id number] Performed By: #### 2 82323 #### [address] [address] Rubella IgG Ab, Qual Positive Abnormal NEGAT [facility] Comment on above: Result Comment: Samp le is considered positive for IgG antibodies to rubella virus. A positive result indicates previous exposure to Rubella virus or vaccination. Performed By: #### 2 27040 #### [address] [address] URINE CREATININE AND PROTEIN RATIOon 07-24-2021 CREATININE UR 22.56 mg/dl Normal [facility] Comment on above: Performed By: #### 2 49124 #### [facility],[address] [place] [address] PC RATIO 0.41 mg/dL Normal 0.00 - 10.00 [facility] Comment on above: Performed By: #### 2 03812 #### [address] [address] Protein (U) [Mass/Vol] 9.30 mg/dL Normal 0.00 - 10.00 [facility] Comment on above: Performed By: #### 2 45538 #### [address] [address] APTTon 07-23-2021 aPTT Coag (Bld) [Time] 25.7 s Normal 25.4 - 38.4 J [facility] Comment on above: Performed By: #### 2 16356 #### [facility],[address] [place] [address] BB CROSSMATCH 1ST UNITon BB CROSSMATCH 1ST UNIT Normal [facility] Comment on above: Result Comment: [id number] REQUEST FOR BLOOD OR BLOOD COMPONENT UNIT #_1 07/23/21.0449.EML. Performed By: #### 2 95921 #### [facility],[address] [place] [address] Compatibility COMPATIBLE Normal [facility] Comment on above: Result Comment: { Pt 's BB ID # [id number] Transfusion comments I have confirmed the above required items at the time of unit issue: Issuing Tech ........................ Date/Time .................. ====== PT ID VERIFIED AT BEDSIDE PRIOR TO BLOOD ADMINISTRATION PT ID VERIFIED AND DOCUMENTED BY TWO NURSES PT Name same on unit tag,BB ID Bracelet, and blood administration form Verify PT name by asking to state name(if poss.) Pt's MR Number on unit tag is the same as BB ID Bracelet and admin form Verify Pt's ABO Group/Rh from admin form, and unit tag Verify unit number from unit and blood administration form Informed consent obtained? I have checked the above listed items and there were no discrepancies #1 RN signature .................... Date/Time .................. #2 RN signature .................... Date/Time .................. ====== RECORD OF PATIENT'S RESPONSE Date/Time Prior to transfusion ......... Start of transfusion ......... 15 minute check ......... Blood complete/DC ......... SITE: Central Vein Peripheral Vein Central Artery Peripheral Artery AMOUNT GIVEN (1/4, 1/2, 3/4 or full unit) WAS THERE A REACTION TO THE TRANSFUSION? Yes... No... If so, notify the physician and the lab immediately, and initiate a Blood Transfusion Reaction form. COMPLETE FORMS ENTIRELY. KEEP CARDBOARD COPY ATTACHED TO UNIT. PLACE WHITE COPY ON CHART. RETURN YELLOW COPY TO LAB [facility] UPON COMPLETION OF TRANSFUSION. Performed By: #### 2 55810 #### [place] [address] Component LRPC Normal [facility] Comment on above: Performed By: #### 2 69838 #### [place] [address] Donor's ABO/Rh Positive Normal [facility] Comment on above: Performed By: #### 2 07912 #### [facility],[address] [place] [address] Donor's Unit No [id number] [facility] Comment on above: Performed By: #### 2 61040 #### [facility],[address] [place] [address] Pt's ABO/Rh Positive [facility] Comment on above: Performed By: #### 2 43991 #### [facility],[address] [place] [address] Unit Exp Date 08-19-21 [facility] Comment on above: Performed By: #### 2 67340 #### [facility],[address] [place] [address] BB CROSSMATCH ADDITIONAL UNI Ton 07-23-2021 BB CROSSMATCH ADDITIONAL UNIT [facility] Comment on above: Result Comment: [id number] REQUEST FOR BLOOD OR BLOOD COMPONENT UNIT #_2 07/23/21.0451.EML. Performed By: #### 2 98156 #### [facility],[address] [place] [address] Compatibility COMPATIBLE [facility] Comment on above: Result Comment: { Pt 's BB ID # [id number] Transfusion comments I have confirmed the above required items at the time of unit issue: Issuing Tech ........................ Date/Time .................. ====== PT ID VERIFIED AT BEDSIDE PRIOR TO BLOOD ADMINISTRATION PT ID VERIFIED AND DOCUMENTED BY TWO NURSES PT Name same on unit tag,BB ID Bracelet, and blood administration form Verify PT name by asking to state name(if poss.) Pt's MR Number on unit tag is the same as BB ID Bracelet and admin form Verify Pt's ABO Group/Rh from admin form, and unit tag Verify unit number from unit and blood administration form Informed consent obtained? I have checked the above listed items and there were no discrepancies #1 RN signature .................... Date/Time .................. #2 RN signature .................... Date/Time .................. ====== RECORD OF PATIENT'S RESPONSE Date/Time Prior to transfusion ......... Start of transfusion ......... 15 minute check ......... Blood complete/DC ......... SITE: Central Vein Peripheral Vein Central Artery Peripheral Artery AMOUNT GIVEN (1/4, 1/2, 3/4 or full unit) WAS THERE A REACTION TO THE TRANSFUSION? Yes... No... If so, notify the physician and the lab immediately, and initiate a Blood Transfusion Reaction form. COMPLETE FORMS ENTIRELY. KEEP CARDBOARD COPY ATTACHED TO UNIT. PLACE WHITE COPY ON CHART. RETURN YELLOW COPY TO LAB [facility] UPON COMPLETION OF TRANSFUSION. Performed By: #### 2 54792 #### [facility],[address] [place] [address] Component LRPC Normal [facility] Comment on above: Performed By: #### 2 19055 #### [facility],[address] [place] [address] Donor's ABO/Rh Positive Normal [facility] Comment on above: Performed By: #### 2 37305 #### [facility],[address] [place] [address] Donor's Unit No [id number] Normal [facility] Comment on above: Performed By: #### 2 83630 #### [facility],[address] [place] [address] Pt's ABO/Rh Positive Normal [facility] Comment on above: Performed By: #### 2 10847 #### [facility],[address] [place] [address] Unit Exp Date 08-20-21 Normal [facility] Comment on above: Performed By: #### 2 49048 #### [facility],[address] [place] [address] CBC (NO DIFF)on 07-23-2021 CBC panel Auto (Bld) Normal [facility] Comment on above: Result Comment: CBC( WITHOUT DIFFERENTIAL) Performed By: #### 2 35009 #### [facility],[address] [place] [address] Erythrocyte distribution width (RBC) [Ratio] 15.8 % High 12.0 - 15.6 [facility] Comment on above: Performed By: #### 2 39034 #### [facility],[address] [place] [address] Hematocrit (Bld) [Volume fraction] 30.8 % Low 34.0 - 46.0 [facility] Comment on above: Performed By: #### 2 46662 #### [facility],[address] [place] [address] Hemoglobin (Bld) [Mass/Vol] 10.6 g/dL Low 12.0 - 16.0 [facility] Comment on above: Performed By: #### 2 19541 #### [facility],[address] [place] [address] MCH (RBC) [Entitic mass] 27 pg Normal 27 - 33 [facility] Comment on above: Performed By: #### 2 20211 #### [facility],[address] [place] [address] MCHC 34 X10 3 Normal 32 - 36 [facility] Comment on above: Performed By: #### 2 90881 #### [facility],[address] [place] [address] MCV (RBC) [Entitic vol] 79 fL Low 80 - 99 [facility] Comment on above: Performed By: #### 2 75084 #### [facility],[address] [place] [address] PLATELET 218 x10EE3/UL Normal 150 - 450 [facility] Comment on above: Performed By: #### 2 97518 #### [facility],[address] [place] [address] Platelet mean volume (Bld) [Entitic vol] 8.0 fL Normal 6.6 - 10.5 [facility] Comment on above: Result Comment: {CB] Performed By: #### 2 11954 #### [facility],[address] [place] [address] RBC 3.90 x 10EE6/UL Low 4.10 - 5.30 [facility] Comment on above: Performed By: #### 2 74648 #### [facility],[address] [place] [address] WBC 21.0 x 10EE3/UL High 4.5 - 10.8 [facility] Comment on above: Performed By: #### 2 65176 #### [facility],[address] [place] [address] CBC + DIFFon 07-23-2021 Baso # 0.10 x10EE3/UL Normal 0.00 - 0.10 [facility] Comment on above: Performed By: #### 2 69695 #### [facility],[address] [place] [address] Basophils/100 WBC (Bld) 0.5 % Normal 0.0 - 2.0 [facility] Comment on above: Performed By: #### 2 01727 #### [facility],[address] [place] [address] CBC + DIFF Normal [facility] Comment on above: Result Comment: CBC- COMPLETE BLOOD COUNT Performed By: #### 2 20103 #### [facility],[address] [place] [address] EO # 0.10 x10EE3/UL Normal 0.00 - 0.50 [facility] Comment on above: Performed By: #### 2 02959 #### [facility],[address] [place] [address] Eosinophils/100 WBC (Bld) 1.0 % Normal 0.0 - 7.0 [facility] Comment on above: Performed By: #### 2 02952 #### [facility],[address] [place] [address] Erythrocyte distribution width (RBC) [Ratio] 16.5 % High 12.0 - 15.6 [facility] Comment on above: Performed By: #### 2 73777 #### [facility],[address] [place] [address] Hematocrit (Bld) [Volume fraction] 29.7 % Low 34.0 - 46.0 [facility] Comment on above: Performed By: #### 2 49552 #### [facility],[address] [place] [address] Hemoglobin (Bld) [Mass/Vol] 10.0 g/dL Low 12.0 - 16.0 [facility] Comment on above: Performed By: #### 2 14067 #### [place] [address] Lymph # 2.50 x10EE3/UL Normal 0.80 - 2.80 [facility] Comment on above: Performed By: #### 2 05614 #### [facility],[address] [place] [address] Lymphocytes/100 WBC (Bld) 22.3 % Normal 20.0 - 45.0 [facility] Comment on above: Performed By: #### 2 79168 #### [facility],[address] [place] [address] MANUAL DIFF N/A Normal [facility] Comment on above: Performed By: #### 2 37566 #### [place] [address] MCH (RBC) [Entitic mass] 28 pg Normal 27 - 33 [facility] Comment on above: Performed By: #### 2 63131 #### [place] [address] MCHC 34 X10 3 Normal 32 - 36 [facility] Comment on above: Performed By: #### 2 68318 #### [facility],[address] [place] [address] MCV (RBC) [Entitic vol] 82 fL Normal 80 - 99 [facility] Comment on above: Performed By: #### 2 51972 #### [place] [address] Howard # 0.90 x10EE3/UL Normal 0.20 - 1.00 [facility] Comment on above: Performed By: #### 2 60860 #### [place] [address] MONOS % 7.9 % Normal 0.0 - 10.0 [facility] Comment on above: Performed By: #### 2 95428 #### [facility],[address] [place] [address] Morphology Tony (Bld) [Interp] N/A Normal [facility] Comment on above: Result Comment: {CD] Performed By: #### 2 08510 #### [facility],[address] [place] [address] Neut # 7.70 x10EE3/UL High 1.50 - 7.10 [facility] Comment on above: Performed By: #### 2 79737 #### [place] [address] Neutrophils/100 WBC (Bld) 68.3 % Normal 46.0 - 76.0 [facility] Comment on above: Performed By: #### 2 30270 #### [place] [address] PLATELET 189 x10EE3/UL Normal 150 - 450 [facility] Comment on above: Performed By: #### 2 65852 #### [place] [address] Platelet mean volume (Bld) [Entitic vol] 8.1 fL Normal 6.6 - 10.5 [facility] Comment on above: Result Comment: AUTO MATED DIFFERENTIAL Performed By: #### 2 56879 #### [facility],[address] [place] [address] RBC 3.63 x 10EE6/UL Low 4.10 - 5.30 [facility] Comment on above: Performed By: #### 2 23383 #### [facility],[address] [place], [place] [address] WBC 11.3 x 10EE3/UL High 4.5 - 10.8 [facility] Comment on above: Performed By: #### 2 32626 #### [facility],[address] [place] [address] D-DIMER, QUANTITATIVEon 06-30 D-DIMER QUANT 237 ng/ml High 0 - 230 [facility] Comment on above: Performed By: #### 2 58250 #### [facility],[address] [place] [address] D-DIMER, QUANTITATIVE Normal [facility] Comment on above: Result Comment: GARRETT T D-DIMER Performed By: #### 2 52329 #### [facility],[address] [place] [address] DRUG SCREEN URINE MEDICon AMPHETAMINES Positive Normal [facility] Comment on above: Performed By: #### 2 30146 #### [facility],[address] [place] [address] 26928 B-DIAZEPINES Negative Normal [facility] Comment on above: Performed By: #### 2 43230 #### [facility],[address] [place] [address] BARBITURATES Negative Normal [facility] Comment on above: Performed By: #### 2 54957 #### [facility],[address] [place] [address] COCAINE Negative Normal [facility] Comment on above: Performed By: #### 2 77339 #### [facility],[address] [place] [address] DRUG SCREEN URINE MEDIC Normal [facility] Comment on above: Result Comment: DRUG SCREEN - URINE Performed By: #### 2 94937 #### [facility],[address] [place] [address] METHADONE Negative Normal [facility] Comment on above: Performed By: #### 2 44991 #### [facility],[address] [place] [address] 21033 OPIATES Negative Normal [facility] Comment on above: Performed By: #### 2 66829 #### [facility],[address] [place] [address] 13146 PCP Negative Normal [facility] Comment on above: Performed By: #### 2 94428 #### [facility],[address] [place] [address]1279 THC Negative Normal [facility] Comment on above: Result Comment: MEGHA ENTS RECEIVING PROTON PUMP INHIBITORS MAY DEMONSTRATE FALSE POSITIVE THC/CANNABINOID RESULTS. AN ALTERNATIVE CONFIRMATORY METHOD SHOULD BE CONSIDERED TO VERIFY POSITIVE RESULTS. Performed By: #### 2 65473 #### [facility],[address] [place] [address] 13750 FIBRINOGENon 07-23-2021 FIBRINOGEN 575 mg/dl Normal 308 - 613 [facility] Comment on above: Result Comment: P LEASE NOTE - FIBRINOGEN AT [place] IS A CALCULATED VALUE. Values measured using the calculated fibrinogen method are biased 100mg/dl higher than values measured using the Clauss method. Performed By: #### 2 75713 #### [facility],[address] [place] [address] 04441 HEPATIC FUNCTION PANELon Albumin [Mass/Vol] 1.8 g/dL Low 3.4 - 5.0 [facility] Comment on above: Performed By: #### 2 51307 #### [facility],[address] [place] [address] 67968 ALK PHOS 111 U/L Normal 46 - 116 [facility] Comment on above: Performed By: #### 2 07163 #### [facility],[address] [place] [address] 63755 ALT [Catalytic activity/Vol] 10 U/L Low 14 - 59 [facility] Comment on above: Performed By: #### 2 74902 #### [facility],[address] [place] [address] 24433 AST [Catalytic activity/Vol] 15 U/L Normal 13 - 39 [facility] Comment on above: Performed By: #### 2 83618 #### [facility],[address] [place] [address] Bilirubin [Mass/Vol] 0.2 mg/dL Normal 0.2 - 1.0 [facility] Comment on above: Performed By: #### 2 03893 #### [facility],[address] [place] [address] Bilirubin.direct [Mass/Vol] 0.1 mg/dL Normal 0.0 - 0.2 [facility] Comment on above: Performed By: #### 2 14359 #### [facility],[address] [place] [address] Hepatic function 2000 panel Normal [facility] Comment on above: Result Comment: HEPA TIC FUNCTION PROFILE Performed By: #### 2 88723 #### [facility],[address] [place] [address] Protein [Mass/Vol] 4.5 g/dL Low 6.4 - 8.2 [facility] Comment on above: Performed By: #### 2 63805 #### [facility],[address] [place] [address] PROTHROMBIN TIME AND INRon 07-23-2021 INR Coag (PPP) [Relative time] 0.9 {INR} Normal 0.8 - 1.2 [facility] Comment on above: Result Comment: T HE HEMOSIL THROMBOPLASTIN REAGENT USED IN THE PROTHROMBIN TIME TEST INTERACTS WITH THE DRUG CUBICIN (DAPTOMYCIN) AND WILL RESULT IN FALSELY ELEVATED PT / INR RESULTS INR INTERPRETATION INR INDICATION PREVENTION AND TREATMENT OF THROMBOEMBOLISM ASSOCIATED WITH: 2.0 - 3.0 ATRIAL FIBRILLATION, BIOPROSTHETIC HEART VALVES, PULMONARY EMBOLISM, VENOUS THROMBOSIS, SYSTEMIC EMBOLISM POST MYOCARDIAL INFARCTION 2.5 - 3.5 MECHANICAL HEART VALVES Performed By: #### 2 41404 #### [facility],[address] [place] [address] PROTHROMBIN TIME AND INR Normal [facility] Comment on above: Result Comment: PROT HROMBIN TIME AND INR Performed By: #### 2 60235 #### [facility],[address] [place] [address] 29697 PT-COUMADIN 10.0 sec Normal 9.3 - 14.1 [facility] Comment on above: Performed By: #### 2 11357 #### [facility],[address] [place] [address] 20727 URIC ACIDon 07-23-2021 Urate [Mass/Vol] 6.2 mg/dL High 2.6 - 6.0 [facility] Comment on above: Performed By: #### 2 75357 #### [facility],[address] [place] [address] URINALYSIS WITH MICROSCOPYon 07-23-2021 Amorphous NONE Normal [facility] Comment on above: Performed By: #### 2 53783 #### [facility],[address] [place] [address] Bacteria TRACE Normal [facility] Comment on above: Performed By: #### 2 00065 #### [facility],[address] [place] [address] 34931 Bilirubin Ql (U) Negative Normal NORMAL: NEGATIVE [facility] Comment on above: Performed By: #### 2 36472 #### [facility],[address] [place] [address] 93993 Casts NONE Normal [facility] Comment on above: Performed By: #### 2 96029 #### [facility],[address] [place] [address] 64062 Clarity (U) clear Normal NORMAL: CLEAR [facility] Comment on above: Performed By: #### 2 40317 #### [facility],[address] [place] [address] 31545 Color (U) yellow Normal NORMAL: YELLOW [facility] Comment on above: Performed By: #### 2 06764 #### [facility],[address] [place] [address] 34263 Crystals LM Nom (Urine sed) NONE Normal [facility] Comment on above: Performed By: #### 2 64715 #### [facility],[address] [place] [address] 70147 Epi Cells OCC Normal [facility] Comment on above: Performed By: #### 2 58130 #### [facility],[address] [place] [address] 06883 Glucose Ql (U) NORM Normal NORMAL: NORMAL [facility] Comment on above: Performed By: #### 2 18734 #### [facility],[address] [place] [address] 66611 Hemoglobin Ql (U) Negative Normal NORMAL: NEGATIVE [facility] Comment on above: Performed By: #### 2 71429 #### [facility],[address] [place] [address] 13037 Ketone 15 Abnormal NORMAL: NEGATIVE [facility] Comment on above: Performed By: #### 2 45780 #### [facility],[address] [place] [address] 43704 Leukocytes 25 Abnormal NORMAL: NEGATIVE [facility] Comment on above: Result Comment: URIN E MICROSCOPIC Performed By: #### 2 08864 #### [facility],[address] [place] [address] 98924 Mucous 2+ Normal [facility] Comment on above: Performed By: #### 2 10466 #### [facility],[address] [place] [address] 68137 Nitrite Ql (U) Negative Normal NORMAL: NEGATIVE [facility] Comment on above: Performed By: #### 2 25463 #### [facility],[address] [place] [address] 30152 pH (U) 8 [pH] Normal NORMAL: 5.0-8.0 [facility] Comment on above: Performed By: #### 2 37152 #### [facility],[address] [place] [address] 74316 Protein Ql (U) 100 Abnormal NORMAL: NEGATIVE [facility] Comment on above: Performed By: #### 2 62959 #### [facility],[address] [place] [address] 17126 Rbc 0-5 Normal 0-3 / hpf [facility] Comment on above: Performed By: #### 2 96494 #### [facility],[address] [place] [address] 38688 Sp Armbrust 1.010 Normal NORMAL: 1.010-1.030 [facility] Comment on above: Performed By: #### 2 77589 #### [facility],[address] [place] [address] Specimen Type R Normal [facility] Comment on above: Performed By: #### 2 97884 #### [facility],[address] [place], [place] [id number] URINALYSIS WITH MICROSCOPY Normal [facility] Comment on above: Result Comment: URIN ALYSIS Performed By: #### 2 07546 #### [facility],[address] [place], [place] [id number] Urobilinog NORM Normal NORMAL: NORMAL [facility] Comment on above: Performed By: #### 2 82582 #### [facility],[address] [place], [place] [phone] WBC (U) [#/Vol] /uL Normal 0-5 / hpf [facility] Comment on above: Performed By: #### 2 15756 #### [facility],[address] [place], [place] [phone] Yeast NONE Normal [facility] Comment on above: Performed By: #### 2 24258 #### [facility],[address] [place] [address] 70096 URINE CREATININE AND PROTEIN RATIOon 07-23-2021 CREATININE UR 130.88 mg/dl Normal [facility] Comment on above: Performed By: #### 2 63551 #### [facility],[address] [place], [place] [id number] PC RATIO 0.63 mg/dL Normal 0.00 - 10.00 [facility] Comment on above: Performed By: #### 2 42578 #### [facility],[address] [place] [address] 67894 Protein (U) [Mass/Vol] 82.10 mg/dL High 0.00 - 10.00 [facility] Comment on above: Performed By: #### 2 34331 #### [facility],[address] [place] [address] 64971 US PELVICon 07-23-2021 [place] [address] Patient: SELMA POON Phone#: : 1990 Age: 30 Gender: F Pt. Type: In Account: [id number] Location: [facility] Ordering: ARMANDO AYALA Exam Date: 07/23/2021/5:05 Family Phys: Charge Code: 425345 Physician: [place] Order #: [id number] DLP Dose#: PROCEDURE: PELVIC ULTRASOUND, TRANSABDOMINAL COMPARISON: None. INDICATIONS: Post pardum bleeding TECHNIQUE: Pelvic ultrasound was performed in the usual manner. FINDINGS: UTERUS: Size is 18.5 x 10.1 x 11.2 cm , consistent with recent gravid status. Endometrial thickness is 11 mm. Trace amount of fluid at the lower uterine segment. There is a hypoechoic area at the fundus of the uterus measuring 4.5 by 3.7 x 4.5 cm, most consistent with a fibroid. ADNEXAE: Normal bilateral appearance with no significant masses. Each ovary is normal in size for a patient of this age. CUL-DE-SAC: Normal. No fluid or mass. OTHER: Negative. CONCLUSION: 1. No evidence of retained products of conception. Dictated by: Karen Stout MD on 07/23/2021 at 21:09 Approved by: Karen Stout MD on 07/23/2021 at 21:14 Normal [facility] APTTon 07-22-2021 aPTT Coag (Bld) [Time] 25.6 s Normal 25.4 - 38.4 [facility] Comment on above: Performed By: #### 2 37615 #### [facility],[address] [place] [address] BB TYPE & SCREENon 1 ABO O Normal [facility] Comment on above: Performed By: #### 2 05238 #### [facility],[address] [place] [address] ANTIBODY SCR Negative Normal [facility] Comment on above: Performed By: #### 2 09151 #### [facility],[address] [place] [address] BB TYPE & SCREEN Normal [facility] Comment on above: Result Comment: TYPE , Rh, AND SCREEN Performed By: #### 2 67616 #### [facility],[address] [place] [address] Rh Nom (Bld) Positive Normal [facility] Comment on above: Performed By: #### 2 33679 #### [facility],[address] [place] [address] CBC + DIFFon 07-22-2021 Baso # 0.10 x10EE3/UL Normal 0.00 - 0.10 [facility] Comment on above: Performed By: #### 2 41165 #### [facility],[address] [place] [address] Basophils/100 WBC (Bld) 1.0 % Normal 0.0 - 2.0 [facility] Comment on above: Performed By: #### 2 00530 #### [facility],[address] [place] [address] CBC + DIFF Normal [facility] Comment on above: Result Comment: CBC- COMPLETE BLOOD COUNT Performed By: #### 2 28228 #### [facility],[address] [place] [address] EO # 0.00 x10EE3/UL Normal 0.00 - 0.50 [facility] Comment on above: Performed By: #### 2 26603 #### [facility],[address] [place] [address] 54198 Eosinophils/100 WBC (Bld) 0.1 % Normal 0.0 - 7.0 [facility] Comment on above: Performed By: #### 2 36637 #### [facility],[address] [place] [address] Erythrocyte distribution width (RBC) [Ratio] 15.6 % Normal 12.0 - 15.6 [facility] Comment on above: Performed By: #### 2 67650 #### [facility],[address] [place] [address] Hematocrit (Bld) [Volume fraction] 42.3 % Normal 34.0 - 46.0 [facility] Comment on above: Performed By: #### 2 95086 #### [facility],[address] [place] [address] Hemoglobin (Bld) [Mass/Vol] 14.6 g/dL Normal 12.0 - 16.0 [facility] Comment on above: Performed By: #### 2 55428 #### [facility],[address] [place] [address] 98854 Lymph # 2.50 x10EE3/UL Normal 0.80 - 2.80 [facility] Comment on above: Performed By: #### 2 26519 #### [facility],[address] [place] [address] 48911 Lymphocytes/100 WBC (Bld) 19.8 % Low 20.0 - 45.0 [facility] Comment on above: Performed By: #### 2 33452 #### [facility],[address] [place] [address] 59909 MANUAL DIFF N/A Normal [facility] Comment on above: Performed By: #### 2 12330 #### [facility],[address] [place] [address] MCH (RBC) [Entitic mass] 27 pg Normal 27 - 33 [facility] Comment on above: Performed By: #### 2 08179 #### [facility],[address] [place] [address] MCHC 34 X10 3 Normal 32 - 36 [facility] Comment on above: Performed By: #### 2 65823 #### [facility],[address] [place] [address] MCV (RBC) [Entitic vol] 79 fL Low 80 - 99 J l [facility] Comment on above: Performed By: #### 2 62658 #### [facility],[address] [place] [address] Howard # 0.70 x10EE3/UL Normal 0.20 - 1.00 [facility] Comment on above: Performed By: #### 2 50568 #### [facility],[address] [place] [address] MONOS % 5.2 % Normal 0.0 - 10.0 [facility] Comment on above: Performed By: #### 2 41439 #### [facility],[address] [place] [address] Morphology Tony (Bld) [Interp] N/A Normal [facility] Comment on above: Result Comment: {CD] Performed By: #### 2 84357 #### [facility],[address] [place] [address] Neut # 9.40 x10EE3/UL High 1.50 - 7.10 [facility] Comment on above: Performed By: #### 2 37291 #### [place] [address] Neutrophils/100 WBC (Bld) 73.9 % Normal 46.0 - 76.0 [facility] Comment on above: Performed By: #### 2 81698 #### [facility],[address] [place] [address] 21695 PLATELET 264 x10EE3/UL Normal 150 - 450 [facility] Comment on above: Performed By: #### 2 56563 #### [facility],[address] [place] [address] 91563 Platelet mean volume (Bld) [Entitic vol] 8.5 fL Normal 6.6 - 10.5 [facility] Comment on above: Result Comment: AUTO MATED DIFFERENTIAL Performed By: #### 2 09655 #### [facility],[address] [place] [address] 69799 RBC 5.36 x 10EE6/UL High 4.10 - 5.30 [facility] Comment on above: Performed By: #### 2 90048 #### [facility],[address] [place] [address] 11450 WBC 12.7 x 10EE3/UL High 4.5 - 10.8 [facility] Comment on above: Performed By: #### 2 32927 #### [facility],[address] [place] [address] 43597 D-DIMER, QUANTITATIVEon 06-30 D-DIMER QUANT 438 ng/ml High 0 - 230 [facility] Comment on above: Performed By: #### 2 81001 #### [facility],[address] [place] [address] 91901 D-DIMER, QUANTITATIVE Normal [facility] Comment on above: Result Comment: GARRETT T D-DIMER Performed By: #### 2 04843 #### [facility],[address] [place] [address] 09673 FIBRINOGENon 07-22-2021 FIBRINOGEN 711 mg/dl High 308 - 613 [facility] Comment on above: Result Comment: P LEASE NOTE - FIBRINOGEN AT [place] IS A CALCULATED VALUE. Values measured using the calculated fibrinogen method are biased 100mg/dl higher than values measured using the Clauss method. Performed By: #### 2 12723 #### [facility],[address] [place] [address] 71087 HEPATIC FUNCTION PANELon Albumin [Mass/Vol] 2.7 g/dL Low 3.4 - 5.0 [facility] Comment on above: Performed By: #### 2 08696 #### [facility],[address] [place] [address] 26218 ALK PHOS 182 U/L High 46 - 116 [facility] Comment on above: Performed By: #### 2 54213 #### [facility],[address] [place] [address] 38511 ALT [Catalytic activity/Vol] 13 U/L Low 14 - 59 [facility] Comment on above: Performed By: #### 2 79441 #### [facility],[address] [place], [place] [id number] AST [Catalytic activity/Vol] 15 U/L Normal 13 - 39 [facility] Comment on above: Performed By: #### 2 06520 #### [facility],[address] [place] [address] 87915 Bilirubin [Mass/Vol] 0.3 mg/dL Normal 0.2 - 1.0 [facility] Comment on above: Performed By: #### 2 08475 #### [facility],[address] [place] [address] 78222 Bilirubin.direct [Mass/Vol] 0.1 mg/dL Normal 0.0 - 0.2 [facility] Comment on above: Performed By: #### 2 67085 #### [facility],[address] [place] [address] 33749 Hepatic function 2000 panel Normal [facility] Comment on above: Result Comment: HEPA TIC FUNCTION PROFILE Performed By: #### 2 12519 #### [facility],[address] [place] [address] 20788 Protein [Mass/Vol] 6.4 g/dL Normal 6.4 - 8.2 [facility] Comment on above: Performed By: #### 2 22452 #### [facility],[address] [place] [address] 21791 PROTHROMBIN TIME AND INRon 0 07-22-2021 INR Coag (PPP) [Relative time] 0.9 {INR} Normal 0.8 - 1.2 [facility] Comment on above: Result Comment: T HE HEMOSIL THROMBOPLASTIN REAGENT USED IN THE PROTHROMBIN TIME TEST INTERACTS WITH THE DRUG CUBICIN (DAPTOMYCIN) AND WILL RESULT IN FALSELY ELEVATED PT / INR RESULTS INR INTERPRETATION INR INDICATION PREVENTION AND TREATMENT OF THROMBOEMBOLISM ASSOCIATED WITH: 2.0 - 3.0 ATRIAL FIBRILLATION, BIOPROSTHETIC HEART VALVES, PULMONARY EMBOLISM, VENOUS THROMBOSIS, SYSTEMIC EMBOLISM POST MYOCARDIAL INFARCTION 2.5 - 3.5 MECHANICAL HEART VALVES Performed By: #### 2 78918 #### [facility],[address] [place] [address] 57600 PROTHROMBIN TIME AND INR Normal [facility] Comment on above: Result Comment: PROT HROMBIN TIME AND INR Performed By: #### 2 48822 #### [facility],[address] [place] [address] 14583 PT-COUMADIN 9.9 sec Normal 9.3 - 14.1 [facility] Comment on above: Performed By: #### 2 91907 #### [facility],[address] [place] [address] 36281 URIC ACIDon 07-22-2021 Urate [Mass/Vol] 6.7 mg/dL High 2.6 - 6.0 [facility] Comment on above: Performed By: #### 2 10872 #### [facility],[address] [place] [address] 55655 ANES POSTPROC EVALon ANES POSTPROC EVAL HNO ID: [id number] Author: Elver Sandoval Service: ? Author Type: Anesthesiologist Type: Anesthesia Postprocedure Evaluation Filed: 06/11/2020 12:46 PM Note Text: POST ANESTHESIA EVALUATION NOTE : 1990 Procedure Summary Date: 08/14/20 Room / Location: [place] [address] / [place] Anesthesia Start: 1056 Anesthesia Stop: 1201 Procedure: DECOMPRESSION NERVE MEDIAN CARPAL TUNNEL (Bilateral Wrist) Diagnosis: Bilateral carpal tunnel syndrome Surgeons: Eliot Munoz Responsible Provider: Elver Sandoval Anesthesia Type: MAC ASA Status: 2 Anesthesia Type: MAC Last vitals Vitals Value Taken Time BP 114/84 06/11/20 1230 Temp 36.4 ?C (97.5 ?F) 06/11/20 1230 HR SpO2 06/11/20 1245 Resp 16 06/11/20 1230 SpO2 98 % 06/11/20 1230 Post Anesthesia Patient Status Patient Evaluation: PACU. PACU/ICU Patient Condition: stable. Anticipated Disposition: phase 2 then home. Neurological Status: aware and responsive. Pulmonary Status: breathing comfortably on room air Airway Control: returned to baseline unsupported. Cardiovascular Status: stable. Pain Management: clinically adequate - multimodal analgesia pain management approach Postoperative Hydration: acceptable. Intraoperative Events: no significant anesthesia events Post Operative Nausea/Vomiting Status: Anesthetic Observations: no significant anesthetic observations Recommendation: continue current plan of care. SIGNATURE: Elver Sandoval MD PATIENT NAME: Selma Poon DATE: June 11, 2020 TIME: 12:45 PM CSN: [id number] [facility] ANES PRE-OPon 06-11-2020 ANES PRE-OP HNO ID: [id number] Author: Elver Sandoval Service: ? Author Type: Anesthesiologist Type: Anesthesia Preprocedure Evaluation Filed: 06/11/2020 9:11 AM Note Text: OB ANESTHESIA PRE-PROCEDURE ASSESSMENT PATIENT NAME: Selma Poon : 1990 RN TESTING ROS Relevant Problems No relevant active problems I - PHYSICAL EVALUATION AIRWAY Patient intubated: No. Tracheostomy tube not present Mallampati: II. TM distance: >3 FB. Neck ROM: full ROM without neurological symptoms. Mouth opening: adequate. DENTAL Dental findings: teeth intact. Additional exam findings: no II - ANESTHESIA PLAN ASA Score: 2 Anesthetic Plan: MAC NPO Status: adequate Monitoring plan: standard ASA. Postoperative analgesic plan: parenteral or oral opioids and multimodal analgesia. Anesthetic Risks, Benefits, Alternatives, Personnel Discussed. Consent obtained from: patient. Patient / Surrogate agrees to blood products: blood products not planned Significant changes in the patient condition since the History and Physical, not otherwise documented in primary service progress note: no. [facility] CHART REVIEW: ACTIVE PROBLEM LIST Generalized Anxiety Disorder Eczema Smoker Tachycardia Well Adult Exam Encounter for Screening for Cardiovascular Disorders Encounter for Screening for Diabetes Mellitus Irritable Bowel Syndrome With Diarrhea PAST MEDICAL HISTORY Diagnosis Date - Eczema 04/30/2017 - Generalized anxiety disorder 04/30/2017 - Smoker 04/30/2017 Started at age 16 up to 1 PPD. - Tachycardia 04/30/2017 W/u in past and placed on medication but made HR too slow and felt dizzy. PAST SURGICAL HISTORY Procedure Laterality Date - APPENDECTOMY HX FAMILY HISTORY Problem Relation Age of Onset - Diabetes Mother - Hyperlipidemia Mother - Heart Brother 16 Social History Tobacco Use - Smoking status: Current Every Day Smoker Packs/day: 0.50 Years: 10.00 Pack years: 5.00 Types: Cigarettes - Smokeless tobacco: Never Used Substance Use Topics - Alcohol use: Yes Frequency: 2-4 times a month Drinks per session: 1 or 2 Binge frequency: Never Comment: occasionly 1-2 cans 12 oz 1-2 times a month- not while - Drug use: No - busPIRone (BUSPAR) 5 mg tablet, Take 2 tablets by mouth twice daily., Disp: 60 tablet, Rfl: 1 - dicyclomine (BENTYL) 10 mg capsule, Take 1 capsule by mouth before meals and at bedtime., Disp: 120 capsule, Rfl: 1 - gabapentin (NEURONTIN) 100 mg capsule, Take 1 capsule by mouth daily at bedtime for 90 days., Disp: 30 capsule, Rfl: 2 - cetirizine (ZYRTEC) 10 mg tablet, Take 1 tablet by mouth once daily., Disp: 30 tablet, Rfl: 3 - fluticasone (FLONASE) 50 mcg/actuation nasal spray, Use 2 Sprays in each nostril once daily. Rinse mouth after use., Disp: 1 Bottle, Rfl: 11 Inpatient medications reviewed in [facility] I have interviewed and examined the patient. I have reviewed the medical record and/or the pre-anesthesia evaluation, pertinent labs, and test results. This contains updated information obtained within 48 hours of Surgery/Procedure. SIGNATURE: Elver Sandoval MD PATIENT NAME: Selma Poon DATE: June 11, 2020 TIME: 9:11 AM : 1990 [facility] OPERATIVE NOon 06-11-2020 OPERATIVE NO HNO ID: [id number] Author: Eliot Munoz Service: Orthopaedic Surgery Author Type: Physician Type: Operative Report Filed: 06/11/2020 11:57 AM Note Text: [place] [address] [place] OPERATIVE REPORT NAME:Selma Poon [id number] DATE: June 11, 2020 AGE: [age] year old SURGEON 1: Eliot Munoz M.D. OPERATION: Bilateral carpal tunnel release, open. ANESTHESIA: MAC with local. PREOPERATIVE DIAGNOSIS: Bilateral carpal tunnel syndrome. POSTOPERATIVE DIAGNOSIS: Bilateral carpal tunnel syndrome. OPERATIVE INDICATIONS: This is a pleasant 29 year old female who had worsening, numbness, and tingling. She deferred EMG studies. She exhausted conservative management and in the office, we discussed the risks, benefits, alternatives, and potential complications involving carpal tunnel release and she wished to pursue surgical intervention. OPERATIVE FINDINGS: Consistent with postoperative diagnosis. ? Procedure Details: OPERATIVE PROCEDURE: On 06/11/2020, the patient was clearly identified in the preoperative area and marked accordingly on the right and left palms by myself. Patient was taken to the operative suite and placed in the supine position with an armboard on the right and left. Patient received 2 g of Ancef in the IV within 1 hour of incision or tourniquet. Anesthesia assumed care of the head and neck for the remainder of the case and began a MAC anesthetic. All other bony landmarks were appropriately padded in standard fashion. The right upper extremity had a well-padded upper brachium tourniquet applied with Webril padding and set at 250 mmHg, but not yet inflated. After a betadine swab, the Right palm was injected with 1% lidocaine with epinepherine 1:100,000 for total of 10 mL. The left arm was then, first sterilely prepped and draped in standard fashion. An appropriate time-out was conducted and all in the room were in agreement, signed consent form was on the chart. The upper extremity was exsanguinated with an Esmarch bandage and the tourniquet was applied at 250 mmHg. Local anesthetic was provided at the palm and wrist with 1% lidocaine with epinepherine 1:100,000 for total of 10 mL. A longitudinal incision was made with in line with the third web space from 1 cm distal of the wrist crease to Quijano's cardinal line. I used Hattie Rakes to retract the soft tissues. Bipolar electrocautery was used for hemostasis. I bluntly dissected down with Littler scissors to distal edge of the transverse carpal ligament until a flash of fat was noted. I directly divided distal edge of the transverse carpal ligament with a #15 blade. Attention was then focused on the proximal portion and I used Littler scissors to bluntly dissect off the volar surface of the transverse carpal ligament. A carpal tunnel and median nerve protection guide was slid directly under the ligament for dilation and a second time for appropriate positioning, this was passed freely without any resistance. Subsequently, I selected a mini meniscotome [place] blade and slid this in the protective guide, completely dividing the transverse carpal ligament. Hattie rakes were used to view up the wound to visualize for complete release and a [place] elevator was used to palpate for complete release. At this point, the tourniquet was taken down and hemostasis was observed. The wound was copiously irrigated with normal saline and I closed with 3-0 nylons in horizontal mattress fashion for a total of 3. Xeroform gauze, sterile 4 x 4 gauze, sterile, Webril padding was applied. ? I then turned my focused to the right upper extremity. The exact same steps in sequential fashion were carried out on the right side, without the need for a tourniquet, as was outlined previously on the left above. At the completion of the procedure, the median nerve was noted to be completely released both visually and with palpation of the transected Transverse carpal ligament. The wound was copiously irrigated, tourniquet was taken down. Closure with again completed with 3-0 nylons in horizontal mattress fashion. Xeroform gauze, sterile 4 x 4 gauze, webril padding and a Bias roll was used for final bandage for each hand. There were no complications during the procedures. The patient was safely awoken and transferred to the Postanesthetic Care Unit in stable condition. ? ? Pre-Op/Pre-Procedur e Diagnosis: Bilateral carpal tunnel syndrome. ? Post-Op/Post-Proced ure Diagnosis: Same ? [facility] PT EDon 06-11-2020 PT ED HNO ID: [id number] Author: Jessi DejesusRn) FELIZ Davila Service: ? Author Type: Registered Nurse Type: Patient Education Filed: 06/11/2020 12:58 PM Note Text: POST OP LEARNING RESPONSE INSTRUCTION PROVIDED TO: Patient and family member METHOD OF INSTRUCTION: Written instruction - handouts PATIENT / FAMILY RESPONSE: Verbalizes understanding of: POST-OPERATIVE INSTRUCTIONS-Correc t actions to take to reduce postoperative complications FOLLOW-UP PLAN: Patient instructed to call with any further issues SUPPLEMENTAL MATERIAL: None REFERRAL (RECOMMENDATION): None Electronically Signed By: Jessi Davila RN In Department: [facility] SURGERY [facility] PT ED HNO ID: [id number] Author: Fredis DejesusRn) FELIZ Cespedes Service: Nursing Author Type: Registered Nurse Type: Patient Education Filed: 06/11/2020 9:38 AM Note Text: PRE OP LEARNING ASSESSMENT PROCEDURE/SURGERY: SURGERY: READINESS TO LEARN COGNITIVE ABILITY: Alert and oriented MOTIVATION TO LEARN: Interested FAMILY SUPPORT: High - Very involved in pt care PATIENT LEARNS BEST BY: Verbal Instruction FACTORS AFFECTING LEARNING: None PHYSICAL LIMITATIONS AFFECTING LEARNING: None Electronically Signed By: Fredis Cespedes RN In Department: [facility] SURGERY [facility] HOSPon 05-20-2020 HOSP Patient:Lay Poon MRN: Height:5' 2(1.575 m) Weight:165 lb (74.844 kg) Outpatient Medications as of 06/11/20: busPIRone (BUSPAR) 5 mg tablet dicyclomine (BENTYL) 10 mg capsule gabapentin (NEURONTIN) 100 mg capsule cetirizine (ZYRTEC) 10 mg tablet fluticasone (FLONASE) 50 mcg/actuation nasal spray Admission/Clinic Administered Medications as of 06/11/20: lidocaine 10 mg/mL (1 %) 1-2 mg injection (XYLOCAINE) lactated ringers infusion ceFAZolin iv piggyback 2 g in D5W (iso-osmotic) 100 mL (ANCEF) Problem List: Generalized anxiety disorder [F41.1] Eczema [L30.9] Smoker [F17.200] Tachycardia [R00.0] Well adult exam [Z00.00] Encounter for screening for cardiovascular disorders [Z13.6] Encounter for screening for diabetes mellitus [Z13.1] Irritable bowel syndrome with diarrhea [K58.0] Allergies: No Known Allergies Date Verified:06/11/20 Lab Values No results within the last 30 days for the following basenames: K,HCT Progress Notes ([facility]): Oneyda Kay Ma 06/03/2020 3:34 PM Signed Patient has been identified by name and date of : Yes Pending Prescriptions Disp Refills BUSPIRONE 5 MG TABLET 60 tablet 1 Sig: Take 2 tablets by mouth twice daily. ADAM: No RX INSTRUCTIONS: Patient aware RX will be sent to pharmacy. No need to notify patient. Oneyda Kay Ma Last ov: 03/2020 Last refill; 03/2020 No appointment scheduled. Jose J Sneed DNP.DAVIS, GUILLE 06/03/2020 3:42 PM Signed The following approved medication requests have been transmitted electronically. Pending Prescriptions Disp Refills BUSPIRONE 5 MG TABLET 60 tablet 1 Sig: Take 2 tablets by mouth twice daily. ADAM: No Jose J Sneed DNP.DAVIS Progress Notes ([facility]): Anika Felix RN 06/03/2020 11:56 AM Signed Pt. called and has surgery scheduled on 06-11-2020 and COVID testing scheduled on 06-09-2020. She asks if she can still go to work on the ? Explained that she cannot, as she needs to quarantine until surgery. Pt. verbalizes understanding. Offered to give her a work note if needed. She declines at this time. Normal [facility] CBC WITH AUTO DIFFERENTIALon 06-13-2019 Basophils (Bld) [#/Vol] 0.05 10*3/uL [facility] Basophils/100 WBC (Bld) 0.4 % [facility] Eosinophils (Bld) [#/Vol] 0.31 10*3/uL [facility] Eosinophils/100 WBC (Bld) 2.7 % [facility] Erythrocyte distribution width (RBC) [Entitic vol] 15.6 % High 11.6 - 14.8 % [facility] Hematocrit (Bld) [Volume fraction] 42.0 % 36 - 46 % [facility] Hemoglobin (Bld) [Mass/Vol] 13.7 g/dL 12 - 16 g/dL [facility] Immature granulocytes (Bld) [#/Vol] 0.05 10*3/uL [facility] Immature granulocytes/100 WBC (Bld) 0.40 % [facility] Comment on above: The IG parameter is the percentage of metamyelocytes, myelocytes, and promyelocytes. Interpretation and review of laboratory results Abnormal [facility] Lymphocytes (Bld) [#/Vol] 4.07 10*3/uL High [facility] Lymphocytes/100 WBC (Bld) 35.3 % [facility] MCH (RBC) [Entitic mass] 26.4 pg 26 - 34 pg [facility] MCHC (RBC) [Mass/Vol] 32.6 g/dL 31 - 37 g/dL [facility] MCV (RBC) [Entitic vol] 81.1 fL 80 - 100 fL [facility] Monocytes (Bld) [#/Vol] 0.91 10*3/uL [facility] Monocytes/100 WBC (Bld) 7.9 % [facility] Neutrophils (Bld) [#/Vol] 6.13 10*3/uL [facility] Neutrophils/100 WBC (Bld) 53.3 % [facility] Nucleated RBC (Bld) [#/Vol] 0.00 10*3/uL [facility] Nucleated RBC/100 WBC (Bld) [Ratio] 0.0 % [facility] Platelet mean volume (Bld) [Entitic vol] 8.8 fL Low 9 - 15.5 fL [facility] Platelets (Bld) [#/Vol] 341 10*3/uL [facility] RBC (Bld) [#/Vol] 5.18 10*6/uL [facility] ealth WBC (Bld) [#/Vol] 11.52 10*3/uL [facility] Chem 7on 06-13-2019 Anion gap [Moles/Vol] 15 mmol/L 10 - 2 0 mmol/L [facility] Chloride [Moles/Vol] 102 mmol/L 98 - 10 8 mmol/L [facility] Creatinine [Mass/Vol] 0.63 mg/dL 0.4 - 1.1 mg/dL [facility] GFR/1.73 sq M predicted among non-blacks MDRD (S/P/Bld) [Vol rate/Area] The eGFR should be used for monitoring renal function only and not for medication dosing. [facility] GFR/1.73 sq M.predicted CKD-EPI (S/P/Bld) [Vol rate/Area] 124 >=60 mL/min/1.73 m2 [facility] Glucose [Mass/Vol] 90 mg/dL 65 - 99 mg/dL [facility] HCO3 [Moles/Vol] 27 mmol/L 21 - 32 mmol/L [facility] Interpretation and review of laboratory results Normal [facility] Potassium [Moles/Vol] 4.1 mmol/L 3.5 - 5.1 mmol/L [facility] Sodium [Moles/Vol] 140 mmol/L 135 - 145 mmol/L [facility] Urea nitrogen [Mass/Vol] 11 mg/dL 8 - 25 mg/d L [facility] Urea nitrogen/Creatinine [Mass ratio] 17.5 mg/mg [facility] POC Urine Pregnancyon 2018 HCG ( test) Ql (U) Negative Negative [facility] Internal Control Pass [facility] Specific gravity (U) [Rel density] [facility] URINALYSISon 06-13-2019 Bacteria Auto Ql (U) Rare Abnormal None Se en /hpf [facility] Bilirubin Ql (U) Negative Negative [facility] Clarity Refractometry automated (U) Hazy Abnormal Clear [facility] Color (U) Yellow Colorless, Yellow [facility] Epithelial cells.squamous Auto (Urine sed) [#/Area] 3 [facility] Glucose Auto test strip (U) [Mass/Vol] Negative Negative mg/dL [facility] Hemoglobin Auto test strip Ql (U) Negative Negative [facility] Interpretation and review of laboratory results Abnormal [facility] Ketones (U) [Mass/Vol] Negative Negat hoda mg/dL [facility] Leukocyte esterase Auto test strip Ql (U) Negative Negative [facility] Mucus Auto (Urine sed) [#/Area] Rare None Seen, Rare /lpf [facility] Nitrite Auto test strip Ql (U) Negative Negative [facility] pH (U) 7.0 [pH] [facility] Protein (U) [Mass/Vol] Negative Negat hoda mg/dL [facility] RBC Auto (Urine sed) [#/Area] 2 [facility] Specific gravity (U) [Rel density] 1.019 [facility] Urobilinogen (U) [Mass/Vol] <2.0 <2.0 mg/dL [facility] WBC Auto (Urine sed) [#/Area] <1 [facility] Yeast.budding Computer assisted (U) [#/Area] Rare Abnormal None Seen /hpf [facility] Microscopic examination is performed on all urinalysis samples and only positive findings are reported. The test for blood on the chemical analytic portion of urinalysis may also be positive due to hemoglobinuria and myoglobinuria and if red blood cells are present they are quantified by microscopic examination. [facility] Vital Signs Date Time Vital Sign Value Performing Clinician Facility 03-10-2025 17:29-0400 Body temperature 98.1 [degF] Dr. Don Rosario MD Work Phone: 2(066)821-732797 [place] [address] 03-10-2025 17:29-0400 Diastolic blood pressure 70 mm[Hg] Dr. Don Rosario MD Work Phone: 4(267)630-320397 [place] [address] 03-10-2025 17:29-0400 Heart rate 91 /min Dr. Don Rosario MD Work Phone: 5(443)722-598197 [place] [address] 03-10-2025 17:29-0400 Respiratory rate 19 /min Dr. Don Rosario MD Work Phone: 7(755)738-533897 [place] [address] 03-10-2025 17:29-0400 SaO2% (BldA) [Mass fraction] 98 % Dr. Don Rosario MD Work Phone: 8(156)299-510797 [place] [address] 03-10-2025 17:29-0400 Systolic blood pressure 123 mm[Hg] Dr. Don Rosario MD Work Phone: 3(599)212-450997 [place] [address] 03-10-2025 17:14-0400 Body height 157.[address] Don Rosario MD Work Phone: 2(138)700-496797 [place] [address] 03-10-2025 17:14-0400 Body mass index (BMI) [Ratio] 35.7 kg/m2 Dr. Don Rosario MD Work Phone: 9(895)274-547797 [place] [address] 03-10-2025 17:14-0400 Body weight 88.[address] Don Rosario MD Work Phone: 5(606)179-868397 [place] [address] 03-09-2025 22:01-0400 Body height 157.[address] Don Rosario MD Work Phone: 5(713)997-542797 [place] [address] 03-09-2025 22:01-0400 Body mass index (BMI) [Ratio] 36.3 kg/m2 Dr. Don Rosario MD Work Phone: 4(219)229-025539 [place] [address] 03-09-2025 22:01-0400 Body temperature 99.2 [degF] Dr. Don Rosario MD Work Phone: 1(853)514-557697 [place] [address] 03-09-2025 22:01-0400 Body weight 90.[address] Don Rosario MD Work Phone: 5(484)601-715597 [place] [address] 03-09-2025 22:01-0400 Diastolic blood pressure 95 mm[Hg] Dr. Don Rosario MD Work Phone: 7(616)143-835397 [place] [address] 03-09-2025 22:01-0400 Heart rate 79 /min Dr. Don Rosario MD Work Phone: 9(094)129-665697 [place] [address] 03-09-2025 22:01-0400 Respiratory rate 18 /min Dr. Don Rosario MD Work Phone: 8(409)739-525197 [place] [address] 03-09-2025 22:01-0400 SaO2% (BldA) [Mass fraction] 98 % Dr. Don Rosario MD Work Phone: 0(837)128-486897 [place] [address] 03-09-2025 22:01-0400 Systolic blood pressure 115 mm[Hg] Dr. Don Rosario MD Work Phone: 8(672)012-873897 [place] [address] 01-05-2025 13:18-0400 Body mass index (BMI) [Ratio] 34.02 kg/m2 Karine Saucedo MD Work Phone: 2(067)974-977845 [place] [address] 01-05-2025 13:18-0400 Body weight 84.37 kg Karine Saucedo MD Work Phone: 1(905)681-419345 [place] [address] 01-05-2025 13:18-0400 Diastolic blood pressure 64 mm[Hg] Karine Saucedo MD Work Phone: 6(055)033-401045 [place] [address] 01-05-2025 13:18-0400 Systolic blood pressure 120 mm[Hg] Karine Saucedo MD Work Phone: 7(272)632-280345 [place] [address] 11-19-2024 22:30-0500 Body temperature 98.5 [degF] Dr. Don Rosario MD Work Phone: 9(069)733-806097 [place] [address] 11-19-2024 22:30-0500 Diastolic blood pressure 93 mm[Hg] Dr. Don Rosario MD Work Phone: 4(848)523-485697 [place] [address] 11-19-2024 22:30-0500 Heart rate 76 /min Dr. Don Rosario MD Work Phone: 7(018)586-040897 [place] [address] 11-19-2024 22:30-0500 Respiratory rate 18 /min Dr. Don Rosario MD Work Phone: 2(717)353-199897 [place] [address] 11-19-2024 22:30-0500 SaO2% (BldA) [Mass fraction] 97 % Dr. Don Rosario MD Work Phone: 4(844)032-029797 [place] [address] 11-19-2024 22:30-0500 Systolic blood pressure 154 mm[Hg] Dr. Don Rosario MD Work Phone: 4(946)349-703097 [place] [address] 11-19-2024 18:46-0500 Body mass index (BMI) [Ratio] 35.5 kg/m2 Dr. Don Rosario MD Work Phone: 7(180)711-018197 [place] [address] 11-19-2024 18:46-0500 Body weight 88.[address] Don Rosario MD Work Phone: 9(591)892-853897 [place] [address] 11-19-2024 14:47-0500 Body mass index (BMI) [Ratio] 35.3 kg/m2 Karine Saucedo MD Work Phone: 5(641)171-149845 [place] [address] 11-19-2024 14:47-0500 Body weight 87.54 kg Karine Saucedo MD Work Phone: 4(736)438-097545 [place] [address] 11-19-2024 14:47-0500 Diastolic blood pressure 90 mm[Hg] Karine Saucedo MD Work Phone: [facility] 11-19-2024 14:47-0500 Systolic blood pressure 140 mm[Hg] Karine Saucedo MD Work Phone: 3(922)273-204145 [place] [address] 11-07-2024 13:12-0500 Body height 157.5 cm Tona Mack APRN.CNM Work Phone: [facility] 11-07-2024 13:12-0500 Body mass index (BMI) [Ratio] 35.12 kg/m2 Tonatre Mack DIRECTOR OF USER EXPERIENCE.CNM Work Phone: [facility] 11-07-2024 13:12-0500 Body weight 87.09 kg Tona Mack APRN.CNM Work Phone: [facility] 11-07-2024 13:12-0500 Diastolic blood pressure 78 mm[Hg] Tonater Mack DIRECTOR OF USER EXPERIENCE.CNM Work Phone: [facility] 11-07-2024 13:12-0500 Systolic blood pressure 124 mm[Hg] Tonatre Mack APRN.CNM Work Phone: [facility] 11-02-2024 19:55-0500 Diastolic Blood Pressure Non-Invasive 98 mm[Hg] LINDA CUEVAS MD [facility] 11-02-2024 19:55-0500 Heart rate 68 /min LINDA CUEVAS MD [facility] 11-02-2024 19:55-0500 Respiratory rate 18 /min LINDA CUEVAS MD [facility] 11-02-2024 19:55-0500 Systolic Blood Pressure Non-Invasive 136 mm[Hg] LINDA CUEVAS MD [facility] 11-02-2024 15:58-0500 Blood Pressure Cuff Size LINDA CUEVAS MD [facility] 11-02-2024 15:58-0500 Blood Pressure Location LINDA CUEVAS MD [facility] 11-02-2024 15:58-0500 Blood Pressure Method LINDA CUEVAS MD [facility] 11-02-2024 15:58-0500 Body temperature 98.42 [degF] LINDA CUEVAS MD [facility] 11-02-2024 15:58-0500 Diastolic Blood Pressure Non-Invasive 90 mm[Hg] LINDA CUEVAS MD [facility] 11-02-2024 15:58-0500 Heart rate 101 /min LINDA CUEVAS MD [facility] 11-02-2024 15:58-0500 Respiratory rate 16 /min LINDA CUEVAS MD [facility] 11-02-2024 15:58-0500 Systolic Blood Pressure Non-Invasive 137 mm[Hg] LINDA CUEVAS MD [facility] 03-05-2023 18:08-0400 Body height 157.48 cm [facility] 03-05-2023 18:08-0400 Body temperature 96.9 [degF] [facility] 03-05-2023 18:08-0400 Diastolic blood pressure 113 mm[Hg] [facility] 03-05-2023 18:08-0400 Heart rate 135 /min [facility] 03-05-2023 18:08-0400 Respiratory rate 26 /min [facility] 03-05-2023 18:08-0400 SaO2% (BldA) [Mass fraction] 100 % [facility] 03-05-2023 18:08-0400 Systolic blood pressure 144 mm[Hg] [facility] 11-03-2022 11:16-0500 Body temperature 97.8 [degF] [facility] Work Phone: 11-03-2022 11:16-0500 Heart rate 78 /min [facility] Work Phone: 11-03-2022 11:16-0500 Respiratory rate 16 /min [facility] Work Phone: 11-03-2022 11:16-0500 SaO2% (BldA) [Mass fraction] 99 % [facility] Work Phone: 11-03-2022 07:11-0500 Body height 157.48 cm [facility] Work Phone: 11-03-2022 07:11-0500 Body mass index (BMI) [Ratio] 25.6 kg/m2 [facility] Work Phone: 11-03-2022 07:11-0500 Body weight 63.5 kg [facility] Work Phone: 11-03-2022 07:11-0500 Diastolic blood pressure 76 mm[Hg] [facility] Work Phone: 11-03-2022 07:11-0500 Systolic blood pressure 128 mm[Hg] [facility] Work Phone: 03-02-2022 18:51-0400 Body height 157.48 cm [facility] Work Phone: 03-02-2022 18:51-0400 Body mass index (BMI) [Ratio] 29.2 kg/m2 [facility] Work Phone: 03-02-2022 18:51-0400 Body temperature 96.8 [degF] [facility] Work Phone: 03-02-2022 18:51-0400 Body weight 72.57 kg [facility] Work Phone: 03-02-2022 18:51-0400 Diastolic blood pressure 64 mm[Hg] [facility] Work Phone: 03-02-2022 18:51-0400 Heart rate 109 /min [facility] Work Phone: 03-02-2022 18:51-0400 Respiratory rate 24 /min [facility] Work Phone: 03-02-2022 18:51-0400 SaO2% (BldA) [Mass fraction] 97 % [facility] Work Phone: 03-02-2022 18:51-0400 Systolic blood pressure 94 mm[Hg] [facility] Work Phone: 01-15-2022 22:01-0400 Diastolic blood pressure 105 mm[Hg] [facility] Work Phone: 01-15-2022 22:01-0400 Heart rate 83 /min [facility] Work Phone: 01-15-2022 22:01-0400 Respiratory rate 16 /min [facility] Work Phone: 01-15-2022 22:01-0400 SaO2% (BldA) [Mass fraction] 100 % [facility] Work Phone: 01-15-2022 22:01-0400 Systolic blood pressure 148 mm[Hg] [facility] Work Phone: 01-15-2022 19:52-0400 Body height 157.48 cm [facility] Work Phone: 01-15-2022 19:52-0400 Body mass index (BMI) [Ratio] 31 kg/m2 [facility] Work Phone: 01-15-2022 19:52-0400 Body temperature 96 [degF] [facility] Work Phone: 01-15-2022 19:52-0400 Body weight 76.9 kg [facility] Work Phone: 06-13-2019 09:35-0400 BP Diastolic 87 mm[Hg] Juno Jama [facility] 06-13-2019 09:35-0400 BP Systolic 127 mm[Hg] Juno Jama [facility] 06-13-2019 09:35-0400 Pulse (Heart Rate) 65 /min Juno Jama [facility] 06-13-2019 09:35-0400 Pulse Oximetry 100 % Juno Jama [facility] 06-13-2019 09:35-0400 Respiratory Rate 16 /min Juno Jama [facility] 06-13-2019 07:07-0400 Body Temperature 98.49 [degF] Juno Jama [facility] 06-13-2019 07:07-0400 Height 157.5 cm Juno Jama [facility] 06-05-2019 12:43-0400 BMI (Body Mass Index) 28.72 kg/m2 [facility] 06-05-2019 12:43-0400 Body Temperature 98.4 [degF] [facility] 06-05-2019 12:43-0400 Body weight 71.22 kg [facility] 06-05-2019 12:43-0400 BP Diastolic 83 mm[Hg] [facility] 06-05-2019 12:43-0400 BP Systolic 123 mm[Hg] [facility] 06-05-2019 12:43-0400 Height 157.5 cm [facility] 06-05-2019 12:43-0400 Pulse (Heart Rate) 78 /min [facility] 06-05-2019 12:43-0400 Pulse Oximetry 97 % [facility] 06-05-2019 12:43-0400 Respiratory Rate 14 /min [facility] 06-05-2019 11:48-0400 Body Temperature 98.6 [degF] [facility] 06-05-[facility] 11:48-0400 BP Diastolic 97 mm[Hg] [facility] 06-05-2019 11:48-0400 BP Systolic 150 mm[Hg] Valerio [facility] 06-05-2019 11:48-0400 Pulse (Heart Rate) 99 /min Valerio [facility] 06-05-2019 11:48-0400 Pulse Oximetry 98 % Valerio [facility] 06-05-2019 11:48-0400 Respiratory Rate 16 /min Valerio [facility] 06-05-2019 11:42-0400 BMI (Body Mass Index) 29.08 kg/m2 [facility] 06-05-2019 11:42-0400 Body weight 72.12 kg Valerio Roweriel [facility] 06-05-2019 11:42-0400 Height 157.5 cm Valerio Roblero [facility] Encounters Encounter Date Encounter Type Care Provider Facility Start: 03-16-2025 Encounter for genera adult medical examination without abnormal findings [facility] [facility] Start: 03-10-[address] Uvaldo Rosario MD Work Phone: [facility] Start: 03-10-2025 End: 03-10-2025 Emergency department patient visit Dr. Don Rosario MD Work Phone: -Emergency Department Work Phone: Start: 03-09-2025 End: 03-09-2025 Emergency department patient visit Dr. Don Rosario MD Work Phone: -Emergency Department Work Phone: Start: 01-07-2025 End: 03-09-2025 Follow-up encounter Demario Melendrez APRN.CNP Work Phone: OB/Gynecology Start: 01-05-2025 End: 01-05-2025 ambulatory KARINE SAUCEDO Facility:[facility] Start: 01-05-2025 End: 01-05-2025 Patient encounter procedure Karine Saucedo MD Work Phone: OB/Gynecology Comment on above: Cervical high risk H PV (human papillomavirus) test positive (Primary Dx); Screen for STD (sexually transmitted disease); Trichomoniasis Start: 12-05-2024 End: 12-05-2024 Telephone encounter Don Rosario MD Work Phone: [address] [place] [address] Comment on above: Patient Question Start: 11-19-2024 End: 11-19-2024 Emergency department patient visit Dr. Frieda Jack DO -Emergency Department Work Phone: Start: 11-19-2024 End: 11-19-2024 Patient encounter procedure Karine Saucedo MD Work Phone: OB/Gynecology Comment on above: Hypertension, postpa rtum condition or complication (Primary Dx); Trichomoniasis Start: 11-19-2024 End: 11-19-2024 ambulatory LEONEL RIOJAS Facility:[facility] Start: 11-14-2024 End: 11-21-2024 Telephone encounter Tona Mack APRN.CNM Work Phone: OB/Gynecology Comment on above: Results Start: 11-12-2024 End: 11-12-2024 Telephone encounter Tona Mack APRN.CNDelia Work Phone: OB/Gynecology Comment on above: Results Start: 11-12-2024 Evaluation and manag ement of inpatient ELVER MATTHEW I Facility:[facility] Start: 11-10-2024 End: 11-10-2024 Telephone encounter Tona Mack APRN.CNDelia Work Phone: OB/Gynecology Comment on above: Induction Start: 11-10-2024 End: 11-10-2024 ambulatory TONA MACK Facility:[facility] Start: 11-10-2024 End: 11-10-2024 Patient encounter procedure Tona Mack APRN.CNM Work Phone: OB/Gynecology Comment on above: demise before 20 weeks with retention of fetus (Primary Dx) Missed (Elin kee Dx); 13 weeks gestation of Start: 11-07-2024 End: 11-07-2024 ambulatory TONA MACK Facility:[facility] Start: 11-07-2024 End: 11-07-2024 Patient encounter procedure Tona Mack APRN.CNM Work Phone: OB/Gynecology Comment on above: with uncer tain dates, antepartum (Primary Dx); Screening for cervical cancer; Screening for human papillomavirus (HPV); Late care affecting in second trimester; Homeless; Lost custody of children; History of hypertension; History of hemorrhage; Tachycardia; Family history of congenital anomaly; Maternal tobacco use in second trimester; Supervision of other high risk pregnancies, second trimester; demise before 20 weeks with retention of fetus; Encounter for screening for maternal depression Start: 11-02-2024 End: 11-02-2024 Emergency department patient visit LINDA CUEVAS MD [facility] Start: 10-20-2024 End: 10-21-2024 Telephone encounter Karen Guthrie APRN.PARENT COACH Work Phone: OB/Gynecology Comment on above: Appointment Start: 10-17-2024 End: 10-17-2024 Chart abstracting Don Rosario MD Work Phone: [facility] Comment on above: ER Discharge Summary Start: 10-17-2024 End: 11-07-2024 Telephone encounter Karen Guthrie APRN.PARENT COACH Work Phone: OB/Gynecology Start: 10-16-2024 End: 10-16-2024 Emergency department patient visit Don Rosario Facility:[facility] Start: 10-14-2024 End: 10-14-2024 Emergency department patient visit Don Rosario Facility:[facility] Start: 10-12-2024 End: 10-12-2024 Emergency department patient visit MONIQUE SAUCEDO MD Facility:[facility] Start: 09-10-2024 End: 09-10-2024 Telephone encounter Nurse Carpenter [facility] Work Phone: Obstetrics/Gynecology Comment on above: PRAF Start: 09-05-2024 End: 09-05-2024 Social Work Spike Liu MSW Navigation Start: 09-03-2024 End: 09-05-2024 Telephone encounter Karen Guthrie APRN.PARENT COACH Work Phone: OB/Gynecology Comment on above: uncertain dates in p regnancy Start: 06-05-2024 Chart abstracting Don singleton MD Work Phone: [facility] Comment on above: ER Discharge Summary Start: 06-05-2024 End: 06-05-2024 Emergency department patient visit Don Rosario Facility:[facility] Start: 05-08-2023 ambulatory Don heller MD Work Phone: [facility] Comment on above: Hypertension Start: 03-05-2023 End: 03-05-2023 Emergency department patient visit [facility]-Emergency Department Start: 11-03-2022 End: 11-03-2022 Emergency department patient visit [facility]Emergency Department Start: 03-15-2022 Refill Elsie Arriaga on PA-C Work Phone: [facility] Comment on above: Refill Request Start: 03-02-2022 End: 03-02-2022 Emergency department patient visit [facility]Emergency Department Start: 01-15-2022 End: 01-15-2022 Emergency department patient visit [facility]gency Department Start: 07-22-2021 End: 07-24-2021 Evaluation and management of inpatient ARMANDO CNM [facility] Start: 10-13-2020 Patient encounter status Benjie Harris PA-C Work Phone: [facility] Work Phone: Start: 06-13-2019 End: 06-13-2019 Emergency department patient visit PHYSICIAN VIJAYA [facility] Start: 06-13-2019 End: 06-13-2019 Emergency department patient visit Juno Bass Jama Work Phone: [facility] Emergency Department Comment on above: Acute bilateral low back pain without sciatica (Primary Dx) Start: 06-05-2019 End: 06-05-2019 Patient encounter procedure TETSOMA OMAYONE Stroz FriedbergWE [facility] Start: 06-05-2019 End: 06-05-2019 Emergency department patient visit VALERIO BASS OSBALDO [facility] Start: 06-05-2019 End: 06-05-2019 Office outpatient new 30 minutes Tetsoma Omayone Tonwe Work Phone: [facility] Outreach Comment on above: Bites (Primary Dx) Start: 06-05-2019 End: 06-05-2019 Emergency department patient visit Valerio Roblero Work Phone: [facility] Emergency Department Comment on above: Rash (Primary Dx) Start: 07-04-2017 Ambulatory [facility] Start: 04-30-2017 End: 11-10-2024 Patient encounter status Tona Frederick LAGUNAM Work Phone: [facility] Procedures Date Procedure Procedure Detail Performing Clinician Start: 01-05-2025 UA DIP,URINE HCG (POC) Karine Saucedo MD Work Phone: Start: 11-19-[address] Don Rosario MD Work Phone: Start: 11-19-2024 Measurement of renal function Dr. Don Rosario MD Work Phone: Comment on above: GFR Calc Start: 11-19-2024 Urnls dip stick/tabl et reagent auto microscopy Dr. Don Rosario MD Work Phone: Start: 11-12-2024 Antibody screen ELVER MATTHEW I Comment on above: Order Comment: Speci men Type: BLOOD SPECIMENOrdering Facility: [facility] Address: [address] [place] [address] Performed By: #### T SPN ####[facility] BLOOD BANKCLIA [id number] [place], [place] [id number] [place] [address] OF NATHANAEL Start: 11-10-2024 Us preg uterus after 1st trimest 10/29 gestation Karine Saucedo MD Work Phone: Start: 11-07-2024 Antibody screen JESSIKA SAUCEDO Comment on above: Order Comment: Speci men Type: BLOOD SPECIMENOrdering Facility: [facility] Address: [address] [place] [address] Performed By: #### T SPN ####[facility] BLOOD BANKCLIA [id number] [address] OF NATHANAEL Start: 11-07-2024 BACTERIAL VAGINOSIS NAAT Tona Mack APRN.CNM Work Phone: Start: 11-07-2024 Iadna chlamydia trac homatis amplified probe tq Tona Mack APRN.KHARI Work Phone: Start: 01-15-2022 Plain chest X-ray Start: 06-13-2019 Basic metabolic 1998 panel - Serum or Plasma Taylor Blackburn Work Phone: Start: 06-13-2019 Complete blood count with white cell differential, automated Taylor Blackburn Work Phone: Start: 06-13-2019 Complete blood count with white cell differential, manual Taylor Blackburn Work Phone: Start: 06-13-2019 Choriogonadotropin ( test) [Presence] in Urine Triage Protocol Emergency Start: 06-13-2019 RAINBOW DRAW Triage Pro tocol Emergency Start: 06-13-2019 Urinalysis Triage Pro to[facility] Emergency Start: 06-13-2019 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 Emergency Appendectomy LINDA CUEVAS MD Plan of Treatment Date Care Activity Detail Author Start: 11-29-2048 PNEUMOCOCCAL (1 - PCV) PNEUMOCOCCAL (1 - PCV) [facility] Comment on above: Postponed from 10/15 (Postponed To Appropriate Date) Start: 11-29-2048 Pneumococcal vaccination Pneumococcal Vaccine (1 of 2 - PCV) [facility] Comment on above: Postponed from 10/15 (Postponed To Appropriate Date) Postponed from 10/15 (Postponed To Appropriate Date) Start: 01-05-2026 BP Controlled (<130/80) BP Controlle d (<130/80) [facility] Start: 01-05-2026 End: 01-05-2026 Patient encounter procedure 01/05/2026 1:20 PM EDT Office Visit OB/Gynecology [address] [place], [place] [id number] Maddy Flores MD [address] [place], [place] [id number] Annual OB/Gynecology Comment on above: Annual Start: 12-22-2025 PAP TESTING PAP TESTING [facility] Start: 11-25-2025 Tetanus vaccination TETANUS EVERY 10 YR [facility] Start: 11-25-2025 Urine microalbumin profile [facility] Start: 11-07-2025 BP Controlled (<130/80) BP Controlle d (<130/80) [facility] Start: 11-07-2025 Screening for malign ant neoplasm of cervix Cervical Cancer Screening [facility] Start: 06-29-2025 Influenza vaccination Influenz a Vaccine (Season Ended) [facility] Start: 03-10-2025 [facility] Start: 12-23-2024 End: 12-23-2024 Patient encounter procedure 12/23/2024 3:40 PM EST Office Visit OB/Gynecology [address] [place], [place] [id number] Karine Saucedo MD [address] [place] [address] Colposcopy OB/Gynecology Comment on above: Colposcopy Start: 11-19-2024 [facility] Start: 11-18-2024 End: 11-18-2024 Patient encounter procedure 11/18/2024 10:00 AM EST Routine Office Visit OB/Gynecology [address] [place] [address] Shivani Kay MD [address] [place] [address] new ob LMP 06/27 OB/Gynecology Comment on above: new ob LMP 06/27 Start: 11-10-2024 End: 11-10-2024 Patient encounter procedure 11/10/2024 11:00 AM EST Routine Office Visit Maternal Medicine [address] [place] [address] dating [facility] Comment on above: dating Start: 11-07-2024 End: 11-07-2024 Patient encounter procedure 11/07/2024 1:00 PM EST Initial Office Visit OB/Gynecology [address] [place] [address] Tona Mack APRN.[facility] [address] [place] [address] New OB LMP06/27 OB/Gynecology Comment on above: New OB LMP06/27 Start: 10-23-2024 End: 10-23-2024 Patient encounter procedure 10/23/2024 1:10 PM EST Routine Office Visit OB/Gynecology [address] [place] [address] Leonel Riojas MD [address] [place] [address] -unsure on dates but she is thinking around 18 weeks OB/Gynecology Comment on above: -unsure on dates but she is thinking around 18 weeks Start: 10-21-2024 End: 10-21-2024 Patient encounter procedure 10/21/2024 8:15 AM EST Initial Office Visit OB/Gynecology [address] [place] [address] Karen Guthrie APRN.PARENT COACH [address] [place] [address] new ob LMP 06/27 OB/Gynecology Comment on above: new ob LMP 06/27 Start: 09-17-2024 End: 09-17-2024 Patient encounter procedure 09/17/2024 1:45 PM EST Initial Office Visit OB/Gynecology [address] [place] [address] Demario Melendrez APRN.PARENT COACH [address] [place] [id number] -unsure on dates but she is thinking around 18 weeks OB/Gynecology Comment on above: -unsure on dates but she is thinking around 18 weeks Start: 09-03-2024 End: 09-03-2025 OBSTETRIC ULTRASOUND WHI OBSTETRIC ULTRASOUND WHI Anc Imaging Routine with uncertain dates, antepartum Expected: 09/03/2024, Expires: 09/03/2025 [facility] Work Phone: Comment on above: Expected: 09/03/2024 , Expires: 09/03/2025 Start: 06-29-2024 Covid-19 Vaccine ( season) Covid-19 Vaccine () [facility] Start: 06-29-2024 Influenza vaccination Influenza Vacc ine (#1) [facility] Start: 12-22-2023 PAP TESTING PAP TESTING [facility] Start: 12-22-2023 Screening for malign ant neoplasm of cervix Cervical Cancer Screening [facility] Start: 06-29-2023 Covid-19 Vaccine ( season) Covid-19 Vaccine () [facility] Start: 06-29-2023 Influenza vaccination INFLUENZA (#1) [facility] Start: 11-03-2022 [facility] Work Phone: Start: 10-29-2022 DEPRESSION ASSESSMENT DEPRESSION ASS ESSMENT [facility] Start: 10-20-2022 ANNUAL PCP TEAM RETAIL FIELD MERCHANDISER FINA DISEASE VISIT ANNUAL PCP TEAM CHRONIC DISEASE VISIT [facility] Start: 10-20-2022 HEPATITIS C SCREENING HEPATITIS C [facility] Comment on above: Postponed from 10/15 (Declined at this time) Start: 2022 HPV TESTING HPV TESTING [facility] Start: 06-29-2019 Influenza vaccinatio n given SEQUENTIAL INFLUENZA VACCINE (#1) [facility] Start: 2010 BP CONTROLLED (<130/80) BP CONTROLLE D (<130/80) [facility] Start: 2010 Depression Screening Depression Scre ening [facility] Start: 2010 HEPATITIS C SCREENING HEPATITIS C [facility] Start: 2010 Hepatitis C screening Hepatitis C [facility] Start: 1997 COVID-19 VACCINE (#1) COVID-19 VACCI NE (#1) [facility] Start: 1995 History and physical examination, annual for health maintenance Wellness Visit [facility] Start: 04-15-1993 COVID-19 VACCINE (#1) COVID-19 VACCI NE (#1) [facility] Start: 1992 HEPATITIS B (1 of 3 - 3-dose series) HEPATITIS B (1 of 3 - 3-dose series) [facility] Start: 1992 Screening for malign ant neoplasm of cervix PAP SMEAR [facility] Start: 1992 Tetanus vaccination TETANUS EVERY 10 YR [facility] BACTERIAL VAGINOSIS NAAT BACTERIAL VAGINOSIS NAAT Lab Routine Screen for STD (sexually transmitted disease) Ordered: 01/05/2025 [facility] Comment on above: Ordered: 01/05/2025 PRUDENCIO/TRICHOMONAS NAAT PRUDENCIO/TRICHOMONAS NAAT Lab Routine Screen for STD (sexually transmitted disease) Ordered: 01/05/2025 [facility] Comment on above: Ordered: 01/05/2025 Chlamydia trachomati s DNA assay [facility] Work Phone: Chlamydia trachomatis+Neisseria gonorrhoeae DNA [Presence] in Unspecified specimen by CARMEN with probe detection GONORRHEA/CHLAMYDIA NAAT Lab Routine Screen for STD (sexually transmitted disease) Ordered: 01/05/2025 [facility] Comment on above: Ordered: 01/05/2025 COLPOSCOPY COLPOSCOPY Proce dures Routine Cervical high risk HPV (human papillomavirus) test positive Ordered: 11/21/2024 [facility] Work Phone: Comment on above: Ordered: 11/21/2024 COLPOSCOPY COLPOSCOPY Proce dures Routine Cervical high risk HPV (human papillomavirus) test positive Ordered: 01/05/2025 [facility] Work Phone: Comment on above: Ordered: 01/05/2025 HIGH RISK HUMAN PAPILLOMA VIRUS (HPV), PCR FOR DETECTION AND GENOTYPING HIGH RISK HUMAN PAPILLOMA VIRUS (HPV), PCR FOR DETECTION AND GENOTYPING Lab Routine with uncertain dates, antepartum Screening for cervical cancer Screening for human papillomavirus (HPV) 11/07/2024 2:07 PM [facility] INDUCTION L&D INDUCTION L&D Pr ocedures Routine demise before 20 weeks with retention of fetus Ordered: 11/10/2024 [facility] Work Phone: Comment on above: Ordered: 11/10/2024 Neisseria gonorrhoea e DNA [Presence] in Cervical mucus by CARMEN with probe detection [facility] Work Phone: PAP TEST PAP TEST Lab Rou norma with uncertain dates, antepartum Screening for cervical cancer Screening for human papillomavirus (HPV) 11/07/2024 2:07 PM [facility] Work Phone: Patient Education [facility] Work Phone: Patient referral [facility] Work Phone: Immunizations Immunization Date Immunization Notes Care Provider Reyes marie 10-20-2021 influenza, injectabl e, quadrivalent, contains preservative Elsie Harris PA-C Work Phone: [facility] 10-20-2021 influenza virus vaccine, unspecified formulation Don Rosario MD Work Phone: [facility] 11-25-2015 tetanus toxoid, redu ventura diphtheria toxoid, and acellular pertussis vaccine, adsorbed Elsie Harris PA-C Work Phone: [facility] Work Phone: 08-05-1998 trivalent poliovirus vaccine, live, oral Karine Saucedo MD Work Phone: [facility] 06-18-1998 diphtheria, tetanus toxoids and acellular pertussis vaccine, unspecified formulation Karine Saucedo MD Work Phone: [facility] 06-18-1998 measles, mumps and rubella virus vaccine Karine Saucedo MD Work Phone: [facility] 12-05-1996 diphtheria, tetanus toxoids and acellular pertussis vaccine, unspecified formulation Karine Saucedo MD Work Phone: [facility] 12-05-1996 hepatitis B vaccine, pediatric or pediatric/adolescent dosage Karine Saucedo MD Work Phone: [facility] 12-05-1996 trivalent poliovirus vaccine, live, oral Karine Saucedo MD Work Phone: [facility] 09-12-1996 diphtheria, tetanus toxoids and pertussis vaccine Karine Saucedo MD Work Phone: [facility] 09-12-1996 trivalent poliovirus vaccine, live, oral Karine Saucedo MD Work Phone: [facility] 07-24-1996 diphtheria, tetanus toxoids and pertussis vaccine Karine Saucedo MD Work Phone: [facility] 07-24-1996 haemophilus influenz ae type b vaccine, conjugate unspecified formulation Karine Saucedo MD Work Phone: [facility] 07-24-1996 hepatitis B vaccine, pediatric or pediatric/adolescent dosage Karine Saucedo MD Work Phone: [facility] 07-24-1996 measles, mumps and rubella virus vaccine Karine Saucedo MD Work Phone: [facility] 07-24-1996 trivalent poliovirus vaccine, live, oral Karine Saucedo MD Work Phone: [facility] 1992 hepatitis B vaccine, pediatric or pediatric/adolescent dosage Karine Saucedo MD Work Phone: [facility] Payers Date Payer Category Payer Self-pay [id number] 2022 Medicaid [id number] 2022 Unknown [id number] 2019 Unknown 2019 Medicaid [employer] [employer] [id number] 2019-Present [phone] [address] [place] [address] Medicaid [id number] 2018 Medicaid [employer] MEDICA[employer] xxxxxxxxxxx 2018-Present [id number] 2017 Medicaid [id number] 1992 Unknown [id number] 1992 Unknown [id number] 1992 Unknown [id number] 1992 Unknown [id number] 1992 Unknown [id number] 1992 Unknown [id number] Unknown [id number] Unknown [id number] Unknown [id number] Unknown [id number] Unknown [id number] Unknown [id number] Social History Date Type Detail Facility Start: 06-05-2019 End: 03-10-2025 Tobacco smoking status MAIS Current every day smoker [facility] History of tobacco use Cigarette Smoker O [facility] Start: 06-05-2019 End: 11-12-2024 Cigarettes smoked current (pack per day) - Reported [facility] Start: 06-05-2019 Alcohol [facility] Sex Assigned At Not on file [facility] Start: 01-15-2022 End: 11-03-2022 Tobacco smoking status [facility] Unknown if ever smoked [facility] Start: 09-16-2019 Cigarettes [facility] Start: 1990 Sex Assigned At Female C [facility] Start: 04-30-2017 End: 09-03-2024 Tobacco use and exposure Smokeless tobacco non-user [facility] Start: 10-20-2021 Alcohol intake Current drinke r of alcohol (finding) [facility] Start: 02-25-2020 End: 07-03-2020 History SDOH Alcohol Frequency 3 [facility] Start: 02-25-2020 End: 07-03-2020 History SDOH Alcohol Std Drinks 1 [facility] Start: 06-07-2017 History SDOH Alcohol Comment occasionly 1-2 cans 12 oz 1-2 times a month- not while [facility] Start: 02-25-2020 History SDOH Social Connections Get Together 2 [facility] Start: 02-25-2020 History SDOH Social Connections Living 7 [facility] Start: 02-25-2020 History SDOH Stress 5 [facility] Start: 02-24-2020 Education 10 [facility] Start: 03-15-2020 Gender identity Identifies as female gender (finding) [facility] Start: 03-15-2020 Sexual orientation Heterosexua l (finding) [facility] Start: 02-24-2020 End: 11-12-2024 Social connection and isolation panel [facility] Do you belong to any clubs or organizations such as worship groups, unions, fraternal or athletic groups, or school groups? No [facility] Are you now , , , , never or living with a partner? Never [facility] How often to you hav e a drink containing alcohol? 2-4 times a month [facility] How many standard dr inks containing alcohol do you have on a typical day? 1 or 2 [facility] How often do you hav e 6 or more drinks on 1 occasion? Never [facility] How hard is it for y ou to pay for the very basics like food, housing, medical care, and heating Hard [facility] Do you feel stress - tense, restless, nervous, or anxious, or unable to sleep at night because your mind is troubled all the time - these days [OSQ] Very much [facility] (I/We) worried janelle er (my/our) food would run out before (I/we) got money to buy more. Never true [facility] The food that (I/we) bought just didn't last, and (I/we) didn't have money to get more. Sometimes true [facility] In the past 12 month s, has lack of transportation kept you from medical appointments or from getting medications? Yes [facility] Start: 09-03-2024 End: 01-05-2025 Alcoholic beverage intake Ex-drinker (finding) [facility] Start: 05-13-2024 [facility] Start: 12-01-2019 Tobacco smoking status Light t obacco smoker (finding) [facility] O[facility] Start: 09-06-2017 Sex Female (finding) [facility] NEGATED: Highlighted row [facility] Functional Status Date Assessment Result Facility 11-02-2024 Functional Status Independent [facility] rosanne [facility] 11-02-2024 Functional Status Ambulation in [place], Ambulation in Room [facility] Mental Status Date Assessment Result Facility 03-10-2025 Cognitive function Level Of Cons ciousness Awake;Alert;Appropriate;Follow s Commands [facility] Work Phone: 11-19-2024 Cognitive function Level Of Cons ciousness Awake;Alert;Appropriate;Follow s Commands [facility] Work Phone: 11-02-2024 Mental Status Orientation Oriented x 4 [facility] 11-02-2024 Mental Status [facility] 01-15-2022 Cognitive function Voice/Name [facility] Work Phone: Clinical Notes 03-22-2022 to 03-10-2025 Note Date & Type Note Facility 03-10-2025 Discharge summary [facility] 03-10-2025 Discharge summary Note Date/Time March 10, 2025 5:37pm [facility] Medical Records Department [address] [place] [id number] Emergency Department Summary 03/10/25 MR#: [id number] Acct: [id number] Name: SELMA POON [facility] Rep #:[id number] : 1990 34 From: Ash Ortega MD PCP: Care Physician,No Primary Status :PRE ER Location: ED HPI History of Present Illness Chief Complaint: General Illness Informant: patient and spouse/S.O. Onset/Context/Timing Onset: Yesterday Context: Sudden Onset Narrative Narrative: 34-year-old female history of IBS, anxiety and hypertension. States that yesterday was having a bowel movement. A long skinny something came out of her buttocks. After bowel movement. She was concerned and possibly may be a tapeworm. Denies any blood or bleeding. No pain. No recent weight loss. No prior diagnosis. Prior similar symptoms: Yes Recent Illness/Hospitalization: No PFSH PFSH Medical History Anxiety Hypertension Carpal tunnel syndrome Pyelonephritis Home Medications ?Medication ?Instructions ?Recorded ?Last Taken ?Type gabapentin 300 mg capsule 300 mg PO TID 04/02/21 Unkno wn History buspirone 5 mg tablet 5 mg PO TID 01/15/22 Unknown History ondansetron 4 mg disintegrating 4 mg PO Q6H PRN nausea and 10/16/24 Unknown Rx tablet vomiting #10 tabs acetaminophen 500 mg tablet (Pain 1,000 mg PO Q6H PRN PRN pain 11/19/24 Unknown History Relief Extra Strength (acetaminophen)) metoprolol tartrate 25 mg tablet 25 mg PO BID #60 tabs 11/19/24 Unknown Rx albuterol sulfate 90 mcg/actuation 1 puff inhalation Q 6H PRN PRN 03/09/25 Unknown History aerosol inhaler wheezing cetirizine 10 mg capsule (Zyrtec) 10 mg PO DAILY PRN a llergy symptoms 03/09/25 Unknown History Allergy/AdvReac Type Severity Reaction Status Date / Time No Known Allergies Allergy Verified 03/10/25 17:14 Surgical History History of carpal tunnel surgery of right wrist History of carpal tunnel surgery of left wrist Hx of appendectomy Social History Smoking Status: Current every day smoker tobacco type: cigarettes and e-cigarettes ROS ROS ED ROS Narrative Denies recent illness. Weight gain no weight loss. Constitutional Constitutional ED: Denies chills or fever(s) Eyes Eyes: Denies blurry vision ENT ENT ED: Denies ear pain Respiratory/Chest Respiratory/Chest: Denies cough or dyspnea Gastrointestinal Gastrointestinal: Denies abdominal pain, constipation, diarrhea, melena, nausea or vomiting Genitourinary Genitourinary ED: Denies dysuria or hematuria Musculoskeletal Musculoskeletal: Denies arthralgias Integumentary Denies abscess Neurologic Neurologic: Denies headache(s) Psychiatric Psychiatric: Denies anxiety Endocrine Endocrinology: Denies cold intolerance Hematologic/Lymphatic Hematologic/Lymphatic: Reports none Allergic/Immunologic Allergic/Immunologic ED: Denies mouth swelling, tongue swelling or urticaria EXAM Physical Exam Narrative Exam Narrative: Appearing 34-year-old female. Vital signs stable afebrile. No distress. Significant other at bedside. H EENT exam pupils round react light. Extra motions intact. Moist mucous membranes. Neck nontender no JVD. No lymphadenopathy. Lungs clear to auscultation bilaterally. Heart regular rhythmno murmur. Chest wall ribs nontender. Abdomen soft nontender. Moving all 4 extremities. Nontender no edema. Normal strength. Normal range of motion. Back nontender. Neurologic exam awake alert. No focal motor deficits. Her anus showed no foreign body. No blood or bleeding. And no external hemorrhoids. Her significant other was present during that exam. Very benign exam. Const Vital Signs: 03/10/25 17:14 03/10/25 17:29 Temperature 97.6 F L 98.1 F Temperature Source Temporal Pulse Rate 69 91 Respiratory Rate 20 H 19 H Blood Pressure 123/84 H 123/70 H Blood Pressure Mean 97 87 Pulse Ox 99 98 Oxygen Delivery Method Room Air Positive well nourished and well developed; Negative for cachectic, contracturesor unkempt General Appearance ED: well developed and NAD; Negative for unkempt, cachectic, contractures, cyanotic, diaphoretic or pallor Nutritional Appearance: Negative for cachectic HEENT Reports moist mucous membranes Negative for trauma or tenderness Eyes PERRL and EOMs intact bilaterally General Eye ED: Negative for pale conjunctiva or scleral icterus Neck no lymphadenopathy, supple and no JVD Chest Wall inspection of chest normal and palpation of chest normal Resp normal respiratory effort and clear to auscultation bilaterally Cardio regular rate, regular rhythm, S1 normal heart sound, S2 normal heart sound and no murmurs GI normal to inspection, nondistended, normoactive bowel sounds, non-tender, non-distended and no masses Auscultation: normoactive bowel sounds Palpation: soft; Negative for tender, guarding or rebound tenderness present Back/Spine no CVA tenderness General Back: Negative for CVA tenderness Cervical Spine: Negative for cervical spine tenderness Thoracic Spine / Upper Back: Negative for thoracic spinal tenderness or paraspinal muscle tenderness Lumbar Spine / Lower Back: Negative for lumbar spinal tenderness Extremity normal to inspection General Extremety ED: Negative for edema or tenderness General Extremity: Negative for edema Neuro oriented x3 and CN's II-XII intact bilaterally Sensorium / Orientation: alert; Negative for orientation impaired, lethargic or stuporous Motor Exam: strength 5/5 throughout; Negative for general weakness Psych mental status grossly normal Appearance: Negative for unkempt Mood & Affect: Negative for depressed, anxious or tearful Skin no rashes or lesions noted, no wounds and skin turgor normal General Skin Exam: elasticity normal; Negative for jaundice or pallor Lesions: No lesion noted Rashes: No rashes noted Trauma: Negative for abrasion Wounds: Negative for wounds noted MDM MDM MDM Narrative Medical decision making narrative: 34-year-old female history of IBS past something history in her rectum. Denies any pain or bleeding. She is concerned it may be a tapeworm. Exam is benign today. She will need outpatient follow-up. I explained to her there is really no testing for that in the emergency department.She will be referred to GI. History & Record Review Discussion w/independent historian: Patient and Family Additional record(s) reviewed:: Prior inpatient record, Prior outpatient record,Prior ED visit and Prior labs Discharge Plan Triage Chief Complaint: General Illness ED Provider: Ash Ortega Dx/Rx/DC Orders Clinical Impression: Adult wellness visit Instructions: ED Tapeworm Prescriptions: No Action gabapentin 300 mg capsule 300 mg PO TID Patient Comments: take 1 capsule by mouth at bedtime buspirone 5 mg tablet 5 mg PO TID ondansetron 4 mg tablet,disintegrating 4 mg PO Q6H PRN (Reason: nausea and vomiting) Qty: 10 0RF acetaminophen [Pain Relief ES (acetaminophen)] 500 mg tablet 1,000 mg PO Q6H PRN PRN (Reason: pain) metoprolol tartrate 25 mg tablet 25 mg PO BID Qty: 60 0RF albuterol sulfate 90 mcg/actuation HFA aerosol inhaler 1 puff INHALATION Q6H PRN PRN (Reason: wheezing) Zyrtec 10 mg capsule 10 mg PO DAILY PRN (Reason: allergy symptoms) Primary Care Provider: Care Physician,No Primary Referrals: Friend,Herminio, DO [Med Staff - Active Staff] - As soon as possible Care Physician,No Primary [Primary Care Provider] - Activity Restrictions/Additional Instructions: What you are describing may or may not be a tapeworm. Unlikely but possible. Follow-up with GI for further evaluation. There is no real testing in the emergency department we can do for this. Call their office to get an appointment to be seen in follow-up. Print Language: Mauritanian Disposition Disposition: Home, Self Care What to do if you have Problems For any increased pain, shortness of breath, bleeding, nausea or vomiting, chestpain, or any unexpected problems, contact your Primary Care Provider. Call [facility] ([phone]) or report to the closest Emergency Room. Call 911 if necessary. 03/10/25 1737 <Electronically signed by Ash Ortega MD> Johanaigner Signature (if applicable): CC: No Primary Care Physician ~ Signed [facility] Work Phone: [phone] Instructions* Patient Instructions* Sheila Hector KEILA - 01/05/2025 1:10 PM EDT YOUR RECOVERY It may take a few weeks for your cervix to heal. While your cervix heals, you may have: - Vaginal bleeding (less than a normal menstrual period) - Mild cramping - A brown-black vaginal discharge (similar to coffee grounds) which is a result of the paste used to help stop bleeding from the procedure Do NOT put anything in the vagina for 1 week after your colposcopy if your doctor does a biopsy of your cervix. This includes sex, tampons, and douches. If you have any discomfort, you may take an over the counter pain medication (motrin, advil, ibuprofen, tylenol, etc). If this does not relieve your discomfort, contact your doctor's office for a prescription strength pain medication. It is okay to wear a sanitary pad until the discharge and spotting stops. RISKS Although problems seldom occur with colposcopy, there can be some complications. You may feel faintduring and shortly after the procedure as well as have some bleeding and vaginal discharge after the procedure. There is also a risk of infection after the procedure. These complications are rare andcan be easily treated. You should contact you doctor is you have any of the following: - Heavy bleeding (more than your normal period) - Bleeding with clots - Severe abdominal pain - Fever (more than 100.4F) - Foul smelling vaginal discharge RESULTS If a biopsy was taken, we will have the results of your biopsy in 1-2 weeks. If you do not hear theresults of your biopsy after 2 weeks, please contact your physicians office for the results. Depending on the biopsy results, your doctor will determine your follow up plan which may include further testing or treatments. STAYING HEALTHY After the procedure, you will need to see your doctor for follow up visits during the year. At these visits your doctor will check the health of your cervix with a pap smear. After three normal pap smears, your doctor will allow you to return to having exams once a year. If you have another abnormal pap smear, you may need closer follow up for longer or you may need additional treatment. By making a few lifestyle changes after the procedure, you can help protect the health of your cervix: - Have regular pelvic exams and pap smears as ordered by your doctor. - Stop smoking as smoking increases your risk of developing a cancer of the cervix - If you have more than one sexual partner, limit your number of partners and use condoms to reduceyour risks of STDs. If you have any additional questions, please contact your doctor's office. documented in [facility] encounterWay[facility]03-[facility]25 NoteHNO ID: [id number] Author: KARINE SAUCEDO MD Service: ? Author Type: Physician Type: Progress Notes Filed: 01/05/2025 16:49 Note Text: Muffler Installer offered: Patient declines. Hahn is a 34 year old Female who presents today for a colposcopy. The patient's last pap smear was Positive HPV from October 2024. Patient has a history of abnormal pap: Yes. The patient has had prior treatment: none. test: negative STD testing also. Treated for trich however partner has not been treated UNIVERSAL PROTOCOL / SAFETY CHECKLIST Procedure to be Performed: Colpo Sign In: A Moment of CARE was completed. Appropriate PPE (Personal Protective Equipment) worn by all providers involved with the procedure. Special equipment not required. Patient/Surrogate Stated/Verified: Patient name, Date of , Relevant allergies, and The intended procedure Time Out: Relevant labs, photos, and/or imaging studies have been reviewed. Intended patient and procedure match the source document(s) (e.g. consent, HANDP, associated studies [imaging, pathology]) match the intended patient and procedure. Consent obtained and matches the intended procedure. Yes. Correct side/site is not applicable. Medications required for this procedure are not applicable. Fire risk assessed and interventions discussed. Implants: are not applicable. Sign Out: Specimens are all correctly labeled and sent. All instruments, equipment, possible retained foreign bodies are accounted for. Yes. The post-procedure plan of care has been communicated to the patient or surrogate. PROCEDURE: EXTERNAL GENITALIA: Normal in appearance without lesions VAGINA: Normal in appearance without lesions CERVIX: Speculum placed in vagina and excellent visualization of cervix achieved. Cervix swabbed x 3 with 3% acetic acid solution. Cervix grossly normal. Squamocolumnar junction visualized. No acetowhite changes, punctations, mosaicism or atypical vasculature noted. BIOPSY: Not done. ECC: not done HEMOSTASIS: n/a Procedure Summary: Patient tolerated procedure well and colposcopy was adequate. ASSESSMENT: cervicitis PLAN: Repeat pap Karine Saucedo [facility]03-10-2025 History of Present illness Narrative* Karine Saucedo MD - 01/05/2025 1:08 PM EDT Muffler Installer offered: Patient declines. Selma is a 34 year old Female who presents today for a colposcopy. The patient's last pap smear was Positive HPV from October 2024. Patient has a history of abnormal pap: Yes. The patient has had prior treatment: none. test: negative STD testing also. Treated for trich however partner has not been treated UNIVERSAL PROTOCOL / SAFETY CHECKLIST Procedure to be Performed: Colpo Sign In: A Moment of CARE was completed. Appropriate PPE (Personal Protective Equipment) worn by all providers involved with the procedure. Special equipment not required. Patient/Surrogate Stated/Verified: Patient name, Date of , Relevant allergies, and The intended procedure Time Out: Relevant labs, photos, and/or imaging studies have been reviewed. Intended patient and procedure match the source document(s) (e.g. consent, H&P, associated studies [imaging, pathology]) match the intended patient and procedure. Consent obtained and matches the intended procedure. Yes. Correct side/site is not applicable. Medications required for this procedure are not applicable. Fire risk assessed and interventions discussed. Implants: are not applicable. Sign Out: Specimens are all correctly labeled and sent. All instruments, equipment, possible retained foreign bodies are accounted for. Yes. The post-procedure plan of care has been communicated to the patient or surrogate. PROCEDURE: EXTERNAL GENITALIA: Normal in appearance without lesions VAGINA: Normal in appearance without lesions CERVIX: Speculum placed in vagina and excellent visualization of cervix achieved. Cervix swabbed x 3 with 3% acetic acid solution. Cervix grossly normal. Squamocolumnar junction visualized. No acetowhite changes, punctations, mosaicism or atypical vasculature noted. BIOPSY: Not done. ECC: not done HEMOSTASIS: n/a Procedure Summary: Patient tolerated procedure well and colposcopy was adequate. ASSESSMENT: cervicitis PLAN: Repeat pap Karine Saucedo MD documented in this encounterWay[facility]02-07-[facility]25 Telephone encounter Note * Telephone Encounter - Isabel Rodriguez MA - 12/05/2024 11:41 AM EST Pt notified and voiced understanding. Isabel Rodriguez MA [facility]02-07-2025 Miscellaneous Notes* Telephone Encounter - Isabel Rodriguez MA - 12/05/2024 11:41 AM EST Pt notified and voiced understanding. Isabel Rodriguez MA * Telephone Encounter - Don Rosario MD - 12/05/2024 9:55 AM EST Not at this time. Practice is over full. * Telephone Encounter - Maday Jaimes - 12/05/2024 8:29 AM EST Pt last appt was 10/20/2001. Pt asking if Will is willing to take her back as she needs documentsfor 180 stating that she has been diagnosed with anxiety and is wanting to get back on medication. Pt was informed that since its been over 3 yrs since she has been seen she is now a new pts and [facility] is technically closed. Pt did not know she could use insurance as a ride to doctors appts and that's why she has not been in since then. Please advise if willing to accept pt back. Thank you documented in this encounterWayne Hospital02-07-2025 Telephone encounter Note * Telephone Encounter - Don Rosario MD - 12/05/2024 9:55 AM EST Not at this time. Practice is over full. [facility] Telephone encounter Note* Telephone Encounter - Maday Jaimes - 12/05/2024 8:29 AM EST Pt last appt was 10/20/2001. Pt asking if Will is willing to take her back as she needs documentsfor 180 stating that she has been diagnosed with anxiety and is wanting to get back on medication. Pt was informed that since its been over 3 yrs since she has been seen she is now a new pts and [facility]. Pt did not know she could use insurance as a ride to doctors appts and that's why she has not been in since then. Please advise if willing to accept pt back. Thank you [facility]01-24-[facility] Telephone encounter Note* Telephone Encounter - Tona Mack APRN.CNM - 11/21/2024 11:57 AM EST Order signed. Tona Mack APRN.CNM [facility]01-24-2025 Miscellaneous Notes* Telephone Encounter - Tona Mack APRN.CNM - 11/21/2024 11:57 AM EST Order signed. Tona Mack APRN.CNM * Telephone Encounter - Nikky Bruce RN - 11/14/2024 2:05 PM EST Patient notified and voiced understanding. Appointment scheduled. Please file pended colposcopy order. Nikky Bruce RN * Telephone Encounter - Nikky Bruce RN - 11/14/2024 2:05 PM EST ----- Message from Tona Mack APRN.CNM sent at 11/14/2024 1:01 PM EST ----- Pap smear abnormal. Recommend colposcopy 6 weeks after missed . Tona Mack APRN.CNM documented in this encounterWayne Hospital01-22-2025 NoteHNO ID: [id number] Author: LEONEL RIOJAS MD Service: ? Author Type: Physician Type: Progress Notes Filed: 11/19/2024 17:07 Note Text: Vasquez BP average 153/107 pulse 79 149/109 158/112 153/105 147/105 Second BP readings: 170/122 167/126 EARLY VISIT Selma Poon is a 34 year old here for 1 week visit. Delivery Summary: Delivery of second trimseter fetus at [facility] for IUFD ROS: General: Denies any fever or chills Hypertension Screening: Headache? Yes. Was it successfully treated with Tylenol? No, usually uses Ibuprofen to help with the headaches. Visual Changes? No Epigastric Pain? No Increased Swelling? No Taking any BP medications at home? No If applicable, monitoring BP at home? (If Yes, include results) No Mood: happiness and nervous Depression: denies symptoms of depression. OB Depression and Anxiety Screening- This Encounter (since 11/18/2024) None Bladder: No dysuria, gross hematuria, urinary frequency, urinary urgency, or incontinence Bowel symptoms: No nausea, vomiting, or diarrhea, Negative for abdominal discomfort, blood in stools or black stools, and change in bowel habits, does state she has heart burn. Abdomen: N/A Bleeding: no Bottom and Perineum: No issues Reviewed above SENSITIVE EXAM: Sensitive exam not performed. PHYSICAL EXAMINATION: LMP 06/27/2024 General: pleasant,female in no apparent distress, AANDO x 3. Skin warm and intact. ASSESSMENT AND PLAN: 34 year old status post vaginal delivery for 20 week loss (13 week size) Contraception plan: desires but BP elevalted. Reinforced 6-week pelvic rest. Encouraged condom usage should patient deviate. Education: resources provided - see MA/RN note I d/w her I am concerned for stroke risk. Hasn't been to PCP to have HTN treated in 2 years. Recommend she go to ED immediately. OFfered to call squad and she declines. D/ wher risk of stroke/disability/ w/ HTN at these ranges. F/u here in a week. retreat for trich partner wasn't treated and didn't get rxs. Follow up: Leonel Riojas, [facility]01-22-2025 History of Present illness Narrative* Leonel Riojas MD - 11/19/2024 2:37 PM EST Vasquez BP average 153/107 pulse 79 149/109 158/112 153/105 147/105 Second BP readings: 170/122 167/126 EARLY VISIT Selma Poon is a 34 year old here for 1 week visit. Delivery Summary: Delivery of second trimseter fetus at [facility] for IUFD ROS: General: Denies any fever or chills Hypertension Screening: Headache? Yes. Was it successfully treated with Tylenol? No, usually uses Ibuprofen to help with the headaches. Visual Changes? No Epigastric Pain? No Increased Swelling? No Taking any BP medications at home? No If applicable, monitoring BP at home? (If Yes, include results) No Mood: happiness and nervous Depression: denies symptoms of depression. OB Depression and Anxiety Screening- This Encounter (since 11/18/2024) None Bladder: No dysuria, gross hematuria, urinary frequency, urinary urgency, or incontinence Bowel symptoms: No nausea, vomiting, or diarrhea, Negative for abdominal discomfort, blood in stools or black stools, and change in bowel habits, does state she has heart burn. Abdomen: N/A Bleeding: no Bottom and Perineum: No issues Reviewed above SENSITIVE EXAM: Sensitive exam not performed. PHYSICAL EXAMINATION: LMP 06/27/2024 General: pleasant,female in no apparent distress, A&O x 3. Skin warm and intact. ASSESSMENT AND PLAN: 34 year old status post vaginal delivery for 20 week loss (13 week size) Contraception plan: desires but BP elevalted. Reinforced 6-week pelvic rest. Encouraged condom usage should patient deviate. Education: resources provided - see MA/RN note I d/w her I am concerned for stroke risk. Hasn't been to PCP to have HTN treated in 2 years. Recommend she go to ED immediately. OFfered to call squad and she declines. D/ wher risk of stroke/disability/ w/ HTN at these ranges. F/u here in a week. retreat for trich partner wasn't treated and didn't get rxs. Follow up: Leonel Riojas MD documented in this encounterWayne Hospital01-17-2025 Telephone encounter Note * Telephone Encounter - Nikky Bruce RN - 11/14/2024 2:05 PM EST Patient notified and voiced understanding. Appointment scheduled. Please file pended colposcopy order. Nikky Bruce RN [facility]01-17-2025 Telephone encounter Note* Telephone Encounter - Nikky Bruce RN - 11/14/2024 2:05 PM EST ----- Message from Tona Mack APRN.CNM sent at 11/14/2024 1:01 PM EST ----- Pap smear abnormal. Recommend colposcopy 6 weeks after missed . Tona Mack APRN.CNM [facility]01-16-2025 NoteHNO ID: [id number] Author: DEMI BLACKBURN RN Service: ? Author Type: Registered Nurse Type: Nursing Progress Note Filed: 11/13/2024 16:34 Note Text: Patient given non-perishable food items from food pantry prior to discharge. [facility]01-16-2025 NoteHNO ID: [id number] Author: DEMI BLACKBURN RN Service: ? Author Type: Registered Nurse Type: Nursing Progress Note Filed: 11/13/2024 16:33 Note Text: Remains taken to histology. Paperwork given for release to [facility] following. [facility]01-16-2025 NoteHNO ID: [id number] Author: JADEN HER LSW Service: Care Management Author Type: Humanities Professor Type: Care Mgt Progress Note Filed: 11/13/2024 11:38 Note Text: CARE MANAGEMENT DISCHARGE NOTE SERVICE DATE: 11/13/2024 SERVICE TIME: 11:37 AM LOS: 1 day Plan for patient to discharge to the community. Previous SW provided housing resources. approved a cab voucher to transport patient to an address she provided. [facility] contacted at 11:35. No Further SW needs. SIGNATURE: SHRUTI White PATIENT NAME: Selma Poon DATE: November 13, 2024 TIME: 11:37 AMYork [facility]01-16-2025 NoteHNO ID: [id number] Author: MEME FAULKNER MD Service: Obstetrics Author Type: Resident Type: Progress Notes Filed: 11/13/2024 04:45 Note Text: OBSTETRICS PROGRESS NOTE SERVICE DATE: November 13, 2024 SERVICE TIME: 4:44 AM ASSESSMENT: 34 year old female who is Day #1 status post Vaginal, Spontaneous delivery of demise. PLAN: Assessment AND Plan Missed - S/p vaginal delivery on 11/12 of missed measuring 13w5d - Pain is well controlled with current regimen - Minimal vaginal bleeding, appropriate - Hgb: 15.0; QBL 150 - Rh positive - Vital signs within normal limits - Appropriate for discharge this AM Homeless - Currently working with [email or web address] and [employer], living with a friend - Care management following History of hypertension - Normotensive since delivery - Asymptomatic - Recommend follow up with PCP after delivery for management of elevated BP Trichomonas infection - Continue Flagyl until 11/19 Plan of care discussed with: Provider, RN, Patient. Anticipate discharge day: PPD #1 SUBJECTIVE: Patient seen and examined at bedside with partner present. Reports that her pain is very well controlled and she has only noted minimal bleeding. Ambulating and urinating without difficulty. Is planning to leave the hospital after breakfast this morning. OBJECTIVE: PHYSICAL EXAM: Heart: RR Lungs: Comfortable on room air Abdomen: Soft Fundus firm below umbilicus, Non tender Extremities: No edema LAST VITALS: Pulse BP Resp O2 Sat Temp Pain 71 102/57 17 97 % 36.6 ?C (97.9 ?F) 0 Avg Min Max Vitals (last 12 hours) Flowsheet Row Name Average Min Max BP: Systolic 115 102 128 BP: Diastolic 69.50 57 82 Temp 36.4 ?C (97.6 ?F) 36.3 ?C (97.3 ?F) 36.6 ?C (97.9 ?F) Pulse 71 71 71 Resp 17 17 17 SpO2 97.5 % 97 % 98 % HT/WT/BMI: Height Weight BMI 157.5 cm (5' 2) 87.1 kg (192 lb) 35.12 LABS ABO/RH: 11/12/2024: O; Positive RUBELLA: HANDH: Hematocrit (%) Date Value 11/12/2024 44.9 Hemoglobin (g/dL) Date Value 11/12/2024 15.0 Diagnostic tests reviewed for today's visit: Most recent labs and imaging results. SIGNATURE: Meme Faulkner MD PATIENT NAME: Selma Poon DATE: November 13, 2024 TIME: 3:40 [facility]01-15-2025 NoteHNO ID: [id number] Author: DEMARIO MUSE RN Service: Nursing Author Type: Registered Nurse Type: Nursing Progress Note Filed: 11/12/2024 23:46 Note Text: [employer] notified at this time: reference number: [id number] NoteHNO ID: [id number] Author: MELO BENDER MD Service: Obstetrics Author Type: Resident Type: Progress Notes Filed: 11/12/2024 18:29 Note Text: Patient toelrating induction well. Pain well controlled with tylenol and toradol at this time. Cytotec #2 placed vaginally at 1830. Melo Bender MDABaton [facility]01-15-2025 NoteHNO ID: [id number] Author: ELVER SYED LSW Service: Care Management Author Type: Humanities Professor Type: Care Mgt Progress Note Filed: 11/12/2024 18:04 Note Text: CARE MANAGEMENT PROGRESS NOTE SERVICE DATE: 11/12/2024 SERVICE TIME: 2:00 PM LOS: 0 days Follow Up The patient reports she is working with [facility] for housing and has case management. The patient reports she is on 3 lists for housing. She is #1 in house list, #38 in [facility] list, and # 8 in [facility] list. The patient reports she is working with her rehabilitation caseworker to get housing. Social work offered support and encouragement. The patient reports she had hard time to get to hospital due transportation. The patient asked if we can help her at discharge get home. The patient reports will be okay and social work will continue to follow. The patients RN was updated and the patient denies any new concerns. SIGNATURE: SHRUTI Vázquez PATIENT NAME: Selma Poon DATE: November 12, 2024 TIME: 5:57 [facility]01-15-2025 NoteHNO ID: [id number] Author: DEMARIO RINALDI MD Service: Obstetrics Author Type: Resident Type: Progress Notes Filed: 11/12/2024 13:52 Note Text: 800 mcg buccal misoprostol administered at 1340 by RN. Plan for recheck and additional dose after 1640. Demario Rinaldi MD Pager # [phone] RN TESTING Resident PGY-3 11/12/2024 1:52 [facility]01-15-2025 NoteHNO ID: [id number] Author: CHRISSY MONROE MD Service: Obstetrics Author Type: Physician Type: Progress Notes Filed: 11/12/2024 10:48 Note Text: Mifepristone note I have reviewed the patient's history, laboratory studies, and imaging results and confirmed the diagnose of a non-viable intrauterine for this patient. This patient is a candidate for medical management of early loss or demise. The patient was counseled about the risks and benefits of the available management options and has chosen to proceed with mifepristone treatment. - The patient signed the mifepristone patient agreement form - The patient was provided a copy of the signed mifepristone patient agreement form - The patient signed the [facility] supplement consent form - The patient was provided with the guide for medication us Chrissy Monroe MD 510:48 [facility]01-15-2025 Telephone encounter Note * Telephone Encounter - Loren Zarate RN - 11/12/2024 8:49 AM EST Pt notified. Pt opts for EPT. Please address in REBECCA absence. Loren Zarate RN [facility]01-15-2025 Miscellaneous Notes* Telephone Encounter - Loren Zarate RN - 11/12/2024 8:49 AM EST Pt notified. Pt opts for EPT. Please address in REBECCA absence. Loren Zarate RN * Telephone Encounter - Loren Zarate RN - 11/12/2024 8:44 AM EST Expedited Partner Therapy (EPT) EPT is being prescribed today to the patient s partner(s) as the following conditions have been met: The intended recipient is a sexual partner of Selma Poon. Selma Poon has been diagnosed with trichomoniasis. Selma Poon reports that sexual partner is unable or unlikely to be evaluated or treated by a health professional. EPT is being prescribed for no more than two sexual partners. Selma Poon's sexual partner(s) have been contacted: Yes Sexual partner(s) have been informed by Pt that he may have been exposed to trichomoniasis. Sexual partner(s) have been encouraged to seek treatment and testing from a healthcare professional. Treatment options available have been explained. * Telephone Encounter - Loren Zarate RN - 11/12/2024 8:44 AM EST ----- Message from Tona Mack APRN.CNM sent at 11/11/2024 4:18 PM EST ----- Positive trichomonas. mychart message sent to patient for treatment information. Will treat with Flagyl 500mg PO BID x 7 days. Will need partners information for EPT. Tona Mack APRN.CNM [facility] Telephone encounter Note * Telephone Encounter - Loren Zarate RN - 11/12/2024 8:44 AM EST Expedited Partner Therapy (EPT) EPT is being prescribed today to the patient s partner(s) as the following conditions have been met: The intended recipient is a sexual partner of Selma Poon. Selma Poon has been diagnosed with trichomoniasis. Selma Poon reports that sexual partner is unable or unlikely to be evaluated or treated by a health professional. EPT is being prescribed for no more than two sexual partners. Selma Poon's sexual partner(s) have been contacted: Yes Sexual partner(s) have been informed by Pt that he may have been exposed to trichomoniasis. Sexual partner(s) have been encouraged to seek treatment and testing from a healthcare professional. Treatment options available have been explained. [facility]01-15-2025 Telephone encounter Note* Telephone Encounter - Loren Zarate RN - 11/12/2024 8:44 AM EST ----- Message from Tona Mack APRN.CNM sent at 11/11/2024 4:18 PM EST ----- Positive trichomonas. mychart message sent to patient for treatment information. Will treat with Flagyl 500mg PO BID x 7 days. Will need partners information for EPT. Tona Mack APRN.CNM [facility]01-15-2025 Instructions* Patient Instructions* Loren Zarate RN - 11/12/2024 8:44 AM EST Expedited Partner Treatment Trichomonas: Guide for Partners who Receive Metronidazole Why am I getting this prescription or medication? Trichomonas is a sexually transmitted infection (STI). Although some patients with trichomonas experience symptoms, many do not have any signs or symptoms. Symptoms of trichomonas can include: pain or burning when you pee, fluid/discharge from the vagina, penis, or rectum that smells or looks strange, or pain with sex. You can give trichomonas to others you have sex with; so, it is important to get treatment. Untreated trichomonas can lead to worsening symptoms and a higher chance of getting HIV. It is important to complete the entire treatment for this infection. What is the treatment for trichomonas? The prescription you are given today is for an oral antibiotic called metronidazole. Do NOT take this antibiotic if you have a severe allergy to metronidazole. This antibiotic can be taken with food to help prevent an upset stomach. Side effects can include nausea, vomiting, abdominal pain, diarrhea, metallic taste, and headache. If you experience any symptoms of an allergic reaction such as trouble breathing, chest tightness, closing of the throat, swelling of the lips or tongue, and itchy bumps on your skin, seek medical attention right away. What else should I do? Do not have sex for at least 7 days after you AND your sexual partner have been treated. See a healthcare provider for additional testing for other STIs, including HIV and syphilis. It is important to be tested for other STIs because this medication will only treat trichomonas. Using condoms correctly and consistently during sex is the best way to prevent other STIs. documented in this encounterWay[facility] Hospital01-13-2025 Telephone encounter Note * Telephone Encounter - Tona Mack APRN.KHARI - 11/10/2024 3:56 PM EST Thank you so much. Please follow up on and make sure we get a follow up visit made in about 1-2 weeks with patient. I am happy to see her. Tona Mack APRN.CNM [facility]01-13-2025 Miscellaneous Notes* Telephone Encounter - Tona Mack APRN.CNM - 11/10/2024 3:56 PM EST Thank you so much. Please follow up on and make sure we get a follow up visit made in about 1-2 weeks with patient. I am happy to see her. Tona Mack APRN.CNM * Telephone Encounter - Karine Kelly RN - 11/10/2024 3:10 PM EST Patient is now scheduled at [facility] on 11/12 @ 12:00 PM. Patient to arrive at 10:00 AM. Patient made aware. Karine Kelly RN * Telephone Encounter - Kelsey Cardenas RN - 11/10/2024 3:02 PM EST Spoke to Jazmyne. She may be able to be scheduled 11/12/24 at 12pm. She is going to check and will call the office back. Kelsey Cardenas RN * Telephone Encounter - Kelsey Cardenas RN - 11/10/2024 1:43 PM EST Left message for Jazmyne at [facility] to schedule IUFD induction for Sunday11/12/24 at 8am. Kelsey Cardenas RN documented in [facility] encounterWayne [facility]01-13-2025 NoteHNO ID: [id number] Author: MACK, TONA, DIRECTOR OF USER EXPERIENCE.CNM Service: ? Author Type: Clay Machine Operator Type: Progress Notes Filed: 11/10/2024 15:35 Note Text: Selma Poon is a 34 year old female who presents for problem visit demise. HPI: Presents today after NOB visit on 11/07/24 showing approximately 14-15 week demise with LMP age 19 weeks. Late to care. Light spotting on 11/07 but nothing since, no pain. Follow up today for formal dating of fetus and to discuss plan of care. On 11/07 discussed options with complex family planning physician Dr.Ashley Valles and option for DANDE or induction. Electing for induction of labor. OB History T3 L3 SAB1 IAB0 Ectopic0 Multiple0 Live Births3 [employer] History LMP: 06/27/2024, Age at Menarche: Age at First : Age at Menopause: [employer] History Comments: Sexual Activity: Yes; No partner data on record Contraception: No contraception data on record PAST MEDICAL HISTORY Diagnosis Date Eczema 04/30/2017 Generalized anxiety disorder 04/30/2017 Hypertension Irritable bowel syndrome with diarrhea 02/25/2020 Low blood potassium [facility] 2018,2020,2021 ER reports hemorrhage received 2 units of blood RLS (restless legs syndrome) 07/03/2020 Smoker 04/30/2017 Started at age 16 up to 1 PPD. Tachycardia 04/30/2017 W/u in past and placed on medication but made HR too slow and felt dizzy. PAST SURGICAL HISTORY Procedure Laterality Date APPENDECTOMY HX NEUROPLASTY AND/TRANSPOS MEDIAN NRV CARPAL TUNNE Bilateral 06/11/2020 Bilateral carpal tunnel release FAMILY HISTORY Problem Relation Age of Onset Diabetes Mother Hyperlipidemia Mother Bipolar disorder Mother Neuropathy Mother Hypertension Mother Stroke Father Colon Polyps Father No Known Problems Sister No Known Problems Sister No Known Problems Sister Heart Brother 16 No Known Problems Brother Psychiatry Maternal Grandmother Heart Attack Maternal Grandfather Kidney failure Maternal Grandfather No Known Problems Paternal Grandmother No Known Problems Paternal Grandfather Social History Tobacco Use Smoking status: Every Day Current packs/day: 1.00 Average packs/day: 1 pack/day for 10.0 years (10.0 ttl pk-yrs) Types: Cigarettes Smokeless tobacco: Never Vaping Use Vaping status: Never Used Substance Use Topics Alcohol use: Not Currently Comment: occasionly 1-2 cans 12 oz 1-2 times a month- not while Drug use: Never Current Outpatient Medications Medication Sig VITS 6-FFAJ-[id number]-DHA ORAL DAILY gabapentin (NEURONTIN) 300 mg capsule Take 1 capsule by mouth daily at bedtime for 180 days. No current facility-administered medications for this visit. Allergies As of Date: 11/10/2024 Allergen Noted Reaction LEXAPRO [ESCITALOPRAM] 07/03/2020 Other: See Comments REQUIP [ROPINIROLE] 07/03/2020 Other: See Comments Fully Assessed 11/07/2024 REVIEW OF SYSTEMS Abdomen: No bloating, early satiety, indigestion, or increased flatulence. No abdominal pain, nausea, vomiting, diarrhea, or constipation. Bladder: No dysuria, gross hematuria, urinary frequency, urinary urgency, or incontinence. Breast: No breast lumps, nipple d/c, overlying skin changes, redness or skin retraction. Expanded ROS: N/A Allergies and current medication updated:Yes EXAM: LMP 06/27/2024 GENERAL: pleasant, female in no apparent distress HEENT: Normocephalic and atraumatic NECK: Supple and full range of motion DERMATOLOGY: Normal and without lesions NEURO: alert and oriented x3,exam grossly non-focal EXTREMITIES: normal US today shows 13 week EGA, awaiting official results O positive, antibody screen negative ASSESSMENT AND PLAN: Assessment AND Plan demise before 20 weeks with retention of fetus Orders: INDUCTION LANDD -Reviewed options again with patient for induction of labor vs. DANDE. Discussed concerns with history of PPH and amount of time tissue has remained. She would like to proceed with induction of labor at this time. Consulted with and agrees with plan of care and to complete at [facility]. Homeless and issues with transportation. Will notify patient options for IOL at [facility]. Emotional support provided. Will follow up in office 1-2 weeks after delivery Tona Mack APRN.[facility]01-13-2025 History of Present illness Narrative* Tona Mack APRN.BILLY - 11/10/2024 3:29 PM EST Selma Poon is a 34 year old female who presents for problem visit demise. HPI: Presents today after NOB visit on 11/07/24 showing approximately 14-15 week demise with LMP age 19 weeks. Late to care. Light spotting on 11/07 but nothing since, no pain. Follow up today for formal dating of fetus and to discuss plan of care. On 11/07 discussed options with complex family planning physician Dr.Ashley Valles and option for D&E or induction. Electing forinduction of labor. OB History T3 L3 SAB1 IAB0 Ectopic0 Multiple0 Live Births3 [employer] History LMP: 06/27/2024, Age at Menarche: Age at First : Age at Menopause: [employer] History Comments: Sexual Activity: Yes; No partner data on record Contraception: No contraception data on record PAST MEDICAL HISTORY Diagnosis Date Eczema 04/30/2017 Generalized anxiety disorder 04/30/2017 Hypertension Irritable bowel syndrome with diarrhea 02/25/2020 Low blood potassium [facility] 2018,2020,2021 ER reports hemorrhage received 2 units of blood RLS (restless legs syndrome) 07/03/2020 Smoker 04/30/2017 Started at age 16 up to 1 PPD. Tachycardia 04/30/2017 W/u in past and placed on medication but made HR too slow and felt dizzy. PAST SURGICAL HISTORY Procedure Laterality Date APPENDECTOMY HX NEUROPLASTY &/TRANSPOS MEDIAN NRV CARPAL TUNNE Bilateral 06/11/2020 Bilateral carpal tunnel release FAMILY HISTORY Problem Relation Age of Onset Diabetes Mother Hyperlipidemia Mother Bipolar disorder Mother Neuropathy Mother Hypertension Mother Stroke Father Colon Polyps Father No Known Problems Sister No Known Problems Sister No Known Problems Sister Heart Brother 16 No Known Problems Brother Psychiatry Maternal Grandmother Heart Attack Maternal Grandfather Kidney failure Maternal Grandfather No Known Problems Paternal Grandmother No Known Problems Paternal Grandfather Social History Tobacco Use Smoking status: Every Day Current packs/day: 1.00 Average packs/day: 1 pack/day for 10.0 years (10.0 ttl pk-yrs) Types: Cigarettes Smokeless tobacco: Never Vaping Use Vaping status: Never Used Substance Use Topics Alcohol use: Not Currently Comment: occasionly 1-2 cans 12 oz 1-2 times a month- not while Drug use: Never Current Outpatient Medications Medication Sig VITS 5-LSIQ-LPXYR-DHA ORAL DAILY gabapentin (NEURONTIN) 300 mg capsule Take 1 capsule by mouth daily at bedtime for 180 days. No current facility-administered medications for this visit. Allergies As of Date: 11/10/2024 Allergen Noted Reaction LEXAPRO [ESCITALOPRAM] 07/03/2020 Other: See Comments REQUIP [ROPINIROLE] 07/03/2020 Other: See Comments Fully Assessed 11/07/2024 REVIEW OF SYSTEMS Abdomen: No bloating, early satiety, indigestion, or increased flatulence. No abdominal pain, nausea, vomiting, diarrhea, or constipation. Bladder: No dysuria, gross hematuria, urinary frequency, urinary urgency, or incontinence. Breast: No breast lumps, nipple d/c, overlying skin changes, redness or skin retraction. Expanded ROS: N/A Allergies and current medication updated:Yes EXAM: LMP 06/27/2024 GENERAL: pleasant, female in no apparent distress HEENT: Normocephalic and atraumatic NECK: Supple and full range of motion DERMATOLOGY: Normal and without lesions NEURO: alert and oriented x3,exam grossly non-focal EXTREMITIES: normal US today shows 13 week EGA, awaiting official results O positive, antibody screen negative ASSESSMENT AND PLAN: Assessment & Plan demise before 20 weeks with retention of fetus Orders: INDUCTION L&D -Reviewed options again with patient for induction of labor vs. D&E. Discussed concerns with history of PPH and amount of time tissue has remained. She would like to proceed with induction of labor at this time. Consulted with and agrees with plan of care and to complete at [facility]. Homeless and issues with transportation. Will notify patient options for IOL at [facility]. Emotional support provided. Will follow up in office 1-2 weeks after delivery Tona Mack APRN.CNM documented in [facility] encounterWayne [facility]01-13-2025 Telephone encounter Note * Telephone Encounter - Karine Kelly RN - 11/10/2024 3:10 PM EST Patient is now scheduled at [facility] on 11/12 @ 12:00 PM. Patient to arrive at 10:00 AM. Patient made aware. Karine Kelly RN [facility]01-13-2025 Telephone encounter Note* Telephone Encounter - Kelsey Cardenas RN - 11/10/2024 3:02 PM EST Spoke to Jazmyne. She may be able to be scheduled 11/12/24 at 12pm. She is going to check and will call the office back. Kelsey Cardenas RN [facility]01-13-2025 Telephone encounter Note* Telephone Encounter - Kelsey Cardenas RN - 11/10/2024 1:43 PM EST Left message for Jazmyne at [facility] to schedule IUFD induction for Sunday11/12/24 at 8am. Kelsey Cardenas RN [facility]01-10-2025 Telephone encounter Note* Telephone Encounter - Tona Mack APRN.CNM - 11/07/2024 3:50 PM EST She was going to get insurance for assistance. Thanks, Tona Mack APRN.CNM [facility] Work Phone: [phone] 427-331701-10-2025 Miscellaneous Notes* Telephone Encounter - Tona Mack APRN.CNM - 11/07/2024 3:50 PM EST She was going to get insurance for assistance. Thanks, Tona Mack APRN.CNM * Telephone Encounter - Kelsey Cardenas RN - 11/07/2024 3:38 PM EST Patient notified and scheduled for 11am Sunday11/10/24. She is worried about transportation and will call back if unable to get a ride. If no ride available next dating u/s opening not until now. Kelsey Cardenas RN * Telephone Encounter - Tona Mack APRN.CNM - 11/07/2024 2:47 PM EST Please assist patient in scheduling ultrasound for dating and missed prior to induction. I am working on induction plan for her but want this to get scheduled Sunday please. Tona Mack APRN.CNM * Telephone Encounter - Natasha Castro MA - 10/17/2024 12:43 PM EST Attempted to contact patient to go over new ob intake question. No answer. Left a voice mail. Natasha Castro MA documented in this encounterWayne Hospital01-10-2025 Telephone encounter Note * Telephone Encounter - Kelsey Cardenas RN - 11/07/2024 3:38 PM EST Patient notified and scheduled for 11am Sunday11/10/24. She is worried about transportation and will call back if unable to get a ride. If no ride available next dating u/s opening not until now. Kelsey Cardenas RN [facility]01-10-2025 Telephone encounter Note* Telephone Encounter - Tona Mack APRN.CNM - 11/07/2024 2:47 PM EST Please assist patient in scheduling ultrasound for dating and missed prior to induction. I am working on induction plan for her but want this to get scheduled Sunday please. Tona Mack APRN.CNM [facility]01-10-2025 NoteHNO ID: [id number] Author: TONA MACK APRN.KHARI Service: ? Author Type: Clay Machine Operator Type: Progress Notes Filed: 11/10/2024 15:44 Note Text: INITIAL OB ASSESSMENT HPI: Selma is a 34 year old White Female here to establish Obstetrical Care. Patient's last menstrual period was 04/29/2024 (approximate). from OB Dating Form. was unplanned but accepted. Was incarcerated for 30 days but got out at this time. Homeless and living with a friend. States she does not have custody of her other children due to being homeless. OB History T3 L3 SAB1 IAB0 Ectopic0 Multiple0 Live Births3 T3 L3 SAB1 IAB0 Ectopic0 Multiple0 Live Births3 # 1 - Date: 11/23/15, Sex: Female, Weight: 3.26 kg (7 lb 3 oz), GA: 41w0d, Type: Dilation and Evacuation (DANDE), Apgar1: None, Apgar5: None, Living: Living, Comments: AROM, O2 during delivery # 2 - Date: 02/09/18, Sex: Female, Weight: 2.807 kg (6 lb 3 oz), GA: 40w0d, Type: Vaginal, Spontaneous, Apgar1: None, Apgar5: None, Living: Living, Comments: SROM, loose nuchal cord x 1, MSF,200cc, does not custody # 3 - Date: 07/22/21, Sex: Male, Weight: 2.75 kg (6 lb 1 oz), GA: 40w0d, Type: Vaginal, Spontaneous, Apgar1: None, Apgar5: None, Living: Living, Comments: Pt states she received 2 units of blood-PP hemorrhage-no custody # 4 - Date: 06/23/22, Sex: None, Weight: None, GA: None, Type: SPONTANEOUS , Apgar1: None, Apgar5: None, Living: None, Comments: None # 5 - Date: None, Sex: None, Weight: None, GA: None, Type: None, Apgar1: None, Apgar5: None, Living: None, Comments: None Previous history: Prior : No History of 4th degree laceration: No History of shoulder dystocia: No History of Hypertensive disorders including pre-eclampsia or gestational hypertension: Yes History of gestational diabetes: No Patient's Risk Screening for delivery: Have you had a prior bui between 20w and 36w6d? No How many pregnancies have you had before? 4 Did you have a previous baby with a GBS Infection? No Please select all that apply for any prior : N/A MEDICAL/PSYCHOSOCIAL HISTORY: History of hemorrhage or bleeding concerns: No Thyroid Disease: No History of chronic hypertension: No History of pre-existing diabetes: No BMI 35.12 kg/(m2) Last Pap: History of abnormal pap: No Prior treatment for cervical dysplasia: none. Last HPV: History of STDs: N/A Partner History of STDs: None Did you have a partner with Herpes? No Tobacco use: Yes E-Cigarette/Vaping Use: Yes Caffeine use: No Drug use: No Alcohol use: No Multivitamin with Folic acid: Yes Would refuse blood transfusion if medically necessary: No Social Needs: How often does this describe you? I don't have enough money to pay my bills: Often Within the past 12 months, have you worried that your food would run out before you had money to buy more? Sometimes In the past 12 months, has lack of reliable transportation kept you from going to medical appointments or work, or from getting things needed for daily living? Often In the past 12 months, have you had any concerns about having a place to live, or about the condition or quality of your housing? Often Would you like more information on any of the following (please check all that apply)? Not interested Social History: Do you have any history of depression, anxiety, PTSD, or other mood problems? Yes Do you have a history of abuse or trauma that may impact your experience? No Are you currently employed? No Depression/Anxiety Screening: denies symptoms of depression. OB Depression and Anxiety Screening- This Encounter (since 11/06/2024) Over the past 2 weeks have you felt down, depressed, or hopeless? Negative Over the past two weeks, have you felt little interest or pleasure in doing things?? Negative Feeling nervous, anxious or on edge 3-Nearly every day Not being able to stop or control worrying 3-Nearly every day Anxiety Pre-Screening Total (If >/= 3 additional questions will be reviewed) 6 Worrying too much about different things 2-More than half the days Trouble relaxing 3-Nearly every day Being so restless that it is hard to sit still 3-Nearly every day Becoming easily annoyed or irritable 0-Not al all Feeling afraid, as if something awful might happen 0-Not al all Anxiety (FABIANA) Full Screening Total 14 Genetic Screening: Partner present: No Patient verbalized knowledge of partner family health history: Yes Do you or your partner have any personal or family history of defects not previously discussed: No Do you have history of a complicated by anomaly, genetic condition, or demise: No Preeclampsia Risk Screening: Screening for prevention of preeclampsia: High risk factors: Chronic hypertension Moderate risk ractors: Obesity (b (more content not included)...[facility]01-10-2025 History of Present illness Narrative* Tona Mack APRN.BILLY - 11/07/2024 1:03 PM EST Images from the original note were not included. INITIAL OB ASSESSMENT HPI: Selma is a 34 year old White Female here to establish Obstetrical Care. Patient's last menstrual period was 04/29/2024 (approximate). from OB Dating Form. was unplanned but accepted. Was incarcerated for 30 days but got out at this time. Homeless and living with a friend. States she does not have custody of her other children due to being homeless. OB History T3 L3 SAB1 IAB0 Ectopic0 Multiple0 Live Births3 T3 L3 SAB1 IAB0 Ectopic0 Multiple0 Live Births3 # 1 - Date: 11/23/15, Sex: Female, Weight: 3.26 kg (7 lb 3 oz), GA: 41w0d, Type: Dilation and Evacuation (D&E), Apgar1: None, Apgar5: None, Living: Living, Comments: AROM, O2 during delivery # 2 - Date: 02/09/18, Sex: Female, Weight: 2.807 kg (6 lb 3 oz), GA: 40w0d, Type: Vaginal, Spontaneous, Apgar1: None, Apgar5: None, Living: Living, Comments: SROM, loose nuchal cord x 1, MSF,200cc, does not custody # 3 - Date: 07/22/21, Sex: Male, Weight: 2.75 kg (6 lb 1 oz), GA: 40w0d, Type: Vaginal, Spontaneous, Apgar1: None, Apgar5: None, Living: Living, Comments: Pt states she received 2 units of blood-PP hemorrhage-no custody # 4 - Date: 06/23/22, Sex: None, Weight: None, GA: None, Type: SPONTANEOUS , Apgar1: None, Apgar5: None, Living: None, Comments: None # 5 - Date: None, Sex: None, Weight: None, GA: None, Type: None, Apgar1: None, Apgar5: None, Living: None, Comments: None Previous history: Prior : No History of 4th degree laceration: No History of shoulder dystocia: No History of Hypertensive disorders including pre-eclampsia or gestational hypertension: Yes History of gestational diabetes: No Patient's Risk Screening for delivery: Have you had a prior bui between 20w and 36w6d? No How many pregnancies have you had before? 4 Did you have a previous baby with a GBS Infection? No Please select all that apply for any prior : N/A MEDICAL/PSYCHOSOCIAL HISTORY: History of hemorrhage or bleeding concerns: No Thyroid Disease: No History of chronic hypertension: No History of pre-existing diabetes: No BMI 35.12 kg/(m^2) Last Pap: History of abnormal pap: No Prior treatment for cervical dysplasia: none. Last HPV: History of STDs: N/A Partner History of STDs: None Did you have a partner with Herpes? No Tobacco use: Yes E-Cigarette/Vaping Use: Yes Caffeine use: No Drug use: No Alcohol use: No Multivitamin with Folic acid: Yes Would refuse blood transfusion if medically necessary: No Social Needs: How often does this describe you? I don't have enough money to pay my bills: Often Within the past 12 months, have you worried that your food would run out before you had money to buy more? Sometimes In the past 12 months, has lack of reliable transportation kept you from going to medical appointments or work, or from getting things needed for daily living? Often In the past 12 months, have you had any concerns about having a place to live, or about the condition or quality of your housing? Often Would you like more information on any of the following (please check all that apply)? Not interested Social History: Do you have any history of depression, anxiety, PTSD, or other mood problems? Yes Do you have a history of abuse or trauma that may impact your experience? No Are you currently employed? No Depression/Anxiety Screening: denies symptoms of depression. OB Depression and Anxiety Screening- This Encounter (since 11/06/2024) Over the past 2 weeks have you felt down, depressed, or hopeless? Negative Over the past two weeks, have you felt little interest or pleasure in doing things? Negative Feeling nervous, anxious or on edge 3-Nearly every day Not being able to stop or control worrying 3-Nearly every day Anxiety Pre-Screening Total (If >/= 3 additional questions will be reviewed) 6 Worrying too much about different things 2-More than half the days Trouble relaxing 3-Nearly every day Being so restless that it is hard to sit still 3-Nearly every day Becoming easily annoyed or irritable 0-Not al all Feeling afraid, as if something awful might happen 0-Not al all Anxiety (FABIANA) Full Screening Total 14 Genetic Screening: Partner present: No Patient verbalized knowledge of partner family health history: Yes Do you or your partner have any personal or family history of defects not previously discussed: No Do you have history of a complicated by anomaly, genetic condition, or demise: No Preeclampsia Risk Screening: Screening for prevention of preeclampsia: High risk factors: Chronic hypertension Moderate risk ractors: Obesity (body mass index greater than 30) and Sociodemographic characteristics ( race, low socioeconomic status) OB Risk Screening: Completed, no positive findings documented. Marital Status:Single Partner: Name: Isaac Kirkland Age: 38 Occupation: Construction Gender: Male PAST MEDICAL HISTORY Diagnosis Date Eczema 04/30/2017 Generalized anxiety disorder 04/30/2017 Hypertension Irritable bowel syndrome with diarrhea 02/25/2020 Low blood potassium [facility] 2018,2020,2021 ER reports hemorrhage received 2 units of blood RLS (restless legs syndrome) 07/03/2020 Smoker 04/30/2017 Started at age 16 up to 1 PPD. Tachycardia 04/30/2017 W/u in past and placed on medication but made HR too slow and felt dizzy. PAST SURGICAL HISTORY Procedure Laterality Date APPENDECTOMY HX NEUROPLASTY &/TRANSPOS MEDIAN NRV CARPAL TUNNE Bilateral 06/11/2020 Bilateral carpal tunnel release Current Outpatient Medications Medication Sig Dispense Refill VITS [id number] ORAL DAILY gabapentin (NEURONTIN) 300 mg capsule Take 1 capsule by mouth daily at bedtime for 180 days. 30 capsule 5 No current facility-administered medications for this visit. Allergies As of Date: 11/07/2024 Allergen Noted Reaction LEXAPRO [ESCITALOPRAM] 07/03/2020 Other: See Comments REQUIP [ROPINIROLE] 07/03/2020 Other: See Comments Fully Assessed 11/07/2024 Does patient have penicillin allergy: No REVIEW OF SYSTEMS: GENERAL: Negative for: Fever or Chills HEENT: Negative for: Impaired Vision,Nosebleeds. Gets headaches and ringing in the ears at times. NECK: Negative for: Swelling, Pain, Stiffness RESPIRATORY: Negative for: Cough, Shortness of breath, Wheezing GASTROINTESTINAL: Negative for: Heartburn, Constipation, Diarrhea, Blood in stool, Vomiting MUSCULOSKELETAL: Negative for: Muscle or joint pain, stiffness, Joint swelling NEUROLOGIC/PSYCHIATRIC: Negative for: Weakness, Paralysis, Numbness, Tingling, Tremor, Anxiety, Depression, Memory loss SKIN: Negative for: Rash, Itching GENITOURINARY: Negative for: vaginal itching, vaginal discharge, hematuria or dysuria SENSITIVE EXAM: The sensitive examination was discussed with the Patient or Patient's Authorized Dean Of Instruction. As applicable, any other physician, advance practice provider, medical student, or other health professional student that will be observing or involved in the sensitive examination for educational or training purposes was discussed with the Patient or Authorized Dean Of Instruction. The Patient or Authorized Dean Of Instruction has agreed to proceed with the sensitive examination. (Sensitive examination includes inspection and/or palpation of the breasts, pelvis, prostate and anorectal regions). PHYSICAL EXAM: BP 124/78 Ht 157.5 cm (5' 2) Wt 87.1 kg (192 lb) LMP 06/27/2024 No BMI 35.12 kg/m GENERAL: pleasant in no apparent distress DERMATOLOGY: Normal, without lesions, non-icteric, and non-hirsute NECK: Supple, full range of motion, no adenopathy, and thyroid normal CHEST: Normal inspiratory effort BREAST: soft, non-tender, symmetric, no dominant mass, normal nipple-areolar complex, no lymphadenopathy, and no nipple discharge ABDOMEN: soft, non-tender, and no masses NEURO: alert and oriented x3,exam grossly non-focal PELVIS: External genitalia normal without lesions. Perineal body intact. No vaginal or cervical lesions. Cervix closed. Uterus 14 week size. No adnexal masses or tenderness. Clinical Pelvimetry: Pelvimetry clinically assessed as adequate Limited OB ultrasound exam: present at bedside for ultrasound. No movement or heart rate. Color Flow negative. Femur 15weeks AC 15 weeks BPD 14 weeks SBIRT Selma Bob Peralespatty was given the 4P's screening tool. Selma answered as follows: OB Opioid Screening - Last Recorded (since 02/11/2024) Did any of your parents have a problem with alcohol or other drug use? Yes mother and father-drugs and ETOH Does your partner have a problem with alcohol or other drug use? No In the past, have you had difficulties in your life because of alcohol or other drugs, including prescription medications? No In the past month have you drunk any alcohol or used other drugs? No Are you taking medication for pain during the either prescribed or not? No Based on the screen and further questions, she is considered at Low risk due to:No past or current use. Positive reinforcement of current behavior. Plan to rescreen early third trimester. Tona Mack APRN.CNM ASSESSMENT: 34 year old at 19w wks gestational age Problem List Items Addressed This Visit Encounter for screening for maternal depression Overview States she does not have depression but EPDS=14. States she is not on medication at this time. Denies any thoughts of self harm, harm to others, or SI/HI ideations. Tona Mack APRN.CNM Family history of congenital anomaly Overview Patient's half brother born with enlarged heart. Had corrective surgery at age 14. demise before 20 weeks with retention of fetus Overview 11/10/24-13wk EGA, demise, awaiting formal report. Tona Mack APRN.CNM 11/07/24- demise identified at 19 week NOB appointment. BPD 15wk, AC 14wk per limited bedside US. Tona Mack APRN.CNM History of hypertension Overview 11/07/24-History of hypertension but states she has not been on medication for 2 years. Previously took Metoprolol per patient. BP stable today. Denies history of preeclampsia or GHTN. She then statesthat she had high blood pressure diagnosed in 2020. States she has not taken medication in the last 1- 1/2 years because she has not followed up with her PCP. There is a phone note April for patient to contact Dr. Rosario's office to schedule appointment for hypertension. Patient did not follow-up. BP normal for NOB visit. Tona Mack APRN.CNM History of hemorrhage Overview 11/07/24-Patient states she has a history of hemorrhage received 2 units of blood after her last delivery at [facility]. Tona Mack APRN.CNM Homeless Overview 11/07/24-Homeless and currently staying at a friends apartment. Working with [email or web address] and [employer].Does not have custody of any of her children due to homelessness per patient. Tona Mack APRN.CNM Late care affecting in second trimester Overview 11/07/24-Patient was incarcerated at the [facility] assisted. Patient states that she will be releasedlater this week. At this time she has no home to go to. Currently working with [email or web address] and [employer]. Does not have custody of any of her children due to homelessness per patient. Tona Mack APRN.CNM Lost custody of children Overview 11/07/24-Does not have custody of any of her children due to homelessness per patient. Tona Mack APRN.CNM Maternal tobacco use in second trimester Overview Pt smokes 1/2 pack a day of cigarettes. Discussed risks of smoking during . Advised pt to quit. Supervision of other high risk pregnancies, second trimester Other Tachycardia Overview Patient states she has a history of tachycardia diagnosed sometime between 2014 and 2016 in [place]. She states she discontinued the medication because she felt it made her anxiety worse. She states she last saw clinic nurse in [place] in 2017. Other Visit Diagnoses with uncertain dates, antepartum - Primary Relevant Orders ANEMIA REFLEX PANEL (Completed) TYPE + SCREEN (Completed) HEMOGLOBIN A1C (Completed) BACTERIAL CULTURE, URINE (Completed) BACTERIAL VAGINOSIS NAAT (Completed) PRUDENCIO/TRICHOMONAS NAAT (Completed) GONORRHEA/CHLAMYDIA NAAT (Completed) PAP TEST HIGH RISK HUMAN PAPILLOMA VIRUS (HPV), PCR FOR DETECTION AND GENOTYPING Screening for cervical cancer Relevant Orders PAP TEST HIGH RISK HUMAN PAPILLOMA VIRUS (HPV), PCR FOR DETECTION AND GENOTYPING Screening for human papillomavirus (HPV) Relevant Orders PAP TEST HIGH RISK HUMAN PAPILLOMA VIRUS (HPV), PCR FOR DETECTION AND GENOTYPING Consulted with and she completed bedside US. Recommended consultation with complex family planning and I spoke with Dr.Ashley Valles. Recommended formal ultrasound for dating and then hasthe option for D&E or induction of labor. I called and spoke with patient and she desires IOL. Will follow up after US and schedule induction. Emotional support provided. Tona Mack APRN.CNM [facility] Instructions* Patient Instructions* Tona Mack APRN.CNM - 11/07/2024 1:03 PM EST MISCARRIAGE A miscarriage, also called spontaneous , is the spontaneous ending of a before the fetus is mature enough to survive outside the uterus. About one-third of all pregnancies end in miscarriage, most often before a woman misses a menstrual period or even knows she is . A miscarriage is most likely to occur within the first three months of , before 20 weeks gestation. Only one percent of miscarriages occur after 20 weeks gestation; these are termed late miscarriages. What are the symptoms of a miscarriage? Symptoms of a miscarriage include: Bleeding which progresses from light to heavy Cramps Abdominal pain Fever Weakness Vomiting Back pain If you are experiencing the symptoms listed above, contact your obstetric health care provider right away. He or she will tell you to come in to the office or go to the emergency room. What causes miscarriage? About half of all miscarriages that occur in the first trimester are caused by chromosomal abnormalities, which may be hereditary or spontaneous, in the father s sperm or the mother s egg. Chromosomes are tiny structures inside the cells of the body which carry many genes, the basic units of heredity. Genes determine all of a person s physical attributes, such as sex, hair and eye color and blood type. Most chromosomal problems occur by chance and are not related to the mother s or father s health. Miscarriages are also caused by a variety of unknown and known factors, such as: Infection Exposure to environmental and workplace hazards such as high levels of radiation or toxic agents Hormonal irregularities Uterine abnormalities Incompetent cervix (the cervix begins to widen and open too early, in the middle of , without signs of pain or labor) Lifestyle factors such as smoking, drinking alcohol or using illegal drugs Disorders of the immune system including lupus, an autoimmune disease Severe kidney disease Congenital heart disease Diabetes that is not controlled Thyroid disease Radiation Certain medications, such as the acne drug Accutane Severe malnutrition Bacterial vaginosis - most likely due to preexisting endometriosis that can affect implantation or early embryo development Group B beta strep Note: there is no proof that stress or physical or sexual activity causes miscarriage. Sometimes, treatment of a mother s illness can improve the chances for a successful . What are the risk factors for a miscarriage? A risk factor is a trait or behavior that increases a person s chance of developing a disease or predisposes a person to a certain condition. Risk factors for miscarriage include the above and: Maternal age: Studies show that the risk of miscarriage is 12 to 15% for women in their 20s and rises to about 25% for women at age 40. The increased incidence of chromosomal abnormalities contributes to the age-related risk of miscarriage. How is a miscarriage diagnosed and treated? Your health care provider will perform a pelvic exam and an ultrasound test to confirm the miscarriage. If the miscarriage is complete and the uterus is clear, then no further treatment is usually required. Occasionally, the uterus is not completely emptied, so a dilation and curettage (D&C) ordilation and extraction (D&E) procedure is performed. During these procedures, the cervix is dilated and any remaining or placental tissue is gently scraped or suctioned out of the uterus. If a miscarriage was not confirmed, but you had symptoms of a miscarriage, bed rest is often prescribed for several days, and you may be admitted to the hospital overnight for observation. When the bleeding stops, usually you will be able to continue with your normal activities. If the cervix is dilated, you may be diagnosed with an incompetent cervix and a procedure to close the cervix (called cerclage) may be performed. Blood tests, genetic tests or medication may be necessary if a woman has more than two miscarriagesin a row (called repeated miscarriage). Some diagnostic procedures used to evaluate the cause of repeated miscarriage include: endometrial biopsy, hysterosalpinogram (an X-ray of the uterus and fallopian tubes), hysteroscopy (a test in which the doctor views the inside of the uterus with a thin, telescope-like device) and laparoscopy (a procedure in which the doctor views the pelvic organs with alighted device). What are some of the symptoms after a miscarriage? Spotting and mild discomfort are common symptoms after a miscarriage. If you have heavy bleeding, fever, chills or pain, contact your health care provider right away. These may be signs of an infection. Can I get after I ve had a miscarriage? Yes. Most women (87%) who have miscarriages have subsequent normal pregnancies and births. Having amiscarriage does not necessarily mean you have a fertility problem. But about 1 percent of women may have repeated miscarriages (three or more). Some researchers believe this is related to an autoimmune response. Discuss the timing of your next with your health care provider. Some health care providers recommend waiting a certain amount of time (from one menstrual cycle to 3 months) before trying to conceive again. To prevent another miscarriage, your health care providermay recommend treatment with progesterone, a hormone needed for implantation in the uterus. Taking time to heal both physically and emotionally after a miscarriage is important. Above all, don t blame yourself for the miscarriage. Counseling is available to help you cope with your loss. loss support groups may also be a valuable resource to you and your partner. Ask your health care provider for more information about counseling and support groups. If you ve had two miscarriages in a row, you should stop trying to conceive, use a form of control and ask your health care provider to perform diagnostic tests to determine the cause of the miscarriages. Can a miscarriage be prevented? Usually a miscarriage can not be prevented and often occurs because the is not normal. Sometimes, treatment of a mother s illness can improve the chances for a successful . This information is provided by the [facility] and is not intended to replace the medical advice of your doctor or health care provider. Please consult your health care provider for advice about a specific medical condition. For additional written health information, please contact the [facility] at the [facility] or toll-free extension [phone] or visit [email or web address] Please select the following link to access the [facility] Your Guide to a Healthy . [email or web address] documented in this encounterWayne Hospital01-05-2025 Hospital Discharge instructions Patient Education 11/02/2024 18:01:36 Palpitations Heart Palpitations Palpitations are the feeling that your heart is beating hard, fast, or irregular. Some describe it as pounding or skipped beats. Palpitations may occur in someone with heart disease, but can alsooccur in a healthy person. Heart-related causes: Arrhythmia (a change from the heart's normal rhythm) Heart valve disease Disease of the heart muscle Coronary artery disease High blood pressure Emr-lmzna-ksmlhjf causes: Certain medicines such as asthma inhalers and decongestants Some herbal supplements, energy drinks and pills, and weight loss pills Illegal stimulant drugs such as cocaine, crank, methamphetamine, PCP, bath salts, or ecstasy Caffeine, alcohol, and tobacco Medical conditions such as thyroid disease, anemia, anxiety, and panic disorder Sometimes the cause can't be found. Home care Follow these home care tips: Don't use too much caffeine, alcohol, tobacco, or any stimulant drugs. Tell your doctor about any prescription or waya-xdi-qlpydzz or herbal medicines you take. Follow-up care Follow up with your doctor, or as advised. Call 911 This is the fastest and safest way to get to the emergency department. The paramedics can also begin treatment on the way to the hospital, if needed. Don't wait until your symptoms are severe to call 911. These are reasons to call 911: Chest pain Shortness of breath Feeling lightheaded, faint, or dizzy Fainting or loss of consciousness Very irregular heartbeat Rapid heartbeat that makes you uncomfortable Slower than usual heart rate associated with symptoms Slower than usual heart rate Chest pain with weakness, dizziness, heavy sweating, nausea, or vomiting Extreme drowsiness or confusion Weakness of an arm or leg, or on 1 side of the face Difficulty with speech or vision When to seek medical advice Call your healthcare provider right away if you have palpitations and any of the following: Weakness Dizziness Lightheadedness Fainting [id number] [employer]. [address] [place] [address]. All rights reserved. This information is not intended as a substitute for professional medical care. Always follow yourhealthcare professional's instructions. Follow Up Care 11/02/2024 15:38:05 With:Your RN TESTING Address:Unknown When:11/03/2024 Comments:Schedule appointment as soon as possibleReturn to ED if symptoms worsenFollow-up for outpatient monitor is soon as possibleStop Tomer With:DON ROSARIO Address: [address], [place] [address]- Business (1) When:11/03/2024 Comments:Schedule appointment as soon as possibleReturn to ED if symptoms worsenFollow-up for outpatient monitor as soon as possibleop [facility] 01-05-2025 Note Discharge Instructions Thank you for allowing [facility] to assist you with your healthcare needs. The following is importantdischarge information regarding your hospital visit. Diagnosis from Today's Visit Palpitations What to Do Next Instructions from Your Care Team No qualifying data available. Post Acute Orders No qualifying data available. You Need to Schedule the Following Appointments Follow Up with Your RN TESTING When:11/03/2024 12:00 AM EST Additional Information: Schedule appointment as soon as possible Return to ED if symptoms worsen Follow-up for outpatient monitor is soon as possible Stop Benadryl Follow Up with DON ROSARIO When:11/03/2024 12:00 AM EST Where:[address] [place] [address] [facility] (1) Additional Information: Schedule appointment as soon as possible Return to ED if symptoms worsen Follow-up for outpatient monitor as soon as possible Stop Benadryl Allergies NKA Medications Please ask your primary doctor or pharmacist before taking any other medication not listed, including over the counter drugs, herbal medications, vitamins and or supplements as they may interact withyour home medications. What How Much When Instructions Last Dose Unchanged acetaminophen (Tylenol) 1,000 Milligram by mouth Every 6 hours Unchanged albuterol (albuterol MDI (90 mcg/ inh) CFC free inhalation aerosol) 1 puff(s) by inhalation Every 6 hours as needed for as needed for wheezing Unchanged cyclobenzaprine (cyclobenzaprine 10 mg oral tablet) take 1 tablet by mouth three times a day for if needed for muscle spasm Unchanged ibuprofen (Motrin) 800 Milligram by mouth Every 6 hours Unchanged naproxen (naproxen 500 mg oral delayed release tablet) take 1 tablet by mouth twice a day with meals Please take this list to your next doctor s visit. Bring all medications you take, including over the counter medications, herbals and other supplements with you to your doctor s visit. Patients and families are reminded to discard old lists and to update any records with all medication providers or retail pharmacies. Education Materials Heart Palpitations Palpitations are the feeling that your heart is beating hard, fast, or irregular. Some describe it as pounding or skipped beats. Palpitations may occur in someone with heart disease, but can alsooccur in a healthy person. Heart-related causes: Arrhythmia (a change from the heart's normal rhythm) Heart valve disease Disease of the heart muscle Coronary artery disease High blood pressure Dpv-pfddc-dfkztqt causes: Certain medicines such as asthma inhalers and decongestants Some herbal supplements, energy drinks and pills, and weight loss pills Illegal stimulant drugs such as cocaine, crank, methamphetamine, PCP, bath salts, or ecstasy Caffeine, alcohol, and tobacco Medical conditions such as thyroid disease, anemia, anxiety, and panic disorder Sometimes the cause can't be found. Home care Follow these home care tips: Don't use too much caffeine, alcohol, tobacco, or any stimulant drugs. Tell your doctor about any prescription or utda-aot-blnskkl or herbal medicines you take. Follow-up care Follow up with your doctor, or as advised. Call 911 This is the fastest and safest way to get to the emergency department. The paramedics can also begin treatment on the way to the hospital, if needed. Don't wait until your symptoms are severe to call 911. These are reasons to call 911: Chest pain Shortness of breath Feeling lightheaded, faint, or dizzy Fainting or loss of consciousness Very irregular heartbeat Rapid heartbeat that makes you uncomfortable Slower than usual heart rate associated with symptoms Slower than usual heart rate Chest pain with weakness, dizziness, heavy sweating, nausea, or vomiting Extreme drowsiness or confusion Weakness of an arm or leg, or on 1 side of the face Difficulty with speech or vision When to seek medical advice Call your healthcare provider right away if you have palpitations and any of the following: Weakness Dizziness Lightheadedness Fainting [phone] [employer]. [address] [place] [address], [place] [address]. All rights reserved. This information is not intended as a substitute for professional medical care. Always follow yourhealthcare professional's instructions. Additional Information VACCINATE! IT SAVES LIVES! Members of the community who have not yet received the COVID-19 vaccine and would like to receive it can visit one of [facility] vaccine clinics. There are many vaccine clinic locations within the [facility]. For locations and available times, please visit [email or web address] It is important to note that some COVID mobile vaccine clinics are held outdoors and may be canceled in rainy or stormy conditions. To learn more about pediatric vaccinations (ages 5-11), we invite you to visit the [facility] webpage. [email or web address]/[email or web address] [email or web address] learn more about the COVID-19 vaccine, we invite you to visit the CDC website for a list of frequently asked questions. https://www.cdc.gov/coronavirus/2019-ncov/vaccines/faq.html [facility] Patient Portal Access Instructions: Stay connected with your healthcare team and access your personal medical information anytime with the [facility] Patient Portal. If you would like a full copy of your medical records please contact the [facility] Medical Records Department Sunday through Sunday between 8a.m. and 4:30p.m. Please follow the directions below to access the portal: 1.Access the email account you provided upon registration to the hospital.2.Look for an invitation email from [facility].3.Open the email and access the invitation link: Accept Invitation to [facility]4.Fill in the required dorsey to create your account. Sign into [email or web address] with your username and password that you created in the above steps to stay up to date. You can then view a summary of results, a summary of your visits, and the ability to download your summaries to your computer or send the information securely to a physician. Remember that your healthcare information is confidential, so carefully consider who you will allow to register on the [facility] Patient Portal for access to your information. You can also access the [facility] Patient Portal on the [employer]. Simply click on Health Records under [employer] and then click on the [facility] logo. HOW TO SAFELY DISPOSE OF PRESCRIPTION MEDICATIONS Please use one of the following methods to safely dispose of your unused medications. 1.Use a drug disposal kit: the drug disposal pouch allows you to safely discard your old and unuseddrugs. Ask your nurse to give you one when you are discharged.2.Visit a local take-back location: Many local pharmacies and police departments have programs that collect old and unwanted prescriptiondrugs. Call your local pharmacy or go to http://[employer]/9X5Do8s to find one close to you.3.Make use of household items: Use cat litter or old coffee grounds to dispose medications if other options arenot available. Mix your drugs with these household products, seal them in an airtight container andthrow it into the garbage. Call [facility]: [phone] to be sure your drugs can be disposed of in this way. Some medicines may require a different approach.4.Never flush your medications down the toilet. IF YOU HAVE BEEN PRESCRIBED AN OPIOIDS FOR PAIN If you have been prescribed an opioid (such as hydrocodone, oxycodone or morphine), it is critical to understand the possible side effects and risks of opioid pain medications. Even when taken as directed, opioids can have several side effects including: Tolerance, meaning you might need to take more of a medication for the same pain relief. Nausea, vomiting and/or constipation. Sleepiness, dizziness, dry mouth, confusion, depression or itching. Physical dependence, meaning you have withdrawal symptoms when a medication is stopped ? this can develop within a few days. KNOW YOUR RESPONSIBILITIES It is important to know exactly how much and how often to take the opioid pain medications you are prescribed. Never take opioids in higher amounts or more often than prescribed. Do not combine opioids with alcohol or other drugs that cause drowsiness, such as benzodiazepines, also known as benzos,including diazepam and alprazolam, muscle relaxants or sleep aids. Never sell or share prescriptionopioids. This is illegal. Store opioids in a secure place and out of reach of others (including children, family, friends and visitors). The last page(s) of this document has been signed and retained as a CHART COPY Signatures Patient Education Materials Palpitations Medication Leaflets My discharge plan and instructions have been reviewed and explained to me and I,SELMA POON Aunderstand my current condition and have read and understand these discharge instructions. I have received a written copy of the plan/instructions. If I have questions, I am aware that I should contact my doctor. Patient/Dean Of Instruction Signature: Date/Time: Relationship to Patient: Witness Name/Signature: Date/Time: [facility]01-05-2025 Note* Exam Date Time Procedure Performing Provider Status 11/02/24 4:07 PM EKG [ED AO] - CV LINDA CUEVAS MD; A [facility] (Verified) ECG Final Report Sinus rhythm Baseline wander in lead(s) V2 SEE DICTATION Electronic Signature: LINDA CUEVAS MD 11/02/2024 16:24:55 [facility]12-23-2024 Telephone encounter Note* Telephone Encounter - Karine Kelly RN - 10/20/2024 11:50 AM EST Left detailed message on identified voicemail that tomorrow's appointment has been cancelled with the SWIMMING POOL SERVICER. Advised she will need to reschedule her NOB with a nurse soaker meat given how far along she is. Karine Kelly RN [facility]12-23-2024 Miscellaneous Notes* Telephone Encounter - Karine Kelly RN - 10/20/2024 11:50 AM EST Left detailed message on identified voicemail that tomorrow's appointment has been cancelled with the SWIMMING POOL SERVICER. Advised she will need to reschedule her NOB with a nurse soaker meat given how far along she is. Karine Kelly RN * Telephone Encounter - Karen Guthrie APRN.CNP - 10/20/2024 8:27 AM EST Patient has an appointment tomorrow at 815 with me she will be 25 weeks she should be scheduled with a soaker meat or doc. She has not been seen at all for this with us. Karen Guthrie APRN.CNP documented in [facility] encounterWay[facility]12-[facility]-2024 Telephone encounter Note * Telephone Encounter - Karen Guthrie APRN.CNP - 10/20/2024 8:27 AM EST Patient has an appointment tomorrow at 815 with me she will be 25 weeks she should be scheduled with a soaker meat or doc. She has not been seen at all for this with us. Karen Guthrie APRN.CNP [facility] Work Phone: [phone]) 831-206812-20-2024 Telephone encounter Note* Telephone Encounter - Natasha Castro MA - 10/17/2024 12:43 PM EST Attempted to contact patient to go over new ob intake question. No answer. Left a voice mail. Natasha Castro MA [facility]12-20-2024 NoteHNO ID: [id number] Author: KATHY MAYNARD LPN Service: ? Author Type: LICENSED NURSE Type: Progress Notes Filed: 10/17/2024 07:20 Note Text: Scan on 10/16/2024 7:18 PM by ProviderJennifer PA-C: [facility] History of Present illness Narrative* Kathy Maynard LPN - 10/17/2024 7:20 AM EST Scan on 10/16/2024 7:18 PM by ProviderJennifer PA-C: Consultation - Emergency Medicine documented in [facility] encounterWay[facility]11-13-2024 Telephone encounter Note * Telephone Encounter - Jace Pierre RN - 09/10/2024 2:33 PM EST 1st risk assessment form submitted 09/10/24 Jace Pierre RN [facility]11-13-2024 Miscellaneous Notes* Telephone Encounter - Jace Pierre RN - 09/10/2024 2:33 PM EST 1st risk assessment form submitted 09/10/24 Jace Pierre RN documented in this encounterWayne [facility]11-08-2024 Telephone encounter Note * Telephone Encounter - Kelsey Cardenas RN - 09/05/2024 10:57 AM EST Patient no showed NOB today. Kelsey Cardenas RN [facility]11-08-2024 Miscellaneous Notes* Telephone Encounter - Kelsey Cardenas RN - 09/05/2024 10:57 AM EST Patient no showed NOB today. Kelsey Cardenas RN * Telephone Encounter - Kelsey Cardenas RN - 09/03/2024 11:24 AM EST Spoke to [facility] and they stated patient was released shortly after PNOB phone call today. Left message for patient to call office on mobile number. Kelsey Cardenas RN * Telephone Encounter - Karine Saucedo MD - 09/03/2024 11:12 AM EST Yes. Order signed for US * Telephone Encounter - Rain Warren RN - 09/03/2024 10:38 AM EST Patient had nurse intake questions completed today from [facility]- Contact #[phone]. Patient states that she believes her last menstrual period was April 29, 2024 which would make her 18 weeks 1 day. States that she recently found out she was while incarcerated and performed a test August 09, 2024. They told her at that time they thought she was around 3 to 4 months . No prior care. States she believes she has felt movement . Has an appointment on Sunday with Karen. Do we need to schedule ultrasound for uncertain dates? Please advise documented in this encounterWayne Hospital11-08-2024 NoteHNO ID: [id number] Author: SPIKE LIU MSW Service: ? Author Type: Humanities Professor Type: Procedures Filed: 09/05/2024 10:29 Note Text: Sw stopped to meet with patient for scheduled OB appt due to housing concerns. Patient was a no show for appt.[facility]11-[facility] Procedure note* Spike Liu MSW - 09/05/2024 10:27 AM EST Sw stopped to meet with patient for scheduled OB appt due to housing concerns. Patient was a no show for appt. [facility]11-08-2024 Procedure note* Spike Liu MSW - 09/05/2024 10:27 AM EST Sw stopped to meet with patient for scheduled OB appt due to housing concerns. Patient was a no show for appt. documented in this encounterWayne Hospital11-06-2024 Telephone encounter Note * Telephone Encounter - Kelsey Cardenas RN - 09/03/2024 11:24 AM EST Spoke to [facility] and they stated patient was released shortly after PNOB phone call today. Left message for patient to call office on mobile number. Kelsey Cardenas RN [facility]11-06-2024 Telephone encounter Note* Telephone Encounter - Karine Saucedo MD - 09/03/2024 11:12 AM EST Yes. Order signed for US [facility] Work Phone: [phone]) 921-316711-06-2024 Telephone encounter Note* Telephone Encounter - Rain Warren RN - 09/03/2024 10:38 AM EST Patient had nurse intake questions completed today from [facility]- Contact #[phone]. Patient states that she believes her last menstrual period was April 29, 2024 which would make her 18 weeks 1 day. States that she recently found out she was while incarcerated and performed a test August 09, 2024. They told her at that time they thought she was around 3 to 4 months . No prior care. States she believes she has felt movement . Has an appointment on Sunday with Karen. Do we need to schedule ultrasound for uncertain dates? Please advise [facility]11-06-2024 NoteHNO ID: [id number] Author: KAREN GUTHRIE APRN.PARENT COACH Service: ? Author Type: Nurse Practitioner Type: Progress Notes Filed: 09/18/2024 10:52 Note Text: *Patient is currently incarcerated at the [facility]. Contact information there is with Renetta the nurse [phone]. Patient states that she will be released later this week. At this time she has no home to go to. Currently working with [email or web address] and [employer]. Does not have custody of any of her children due to homelessness per patient. 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 I have contacted Spike Liu be present at her visit. *Patient has a history of anxiety diagnosed in 2012. She has been off medications for a year. Most recently treated by Dr. Rosario. Patient would like to go back on medication. *Patient states she has a history of hemorrhage received 2 units of blood after her last delivery at [facility]. Will need to sign a release of records form for her records from that delivery. *Patient states that she had high blood pressure diagnosed in 2020. States she was prescribed Toprol XL . States she has not taken medication in the last 1-1/2 years because she has not followed up with her PCP. There is a phone note May 08, 2024 for patient to contact Dr. Rosario's office to schedule appointment for hypertension. Patient did not follow-up. *Patient states she has a history of tachycardia diagnosed sometime between 2014 and 2016 in [place]. She states she discontinued the medication because she felt it made her anxiety worse. She states she last saw clinic nurse in [place] in 2016. *Patient took amoxicillin for dental issues in May. She states that she needs to have her teeth pulled but she is reluctant to do that. She was treated at [facility] ER for this. *Patient's half brother born with enlarged heart. Had corrective surgery at age 12. *Pt smokes 1/2 pack a day of cigarettes. Discussed risks of smoking during . Advised pt to quit. INITIAL OB ASSESSMENT HPI: Selma is a 33 year old White Female here to establish Obstetrical Care. Patient's last menstrual period was 04/29/2024 (approximate). from OB Dating Form. was unplanned but accepted Complaints: (!) Chest pain; Heart racing or skipping beats (states chest pain and heart racing from anxiety) OB History T3 L3 SAB1 IAB0 Ectopic0 Multiple0 Live Births3 # 1 - Date: 11/23/15, Sex: Female, Weight: 3.26 kg (7 lb 3 oz), GA: 41w0d, Type: Dilation and Evacuation (DANDE), Apgar1: None, Apgar5: None, Living: Living, Comments: AROM, O2 during delivery # 2 - Date: 02/09/18, Sex: Female, Weight: 2.807 kg (6 lb 3 oz), GA: 40w0d, Type: Vaginal, Spontaneous, Apgar1: None, Apgar5: None, Living: Living, Comments: SROM, loose nuchal cord x 1, MSF,200cc, does not custody # 3 - Date: 07/22/21, Sex: Male, Weight: 2.75 kg (6 lb 1 oz), GA: 40w0d, Type: Vaginal, Spontaneous, Apgar1: None, Apgar5: None, Living: Living, Comments: Pt states she received 2 units of blood-PP hemorrhage-no custody # 4 - Date: 06/23/22, Sex: None, Weight: None, GA: None, Type: SPONTANEOUS , Apgar1: None, Apgar5: None, Living: None, Comments: None # 5 - Date: None, Sex: None, Weight: None, GA: None, Type: None, Apgar1: None, Apgar5: None, Living: None, Comments: None Previous history: Prior : never History of 4th degree laceration: No History of shoulder dystocia: No History of Hypertensive disorders including pre-eclampsia or gestational hypertension: Yes History of gestational diabetes: No Patient's Risk Screening for delivery: Have you had a prior bui between 20w and 36w6d? No How many pregnancies have you had before? 3 Did you have a previous baby with a GBS Infection? No Please select all that apply for any prior : N/A MEDICAL/PSYCHOSOCIAL HISTORY: History of hemorrhage or bleeding concerns: No Thyroid Disease: No History of chronic hypertension: No History of pre-existing diabetes: No No results found for: ABORHD No weight on file for this encounter. Last Pap: History of abnormal pap: No Prior treatment for cervical dysplasia: none. Last HPV: History of STDs: None Partner History of STDs: None Did you have a partner with Herpes? No Tobacco use: Yes E-Cigarette/Vaping Use: No Caffeine use: No Drug use: No Alcohol use: No Multivitamin with Folic acid: Yes Would refuse blood transfusion if medically necessary: No Social Needs: How often does this describe you? I don't have enough money to pay my bills: Often Within the past 12 months, have you worried that your food would run out before you had money to buy more? Often In the past 12 months, has lack of reliable transportation kept you from going to medical (more content not included)...[facility]08-08-2024 NoteHNO ID: [id number] Author: KATHY MAYNARD LPN Service: ? Author Type: LICENSED NURSE Type: Progress Notes Filed: 06/05/2024 08:17 Note Text: Scan on 06/05/2024 7:58 AM by Provider, External, DARIUS: Consultation - [facility]-20[facility] History of Present illness Narrative* Kathy Maynard LPN - 06/05/2024 8:17 AM EDT Scan on 06/05/2024 7:58 AM by Provider, External, PA-C: Consultation - Emergency Medicine documented in this encounterWayne Hospital07-11-2023 History of Present illness Narrative* Danielle Contreras MA - 05/08/2023 12:40 PM EDT LM for patient to contact office to schedule appointment with PCP. Mychart message sent as well. Danielle Contreras MA documented in this encounterWayne Hospital05-25-2022 Miscellaneous Notes* Telephone Encounter - Kathy Maynard LPN - 03/22/2022 8:02 AM EDT Pt did not respond to voice mails that were left or MC messages and pt no showed appointment. Needsto be seen in office for refills. Kathy Maynard LPN * Telephone Encounter - Kathy Maynard LPN - 03/21/2022 8:32 AM EDT Please see Elsie's message if pt returns call. Left additional voicemail and sent additional MC msg. Kathy Maynard LPN * Telephone Encounter - Kathy Maynard LPN - 03/17/2022 6:08 AM EDT My Chart message sent to pt to contact office. See Elsie's message. (appt needs flipped-already 40 mins) Kathy Maynard LPN * Telephone Encounter - Carli Osman Ma - 03/15/2022 10:01 AM EDT Left message for patient to call office back. Please advise below from provider and flip appointment to In office already made for 40 minutes Carli Osman Ma * Telephone Encounter - Elsie Harris PA-C - 03/15/2022 9:16 AM EDT Let patient know that i'm not going to make dose adjustments on her meds through phone. She was supposed to be seen 1 month after I last saw her and she never scheduled. If she needs a short supply until her upcoming appointment I can send in meds otherwise we will discuss refills and doses at her visit. Also her visit is scheduled as a VV but needs to be in person because I need to have her BP checked. Please give me 40minutes. She needs to do the labs I ordered as well to stay on the meds. Need to make sure no effects on herblood counts or metabolic panel. Elsie Harris PA-C * Telephone Encounter - Kathy Maynard LPN - 03/15/2022 8:45 AM EDT Pt has appt 03/21/22 Kathy Maynard LPN documented in this encounterWayne HospitalEvaluation + Plan note No data available for this section [facility] Evaluation noteNo assessment information available [facility] Work Phone: Evaluation note* Diagnosis Generalized anxiety disorder documented in this encounter [facility]* Diagnosis Pre-operative examination- Primary Preoperative examination, unspecified Bilateral carpal tunnel syndrome Carpal tunnel syndrome Tachycardia Tachycardia, unspecified Smoker Tobacco use disorder Irritable bowel syndrome with diarrhea Irritable bowel syndrome Eczema, unspecified type Generalized anxiety disorder with uncertain dates, antepartum- Primary state, incidental documented in this encounter [facility]* Diagnosis Pre-operative examination- Primary Preoperative examination, unspecified Bilateral carpal tunnel syndrome Carpal tunnel syndrome Tachycardia Tachycardia, unspecified Smoker Tobacco use disorder Irritable bowel syndrome with diarrhea Irritable bowel syndrome Eczema, unspecified type Generalized anxiety disorder demise before 20 weeks with retention of fetus- Primary documented in this encounter [facility]* Diagnosis Pre-operative examination- Primary Preoperative examination, unspecified Bilateral carpal tunnel syndrome Carpal tunnel syndrome Tachycardia Tachycardia, unspecified Smoker Tobacco use disorder Irritable bowel syndrome with diarrhea Irritable bowel syndrome Eczema, unspecified type Generalized anxiety disorder Missed - Primary 13 weeks gestation of state, incidental [facility]* Diagnosis Pre-operative examination- Primary Preoperative examination, unspecified Bilateral carpal tunnel syndrome Carpal tunnel syndrome Tachycardia Tachycardia, unspecified Smoker Tobacco use disorder Irritable bowel syndrome with diarrhea Irritable bowel syndrome Eczema, unspecified type Generalized anxiety disorder with uncertain dates, antepartum- Primary state, incidental Screening for cervical cancer Screening for malignant neoplasm of the cervix Screening for human papillomavirus (HPV) Special screening examination for human papillomavirus (HPV) Late care affecting in second trimester Homeless Lack of housing Lost custody of children Legal circumstances History of hypertension Personal history of other diseases of circulatory system History of hemorrhage Personal history of diseases of blood and blood-forming organs Tachycardia Tachycardia, unspecified Family history of congenital anomaly Family history of congenital anomalies Maternal tobacco use in second trimester Supervision of other high risk pregnancies, second trimester demise before 20 weeks with retention of fetus Encounter for screening for maternal depression [facility]* Diagnosis Pre-operative examination- Primary Preoperative examination, unspecified Bilateral carpal tunnel syndrome Carpal tunnel syndrome Tachycardia Tachycardia, unspecified Smoker Tobacco use disorder Irritable bowel syndrome with diarrhea Irritable bowel syndrome Eczema, unspecified type Generalized anxiety disorder Trichomoniasis- Primary Trichomoniasis, unspecified [facility]* Diagnosis Pre-operative examination- Primary Preoperative examination, unspecified Bilateral carpal tunnel syndrome Carpal tunnel syndrome Tachycardia Tachycardia, unspecified Smoker Tobacco use disorder Irritable bowel syndrome with diarrhea Irritable bowel syndrome Eczema, unspecified type Generalized anxiety disorder Missed Homeless Lack of housing History of hypertension Personal history of other diseases of circulatory system Maternal tobacco use in second trimester Late care affecting in second trimester History of hemorrhage Personal history of diseases of blood and blood-forming organs Trichomonas infection Trichomoniasis, unspecified Hypertension, condition or complication- Primary Unspecified hypertension, condition or complication Trichomoniasis Trichomoniasis, unspecified [facility]* Diagnosis Pre-operative examination- Primary Preoperative examination, unspecified Bilateral carpal tunnel syndrome Carpal tunnel syndrome Tachycardia Tachycardia, unspecified Smoker Tobacco use disorder Irritable bowel syndrome with diarrhea Irritable bowel syndrome Eczema, unspecified type Generalized anxiety disorder Missed Homeless Lack of housing History of hypertension Personal history of other diseases of circulatory system Maternal tobacco use in second trimester Late care affecting in second trimester History of hemorrhage Personal history of diseases of blood and blood-forming organs Trichomonas infection Trichomoniasis, unspecified Cervical high risk HPV (human papillomavirus) test positive- Primary Cervical high risk human papillomavirus (HPV) DNA test positive documented [facility] encounter [facility]* Diagnosis Pre-operative examination- Primary Preoperative examination, unspecified Bilateral carpal tunnel syndrome Carpal tunnel syndrome Tachycardia Tachycardia, unspecified Smoker Tobacco use disorder Irritable bowel syndrome with diarrhea Irritable bowel syndrome Eczema, unspecified type Generalized anxiety disorder Homeless Lack of housing History of hypertension Personal history of other diseases of circulatory system Maternal tobacco use in second trimester Late care affecting in second trimester History of hemorrhage Personal history of diseases of blood and blood-forming organs Trichomonas infection Trichomoniasis, unspecified Cervical high risk HPV (human papillomavirus) test positive- Primary Cervical high risk human papillomavirus (HPV) DNA test positive Screen for STD (sexually transmitted disease) Screening examination for venereal disease Trichomoniasis Trichomoniasis, unspecified [facility] Additional Instructions hCG quant 2904. Start prenatals. Pelvic rest. Monitor for bleeding. Follow-up with Dr. Villanueva for recheck hCG.[facility] Work Phone: Hospital Discharge instructions Additional Instructions What you are describing may or may not be a tapeworm. Unlikely but possible. Follow-up with GI for further evaluation. There is no real testing in the emergency department we can do for this. Call their office to get an appointment to be seen in follow-up.[facility] Work Phone: Reason for referral (narrative)* Diagnostic Procedure Only (Routine) - New Request Specialty Diagnoses / Procedures Referred By Contac t Referred To [facility] Diagnoses with uncertain dates, antepartum Procedures OBSTETRIC ULTRASOUND WHI US PREG UTERUS AFTER 1ST TRIMEST 1 GESTATION Karine Saucedo MD [address] [place] [address] [address] Referral ID Status Reason Start Date Expiration Date Visits Requested Visits Authorized [id number] New Request Auto-Generat ed Referral 09/03/2024 09/03/2025 1 1 [facility] for referral (narrative)* Outpatient Procedure (Routine) - Authorized Specialty Diagnoses / Procedures Referred By Contbalta t Referred To Contact [facility] Diagnoses Cervical high risk HPV (human papillomavirus) test positive Procedures COLPOSCOPY COLPOSCOPY CERVIX BX CERVIX & ENDOCRV Tona Dockery APRN.CNM [address] [place] [address] [address] Referral ID Status Reason Start Date Expiration Date Visits Requested Visits Authorized [id number] Authorized Auto-Generat ed Referral 11/21/2024 11/14/2025 1 1 [facility] for referral (narrative)No reason for referral information [facility] Work Phone: Summary Purpose Family History No Family History Records FoundNo Family History Records FoundNo Family History Records FoundNo Family History Records FoundNo Family History Records FoundNo Family History Records Found No data available for this section No Family History Records FoundNo Family History Records FoundNo Family History Records FoundNo Family History Records Found Advance Directives No Advanced Directives Records FoundDocuments on File Type Date Recorded Patient Dean Of Instruction Expl anation Advance Directives and Living Will Documents on File Type Date Recorded Patient Dean Of Instruction Expl anation Advance Directives and Livin g Will 06/06/2019 10:41 AM Advance Directives and Livin g Will 06/13/2019 7:57 AM Advance Directive Response Recorded Date/ Time Living Will No January 15, 2022 8:16pm Power of Cofounder No January 15 8:16pm Advance Directive Response Recorded Date/ Time Living Will No March 02, 2022 7: 25pm Power of Cofounder No March 02, 2022 7:25pm Documents on File Type Date Recorded Patient Dean Of Instruction Expl anation Advance Directive(s) 06/11/2020 8:45 AM Advance Directive(s) 05/29/2017 9:15 AM Advance Directive(s) 05/22/2017 9:27 PM Advance Directive Response Recorded Date/ Time Living Will No November 03 3 7:46am Power of Cofounder No November 03 023 7:46am Advance Directive Response Recorded Date/ Time Living Will No November 03 3 8:46am Power of Cofounder No November 03 023 8:46am Advance Directive Response Recorded Date/ Time Living Will No November 19 8:46pm Do you have a Healthcare Power of Cofounder? No November 19, 2024 8:46pm Advance Directive Response Recorded Date/ Time Living Will No November 19 8:46pm Do you have a Healthcare Power of Cofounder? No November 19, 2024 8:46pm Do you have a Healthcare Power of Cofounder? No March 10, 2025 5:18pm Instructions * Patient Instructions* Juancho Estrada MD - 06/05/2019 12:59 PM EDT Insect Bites and Stings: Here's Help (01:37) Your health professional recommends that you watch this short online health video. Take a minute to find out about an insect bite or sting and what you can do to feel better. How to watch the video Scan the QR code OR Visit the website [email or web address] Current as of: July 21, 2018 Content Version: [id number] [employer]. Care instructions adapted under license by your healthcare professional. If you have questions about a medical condition or this instruction, always ask your healthcare professional. [employer] disclaims any warranty or liability for your use of this information. documented in this encounter History of Present Illness * Juancho Estrada MD - 06/05/2019 12:43 PM EDT PATIENT NAME: Selma Poon [facility] Open Access [address] [id number] : 1990 DATE OF VISIT: 06/05/2019 #: [id number] PROVIDER: Juancho Estrada MD BP 123/83 Pulse 78 Temp 98.4 F (36.9 C) (Oral) Resp 14 Ht 5' 2 Wt 71.2 kg (157 lb) LMP05/13/2019 Comment: last month - unsure SpO2 97% BMI 28.72 kg/m ASSESSMENT/PLAN 28 y.o. female Problem List Items Addressed This Visit None Visit Diagnoses Bites - Primary Relevant Medications hydrOXYzine (VISTARIL) 50 MG capsule triamcinolone (KENALOG) 0.1 % lotion triamcinolone acetonide (KENALOG-40) injection 40 mg (Completed) SUBJECTIVE Chief Complaint Patient presents with Insect Bite pt believes she has bed bug bites. in from out of town and staying in hotel. -TS Rash This is a new problem. The current episode started in the past 7 days. The problem is unchanged. The rash is diffuse. The rash is characterized by redness, pain, dryness, itchiness, scaling and bruising. She was exposed to an insect bite/sting (slept in hotels). Associated symptoms include anorexia. Pertinent negatives include no fever. Past treatments include topical steroids, moisturizer, antihistamine and anti-itch cream (50mg benadryl q4h). Her past medical history is significant for allergies and eczema. REVIEW OF SYSTEMS Review of Systems Constitutional: Negative for fever. Gastrointestinal: Positive for anorexia. Skin: Positive for rash. MEDICAL ISSUES No past medical history on file. There is no problem list on file for this patient. SOCIAL HISTORY Social History Socioeconomic History Marital status: Single Spouse name: Not on file Number of children: Not on file Years of education: Not on file Highest education level: Not on file Occupational History Not on file Social Needs Financial resource strain: Not on file Food insecurity: Worry: Not on file Inability: Not on file Transportation needs: Medical: Not on file Non-medical: Not on file Tobacco Use Smoking status: Current Every Day Smoker Packs/day: 1.00 Types: Cigarettes Smokeless tobacco: Never Used Substance and Sexual Activity Alcohol use: Yes Comment: [facility] Drug use: Never Sexual activity: Not on file Lifestyle Physical activity: Days per week: Not on file Minutes per session: Not on file Stress: Not on file Relationships Social connections: Talks on phone: Not on file Gets together: Not on file Attends mosque service: Not on file Active member of club or organization: Not on file Attends meetings of clubs or organizations: Not on file Relationship status: Not on file Other Topics Concern Not on file Social History Narrative Not on file FAMILY HISTORY No family history on file. MEDICATIONS PRIOR TO VISIT No current facility-administered medications on file prior to visit. Current Outpatient Medications on File Prior to Visit Medication Sig Dispense Refill hydrOXYzine (ATARAX) 10 MG tablet Take 10 mg by mouth 3 (three) times a day as needed for itching . ranitidine (ZANTAC) 75 MG tablet Take 75 mg by mouth 2 (two) times a day . ALLERGIES/INTOLERANCES No Known Allergies OBJECTIVE BP 123/83 Pulse 78 Temp 98.4 F (36.9 C) (Oral) Resp 14 Ht 5' 2 Wt 71.2 kg (157 lb) LMP05/13/2019 Comment: last month - unsure SpO2 97% BMI 28.72 kg/m Physical Exam Constitutional: She is oriented to person, place, and time. She appears well- developed and well-nourished. No distress. HENT: Head: Normocephalic and atraumatic. Cardiovascular: Normal rate, regular rhythm and normal heart sounds. Exam reveals no gallop and no friction rub. No murmur heard. Pulmonary/Chest: Effort normal and breath sounds normal. No respiratory distress. She has no wheezes. She has no rales. Abdominal: Soft. She exhibits no distension. There is no tenderness. Musculoskeletal: She exhibits no edema or tenderness. Neurological: She is alert and oriented to person, place, and time. No cranial nerve deficit. Coordination normal. Skin: Skin is warm and dry. Rash noted. Rash is papular. She is not diaphoretic. Excoriation Psychiatric: She has a normal mood and affect. Her behavior is normal. Vitals reviewed. PROCEDURE Procedures Results No results found for this or any previous visit (from the past 168 hour(s)). ORDERS PLACED THIS VISIT No orders of the defined types were placed in this encounter. documented in this encounter Assessments Diagnosis Bites- Primary Injury, other and unspecified, unspecified site Diagnosis Acute bilateral low back pain without sciatica- Primary Diagnosis Rash- Primary Rash and other nonspecific skin eruption Discharge Instructions * Instructions* Taylor Blackburn PA-C - 06/13/2019 You are being prescribed medications to help with your symptoms. Do not drive or operate heavy machinery while taking Flexeril as it can make you tired. Do not take more of these medications than prescribed and take them exactly as directed. Call the transition of care clinic for a follow-up appointment and to establish primary care. Return to the ER for any new or worsening symptoms, he developed a fever, he developed urinary symptoms. * Attachments The following attachments cannot be sent through Care Everywhere. * Back Pain (Mauritanian) documented in this encounter Chief Complaint and Reason for Visit Chief Complaint CHEST PAIN Chief Complaint CHEST PAIN LAC Chief Complaint bleeding Chief Complaint ANXIOUS Chief Complaint Admit Date HYPERTENSION,POST MISCARRIAGE November 192024 6:45pm WORM IN MY BUTT March 09, 2025 9:59p m Chief Complaint Admit Date HYPERTENSION,POST MISCARRIAGE November 192024 6:45pm WORM IN MY BUTT March 09, 2025 9:59p m gi complaint March 10, 2025 5:12p m Additional Source Comments INFORMATION SOURCE (unrecogn ized section and content) DATE CREATED AUTHOR 04/24/2018 [facility] DATE CREATED AUTHOR AUTHOR'S ORGANIZ ATION 06/07/2019 [facility] DATE CREATED AUTHOR AUTHOR'S ORGANIZ ATION 06/13/2019 [facility] DATE CREATED AUTHOR AUTHOR'S ORGANIZ ATION 06/11/2020 [facility] DATE CREATED AUTHOR AUTHOR'S ORGANIZ ATION 07/27/2021 [facility] DATE CREATED AUTHOR AUTHOR'S ORGANIZ ATION 07/08/2022 [facility] DATE CREATED AUTHOR AUTHOR'S ORGANIZ ATION 11/09/2024 [facility] DATE CREATED AUTHOR AUTHOR'S ORGANIZ ATION 11/21/2024 [facility] DATE CREATED AUTHOR AUTHOR'S ORGANIZ ATION 01/09/2025 [facility] DATE CREATED AUTHOR AUTHOR'S ORGANIZ ATION 03/17/2025 [facility] Reason for Visit (unrecogniz ed section and content) Reason Comments Insect Bite pt believes she has bed bug bites. in from out of town and staying in hotel. -TS Reason Comments Nausea Dizziness Reason Comments Rash Reason Onset Date Comments Refill Request 03/15/2022 Reason Onset Date Comments Hypertension 05/08/2023 Reason Comments ER Discharge Summary Reason Comments uncertain dates in Reason Comments PRAF Reason Comments Appointment Reason Comments Induction Reason Comments US Specialty Diagnoses / Procedures Referred By Contac t Referred To Contact [facility] Diagnoses with uncertain dates, antepartum Procedures OBSTETRIC ULTRASOUND WHI US PREG UTERUS AFTER 1ST TRIMEST GESTATION Karine Saucedo MD [address] [place] [address] [facility] [address] [place] [address] Referral ID Status Reason Start Date Expiration Date V isits Requested Visits Authorized [id number] Closed Auto-Generate d Referral 09/03/2024 09/03/2025 1 1 Reason Comments Results Reason Comments Early Reason Comments Results Reason Comments Patient Question Reason Comments Colposcopy Bella Sahni, FELIZ - 06/13/2019 7:05 AM Don Padron PA-C - 06/05/2019 11:48 AM Renetta Mccann RN - 06/05/2019 11:47 AM EDT ED Notes (unrecognized secti on and content) Pt c/o nausea, lightheaded, and polyuria. Pt lso c/o low back pain. Pt thinks she could possibly be . LMP was sometime in April and pt is not on control. Pt denies any vaginal bleeding/abd cramping. documented in this encounter PCP - No primary care provider on file. Chief Complaint Patient presents with Rash HPI 28-year-old female arrives to ED with itchy rash to lower extremities. Started a few days ago. She was in [place] when it first started. She denies any tick bites or known exposures. She has not tried any medications. Denies any infectious symptoms. No other complaints. Review of Systems Constitutional: No recent unexplained weight loss Skin: Itchy rash legs Eyes: No scleral icterus ENMT: No voice changes Genitourinary: no obstructive symptoms Endocrine: no polyuria Neurologic: no speech difficulties Psychiatric: No Behavior Problems Hematologic/Lymphatic: No abnormal bruising Allergic/Immunologic: no urticaria Other pertinent positives and negatives in HPI Previous Records Reviewed Past Medical History No past medical history on file. Past Surgical History No past surgical history on file. Family History No family history on file. Social History Social History Socioeconomic History Marital status: Not on file Spouse name: Not on file Number of children: Not on file Years of education: Not on file Highest education level: Not on file Occupational History Not on file Social Needs Financial resource strain: Not on file Food insecurity: Worry: Not on file Inability: Not on file Transportation needs: Medical: Not on file Non-medical: Not on file Tobacco Use Smoking status: Not on file Substance and Sexual Activity Alcohol use: Not on file Drug use: Not on file Sexual activity: Not on file Lifestyle Physical activity: Days per week: Not on file Minutes per session: Not on file Stress: Not on file Relationships Social connections: Talks on phone: Not on file Gets together: Not on file Attends mosque service: Not on file Active member of club or organization: Not on file Attends meetings of clubs or organizations: Not on file Relationship status: Not on file Other Topics Concern Not on file Social History Narrative Not on file Allergies No Known Allergies Medications There are no discharge medications for this patient. Physical Exam Initial Vital Signs Ht 5' 2 Wt 72.1 kg (159 lb) LMP 05/13/2019 Comment: last month - unsure BMI 29.08 kg/m Vital Signs During ED Visit (as charted by nursing) Patient Vitals for the past 24 hrs: Height Weight 06/05/19 1142 5' 2 72.1 kg (159 lb) Physical Exam Constitutional: She appears well-developed and well-nourished. HENT: Head: Normocephalic. Nose: Nose normal. Eyes: Conjunctivae and EOM are normal. Neck: Normal range of motion. Cardiovascular: Normal rate. Pulmonary/Chest: Effort normal. Musculoskeletal: Normal range of motion. Neurological: She is alert. Skin: Skin is warm. Rash noted. Diffuse macular rash to lower extremities, no target lesions, nontender, noninfectious in appearance. Psychiatric: She has a normal mood and affect. Nursing note and vitals reviewed. IMPRESSION/ ED COURSE Itchy rash legs, medical screen is incomplete. Will send open access clinic. . . FINAL DIAGNOSIS SNOMED CT(R) 1. Rash ERUPTION Labs Reviewed - No data to display Radiographic Imaging (if any) During ED Visit No orders to display Medications Ordered/Given During ED Visit Medications - No data to display Procedures Note: To expedite correspondence this note was generated by [employer] voice recognition software. This note was partially created using voice recognition software and is inherently subject to errors including those of syntax and sound-alike substitutions which may escape proofreading. In such instances, original meaning may be extrapolated by contextual derivation. All imaging has been read by a Radiologist. Don Perez PA-C 06/05/19 1148 Pt arrives to ED with c/o rash x 2 days diffusely to bilat legs. REsp reg and unlabored. Skin warm and dry. NAD noted. documented in this encounter ED Attestation Note - Juno Jama MD - 06/13/2019 9:49 AM EDTED Attestation Note - Valerio Roblero MD - 06/05/2019 12:36 PM EDT Miscellaneous Notes (unrecog nized section and content) I personally interviewed the patient. I personally examined the patient. I discussed the patient with SWIMMING POOL SERVICER/PA. I agree with the SWIMMING POOL SERVICER/PA treatment plan. I agree with the SWIMMING POOL SERVICER/PA plan of care. I agree with the SWIMMING POOL SERVICER/PA dispo as documented. Patient is a 28-year-old female who presents to the emergency department with 2-day history of just not feeling well. Denies vomiting or diarrhea. Denies fever or chills. Patient notes some occasional nausea with an achy sensation in her lower back. On examination, patient awake and alert and sitting upright on the gurney. She is watching TV. She appears to be in no acute distress. She has no midline thoracic or lumbar vertebral tenderness. She has very mild, if any, tenderness at the paraspinal musculature of the right lumbar region. There is no swelling, ecchymosis, or crepitus. No flank tenderness with percussion. Abdomen soft and nondistended. No focal tenderness at the abdomen. DTRs 2+ and symmetric the knee bilaterally. Labs grossly normal. Urine negative. Patient was provided reassurance and will be discharged home. The patient has been informed that they may have pre-hypertension or hypertension based on a blood pressure reading in the Emergency Department. I recommend that the patient call the primary care provider listed on their discharge instructions or a physician of their choice as soon as possible to arrange follow-up in the next 4 weeks for further evaluation of possible pre-hypertension or hypertension. . documented in this encounter ED Attestation: I was personally available for consult in the emergency department. I have reviewed the chart and agree with the documentation as recorded by the SELVIN (Advanced Practice Provider), including the assessment, treatment plan, and disposition. documented in this encounter Goals (unrecognized section and content) Goals may be documented in a n alternate sectionGoals may be documented in an alternate sectionGoals may be documented in an alternate sectionGoals may be documented in an alternate section No data available for this sectionGoals may be documented in an alternate sectionGoals may be documented in an alternate section Source Comments (unrecognize d section and content) In the event this informatio n is protected by the Federal Confidentiality of Alcohol and Drug Abuse Patient Records regulations: The Federal rules restrict any use of the information to criminally investigate or prosecute any alcohol or drug abuse patient.[facility] event this information is protected by the Federal Confidentiality of Alcohol and Drug Abuse Patient Records regulations: The Federal rules restrict any use of the information to criminally investigate or prosecute any alcohol or drug abuse patient.[facility] the event this information is protected by the Federal Confidentiality of Alcohol and Drug Abuse Patient Records regulations: The Federal rules restrict any use of the information to criminally investigate or prosecute any alcohol or drug abuse patient.[facility] the event this information is protected by the Federal Confidentiality of Alcohol and Drug Abuse Patient Records regulations: The Federal rules restrict any use of the information to criminally investigate or prosecute any alcohol or drug abuse patient.[facility] the event this information is protected by the Federal Confidentiality of Alcohol and Drug Abuse Patient Records regulations: The Federal rules restrict any use of the information to criminally investigate or prosecute any alcohol or drug abuse patient.[facility] HospitalIn the event this information is protected by the Federal Confidentiality of Alcohol and Drug Abuse Patient Records regulations: The Federal rules restrict any use of the information to criminally investigate or prosecute any alcohol or drug abuse patient.[facility] HospitalIn the event this information is protected by the Federal Confidentiality of Alcohol and Drug Abuse Patient Records regulations: The Federal rules restrict any use of the information to criminally investigate or prosecute any alcohol or drug abuse patient.[facility] HospitalIn the event this information is protected by the Federal Confidentiality of Alcohol and Drug Abuse Patient Records regulations: The Federal rules restrict any use of the information to criminally investigate or prosecute any alcohol or drug abuse patient.[facility] HospitalIn the event this information is protected by the Federal Confidentiality of Alcohol and Drug Abuse Patient Records regulations: The Federal rules restrict any use of the information to criminally investigate or prosecute any alcohol or drug abuse patient.[facility] HospitalIn the event this information is protected by the Federal Confidentiality of Alcohol and Drug Abuse Patient Records regulations: The Federal rules restrict any use of the information to criminally investigate or prosecute any alcohol or drug abuse patient.[facility] HospitalIn the event this information is protected by the Federal Confidentiality of Alcohol and Drug Abuse Patient Records regulations: The Federal rules restrict any use of the information to criminally investigate or prosecute any alcohol or drug abuse patient.[facility] HospitalIn the event this information is protected by the Federal Confidentiality of Alcohol and Drug Abuse Patient Records regulations: The Federal rules restrict any use of the information to criminally investigate or prosecute any alcohol or drug abuse patient.[facility] HospitalIn the event this information is protected by the Federal Confidentiality of Alcohol and Drug Abuse Patient Records regulations: The Federal rules restrict any use of the information to criminally investigate or prosecute any alcohol or drug abuse patient.[facility] HospitalIn the event this information is protected by the Federal Confidentiality of Alcohol and Drug Abuse Patient Records regulations: The Federal rules restrict any use of the information to criminally investigate or prosecute any alcohol or drug abuse patient.[facility] HospitalIn the event this information is protected by the Federal Confidentiality of Alcohol and Drug Abuse Patient Records regulations: The Federal rules restrict any use of the information to criminally investigate or prosecute any alcohol or drug abuse patient.[facility] HospitalIn the event this information is protected by the Federal Confidentiality of Alcohol and Drug Abuse Patient Records regulations: The Federal rules restrict any use of the information to criminally investigate or prosecute any alcohol or drug abuse patient.[facility] HospitalIn the event this information is protected by the Federal Confidentiality of Alcohol and Drug Abuse Patient Records regulations: The Federal rules restrict any use of the information to criminally investigate or prosecute any alcohol or drug abuse patient.[facility] HospitalIn the event this information is protected by the Federal Confidentiality of Alcohol and Drug Abuse Patient Records regulations: The Federal rules restrict any use of the information to criminally investigate or prosecute any alcohol or drug abuse patient.[facility] Care Teams (unrecognized sec tion and content) Oven Dauber Relationship Specialty Start Date End Date Don Rosario MD [address] [place], [place] [id number] PCP - General Family Practice 04/30/17 Team Status: Active Member Role Status Dates Dr. Don Rosario MD Family Provider Active Dr. Don Rosario MD Primary Care Provider Active Team Status: Inactive Member Role Status Dates Dr. Don Rosario MD Primary Care Provider Active Ed Physician Provider Emergency Provider Active Oven Dauber Relationship Specialty Start Date End Date Don Rosario MD [address] [place] [address] PCP - General Family Medicine 04/30/17 Oven Dauber Relationship Specialty Start Date End Date Don Rosario MD [address] [place], [place] [id number] PCP - General Family Medicine 04/30/17 Oven Dauber Relationship Specialty Start Date End Date Don Rosario MD [address] [place], [place] [id number] PCP - General Family Medicine 04/30/17 Oven Dauber Relationship Specialty Start Date End Date Don Rosario MD [address] [place] [address] PCP - General Family Medicine 04/30/17 Oven Dauber Relationship Specialty Start Date End Date Don Rosario MD [address] [place] [address] PCP - General Family Medicine 04/30/17 Eneida Leigh APRN.PARENT COACH [address] [place] [address] Safety Leader Family Medicine 10/04/24 Elsie Harris PA-C [address] [place] [address] Safety Leader Family Medicine 10/04/24 Oven Dauber Relationship Specialty Start Date End Date Don Rosario MD [address] [place] [address] PCP - General Family Medicine 04/30/17 Eneida Leigh APRN.PARENT COACH [address] [place] [address] Safety Leader Family Medicine 10/04/24 Elsie Harris PA-C [address] [place] [address] Safety Leader Family Medicine 10/04/24 Oven Dauber Relationship Specialty Start Date End Date Don Rosario MD [address] [place] [address] PCP - General Family Medicine 04/30/17 11/04/24 Eneida Leigh APRN.PARENT COACH [address] [place], [place] [address] [facility] 10/04/24 11/04/24 Elsie Harris PA-C [address] [place], [place] [address] [facility] 10/04/24 11/04/24 Team Status: Active Member Role Status Dates No Primary Care Physician Primary Care Provider Active Team Status: Inactive Member Role Status Dates Dr. Don Rosario MD Primary Care Provider Active Start: November 19, 2024 End: November 19, 2024 Dr. Freida Jack DO Attending Provider Active Start: November 19, 2024 End: November 19, 2024 Dr. Frieda Jack DO Emergency Provider Active Start: November 19, 2024 End: November 19, 2024 Team Status: Inactive Member Role Status Dates Ed Physician Provider Referring Provider Active Start: March 09, 2025 End: March 09, 2025 Ed Physician Provider Emergency Provider Active Start: March 09, 2025 End: March 09, 2025 No Primary Care Physician Primary Care Provider Active Start: March 09, 2025 End: March 09, 2025 Team Status: Inactive Member Role Status Dates No Primary Care Physician Primary Care Provider Active Start: March 10, 2025 End: March 10, 2025 Dr. Ash Ortega MD Emergency Provider Active S tart: March 10, 2025 End: March 10, 2025 FOR RECORDS PERTAINING TO PATIENTS WHO ARE OR HAVE BEEN ENROLLED IN A CHEMICAL DEPENDENCY/SUBSTANCEABUSE PROGRAM, SOME INFORMATION MAY BE OMITTED. This clinical summary was aggregated from multiple sources. Caution should be exercised in using it in the provision of clinical care. This summary normalizes information from multiple sources, and as a consequence, information in this document may materially change the coding, format and clinical context of patient data. In addition, data may be omitted in some cases. CLINICAL DECISIONS SHOULD BE BASED ON THE PRIMARY CLINICAL RECORDS. [facility] [employer] provides no warranty or guarantee of the accuracy or completeness of information in this document.
[2025-05-11 00:44] VITALS: BP 128/71; PULSE 66; RESP 12; TEMP 36.6; O2SAT 99
--- NOTE | 2025-05-11 01:08 | EX.ED.DYSGE1 ---
HPI History of Present Illness Chief Complaint: Lower Extremity Injury Informant: patient and spouse/S.O. Narrative Narrative: Patient is a 34-year-old female with past medical history of hypertension and anxiety. She states a few hours prior to arrival she went to run up a hill back into the house and as she began to run she felt a snap in her left lower leg. She states she has had pain and swelling in that region since the event and cannot move her foot or walk on the leg. She states symptoms have not improved with rest and secondary to that she comes in for evaluation. [facility] Medical History Anxiety Hypertension Carpal tunnel syndrome Pyelonephritis Home Medications ?Medication ?Instructions ?Recorded ?Last Taken ?Type gabapentin 300 mg capsule 300 mg PO TID 04/02/21 Unknown History buspirone 5 mg tablet 5 mg PO TID 01/15/22 Unknown History ondansetron 4 mg disintegrating 4 mg PO Q6H PRN nausea and 10/16/24 Unknown Rx tablet vomiting #10 tabs acetaminophen 500 mg tablet (Pain 1,000 mg PO Q6H PRN PRN pain 11/19/24 Unknown History Relief Extra Strength (acetaminophen)) metoprolol tartrate 25 mg tablet 25 mg PO BID #60 tabs 11/19/24 Unknown Rx albuterol sulfate 90 mcg/actuation 1 puff inhalation Q6H PRN PRN 03/09/25 Unknown History aerosol inhaler wheezing cetirizine 10 mg capsule (Zyrtec) 10 mg PO DAILY PRN allergy symptoms 03/09/25 Unknown History oxycodone-acetaminophen 5 mg-325 1 tab PO Q6H PRN pain 5 days #20 05/11/25 Unknown Rx mg tablet (Percocet) tabs Allergy/AdvReac Type Severity Reaction Status Date / Time No Known Allergies Allergy Verified 05/10/25 21:19 Surgical History History of carpal tunnel surgery of right wrist History of carpal tunnel surgery of left wrist Hx of appendectomy Social History Smoking Status: Current every day smoker tobacco type: cigarettes and e-cigarettes ROS ROS ED Constitutional Constitutional ED: Denies chills or fever(s) ENT ENT ED: Denies sore throat Cardiovascular Cardiovascular: Denies chest pain Respiratory/Chest Respiratory/Chest: Denies cough or dyspnea Gastrointestinal Gastrointestinal: Denies abdominal pain, diarrhea, nausea or vomiting Musculoskeletal Musculoskeletal: Reports other Details: Positive for left calf/leg pain Integumentary Denies Abrasions or rash Neurologic Neurologic: Reports weakness; Denies headache(s) Psychiatric Psychiatric: Reports anxiety Hematologic/Lymphatic Hematologic/Lymphatic: Denies easy bleeding or easy bruising EXAM Physical Exam Const Vital Signs: 05/10/25 21:19 05/11/25 00:44 Temperature 97.6 F L 98 F Temperature Source Temporal Pulse Rate 83 66 Respiratory Rate 16 12 Blood Pressure 149/113 H 128/71 H Blood Pressure Mean 125 90 Pulse Ox 98 99 Oxygen Delivery Method Room Air Positive well nourished and well developed General Appearance ED: well developed; Negative for pallor HEENT HEENT Narrative: Normocephalic atraumatic Eyes PERRL and EOMs intact bilaterally Neck supple Resp normal respiratory effort and clear to auscultation bilaterally Cardio regular rate and regular rhythm Extremity Extremity Narrative: Left lower extremity is neurovascularly intact. Patient has soft tissue swelling with ecchymosis along the lower portion of the left calf at the origin of the Achilles tendon. There is pain with palpation at this site. Rod's test is positive. No obvious bony deformity or joint effusion Compartments are soft and compressible going against compartment syndrome Neuro oriented x3 and CN's II-XII intact bilaterally Sensorium / Orientation: alert Psych mental status grossly normal Skin no rashes or lesions noted and no wounds General Skin Exam: Negative for jaundice or pallor MDM MDM MDM Narrative Medical decision making narrative: Patient presented to the ER with pain in the left calf after beginning to run. She states she felt/heard a snap. With pain and bruising and swelling at the distal aspect of the left calf as well as the fact she cannot move her left foot there is concern for rupture to the origin of the Achilles tendon. As there is no sign of bony injury or joint effusion or infection I do not feel the need for imaging or laboratory studies. The patient was placed in a posterior tibial splint for stabilization and the patient will follow-up with orthopedics to discuss need for MRI will to further assess the cause of her symptoms. However she is neurovascular intact without compartment syndrome or signs of infection so there is no need for further workup in the emergency department Patient had an Ortho-Glass posterior tibial splint placed the left leg. After application of the splint patient's capillary refill remained less than 3 seconds. She tolerated procedure well without complication Discharge Plan Triage Chief Complaint: Lower Extremity Injury ED Provider: Chapito Villasenor Dx/Rx/DC Orders Clinical Impression: Achilles tendon rupture, Anxiety, Hypertension Instructions: Achilles Tendon Rupture Prescriptions: New oxycodone-acetaminophen [Percocet] 5-325 mg tablet 1 tab PO Q6H PRN (Reason: pain) 5 Days Qty: 20 0RF No Action gabapentin 300 mg capsule 300 mg PO TID Patient Comments: take 1 capsule by mouth at bedtime buspirone 5 mg tablet 5 mg PO TID ondansetron 4 mg tablet,disintegrating 4 mg PO Q6H PRN (Reason: nausea and vomiting) Qty: 10 0RF acetaminophen [Pain Relief ES (acetaminophen)] 500 mg tablet 1,000 mg PO Q6H PRN PRN (Reason: pain) metoprolol tartrate 25 mg tablet 25 mg PO BID Qty: 60 0RF albuterol sulfate 90 mcg/actuation HFA aerosol inhaler 1 puff INHALATION Q6H PRN PRN (Reason: wheezing) Zyrtec 10 mg capsule 10 mg PO DAILY PRN (Reason: allergy symptoms) Primary Care Provider: Oksana Lindsay Referrals: Robi Montesinos DO [Med Staff - Active Staff] - Oksana Lindsay DO [Primary Care Provider] - Activity Restrictions/Additional Instructions: Your exam and history is concerning for a proximal Achilles tendon rupture or calf muscle tear. Follow-up with orthopedics to discuss further testing such as MRI to confirm this and/or treatment options and return to the ER should you have any further concerns Print Language: Spanish Disposition Disposition: Home, Self Care Discharge Date/Time: 05/11/25 01:15
== END 2025-05-11 01:15 | disposition home or self-care (01) ==
PROVIDERS: Emergency Provider Emergency Medicine; PCP Family Medicine; Visit Provider Emergency Medicine
DX: S86.012A Strain of left Achilles tendon, initial encounter (principal); F17.210 Nicotine dependence, cigarettes, uncomplicated; F17.290 Nicotine dependence, other tobacco product, uncomplicated; Y93.02 Activity, running
CPT/HCPCS: 99283

== ENCOUNTER → 2025-07-02 | Outpatient (CLI) | payer MEDICAID, SELFPAY ==
[2025-07-02 14:26] LABS: Hematocrit 41.7 % (37-47); Hemoglobin 14.0 g/dL (12.0-15.0); Immature Granulocytes Count 0.020 X10^3/uL (0.0-0.0); Mean Corp Hgb Conc 33.6 g/dL (32-36); Mean Corpuscular Volume 81.9 fL (81-99); Mean Platelet Vol. 8.4 fl (6.2-12.0); NRBC Flagged by Analyzer 0 % (0-5); Platelet Count 337 K/mm3 (150-450); RBC Distribution Width CV 13.7 % (11.6-14.6); RBC Distribution Width SD 40.5 fl (35.1-43.9); Red Blood Count 5.09 M/mm3 (4.2-5.4); White Blood Count 6.5 K/mm3 (4.4-11.0)
[2025-07-02 15:04] LABS: AST(SGOT) 21 U/L (<=31); Alanine Aminotransfer ALT/SGPT 12 U/L (<=34); Albumin, Serum 4.3 g/dL (3.5-5.0); Alkaline Phosphatase 103 U/L (35-104); Anion Gap 11 (5-15); BUN 11 mg/dL (4-19); BUN/Creat Ratio 13.8 RATIO (10-20); Calcium,Total 9.0 mg/dL (7.6-11.0); Carbon Dioxide 21.7 mmol/L (21.0-32.0); Chloride 107 mmol/L (98-108); Globulin 2.9 g/dL (2.2-4.2); Glucose 81 mg/dL (70-99); Potassium 4.2 mmol/L (3.3-5.1); hCG Titer Quant., Serum < 1 mIU/mL (<9 non-preg)
== END | disposition home or self-care (01) ==
LOC: PAVLAB 13:58
PROVIDERS: PCP Family Medicine; Referring Provider Nurse Practitioner Family; Visit Provider Nurse Practitioner Family
DX: R63.5 Abnormal weight gain (principal)
CPT/HCPCS: 36415; 80053; 83036; 84439; 84443; 84702; 85025; 86376

== ENCOUNTER → 2025-08-27 | Outpatient (CLI) | payer MEDICAID, SELFPAY ==
[2025-08-27 15:41] LABS: Hematocrit 41.8 % (37-47); Hemoglobin 14.1 g/dL (12.0-15.0); Immature Granulocytes Count 0.080 X10^3/uL (0.0-0.0); Mean Corp Hgb Conc 33.7 g/dL (32-36); Mean Corpuscular Volume 79.6 fL (81-99); Mean Platelet Vol. 8.4 fl (6.2-12.0); NRBC Flagged by Analyzer 0 % (0-5); Platelet Count 384 K/mm3 (150-450); RBC Distribution Width CV 13.3 % (11.6-14.6); RBC Distribution Width SD 38.5 fl (35.1-43.9); Red Blood Count 5.25 M/mm3 (4.2-5.4); White Blood Count 9.8 K/mm3 (4.4-11.0)
[2025-08-27 16:29] LABS: AST(SGOT) 19 U/L (<=31); Alanine Aminotransfer ALT/SGPT 9 U/L (<=34); Albumin, Serum 4.1 g/dL (3.5-5.0); Alkaline Phosphatase 111 U/L (35-104); Anion Gap 10 (5-15); BUN 14 mg/dL (4-19); BUN/Creat Ratio 18.1 RATIO (10-20); Calcium,Total 8.8 mg/dL (7.6-11.0); Carbon Dioxide 22.0 mmol/L (21.0-32.0); Chloride 105 mmol/L (98-108); Ferritin 26 ng/mL (22-378); Free T3 2.8 pg/mL (2.18-3.98); Globulin 3.1 g/dL (2.2-4.2); Glucose 94 mg/dL (70-99); Potassium 4.2 mmol/L (3.3-5.1); Vitamin B12 271 pg/mL (180-914); Vitamin D,25 Hydroxy 21.0 ng/mL (30-100)
[2025-08-27 17:59] LABS: Iron 44 ug/dL (50-170); Iron Binding Capacity,Total 373 ug/dL (250-450); Iron Binding Capacity,Unsat 329 ug/dL (228-428); Magnesium 2.4 mg/dL (1.5-2.2)
[2025-08-27 23:09] LABS: Xtra Tube Kwok EXTRA TUBE
== END | disposition home or self-care (01) ==
LOC: LAB 14:57
PROVIDERS: PCP Family Medicine; Referring Provider Nurse Practitioner Family; Visit Provider Nurse Practitioner Family
DX: R07.9 Chest pain, unspecified (principal); R00.2 Palpitations
CPT/HCPCS: 36415; 80053; 82306; 82607; 82728; 83540; 83550; 83735; 84439; 84443; 84481; 85025

== ENCOUNTER 2025-10-26 19:24 | Emergency (ER) | payer MEDICAID, SELFPAY ==
[2025-10-26 19:25] VITALS: BP 167/92; PULSE 91; RESP 18; TEMP 36; O2SAT 97; BMI 39.3
--- NOTE | 2025-10-26 19:30 | RAD_ITS ---
PROCEDURE: CHEST PA AND LATERAL 10/26/2025 REASON FOR EXAM: COUGH TECHNIQUE: Procedure Code: RADCXR Modality: DX Procedure: CHEST PA AND LATERAL FINDINGS: No focal consolidation. No pleural effusion or pneumothorax. Cardiac silhouette is within normal limits. No acute fractures. RAD/Chest PA and Lateral IMPRESSION: No focal consolidations. Reading Location: [facility]
--- OUTSIDE RECORDS SUMMARY | 2025-10-26 22:09 | XMS RPT_ITS | CCD ---
Author Organization [facility] Informat ion Partnership [facility] Care Team Providers Care Swahili Teacher Name Role Phone Chari Huff Unavailable Unavailable Don Rosario Unavailable Unavailable Don Rosario Unavailable Unavailable No, Physician Primary Care Provider Unavailabl e JUANCHO ESTRADA Attending Unavailab le NO, PHYSICIAN Primary Care Unavailable VALERIO ROBLERO Attending Unavailabl e NO, PHYSICIAN Primary Care Unavailable NO, PHYSICIAN Primary Care Unavailable JUNO JAMA Attending Unavailab ARMANDO Cabrera CNM Attending Unavailable ARMANDO AYALA CNM Primary Care Unavailable ARMANDO AYALA CNM Admitting Unavailable NO, DOCTOR ON Consulting Unavailable Don Rosario MD Primary Care Provider Don Rosario MD Primary Care Provider Don Rosario MD A Primary Care Provider Reese DATA MODELER.Eneida CANNON Unavailable Elsie Harris PA-C Unavailable DON ROSARIO MD Primary Care Physician Don Rosario MD Primary Care Provider Reese PATEL.Eneida CANNON Unavailable Elsie Harris PA-C Unavailable Unavailable Primary Care Provider UnavailELVER Crawford Attending Unavailable ELVER COOK Admitting Unavailable KARINE SAUCEDO Referring Unavailable TONA MACK Referring Unavailable TONA MACK Attending Unavailable KARINE SAUCEDO Attending Unavailable TONA MACK Referring Unavailable Hepatitis B Surf. Ag Negative Normal NEGAT [facility] Comment on above: Performed By: #### 2 84274 #### [facility],[address] [place] [address] 74941 Reagin Ab RPR Ql (S) Non-Reactive Normal NR [facility] Comment on above: Performed By: #### 2 12006 #### [facility],[address] [place] [address] 05582 Rubella IgG Ab 1.32 Indexlue Normal [facility] Comment on above: Result Comment: Inde x values are interpreted as follows: Negative specimens <0.90 Equivocol specimens 0.90 to 0.99 Positive specimens >0.99 The magnitude of the measured result is not indicative of the amount of antibody present. [facility] [address] [place] [address] Ravi Nuñez III, M.D. [id number] Performed By: #### 2 43458 #### [facility],[address] [place] [address] 45837 Rubella IgG Ab, Qual Positive Abnormal NEGAT [facility] Comment on above: Result Comment: Samp le is considered positive for IgG antibodies to rubella virus. A positive result indicates previous exposure to Rubella virus or vaccination. Performed By: #### 2 62765 #### [facility],[address] [place] [address] 87767 URINE CREATININE AND PROTEIN RATIOon 07-24-2021 CREATININE UR 22.56 mg/dl Normal [facility] Comment on above: Performed By: #### 2 38286 #### [facility],[address] [place] [address] 96619 PC RATIO 0.41 mg/dL Normal 0.00 - 10.00 [facility] Comment on above: Performed By: #### 2 74192 #### [facility],[address] [place] [address] 47690 Protein (U) [Mass/Vol] 9.30 mg/dL Normal 0.00 - 10.00 [facility] Comment on above: Performed By: #### 2 55338 #### [facility],[address] [place] [address] 88407 APTTon 07-23-2021 aPTT Coag (Sophie) [Time] 25.7 s Normal 25.4 - 38.4 [facility] Comment on above: Performed By: #### 2 52756 #### [facility],[address] [place] [address] 05290 BB CROSSMATCH 1ST UNITon BB CROSSMATCH 1ST UNIT Normal [facility] Comment on above: Result Comment: [id number] REQUEST FOR BLOOD OR BLOOD COMPONENT UNIT #_1 07/23/21.0449.EML. Performed By: #### 2 41419 #### [facility],[address] [place] [address] 56065 Compatibility COMPATIBLE Normal [facility] Comment on above: Result Comment: { Pt 's BB ID # [id number] Transfusion comments I have confirmed the above [...] COMPLETION OF TRANSFUSION. Performed By: #### 2 27638 #### [facility],[address] [place] [address] Component [facility] Normal [facility] Comment on above: Performed By: #### 2 70607 #### [facility],[address] [place] [address] Donor's ABO/Rh Positive Normal [facility] Comment on above: Performed By: #### 2 92770 #### [facility],[address] [place] [address] Donor's Unit No [id number] Normal [facility] Comment on above: Performed By: #### 2 22499 #### [facility],[address] [place] [address] Pt's ABO/Rh Positive Normal [facility] Comment on above: Performed By: #### 2 90666 #### [facility],[address] [place] [address] Unit Exp Date 08-19-21 Normal [facility] Comment on above: Performed By: #### 2 43392 #### [facility],[address] [place] [address] BB CROSSMATCH ADDITIONAL UNI Ton 07-23-2021 BB CROSSMATCH ADDITIONAL UNIT Normal [facility] Comment on above: Result Comment: [id number] REQUEST FOR BLOOD OR BLOOD COMPONENT UNIT #_2 07/23/21.0451.EML. Performed By: #### 2 23452 #### [facility],[address] [place], [place] [address] Compatibility COMPATIBLE Normal [facility] Comment on above: Result Comment: { Pt 's BB ID # [id number] Transfusion comments I have confirmed the above [...] COMPLETION OF TRANSFUSION. Performed By: #### 2 97236 #### [facility],[address] [place] [address] Component [facility] Normal [facility] Comment on above: Performed By: #### 2 51506 #### [facility],[address] [place] [address] Donor's ABO/Rh Positive Normal [facility] Comment on above: Performed By: #### 2 00407 #### [facility],[address] [place] [address] Donor's Unit No [id number] Normal [facility] Comment on above: Performed By: #### 2 69605 #### [facility],[address] [place] [address] Pt's ABO/Rh Positive Normal [facility] Comment on above: Performed By: #### 2 13241 #### [facility],[address] [place] [address] 26873 Unit Exp Date 08-20-21 Normal [facility] Comment on above: Performed By: #### 2 18267 #### [facility],[address] [place] [address] 83497 CBC (NO DIFF)on 07-23-2021 CBC panel Auto (Bld) Normal [facility] Comment on above: Result Comment: CBC( WITHOUT DIFFERENTIAL) Performed By: #### 2 71053 #### [facility],[address] [place] [address] 38429 Erythrocyte distribution width (RBC) [Ratio] 15.8 % High 12.0 - 15.6 [facility] Comment on above: Performed By: #### 2 27777 #### [facility],[address] [place] [address] 48122 Hematocrit (Bld) [Volume fraction] 30.8 % Low 34.0 - 46.0 [facility] Comment on above: Performed By: #### 2 05173 #### [facility],[address] [place] [address] 75116 Hemoglobin (Bld) [Mass/Vol] 10.6 g/dL Low 12.0 - 16.0 [facility] Comment on above: Performed By: #### 2 14098 #### [facility],[address] [place] [address] 99415 MCH (RBC) [Entitic mass] 27 pg Normal 27 - 33 [facility] Comment on above: Performed By: #### 2 93316 #### [facility],[address] [place] [address] 48020 MCHC 34 X10 3 Normal 32 - 36 [facility] Comment on above: Performed By: #### 2 09115 #### [facility],[address] [place] [address] 18617 MCV (RBC) [Entitic vol] 79 fL Low 80 - 99 [facility] Comment on above: Performed By: #### 2 82317 #### [facility],[address] [place] [address] 52942 PLATELET 218 x10EE3/UL Normal 150 - 450 [facility] Comment on above: Performed By: #### 2 95097 #### [facility],[address] [place] [address] 91156 Platelet mean volume (Bld) [Entitic vol] 8.0 fL Normal 6.6 - 10.5 [facility] Comment on above: Result Comment: {CB] Performed By: #### 2 54204 #### [facility],[address] [place] [address] 34075 RBC 3.90 x 10EE6/UL Low 4.10 - 5.30 [facility] Comment on above: Performed By: #### 2 08861 #### [facility],[address] [place], [place] [address] WBC 21.0 x 10EE3/UL High 4.5 - 10.8 [facility] Comment on above: Performed By: #### 2 87357 #### [facility],[address] [place] [address] CBC + DIFFon 07-23-2021 Baso # 0.10 x10EE3/UL Normal 0.00 - 0.10 [facility] Comment on above: Performed By: #### 2 01529 #### [facility],[address] [place], [place] [address] Basophils/100 WBC (Bld) 0.5 % Normal 0.0 - 2.0 [facility] Comment on above: Performed By: #### 2 53980 #### [facility],[address] [place] [address] CBC + DIFF Normal [facility] Comment on above: Result Comment: CBC- COMPLETE BLOOD COUNT Performed By: #### 2 27248 #### [facility],[address] [place] [address] EO # 0.10 x10EE3/UL Normal 0.00 - 0.50 [facility] Comment on above: Performed By: #### 2 34136 #### [facility],[address] [place], [place] [address] Eosinophils/100 WBC (Bld) 1.0 % Normal 0.0 - 7.0 [facility] Comment on above: Performed By: #### 2 59116 #### [place] [address] Erythrocyte distribution width (RBC) [Ratio] 16.5 % High 12.0 - 15.6 [facility] Comment on above: Performed By: #### 2 13715 #### [facility],[address] [place] [address] Hematocrit (Bld) [Volume fraction] 29.7 % Low 34.0 - 46.0 [facility] Comment on above: Performed By: #### 2 54323 #### [facility],[address] [place] [address] 78853 Hemoglobin (Bld) [Mass/Vol] 10.0 g/dL Low 12.0 - 16.0 [facility] Comment on above: Performed By: #### 2 21389 #### [facility],[address] [place] [address] Lymph # 2.50 x10EE3/UL Normal 0.80 - 2.80 [facility] Comment on above: Performed By: #### 2 60802 #### [facility],[address] [place] [address] Lymphocytes/100 WBC (Bld) 22.3 % Normal 20.0 - 45.0 [facility] Comment on above: Performed By: #### 2 12931 #### [facility],[address] [place] [address] 70984 MANUAL DIFF N/A Normal [facility] Comment on above: Performed By: #### 2 32108 #### [facility],[address] [place], [place] [address] MCH (RBC) [Entitic mass] 28 pg Normal 27 - 33 [facility] Comment on above: Performed By: #### 2 52829 #### [facility],[address] [place] [address] 64662 MCHC 34 X10 3 Normal 32 - 36 [facility] Comment on above: Performed By: #### 2 92585 #### [facility],[address] [place] [address] 79510 MCV (RBC) [Entitic vol] 82 fL Normal 80 - 99 [facility] Comment on above: Performed By: #### 2 32833 #### [facility],[address] [place] [address] 80558 [place] # 0.90 x10EE3/UL Normal 0.20 - 1.00 [facility] Comment on above: Performed By: #### 2 25577 #### [facility],[address] [place] [address] 33998 MONOS % 7.9 % Normal 0.0 - 10.0 [facility] Comment on above: Performed By: #### 2 59879 #### [facility],[address] [place] [address] 26609 Morphology Tony (Bld) [Interp] N/A Normal [facility] Comment on above: Result Comment: {CD] Performed By: #### 2 06535 #### [facility],[address] [place] [address] 43442 Neut # 7.70 x10EE3/UL High 1.50 - 7.10 [facility] Comment on above: Performed By: #### 2 55439 #### [facility],[address] [place] [address] 76587 Neutrophils/100 WBC (Bld) 68.3 % Normal 46.0 - 76.0 [facility] Comment on above: Performed By: #### 2 25252 #### [facility],[address] [place] [address] 95878 PLATELET 189 x10EE3/UL Normal 150 - 450 [facility] Comment on above: Performed By: #### 2 74102 #### [facility],[address] [place] [address] 03934 Platelet mean volume (Bld) [Entitic vol] 8.1 fL Normal 6.6 - 10.5 [facility] Comment on above: Result Comment: AUTO MATED DIFFERENTIAL Performed By: #### 2 53352 #### [facility],[address] [place] [address] 90911 RBC 3.63 x 10EE6/UL Low 4.10 - 5.30 [facility] Comment on above: Performed By: #### 2 47823 #### [facility],[address] [place] [address] 98687 WBC 11.3 x 10EE3/UL High 4.5 - 10.8 [facility] Comment on above: Performed By: #### 2 19645 #### [facility],[address] [place] [address] 28585 D-DIMER, QUANTITATIVEon 06-30 D-DIMER QUANT 237 ng/ml High 0 - 230 [facility] Comment on above: Performed By: #### 2 98591 #### [facility],[address] [place] [address] 86762 D-DIMER, QUANTITATIVE Normal [facility] Comment on above: Result Comment: GARRETT T D-DIMER Performed By: #### 2 20713 #### [facility],[address] [place] [address] 15333 DRUG SCREEN URINE MEDICon AMPHETAMINES Positive Normal [facility] Comment on above: Performed By: #### 2 81751 #### [facility],[address] [place] [address] 35629 B-DIAZEPINES Negative [facility] Comment on above: Performed By: #### 2 70746 #### [facility],[address] [place] [address] 90056 BARBITURATES Negative [facility] Comment on above: Performed By: #### 2 57184 #### [facility],[address] [place] [address] 34632 COCAINE Negative [facility] Comment on above: Performed By: #### 2 67081 #### [facility],[address] [place] [address] 94927 DRUG SCREEN URINE MEDIC Normal [facility] Comment on above: Result Comment: DRUG SCREEN - URINE Performed By: #### 2 68468 #### [facility],[address] [place] [address] 50919 METHADONE Negative Normal [facility] Comment on above: Performed By: #### 2 87039 #### [facility],[address] [place] [address] 43203 OPIATES Negative Normal [facility] Comment on above: Performed By: #### 2 58051 #### [facility],[address] [place] [address] 36503 PCP Negative Normal [facility] Comment on above: Performed By: #### 2 66349 #### [facility],[address] [place] [address] 26372 THC Negative Normal [facility] Comment on above: Result Comment: MEGHA ENTS RECEIVING PROTON PUMP INHIBITORS MAY DEMONSTRATE FALSE POSITIVE THC/CANNABINOID RESULTS. AN ALTERNATIVE CONFIRMATORY METHOD SHOULD BE CONSIDERED TO VERIFY POSITIVE RESULTS. Performed By: #### 2 48203 #### [facility],[address] [place] [address] 92242 FIBRINOGENon 07-23-2021 FIBRINOGEN 575 mg/dl Normal 308 - 613 [facility] Comment on above: Result Comment: P LEASE NOTE - FIBRINOGEN AT GREAT FALLS IS A CALCULATED VALUE. Values measured using the calculated fibrinogen method are biased 100mg/dl higher than values measured using the Clauss method. Performed By: #### 2 20276 #### [facility],[address] [place] [address] 83536 HEPATIC FUNCTION PANELon Albumin [Mass/Vol] 1.8 g/dL Low 3.4 - 5.0 [facility] Comment on above: Performed By: #### 2 77440 #### [facility],[address] [place] [address] 69607 ALK PHOS 111 U/L Normal 46 - 116 [facility] Comment on above: Performed By: #### 2 74632 #### [facility],[address] [place] [address] 39009 ALT [Catalytic activity/Vol] 10 U/L Low 14 - 59 [facility] Comment on above: Performed By: #### 2 42462 #### [facility],[address] [place] [address] AST [Catalytic activity/Vol] 15 U/L Normal 13 - 39 [facility] Comment on above: Performed By: #### 2 90301 #### [facility],[address] [place] [address] Bilirubin [Mass/Vol] 0.2 mg/dL Normal 0.2 - 1.0 [facility] Comment on above: Performed By: #### 2 82960 #### [facility],[address] [place] [address] Bilirubin.direct [Mass/Vol] 0.1 mg/dL Normal 0.0 - 0.2 [facility] Comment on above: Performed By: #### 2 72180 #### [facility],[address] [place] [address] Hepatic function 2000 panel Normal [facility] Comment on above: Result Comment: HEPA TIC FUNCTION PROFILE Performed By: #### 2 10073 #### [facility],[address] [place] [address] Protein [Mass/Vol] 4.5 g/dL Low 6.4 - 8.2 [facility] Comment on above: Performed By: #### 2 11248 #### [facility],[address] [place] [address] PROTHROMBIN TIME AND INRon 0 07-23-2021 INR Coag (PPP) [Relative time] 0.9 {INR} Normal 0.8 - 1.2 [facility] Comment on above: Result Comment: T [...] MECHANICAL HEART VALVES Performed By: #### 2 19982 #### [facility],[address] [place], [place] [address] PROTHROMBIN TIME AND INR Normal [facility] Comment on above: Result Comment: PROT HROMBIN TIME AND INR Performed By: #### 2 28904 #### [facility],[address] [place] [address] 35752 PT-COUMADIN 10.0 sec Normal 9.3 - 14.1 [facility] Comment on above: Performed By: #### 2 89586 #### [facility],[address] [place], [place] [address] URIC ACIDon 07-23-2021 Urate [Mass/Vol] 6.2 mg/dL High 2.6 - 6.0 [facility] Comment on above: Performed By: #### 2 54039 #### [facility],[address] [place] [address] URINALYSIS WITH MICROSCOPYon 07-23-2021 Amorphous NONE Normal [facility] Comment on above: Performed By: #### 2 37136 #### [facility],[address] [place], [place] [address] Bacteria TRACE Normal [facility] Comment on above: Performed By: #### 2 52030 #### [facility],[address] [place] [address] 95711 Bilirubin Ql (U) Negative Normal NORMAL: NEGATIVE [facility] Comment on above: Performed By: #### 2 44501 #### [facility],[address] [place] [address] 39569 Casts NONE Normal [facility] Comment on above: Performed By: #### 2 26499 #### [facility],[address] [place], [place] [address] Clarity (U) clear Normal NORMAL: CLEAR [facility] Comment on above: Performed By: #### 2 16109 #### [facility],[address] [place] [address] Color (U) yellow Normal NORMAL: YELLOW [facility] Comment on above: Performed By: #### 2 49063 #### [facility],[address] [place] [address] Crystals LM Nom (Urine sed) NONE Normal [facility] Comment on above: Performed By: #### 2 94208 #### [facility],[address] [place], [place] [address] Epi Cells OCC Normal [facility] Comment on above: Performed By: #### 2 42573 #### [facility],[address] [place] [address] Glucose Ql (U) NORM Normal NORMAL: NORMAL [facility] Comment on above: Performed By: #### 2 47481 #### [facility],[address] [place] [address] Hemoglobin Ql (U) Negative Normal NORMAL: NEGATIVE [facility] Comment on above: Performed By: #### 2 94544 #### [facility],[address] [place], [place] [address] Ketone 15 Abnormal NORMAL: NEGATIVE [facility] Comment on above: Performed By: #### 2 87674 #### [facility],[address] [place], [place] [address] Leukocytes 25 Abnormal NORMAL: NEGATIVE [facility] Comment on above: Result Comment: URIN E MICROSCOPIC Performed By: #### 2 66635 #### [facility],[address] [place], [place] [address] Mucous 2+ Normal [facility] Comment on above: Performed By: #### 2 39920 #### [facility],[address] [place], [place] [address] Nitrite Ql (U) Negative Normal NORMAL: NEGATIVE [facility] Comment on above: Performed By: #### 2 35743 #### [facility],[address] [place] [address] pH (U) 8 [pH] Normal NORMAL: 5.0-8.0 [facility] Comment on above: Performed By: #### 2 10154 #### [facility],[address] [place] [address] Protein Ql (U) 100 Abnormal NORMAL: NEGATIVE [facility] Comment on above: Performed By: #### 2 48557 #### [facility],[address] [place] [address] Rbc 0-5 Normal 0-3 / hpf [facility] Comment on above: Performed By: #### 2 69034 #### [facility],[address] [place] [address] Sp [place] 1.010 Normal NORMAL: 1.010-1.030 [facility] Comment on above: Performed By: #### 2 31178 #### [facility],[address] [place] [address] Specimen Type R Normal [facility] Comment on above: Performed By: #### 2 54259 #### [facility],[address] [place] [address] URINALYSIS WITH MICROSCOPY Normal [facility] Comment on above: Result Comment: URIN ALYSIS Performed By: #### 2 17030 #### [facility],[address] [place], [place] [address] Urobilinog NORM Normal NORMAL: NORMAL [facility] Comment on above: Performed By: #### 2 87294 #### [facility],[address] [place] [address] WBC (U) [#/Vol] /uL Normal 0-5 / hpf [facility] Comment on above: Performed By: #### 2 24530 #### [facility],[address] [place] [address] Yeast NONE Normal [facility] Comment on above: Performed By: #### 2 86100 #### [facility],[address] [place] [address] 31477 URINE CREATININE AND PROTEIN RATIOon 07-23-2021 CREATININE UR 130.88 mg/dl Normal [facility] Comment on above: Performed By: #### 2 35809 #### [facility],[address] [place] [address] 81854 PC RATIO 0.63 mg/dL Normal 0.00 - 10.00 [facility] Comment on above: Performed By: #### 2 38795 #### [facility],[address] [place] [address] 71145 Protein (U) [Mass/Vol] 82.10 mg/dL High 0.00 - 10.00 [facility] Comment on above: Performed By: #### 2 89230 #### [facility],[address] [place] [address] 87303 US PELVICon 07-23-2021 PELVIC [place] [address] Patient: SELMA POON Phone#: : 1990 Age: 30 Gender: F Pt. Type: In Account: [id number] Location: [facility] Ordering: ARMANDO AYALA Exam Date: 07/23/2021/5:05 Family Phys: Charge Code: [id number] Physician: [place] Order #: [id number] DLP Dose#: PROCEDURE: PELVIC ULTRASOUND, TRANSABDOMINAL COMPARISON: [...] Stout MD on 07/23/2021 at 21:14 Normal [facility] APTTon 07-22-2021 aPTT Coag (Bld) [Time] 25.6 s Normal 25.4 - 38.4 [facility] Comment on above: Performed By: #### 2 31857 #### [facility],[address] [place] [address] BB TYPE & SCREENon ABO O Normal [facility] Comment on above: Performed By: #### 2 13363 #### [facility],[address] [place] [address] ANTIBODY SCR Negative Normal [facility] Comment on above: Performed By: #### 2 92835 #### [facility],[address] [place] [address] BB TYPE & SCREEN Normal [facility] Comment on above: Result Comment: TYPE , Rh, AND SCREEN Performed By: #### 2 93659 #### [facility],[address] [place] [address] Rh Nom (Bld) Positive Normal [facility] Comment on above: Performed By: #### 2 39605 #### [facility],[address] [place] [address] CBC + DIFFon 07-22-2021 Baso # 0.10 x10EE3/UL Normal 0.00 - 0.10 [facility] Comment on above: Performed By: #### 2 53982 #### [facility],[address] [place] [address] Basophils/100 WBC (Bld) 1.0 % Normal 0.0 - 2.0 [facility] Comment on above: Performed By: #### 2 35976 #### [facility],[address] [place] [address] 45135 CBC + DIFF Normal [facility] Comment on above: Result Comment: CBC- COMPLETE BLOOD COUNT Performed By: #### 2 34426 #### [facility],[address] [place] [address] 48666 EO # 0.00 x10EE3/UL Normal 0.00 - 0.50 [facility] Comment on above: Performed By: #### 2 77768 #### [facility],[address] [place] [address] 09717 Eosinophils/100 WBC (Bld) 0.1 % Normal 0.0 - 7.0 [facility] Comment on above: Performed By: #### 2 32822 #### [facility],[address] [place] [address] 65110 Erythrocyte distribution width (RBC) [Ratio] 15.6 % Normal 12.0 - 15.6 [facility] Comment on above: Performed By: #### 2 76225 #### [facility],[address] [place] [address]851 Hematocrit (Bld) [Volume fraction] 42.3 % Normal 34.0 - 46.0 [facility] Comment on above: Performed By: #### 2 18414 #### [facility],[address] [place] [address] 69421 Hemoglobin (Bld) [Mass/Vol] 14.6 g/dL Normal 12.0 - 16.0 [facility] Comment on above: Performed By: #### 2 59175 #### [facility],[address] [place] [address] 29452 Lymph # 2.50 x10EE3/UL Normal 0.80 - 2.80 [facility] Comment on above: Performed By: #### 2 94659 #### [facility],[address] [place] [address] 97617 Lymphocytes/100 WBC (Bld) 19.8 % Low 20.0 - 45.0 [facility] Comment on above: Performed By: #### 2 34003 #### [facility],[address] [place] [address] MANUAL DIFF N/A Normal [facility] Comment on above: Performed By: #### 2 62991 #### [facility],[address] [place] [address] MCH (RBC) [Entitic mass] 27 pg Normal 27 - 33 [facility] Comment on above: Performed By: #### 2 57343 #### [facility],[address] [place] [address] MCHC 34 X10 3 Normal 32 - 36 [facility] Comment on above: Performed By: #### 2 52166 #### [facility],[address] [place] [address] MCV (RBC) [Entitic vol] 79 fL Low 80 - 99 [facility] Comment on above: Performed By: #### 2 93437 #### [facility],[address] [place] [address] [place] # 0.70 x10EE3/UL Normal 0.20 - 1.00 [facility] Comment on above: Performed By: #### 2 46423 #### [facility],[address] [place] [address] MONOS % 5.2 % Normal 0.0 - 10.0 [facility] Comment on above: Performed By: #### 2 79656 #### [facility],[address] [place] [address] Morphology Tony (Bld) [Interp] N/A Normal [facility] Comment on above: Result Comment: {CD] Performed By: #### 2 07748 #### [facility],[address] [place] [address] Neut # 9.40 x10EE3/UL High 1.50 - 7.10 [facility] Comment on above: Performed By: #### 2 99239 #### [facility],[address] [place] [address] 58287 Neutrophils/100 WBC (Bld) 73.9 % Normal 46.0 - 76.0 [facility] Comment on above: Performed By: #### 2 24809 #### [facility],[address] [place] [address] 90569 PLATELET 264 x10EE3/UL Normal 150 - 450 [facility] Comment on above: Performed By: #### 2 51506 #### [facility],[address] [place] [address] 70854 Platelet mean volume (Bld) [Entitic vol] 8.5 fL Normal 6.6 - 10.5 [facility] Comment on above: Result Comment: AUTO MATED DIFFERENTIAL Performed By: #### 2 79917 #### [facility],[address] [place] [address] 84025 RBC 5.36 x 10EE6/UL High 4.10 - 5.30 [facility] Comment on above: Performed By: #### 2 10991 #### [facility],[address] [place] [address] 73826 WBC 12.7 x 10EE3/UL High 4.5 - 10.8 [facility] Comment on above: Performed By: #### 2 53582 #### [facility],[address] [place] [address] 37397 D-DIMER, QUANTITATIVEon 06-30 D-DIMER QUANT 438 ng/ml High 0 - 230 [facility] Comment on above: Performed By: #### 2 91030 #### [facility],[address] [place] [address] 62463 D-DIMER, QUANTITATIVE Normal [facility] Comment on above: Result Comment: GARRETT T D-DIMER Performed By: #### 2 84580 #### [facility],[address] [place] [address] 45415 FIBRINOGENon 07-22-2021 FIBRINOGEN 711 mg/dl High 308 - 613 [facility] Comment on above: Result Comment: P LEASE NOTE - FIBRINOGEN AT GREAT FALLS IS A CALCULATED VALUE. Values measured using the calculated fibrinogen method are biased 100mg/dl higher than values measured using the Clauss method. Performed By: #### 2 64662 #### [facility],[address] [place] [address] HEPATIC FUNCTION PANELon Albumin [Mass/Vol] 2.7 g/dL Low 3.4 - 5.0 [facility] Comment on above: Performed By: #### 2 21331 #### [facility],[address] [place] [address] ALK PHOS 182 U/L High 46 - 116 [facility] Comment on above: Performed By: #### 2 77056 #### [facility],[address] [place], [place] [address] ALT [Catalytic activity/Vol] 13 U/L Low 14 - 59 [facility] Comment on above: Performed By: #### 2 89108 #### [facility],[address] [place] [address] AST [Catalytic activity/Vol] 15 U/L Normal 13 - 39 [facility] Comment on above: Performed By: #### 2 10131 #### [facility],[address] [place], [place] [address] Bilirubin [Mass/Vol] 0.3 mg/dL Normal 0.2 - 1.0 [facility] Comment on above: Performed By: #### 2 93399 #### [facility],[address] [place] [address] 74254 Bilirubin.direct [Mass/Vol] 0.1 mg/dL Normal 0.0 - 0.2 [facility] Comment on above: Performed By: #### 2 23549 #### [facility],[address] [place], [place] [address] Hepatic function 2000 panel Normal [facility] Comment on above: Result Comment: HEPA TIC FUNCTION PROFILE Performed By: #### 2 09732 #### [facility],[address] [place] [address] Protein [Mass/Vol] 6.4 g/dL Normal 6.4 - 8.2 [facility] Comment on above: Performed By: #### 2 42710 #### [facility],[address] [place], [place] [address] PROTHROMBIN TIME AND INRon 0 07-22-2021 INR Coag (PPP) [Relative time] 0.9 {INR} Normal 0.8 - 1.2 [facility] Comment on above: Result Comment: T [...] MECHANICAL HEART VALVES Performed By: #### 2 18271 #### [facility],[address] [place] [address] PROTHROMBIN TIME AND INR Normal [facility] Comment on above: Result Comment: PROT HROMBIN TIME AND INR Performed By: #### 2 05628 #### [facility],[address] [place], [place] [address] PT-COUMADIN 9.9 sec Normal 9.3 - 14.1 [facility] Comment on above: Performed By: #### 2 62237 #### [facility],[address] [place], [place] [address] URIC ACIDon 07-22-2021 Urate [Mass/Vol] 6.7 mg/dL High 2.6 - 6.0 [facility] Comment on above: Performed By: #### 2 73098 #### [facility],[address] [place], [place] [address] ANES POSTPROC EVALon 020 ANES POSTPROC EVAL HNO ID: [id number] Author: Elver Sandoval Service: ? Author Type: Anesthesiologist Type: Anesthesia Postprocedure Evaluation Filed: 06/11/2020 12:46 PM Note Text: POST ANESTHESIA EVALUATION NOTE : 1990 Procedure Summary Date: 06/11/20 Room / Location: [place] OR / [place] OR Anesthesia Start: 1056 Anesthesia Stop: 1201 [...] June 11, 2020 TIME: 12:45 PM CSN: [id number] [facility] ANES PRE-OPon 06-11-2020 ANES PRE-OP HNO ID: [id number] Author: Elver Sandoval Service: ? Author Type: Anesthesiologist Type: Anesthesia Preprocedure Evaluation Filed: 06/11/2020 9:11 AM Note Text: OB ANESTHESIA PRE-PROCEDURE ASSESSMENT PATIENT NAME: Selma Poon : 1990 [employer] ROS Relevant Problems No relevant active problems [...] documented in primary service progress note: no. [facility] CHART REVIEW: ACTIVE PROBLEM LIST Generalized [...] Bottle, Rfl: 11 Inpatient medications reviewed in [facility] I have interviewed and examined the patient. I have reviewed the medical record and/or the pre-anesthesia evaluation, pertinent labs, and test results. This contains updated information obtained within 48 hours of Surgery/Procedure. SIGNATURE: Elver Sandoval MD PATIENT NAME: Selma Poon DATE: June 11, 2020 TIME: 9:11 AM : 1990 [facility] OPERATIVE NOon 06-11-2020 OPERATIVE NO HNO ID: [id number] Author: Eliot Munoz Service: Orthopaedic Surgery Author Type: Physician Type: Operative Report Filed: 06/11/2020 11:57 AM Note Text: [place] [address] [place] OPERATIVE REPORT NAME:Selma Poon [id number] DATE: June 11, 2020 AGE: [age] year [...] resistance. Subsequently, I selected a mini meniscotome [place] blade and slid this in the protective guide, completely dividing the transverse carpal ligament. Hattie rakes were used to view up the wound to visualize for complete release and a [place] elevator was used to palpate for complete [...] Post-Op/Post-Proced ure Diagnosis: Same ? [facility] PT EDon 06-11-2020 PT ED HNO ID: [id number] Author: Jessi DejesusRnThai Davila RN Service: ? Author Type: Registered Nurse [...] Signed By: Jessi Davila RN In Department: [facility] SURGERY [facility] PT ED HNO ID: [id number] Author: Fredis Cespedes RN Service: Nursing Author Type: Registered Nurse [...] Signed By: Fredis Cespedes RN In Department: [facility] SURGERY [facility] HOSPon 05-20-2020 HOSP Patient:Lay Poon [...] for the following basenames: K,HCT Progress Notes ([facility]): Oneyda Kay Ma 06/03/2020 3:34 [...] 03/2020 No appointment scheduled. Jose J Sneed DNP.AIRCRAFT CHARTER DISPATCHER, DATA MODELER.AIRCRAFT CHARTER DISPATCHER 06/03/2020 3:42 PM Signed The following approved medication requests have been transmitted electronically. Pending Prescriptions Disp Refills BUSPIRONE 5 MG TABLET 60 tablet 1 Sig: Take 2 tablets by mouth twice daily. ADAM: No Jose J Sneed DNP.DAVIS Progress Notes ([facility]): Anika Felix RN 06/03/2020 [...] needed. She declines at this time. Normal [facility] CBC WITH AUTO DIFFERENTIALon 06-13-2019 Basophils (Bld) [#/Vol] 0.05 10*3/uL [facility] Basophils/100 WBC (Bld) 0.4 % [facility] Eosinophils (Bld) [#/Vol] 0.31 10*3/uL [facility] Eosinophils/100 WBC (Bld) 2.7 % [facility] Erythrocyte distribution width (RBC) [Entitic vol] 15.6 % High 11.6 - 14.8 % [facility] Hematocrit (Bld) [Volume fraction] 42.0 % 36 - 46 % [facility] Hemoglobin (Bld) [Mass/Vol] 13.7 g/dL 12 - 16 g/dL [facility] Immature granulocytes (Bld) [#/Vol] 0.05 10*3/uL [facility] Immature granulocytes/100 WBC (Bld) 0.40 % [facility] Comment on above: The IG parameter is the percentage of metamyelocytes, myelocytes, and promyelocytes. Interpretation and review of laboratory results Abnormal [facility] Lymphocytes (Bld) [#/Vol] 4.07 10*3/uL High [facility] Lymphocytes/100 WBC (Bld) 35.3 % [facility] MCH (RBC) [Entitic mass] 26.4 pg 26 - 34 pg [facility] MCHC (RBC) [Mass/Vol] 32.6 g/dL 31 - 37 g/dL [facility] MCV (RBC) [Entitic vol] 81.1 fL 80 - 100 fL [facility] Monocytes (Bld) [#/Vol] 0.91 10*3/uL [facility] Monocytes/100 WBC (Bld) 7.9 % [facility] Neutrophils (Bld) [#/Vol] 6.13 10*3/uL [facility] Neutrophils/100 WBC (Bld) 53.3 % [facility] Nucleated RBC (Bld) [#/Vol] 0.00 10*3/uL [facility] Nucleated RBC/100 WBC (Bld) [Ratio] 0.0 % [facility] Platelet mean volume (Bld) [Entitic vol] 8.8 fL Low 9 - 15.5 fL [facility] Platelets (Bld) [#/Vol] 341 10*3/uL [facility] RBC (Bld) [#/Vol] 5.18 10*6/uL [facility] WBC (Bld) [#/Vol] 11.52 10*3/uL [facility] Chem 7on 06-13-2019 Anion gap [Moles/Vol] 15 mmol/L 10 - 2 0 mmol/L [facility] Chloride [Moles/Vol] 102 mmol/L 98 - 10 8 mmol/L [facility] Creatinine [Mass/Vol] 0.63 mg/dL 0.4 - 1.1 mg/dL [facility] GFR/1.73 sq M predicted among non-blacks MDRD (S/P/Bld) [Vol rate/Area] The eGFR should be used for monitoring renal function only and not for medication dosing. [facility] GFR/1.73 sq M.predicted CKD-EPI (S/P/Bld) [Vol rate/Area] 124 >=60 mL/min/1.73 m2 [facility] Glucose [Mass/Vol] 90 mg/dL 65 - 99 mg/dL [facility] HCO3 [Moles/Vol] 27 mmol/L 21 - 32 mmol/L [facility] Interpretation and review of laboratory results Normal [facility] Potassium [Moles/Vol] 4.1 mmol/L 3.5 - 5.1 mmol/L [facility] Sodium [Moles/Vol] 140 mmol/L 135 - 145 mmol/L [facility] Urea nitrogen [Mass/Vol] 11 mg/dL 8 - 25 mg/d L [facility] Urea nitrogen/Creatinine [Mass ratio] 17.5 mg/mg [facility] POC Urine Pregnancyon 2018 HCG ( test) Ql (U) Negative Negative [facility] Internal Control Pass [facility] Specific gravity (U) [Rel density] [facility] URINALYSISon 06-13-2019 Bacteria Auto Ql (U) Rare Abnormal None Se en /hpf [facility] Bilirubin Ql (U) Negative Negative [facility] Clarity Refractometry automated (U) Hazy Abnormal Clear [facility] Color (U) Yellow Colorless, Yellow [facility] Epithelial cells.squamous Auto (Urine sed) [#/Area] 3 [facility] Glucose Auto test strip (U) [Mass/Vol] Negative Negative mg/dL [facility] Hemoglobin Auto test strip Ql (U) Negative Negative [facility] Interpretation and review of laboratory results Abnormal [facility] Ketones (U) [Mass/Vol] Negative Negat hoda mg/dL [facility] Leukocyte esterase Auto test strip Ql (U) Negative Negative [facility] Mucus Auto (Urine sed) [#/Area] Rare None Seen, Rare /lpf [facility] Nitrite Auto test strip Ql (U) Negative Negative [facility] pH (U) 7.0 [pH] [facility] Protein (U) [Mass/Vol] Negative Negat hoda mg/dL [facility] RBC Auto (Urine sed) [#/Area] 2 [facility] Specific gravity (U) [Rel density] 1.019 [facility] Urobilinogen (U) [Mass/Vol] <2.0 <2.0 mg/dL [facility] WBC Auto (Urine sed) [#/Area] <1 [facility] Yeast.budding Computer assisted (U) [#/Area] Rare Abnormal None Seen /hpf [facility] Microscopic examination is performed on all urinalysis samples and only positive findings are reported. The test for blood on the chemical analytic portion of urinalysis may also be positive due to hemoglobinuria and myoglobinuria and if red blood cells are present they are quantified by microscopic examination. [facility] Vital Signs Date Time Vital Sign Value Performing Clinician Facility 05-11-2025 00:44-0400 Body temperature 98 [degF] Ed Provider [facility] 05-11-2025 00:44-0400 Diastolic blood pressure 71 mm[Hg] Ed Provider [facility] 05-11-2025 00:44-0400 Heart rate 66 /min Ed Provider [facility] 05-11-2025 00:44-0400 Respiratory rate 12 /min Ed Provider [facility] 05-11-2025 00:44-0400 SaO2% (BldA) [Mass fraction] 99 % Ed Provider [facility] 05-11-2025 00:44-0400 Systolic blood pressure 128 mm[Hg] Ed Provider [facility] 05-10-2025 21:21-0400 Body mass index (BMI) [Ratio] 37.1 kg/m2 Ed Provider [facility] 05-10-2025 21:21-0400 Body weight 92.2 kg Ed Provider [facility] 05-10-2025 21:19-0400 Body height 157.48 cm Ed Provider [facility] 03-10-2025 17:29-0400 Body temperature 98.1 [degF] Dr. Don Rosario MD Work Phone: [facility] 03-10-2025 17:29-0400 Diastolic blood pressure 70 mm[Hg] Dr. Don Rosario MD Work Phone: [facility] 03-10-2025 17:29-0400 Heart rate 91 /min Dr. Don Rosario MD Work Phone: 6(093)868-649551 [place] [address] 03-10-2025 17:29-0400 Respiratory rate 19 /min Dr. Don Rosario MD Work Phone: 9(119)043-804751 [place] [address] 03-10-2025 17:29-0400 SaO2% (BldA) [Mass fraction] 98 % Dr. Don Rosario MD Work Phone: 6(484)845-059351 [place] [address] 03-10-2025 17:29-0400 Systolic blood pressure 123 mm[Hg] Dr. Don Rosario MD Work Phone: 7(592)777-192751 [place] [address] 03-10-2025 17:14-0400 Body height 157.[address] Don Rosario MD Work Phone: 3(509)038-869051 [place] [address] 03-10-2025 17:14-0400 Body mass index (BMI) [Ratio] 35.7 kg/m2 Dr. Don Rosario MD Work Phone: 3(081)608-988551 [place] [address] 03-10-2025 17:14-0400 Body weight 88.[address] Don Rosario MD Work Phone: 1(487)014-841051 [place] [address] 03-09-2025 22:01-0400 Body height 157.[address] Don Rosario MD Work Phone: 5(278)417-463951 [place] [address] 03-09-2025 22:01-0400 Body mass index (BMI) [Ratio] 36.3 kg/m2 Dr. Don Rosario MD Work Phone: 9(743)923-185151 [place] [address] 03-09-2025 22:01-0400 Body temperature 99.2 [degF] Dr. Don Rosario MD Work Phone: 0(311)555-088951 [place] [address] 03-09-2025 22:01-0400 Body weight 90.[address] Don Rosario MD Work Phone: 1(657)454-984351 [place] [address] 03-09-2025 22:01-0400 Diastolic blood pressure 95 mm[Hg] Dr. Don Rosario MD Work Phone: 3(731)155-160751 [place] [address] 03-09-2025 22:01-0400 Heart rate 79 /min Dr. Don Rosario MD Work Phone: [facility] 03-09-2025 22:01-0400 Respiratory rate 18 /min Dr. Don Rosario MD Work Phone: 5(602)259-623509 [place] [address] 03-09-2025 22:01-0400 SaO2% (BldA) [Mass fraction] 98 % Dr. Don Rosario MD Work Phone: 7(201)191-063409 [place] [address] 03-09-2025 22:01-0400 Systolic blood pressure 115 mm[Hg] Dr. Don Rosario MD Work Phone: 0(245)310-394451 [place] [address] 01-05-2025 13:18-0400 Body mass index (BMI) [Ratio] 34.02 kg/m2 Karine Saucedo MD Work Phone: 4(843)500-495031 [place] [address] 01-05-2025 13:18-0400 Body weight 84.37 kg Karine Saucedo MD Work Phone: 2(067)255-604931 [place] [address] 01-05-2025 13:18-0400 Diastolic blood pressure 64 mm[Hg] Karine Saucedo MD Work Phone: 0(329)490-146031 [place] [address] 01-05-2025 13:18-0400 Systolic blood pressure 120 mm[Hg] Karine Saucedo MD Work Phone: 3(426)669-967931 [place] [address] 11-19-2024 22:30-0500 Body temperature 98.5 [degF] Dr. Don Rosario MD Work Phone: 0(377)492-265609 [place] [address] 11-19-2024 22:30-0500 Diastolic blood pressure 93 mm[Hg] Dr. Don Rosario MD Work Phone: 0(024)861-545609 [place] [address] 11-19-2024 22:30-0500 Heart rate 76 /min Dr. Don Rosario MD Work Phone: 4(362)914-294509 [place] [address] 11-19-2024 22:30-0500 Respiratory rate 18 /min Dr. Don Rosario MD Work Phone: 9(969)844-449451 [place] [address] 11-19-2024 22:30-0500 SaO2% (BldA) [Mass fraction] 97 % Dr. Don Rosario MD Work Phone: [facility] 11-19-2024 22:30-0500 Systolic blood pressure 154 mm[Hg] Dr. Don Rosario MD Work Phone: [facility] 11-19-2024 18:46-0500 Body mass index (BMI) [Ratio] 35.5 kg/m2 Dr. Don Rosario MD Work Phone: 9(833)277-497709 [place] [address] 11-19-2024 18:46-0500 Body weight 88.[address] Don Rosario MD Work Phone: 6(770)301-527051 [place] [address] 11-19-2024 14:47-0500 Body mass index (BMI) [Ratio] 35.3 kg/m2 Karine Saucedo MD Work Phone: [facility] 11-19-2024 14:47-0500 Body weight 87.54 kg Karine Saucedo MD Work Phone: [facility] 11-19-2024 14:47-0500 Diastolic blood pressure 90 mm[Hg] Karine Saucedo MD Work Phone: 4(755)634-180331 [place] [address] 11-19-2024 14:47-0500 Systolic blood pressure 140 mm[Hg] Karine Saucedo MD Work Phone: [facility] 11-07-2024 13:12-0500 Body height 157.5 cm Tona Mack APRN.CNM Work Phone: [facility] 11-07-2024 13:12-0500 Body mass index (BMI) [Ratio] 35.12 kg/m2 Toan Mack APRN.CNM Work Phone: [facility] 11-07-2024 13:12-0500 Body weight 87.09 kg Tona Mack APRN.CNM Work Phone: [facility] 11-07-2024 13:12-0500 Diastolic blood pressure 78 mm[Hg] Tona Mack APRN.CNM Work Phone: [facility] 11-07-2024 13:12-0500 Systolic blood pressure 124 mm[Hg] Tona Frederick DELA CRUZCNM Work Phone: [facility] 11-02-2024 19:55-0500 Diastolic Blood Pressure Non-Invasive 98 mm[Hg] LINDA CUEVAS MD [facility] 11-02-2024 19:55-0500 Heart rate 68 /min LINDA CUEVAS MD [facility] 11-02-2024 19:55-0500 Respiratory rate 18 /min LINDA CUEVAS MD [facility] 11-02-2024 19:55-0500 Systolic Blood Pressure Non-Invasive 136 mm[Hg] LINDA CUEVAS MD [facility] 11-02-2024 15:58-0500 Blood Pressure Cuff Size ILNDA CUEVAS MD [facility] 11-02-2024 15:58-0500 Blood Pressure Location LINDA CUEVAS MD [facility] 11-02-2024 15:58-0500 Blood Pressure Method LINDA CUEVAS MD [facility] 11-02-2024 15:58-0500 Body temperature 98.42 [degF] LINDA CUEVAS MD [facility] 11-02-2024 15:58-0500 Diastolic Blood Pressure Non-Invasive 90 mm[Hg] LINDA CUEVAS MD [facility] 11-02-2024 15:58-0500 Heart rate 101 /min LINDA CUEVAS MD [facility] 11-02-2024 15:58-0500 Respiratory rate 16 /min LINDA CUEVAS MD [facility] 11-02-2024 15:58-0500 Systolic Blood Pressure Non-Invasive 137 mm[Hg] LINDA CUEVAS MD [facility] 03-05-2023 18:08-0400 Body height 157.48 cm [facility] 03-05-2023 18:08-0400 Body temperature 96.9 [degF] [facility] 03-05-2023 18:08-0400 Diastolic blood pressure 113 mm[Hg] [facility] 03-05-2023 18:08-0400 Heart rate 135 /min [facility] 03-05-2023 18:08-0400 Respiratory rate 26 /min [facility] 03-05-2023 18:08-0400 SaO2% (BldA) [Mass fraction] 100 % [facility] 03-05-2023 18:08-0400 Systolic blood pressure 144 mm[Hg] [facility] 11-03-2022 11:16-0500 Body temperature 97.8 [degF] [facility] Work Phone: 11-03-2022 11:16-0500 Heart rate 78 /min [facility] Work Phone: 11-03-2022 11:16-0500 Respiratory rate 16 /min [facility] Work Phone: 11-03-2022 11:16-0500 SaO2% (BldA) [Mass fraction] 99 % [facility] Work Phone: 11-03-2022 07:11-0500 Body height 157.48 cm [facility] Work Phone: 11-03-2022 07:11-0500 Body mass index (BMI) [Ratio] 25.6 kg/m2 [facility] Work Phone: 11-03-2022 07:11-0500 Body weight 63.5 kg [facility] Work Phone: 11-03-2022 07:11-0500 Diastolic blood pressure 76 mm[Hg] [facility] Work Phone: 11-03-2022 07:11-0500 Systolic blood pressure 128 mm[Hg] [facility] Work Phone: 03-02-2022 18:51-0400 Body height 157.48 cm [facility] Work Phone: 03-02-2022 18:51-0400 Body mass index (BMI) [Ratio] 29.2 kg/m2 [facility] Work Phone: 03-02-2022 18:51-0400 Body temperature 96.8 [degF] [facility] Work Phone: 03-02-2022 18:51-0400 Body weight 72.57 kg [facility] Work Phone: 03-02-2022 18:51-0400 Diastolic blood pressure 64 mm[Hg] [facility] Work Phone: 03-02-2022 18:51-0400 Heart rate 109 /min [facility] Work Phone: 03-02-2022 18:51-0400 Respiratory rate 24 /min [facility] Work Phone: 03-02-2022 18:51-0400 SaO2% (BldA) [Mass fraction] 97 % [facility] Work Phone: 03-02-2022 18:51-0400 Systolic blood pressure 94 mm[Hg] [facility] Work Phone: 01-15-2022 22:01-0400 Diastolic blood pressure 105 mm[Hg] [facility] Work Phone: 01-15-2022 22:01-0400 Heart rate 83 /min [facility] Work Phone: 01-15-2022 22:01-0400 Respiratory rate 16 /min [facility] Work Phone: 01-15-2022 22:01-0400 SaO2% (BldA) [Mass fraction] 100 % [facility] Work Phone: 01-15-2022 22:01-0400 Systolic blood pressure 148 mm[Hg] [facility] Work Phone: 01-15-2022 19:52-0400 Body height 157.48 cm [facility] Work Phone: 01-15-2022 19:52-0400 Body mass index (BMI) [Ratio] 31 kg/m2 [facility] Work Phone: 01-15-2022 19:52-0400 Body temperature 96 [degF] [facility] Work Phone: 01-15-2022 19:52-0400 Body weight 76.9 kg [facility] Work Phone: 06-13-2019 09:35-0400 BP Diastolic 87 mm[Hg] uJno Jama [facility] 06-13-2019 09:35-0400 BP Systolic 127 mm[Hg] Juno Jama [facility] 06-13-2019 09:35-0400 Pulse (Heart Rate) 65 /min Juno Jama [facility] 06-13-2019 09:35-0400 Pulse Oximetry 100 % Juno Jama [facility] 06-13-2019 09:35-0400 Respiratory Rate 16 /min Juno Jama [facility] 06-13-2019 07:07-0400 Body Temperature 98.49 [degF] Juno Jama [facility] 06-13-2019 07:07-0400 Height 157.5 cm Juno Jama [facility] 06-05-2019 12:43-0400 BMI (Body Mass Index) 28.72 kg/m2 [facility] 06-05-2019 12:43-0400 Body Temperature 98.4 [degF] [facility] 06-05-2019 12:43-0400 Body [facility] 71.22 [facility] 06-05-[facility] 12:43-0400 BP Diastolic 83 mm[Hg] Tetsoma Tonwe [facility] 06-05-2019 12:43-0400 BP Systolic 123 mm[Hg] [facility] 06-05-[facility] 12:43-0400 Height 157.5 cm [facility] 06-05-2019 12:43-0400 Pulse (Heart Rate) 78 /min [facility] 06-05-2019 12:43-0400 Pulse [facility]ximetry 97 % [facility] 12:43-0400 Respiratory Rate 14 /min [facility] 06-05-2019 11:48-0400 Body Temperature 98.6 [degF] [facility] 06-05-2019 11:48-0400 BP Diastolic 97 mm[Hg] [facility] 06-05-2019 11:48-0400 BP Systolic 150 mm[Hg] [facility] 06-05-2019 11:48-0400 Pulse (Heart Rate) 99 /min [facility] 06-05-2019 11:48-0400 Pulse Oximetry 98 % [facility] 06-05-2019 11:48-0400 Respiratory Rate 16 /min [facility] 06-05-2019 11:42-0400 BMI (Body Mass Index) 29.08 kg/m2 [facility] 06-05-2019 11:42-0400 Body weight 72.12 kg [facility] 06-05-2019 11:42-0400 Height 157.5 cm [facility] Encounters Encounter Date Encounter Type Care Provider Facility Start: 08-27-2025 End: 08-27-2025 ambulatory Louisa Banks Facility:[facility] Start: 07-27-2025 ambulatory Mary Reynolds Facility:[facility] Start: 07-02-2025 End: 07-02-2025 ambulatory Oksana Lindsay DO Work Phone: [facility] Start: 07-02-2025 End: 07-02-2025 Patient encounter procedure Louisa Banks PATTERN PUNCHER-C [facility] Start: 07-02-2025 End: 07-02-2025 ambulatory Oksana Lindsay VSC Facility:[facility] Start: 05-27-2025 End: 05-27-2025 ambulatory MARY REYNOLDS PA-C Facility:[facility] Start: 05-27-2025 End: 05-27-2025 Patient encounter procedure MARY REYNOLDS PA-C [facility] Start: 05-10-2025 End: 05-11-2025 Emergency department patient visit Ed Provider -Emergency Department Work Phone: Start: 03-16-2025 Encounter for genera l adult medical examination without abnormal findings [facility] Start: 03-10-[address] Uvaldo Rosario MD Work Phone: [facility] Start: 03-10-2025 End: 03-10-2025 Emergency department patient visit Dr. Don Rosario MD Work Phone: -Emergency Department Work Phone: Start: 03-09-2025 End: 03-09-2025 Emergency department patient visit Dr. Don Rosario MD Work Phone: -Emergency Department Work Phone: Start: 01-07-2025 End: 03-09-2025 Follow-up encounter Demario Aneesh HAN Work Phone: OB/Gynecology Start: 01-05-2025 End: 01-05-2025 ambulatory KARINE SAUCEDO Facility:[facility] Start: 01-05-2025 End: 01-05-2025 Patient encounter procedure Karine Saucedo MD Work Phone: OB/Gynecology Comment on above: Cervical high risk H PV (human papillomavirus) test positive (Primary Dx); Screen for STD (sexually transmitted disease); Trichomoniasis Start: 12-05-2024 End: 12-05-2024 Telephone encounter Don Rosario MD Work Phone: [address] [place] [address] Comment on above: Patient Question Start: 11-19-2024 End: 11-19-2024 Emergency department patient visit Dr. Frieda Jack DO -Emergency Department Work Phone: Start: 11-19-2024 End: 11-19-2024 Patient encounter procedure Karine Saucedo MD Work Phone: OB/Gynecology Comment on above: Hypertension, postpa rtum condition or complication (Primary Dx); Trichomoniasis Start: 11-19-2024 End: 11-19-2024 ambulatory LEONEL RIOJAS Facility:[facility] Start: 11-14-2024 End: 11-21-2024 Telephone encounter Tona Mack APRN.CNM Work Phone: OB/Gynecology Comment on above: Results Start: 11-12-2024 End: 11-12-2024 Telephone encounter Tona Mack APRN.CNM Work Phone: OB/Gynecology Comment on above: Results Start: 11-12-2024 Evaluation and manag ement of inpatient ELVER WLISON I Facility:[facility] Start: 11-10-2024 End: 11-10-2024 Telephone encounter Tona Mack APRN.CNM Work Phone: OB/Gynecology Comment on above: Induction Start: 11-10-2024 End: 11-10-2024 ambulatory TONA MACK Facility:[facility] Start: 11-10-2024 End: 11-10-2024 Patient encounter procedure Tona Mack APRN.CNDelia Work Phone: OB/Gynecology Comment on above: demise before 20 weeks with retention of fetus (Primary Dx) Missed (Elin kee Dx); 13 weeks gestation of Start: 11-07-2024 End: 11-07-2024 ambulatory TONA MACK Facility:[facility] Start: 11-07-2024 End: 11-07-2024 Patient encounter [...] Emergency department patient visit LINDA CUEVAS MD [facility] Start: 10-20-2024 End: 10-21-2024 Telephone encounter Karen Guthrie DATA MODELER.AIRCRAFT CHARTER DISPATCHER Work Phone: OB/Gynecology Comment on above: Appointment Start: 10-17-2024 End: 10-17-2024 Chart abstracting Don Rosario MD Work Phone: [facility] [place] Comment on above: ER Discharge Summary Start: 10-17-2024 End: 11-07-2024 Telephone encounter Karen Guthrie DATA MODELER.AIRCRAFT CHARTER DISPATCHER Work Phone: OB/Gynecology Start: 10-16-2024 End: 10-16-2024 Emergency department patient visit Ash Ortega Facility:[facility] Start: 10-14-2024 End: 10-14-2024 Emergency department patient visit Don Rosario Facility:[facility] Start: 10-12-2024 End: 10-12-2024 Emergency department patient visit MONIQUE SAUCEDO MD Facility:[facility] Start: 09-10-2024 End: 09-10-2024 Telephone encounter Nurse Tube Cleaning Operator [facility] Work Phone: Obstetrics/Gynecology Comment on above: PRAF Start: 09-05-2024 End: 09-05-2024 Social Work Spike Liu MSW Navigation Start: 09-03-2024 End: 09-05-2024 Telephone encounter Karen Roman DATA MODELER.AIRCRAFT CHARTER DISPATCHER Work Phone: OB/Gynecology Comment on above: uncertain dates in p regnancy Start: 06-05-2024 Chart abstracting Don singleton MD Work Phone: Family [facility] [place] Comment on above: ER Discharge Summary Start: 05-08-2023 ambulatory Don heller MD Work Phone: [facility] [place] Comment on above: Hypertension Start: 03-05-2023 End: 03-05-2023 Emergency department patient visit [facility]-Emergency Department Start: 11-03-2022 End: 11-03-2022 Emergency department patient visit [facility]-Emergency Department Start: 03-15-2022 Refill Elsie Corina on DARIUS Work Phone: [facility] [place] Comment on above: Refill Request Start: 03-02-2022 End: 03-02-2022 Emergency department patient visit [facility]-Emergency Department Start: 01-15-2022 End: 01-15-2022 Emergency department patient visit [facility]-Emergency Department Start: 07-22-2021 End: 07-24-2021 Evaluation and management of inpatient ARMANDO CNM [facility] Start: 10-13-2020 Patient encounter status Benjie Harris PA-C Work Phone: [facility] Work Phone: Start: 06-13-2019 End: 06-13-2019 Emergency department patient visit PHYSICIAN LILLY [facility] Start: 06-13-2019 End: 06-13-2019 Emergency department patient visit Juno Jama Work Phone: [facility] Emergency Department Comment on above: Acute bilateral low back pain without sciatica (Primary Dx) Start: 06-05-2019 End: 06-05-2019 Patient encounter procedure TETSOMA OMAYONE TONWE [facility] Start: 06-05-2019 End: 06-05-2019 Emergency department patient visit VALERIO ROBLERO [facility] Start: 06-05-2019 End: 06-05-2019 Office outpatient new 30 minutes Tetsoma Omjabarione Jasper Work Phone: [facility] Comment on above: Bites (Primary Dx) Start: 06-05-2019 End: 06-05-2019 Emergency department patient visit Valerio Kali Roblero Work Phone: [facility] Emergency Department Comment on above: Rash (Primary Dx) Start: 07-04-2017 Ambulatory Mamtoño Refugio [facility] Start: 04-30-2017 End: 11-10-2024 Patient encounter status Tona Mack APRN.CNM Work Phone: [facility] Procedures Date Procedure Procedure Detail Performing Clinician [...] Work Phone: Start: 11-12-2024 Antibody screen ELVER ALTHEARADHA Guerrero Comment on above: Order Comment: Speci men Type: BLOOD SPECIMENOrdering Facility: [facility] Address: [address] [place] [address] Performed By: #### T SPN ####[facility] BLOOD BANKCLIA [id number] [address] [place] Start: 11-10-2024 Us preg uterus after 1st trimest 10/29 gestation Karine Saucedo MD Work Phone: Start: 11-07-2024 Antibody screen JESSIKA SAUCEDO Comment on above: Order Comment: Speci men Type: BLOOD SPECIMENOrdering Facility: [facility] Address: [address] [place] [address] Performed By: #### T SPN ####[facility] BLOOD BANKCLIA [id number] [address] [place] Start: 11-07-2024 BACTERIAL VAGINOSIS NAAT Tona Mack APRN.CNDelia Work Phone: Start: 11-07-2024 Iadna chlamydia trac homatis amplified probe tq Tona Mack APRN.CNM Work Phone: Start: 01-15-2022 Plain chest X-ray Start: 06-13-2019 Basic metabolic 1998 panel - Serum or Plasma Taylor Blackburn Work Phone: Start: 06-13-2019 Complete blood count with white cell differential, automated Taylor Blackburn Work Phone: Start: 06-13-2019 Complete blood count with white cell differential, manual Taylor Eugenia Blackburn Work Phone: Start: 06-13-2019 Choriogonadotropin ( test) [Presence] in Urine Triage Protocol Emergency Start: 06-13-2019 RAINBOW DRAW Triage [facility] Start: 06-13-2019 Urinalysis Triage [facility] Start: 06-13-2019 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 Emergency Appendectomy LINDA CUEVAS MD Plan of Treatment Date Care Activity Detail Author Start: 11-29-2048 PNEUMOCOCCAL (1 - PCV) PNEUMOCOCCAL (1 - PCV) [facility] Comment on above: Postponed from 10/15 (Postponed To Appropriate Date) Start: 11-29-2048 Pneumococcal vaccination Pneumococcal Vaccine (1 of 2 - PCV) [facility] Comment on above: Postponed from 10/15 (Postponed To Appropriate Date) Postponed from 10/15 (Postponed To Appropriate Date) Start: 01-05-2026 BP Controlled (<130/80) BP Controlle d (<130/80) [facility] Start: 01-05-2026 End: 01-05-2026 Patient encounter procedure 01/05/2026 1:20 PM EDT Office Visit OB/Gynecology [address] [place], [place] [id number] Maddy Flores MD [address] [place], [place] [address] Annual OB/Gynecology Comment on above: Annual Start: 12-22-2025 PAP TESTING PAP TESTING [facility] Start: 11-25-2025 Tetanus vaccination TETANUS EVERY 10 YR [facility] Start: 11-25-2025 Urine microalbumin profile [facility] Start: 11-07-2025 BP Controlled (<130/80) BP Controlle d (<130/80) [facility] Start: 11-07-2025 Screening for malign ant neoplasm of cervix Cervical Cancer Screening [facility] Start: 07-27-2025 Registered Recurring Registered Recu rring -Physical Therapy Work Phone: Start: 06-29-2025 Influenza vaccination Influenz a Vaccine (Season Ended) [facility] Start: 05-11-2025 [facility] Start: 03-10-2025 [facility] Start: 12-23-2024 End: 12-23-2024 Patient encounter procedure 12/23/2024 3:40 PM EST Office Visit OB/Gynecology [address] [place] [address] Karine Saucedo MD [address] [place] [address] Colposcopy OB/Gynecology Comment on above: Colposcopy Start: 11-19-2024 [facility] Start: 11-18-2024 End: 11-18-2024 Patient encounter procedure 11/18/2024 10:00 AM EST Routine Office Visit OB/Gynecology [address] [place] [address] Shivani Kay MD [address] [place] [address] new ob LMP 06/27 OB/Gynecology Comment on above: new ob LMP 06/27 Start: 11-10-2024 End: 11-10-2024 Patient encounter procedure 11/10/2024 11:00 AM EST Routine Office Visit Maternal Medicine [address] [place] [address] dating [facility] Comment on above: dating Start: 11-07-2024 End: 11-07-2024 Patient encounter procedure 11/07/2024 1:00 PM EST Initial Office Visit OB/Gynecology [address] [place] [address] Tona Mack APRN.CNM [address] [place] [address] New OB LMP/ 06/27 OB/Gynecology Comment on above: New OB LMP/ 06/27 Start: 10-23-2024 End: 10-23-2024 Patient encounter procedure 10/23/2024 1:10 PM EST Routine Office Visit OB/Gynecology [address] [place] [address] Leonel Riojas MD [address] [place] [address] -unsure on dates but she is thinking around 18 weeks OB/Gynecology Comment on above: -unsure on dates but she is thinking around 18 weeks Start: 10-21-2024 End: 10-21-2024 Patient encounter procedure 10/21/2024 8:15 AM EST Initial Office Visit OB/Gynecology [address] [place] [address] Karen Guthrie, DATA MODELER.AIRCRAFT CHARTER DISPATCHER [address] [place] [address] new ob LMP 06/27 OB/Gynecology Comment on above: new ob LMP 06/27 Start: 09-17-2024 End: 09-17-2024 Patient encounter procedure 09/17/2024 1:45 PM EST Initial Office Visit OB/Gynecology [address] [place] [address] Demario Melendrez, DATA MODELER.AIRCRAFT CHARTER DISPATCHER [address] [place] [address] -unsure on dates but she is thinking around 18 weeks OB/Gynecology Comment on above: -unsure on dates but she is thinking around 18 weeks Start: 09-03-2024 End: 09-03-2025 OBSTETRIC ULTRASOUND WHI OBSTETRIC ULTRASOUND WHI Anc Imaging Routine with uncertain dates, antepartum Expected: 09/03/2024, Expires: 09/03/2025 [facility] Work Phone: Comment on above: Expected: 09/03/2024 , Expires: 09/03/2025 Start: 06-29-2024 Covid-19 Vaccine ( season) Covid-19 Vaccine ( season) [facility] Start: 06-29-2024 Influenza vaccination Influenza Vacc ine (#1) [facility] Start: 12-22-2023 PAP TESTING PAP TESTING [facility] Start: 12-22-2023 Screening for malign ant neoplasm of cervix Cervical Cancer Screening [facility] Start: 06-29-2023 Covid-19 Vaccine ( season) Covid-19 Vaccine () [facility] Start: 06-29-2023 Influenza vaccination INFLUENZA (#1) [facility] Start: 11-03-2022 [facility] Work Phone: Start: 10-29-2022 DEPRESSION ASSESSMENT DEPRESSION ASS ESSMENT [facility] Start: 10-20-2022 ANNUAL PCP TEAM ASBESTOS HANDLER FINA DISEASE VISIT ANNUAL PCP TEAM CHRONIC DISEASE VISIT [facility] Start: 10-20-2022 HEPATITIS C SCREENING HEPATITIS C [facility] Comment on above: Postponed from 10/15 (Declined at this time) Start: 2022 HPV TESTING HPV TESTING [facility] Start: 06-29-2019 Influenza vaccinatio n given SEQUENTIAL INFLUENZA VACCINE (#1) [facility] Start: 2010 BP CONTROLLED (<130/80) BP CONTROLLE D (<130/80) [facility] Start: 2010 Depression Screening Depression Scre ening [facility] Start: 2010 HEPATITIS C SCREENING HEPATITIS C [facility] Start: 2010 Hepatitis C screening Hepatitis C [facility] Start: 1997 COVID-19 VACCINE (#1) COVID-19 VACCI NE (#1) [facility] Start: 1995 History and physical examination, annual for health maintenance Wellness Visit [facility] Start: 04-15-1993 COVID-19 VACCINE (#1) COVID-19 VACCI NE (#1) [facility] Start: 1992 HEPATITIS B (1 of 3 - 3-dose series) HEPATITIS B (1 of 3 - 3-dose series) [facility] Start: 1992 Screening for malign ant neoplasm of cervix PAP SMEAR [facility] Start: 1992 Tetanus vaccination TETANUS EVERY 10 YR [facility] BACTERIAL VAGINOSIS NAAT BACTERIAL VAGINOSIS NAAT Lab Routine Screen for STD (sexually transmitted disease) Ordered: 01/05/2025 [facility] Comment on above: Ordered: 01/05/2025 PRUDENCIO/TRICHOMONAS NAAT PRUDENCIO/TRICHOMONAS NAAT Lab Routine Screen for STD (sexually transmitted disease) Ordered: 01/05/2025 [facility] Comment on above: Ordered: 01/05/2025 Chlamydia trachomati s DNA assay [facility] Work Phone: Chlamydia trachomatis+Neisseria gonorrhoeae DNA [Presence] in Unspecified specimen by CARMEN with probe detection GONORRHEA/CHLAMYDIA NAAT Lab Routine Screen for STD (sexually transmitted disease) Ordered: 01/05/2025 [facility] Comment on above: Ordered: 01/05/2025 COLPOSCOPY COLPOSCOPY Proce dures Routine Cervical high risk HPV (human papillomavirus) test positive Ordered: 11/21/2024 [facility] Work Phone: Comment on above: Ordered: 11/21/2024 COLPOSCOPY COLPOSCOPY Proce dures Routine Cervical high risk HPV (human papillomavirus) test positive Ordered: 01/05/2025 [facility] Work Phone: Comment on above: Ordered: 01/05/2025 HIGH RISK HUMAN PAPILLOMA VIRUS (HPV), PCR FOR DETECTION AND GENOTYPING HIGH RISK HUMAN PAPILLOMA VIRUS (HPV), PCR FOR DETECTION AND GENOTYPING Lab Routine with uncertain dates, antepartum Screening for cervical cancer Screening for human papillomavirus (HPV) 11/07/2024 2:07 PM EST [facility] INDUCTION L&D INDUCTION L&D Pr ocedures Routine demise before 20 weeks with retention of fetus Ordered: 11/10/2024 [facility] Work Phone: Comment on above: Ordered: 11/10/2024 Neisseria gonorrhoea e DNA [Presence] in Cervical mucus by CARMEN with probe detection [facility] Work Phone: PAP TEST PAP TEST Lab Rou norma with uncertain dates, antepartum Screening for cervical cancer Screening for human papillomavirus (HPV) 11/07/2024 2:07 PM EST [facility] Work Phone: Patient Education [facility] Work Phone: Patient referral [facility] Work Phone: Immunizations Immunization Date Immunization Notes Care Provider Fa delores 10-20-2021 influenza, injectabl e, quadrivalent, contains preservative Elsie Harris PA-C Work Phone: [facility] 10-20-2021 influenza virus vaccine, unspecified formulation Don Rosario MD Work Phone: [facility] 11-25-2015 tetanus toxoid, redu ventura diphtheria toxoid, and acellular pertussis vaccine, adsorbed Elsie Harris PA-C Work Phone: [facility] Work Phone: 08-05-1998 trivalent poliovirus vaccine, live, oral Karine Saucedo MD Work Phone: [facility] 06-18-1998 diphtheria, tetanus toxoids and acellular pertussis vaccine, unspecified formulation Karine Saucedo MD Work Phone: [facility] 06-18-1998 measles, mumps and rubella virus vaccine Karine Saucedo MD Work Phone: [facility] 12-05-1996 diphtheria, tetanus toxoids and acellular pertussis vaccine, unspecified formulation Karine Saucedo MD Work Phone: [facility] 12-05-1996 hepatitis B vaccine, pediatric or pediatric/adolescent dosage Karine Saucedo MD Work Phone: [facility] 12-05-1996 trivalent poliovirus vaccine, live, oral Karine Saucedo MD Work Phone: [facility] 09-12-1996 diphtheria, tetanus toxoids and pertussis vaccine Karine Saucedo MD Work Phone: [facility] 09-12-1996 trivalent poliovirus vaccine, live, oral Karine Saucedo MD Work Phone: [facility] 07-24-1996 diphtheria, tetanus toxoids and pertussis vaccine Karine Saucedo MD Work Phone: [facility] 07-24-1996 haemophilus influenz ae type b vaccine, conjugate unspecified formulation Karine Saucedo MD Work Phone: [facility] 07-24-1996 hepatitis B vaccine, pediatric or pediatric/adolescent dosage Karine Saucedo MD Work Phone: [facility] 07-24-1996 measles, mumps and rubella virus vaccine Karine Saucedo MD Work Phone: [facility] 07-24-1996 trivalent poliovirus vaccine, live, oral Karine Saucedo MD Work Phone: [facility] 1992 hepatitis B vaccine, pediatric or pediatric/adolescent dosage Karine Saucedo MD Work Phone: [facility] Payers Date Payer Category Payer Self-pay [id number] 2022 Medicaid [id number] 2022 Unknown [id number] 2019 Unknown 2019 Medicaid [employer] [employer] [employer] [id number] 2019-Present [phone] [address] [place] [address] Medicaid [id number] 2018 Medicaid [employer] MEDICA[employer] xxxxxxxxxxx 2018-Present xxxxxxxxxxx [id number] 2017 Medicaid [id number] 1992 Unknown [id number] 1992 Unknown [id number] [id number] 1992 Unknown [id number] 1992 Unknown [id number] 1992 Unknown [id number] [id number] 1992 Unknown [id number] [id number] 1992 Unknown [id number] [id number] Unknown [id number] [id number] Unknown [id number] Unknown [id number] [id number] Unknown [id number] [id number] Unknown [id number] [id number] Unknown [id number] [id number] Unknown [id number] Unknown [id number] Unknown [id number] Social History Date Type Detail Facility Start: 06-05-2019 End: 05-10-2025 Tobacco smoking status MOIS Current every day smoker [facility] History of tobacco use Cigarette Smoker O [facility] Start: 06-05-2019 End: 11-12-2024 Cigarettes smoked current (pack per day) - Reported [facility] Start: 06-05-2019 Alcohol Comment occ [facility] Sex Assigned At Not on file [facility] Start: 01-15-2022 End: 11-03-2022 Tobacco smoking status NHIS Unknown if ever smoked [facility] Start: 09-16-2019 Cigarettes [facility] Start: 1992 Sex Assigned At Female C [facility] Start: 04-30-2017 End: 09-03-2024 Tobacco use and exposure Smokeless tobacco non-user [facility] Start: 10-20-2021 Alcohol intake Current drinke r of alcohol (finding) [facility] Start: 02-25-2020 End: 07-03-2020 History SDOH Alcohol Frequency 3 [facility] Start: 02-25-2020 End: 07-03-2020 History SDOH Alcohol Std Drinks 1 [facility] Start: 06-07-2017 History SDOH Alcohol Comment occasionly 1-2 cans 12 oz 1-2 times a month- not while [facility] Start: 02-25-2020 History SDOH Social Connections Get Together 2 [facility] Start: 02-25-2020 History SDOH Social Connections Living 7 [facility] Start: 02-25-2020 History SDOH Stress 5 [facility] Start: 02-24-2020 Education 10 [facility] Start: 03-15-2020 Gender identity Identifies as female gender (finding) [facility] Start: 03-15-2020 Sexual orientation Heterosexua l (finding) [facility] Start: 02-24-2020 End: 11-12-2024 Social connection and isolation panel [facility] Do you belong to any clubs or organizations such as cheondoism groups, unions, fraternal or athletic groups, or school groups? No [facility] Are you now , , , , never or living with a partner? Never [facility] How often to you hav e a drink containing alcohol? 2-4 times a month [facility] How many standard dr inks containing alcohol do you have on a typical day? 1 or 2 [facility] How often do you hav e 6 or more drinks on 1 occasion? Never [facility] How hard is it for y ou to pay for the very basics like food, housing, medical care, and heating Hard [facility] Do you feel stress - tense, restless, nervous, or anxious, or unable to sleep at night because your mind is troubled all the time - these days [OSQ] Very much [facility] (I/We) worried janelle er (my/our) food would run out before (I/we) got money to buy more. Never true [facility] The food that (I/we) bought just didn't last, and (I/we) didn't have money to get more. Sometimes true [facility] In the past 12 month s, has lack of transportation kept you from medical appointments or from getting medications? Yes [facility] Start: 09-03-2024 End: 01-05-2025 Alcoholic beverage intake Ex-drinker (finding) [facility] Start: 05-13-2024 [facility] Start: 12-01-2019 Tobacco smoking status Light t obacco smoker (finding) [facility] Sexual Orientation [facility] Start: 09-06-2017 Sex Female (finding) [facility] NEGATED: Highlighted row [facility] Functional Status Date Assessment Result Facility 11-02-2024 Functional Status Independent [facility] 11-02-2024 Functional Status Ambulation in [place], Ambulation in Room [facility] Mental Status Date Assessment Result Facility 03-10-2025 Cognitive function Level Of Cons ciousness Awake;Alert;Appropriate;Follow s Commands [facility] Work Phone: 11-19-2024 Cognitive function Level Of Cons ciousness Awake;Alert;Appropriate;Follow s Commands [facility] Work Phone: 11-02-2024 Mental Status Orientation Oriented x 4 [facility] 11-02-2024 Mental Status [facility] 01-15-2022 Cognitive function Voice/Name [facility] Work Phone: Clinical Notes 03-22-2022 to 03-10-2025 Note Date & Type Note Facility 03-10-2025 Discharge summary [facility] 03-10-2025 Discharge summary Note Date/Time March 10, 2025 5:37pm [facility] Medical Records Department [address] [place] [address] Emergency Department Summary 03/10/25 MR#: [id number] Acct: [id number] Name: SELMA POON Rep #:[id number] : 1990 34 From: [...] to be seen in follow-up. Print Language: Cape Verdean Disposition Disposition: Home, Self Care What to do if you have Problems For any increased pain, shortness of breath, bleeding, nausea or vomiting, chestpain, or any unexpected problems, contact your Primary Care Provider. Call [facility] ([phone]) or report to the closest Emergency Room. Call 911 if necessary. 03/10/25 [id number] <Electronically signed by Ash Ortega MD> Cosigner Signature (if applicable): CC: No Primary Care Physician ~ Signed [facility] Work Phone: 1(985) 142-624003-10-2025 Instructions* Patient Instructions* Sheila Hector MA - 01/05/2025 1:10 PM EDT YOUR RECOVERY [...] contact your doctor's office. documented in this encounterUniversity Hospitals Health System03-10-2025 NoteHNO ID: [id number] Author: KARINE SAUCEDO MD Service: ? Author Type: Physician Type: Progress Notes Filed: 01/05/2025 16:49 Note Text: Toolroom Helper offered: Patient declines. Hahn is a 34 [...] ASSESSMENT: cervicitis PLAN: Repeat pap Karine Saucedo [facility]03-10-2025 History of Present illness Narrative* Karine Saucedo MD - 01/05/2025 1:08 PM EDT Toolroom Helper offered: Patient declines. Selma is a 34 [...] pap Karine Saucedo MD documented in this encounterUniversity Hospitals Health System02-07-2025 Telephone encounter Note * Telephone Encounter - Isabel Rodriguez MA - 12/05/2024 11:41 AM EST Pt notified and voiced understanding. Isabel Rodriguez MA [facility]02-07-2025 Miscellaneous Notes* Telephone Encounter - Isabel Rodriguez [...] pt back. Thank you documented in this encounterUniversity Hospitals Health System02-07-2025 Telephone encounter Note * Telephone Encounter - Don Rosario MD - 12/05/2024 9:55 AM EST Not at this time. Practice is over full. [facility]02-07-2025 Telephone encounter Note* Telephone Encounter - Maday [...] willing to accept pt back. Thank you [facility]01-24-2025 Telephone encounter Note* Telephone Encounter - Tona Mack APRN.CNM - 11/21/2024 11:57 AM EST Order signed. Tona Mack APRN.CNM [facility]01-24-2025 Miscellaneous Notes* Telephone Encounter - Tona Mack APRN.CNM - 11/21/2024 11:57 AM EST Order signed. Tona Mack APRN.CNM * Telephone Encounter - Nikky Villanueva RN - 11/14/2024 2:05 PM EST Patient notified and voiced understanding. Appointment scheduled. Please file pended colposcopy order. Nikky Villanueva RN * Telephone Encounter - Nikky Villanueva RN - 11/14/2024 2:05 PM EST ----- Message from Tona Mack APRN.CNM sent at 11/14/2024 1:01 PM EST ----- Pap smear abnormal. Recommend colposcopy 6 weeks after missed . Tona Mack APRN.CNM documented in this encounterUniversity Hospitals Health System01-22-2025 NoteHNO ID: [id number] Author: LEONEL RIOJAS MD Service: ? Author Type: Physician Type: Progress Notes Filed: 11/19/2024 17:07 Note Text: Vasquez BP average 153/107 pulse 79 149/109 158/112 153/105 147/105 Second BP readings: 170/122 167/126 EARLY VISIT Selma Poon is a 34 year old here for 1 week visit. Delivery Summary: Delivery of second trimseter fetus at [facility] for IUFD ROS: General: Denies any fever [...] didn't get rxs. Follow up: Leonel Riojas [facility]01-22-2025 History of Present illness Narrative* Leonel Riojas MD - 11/19/2024 2:37 PM EST Vasquez BP average 153/107 pulse 79 149/109 158/112 153/105 147/105 Second BP readings: 170/122 167/126 EARLY VISIT Selma Poon is a 34 year old here for 1 week visit. Delivery Summary: Delivery of second trimseter fetus at [facility] for IUFD ROS: General: Denies any fever [...] up: Leonel Riojas MD documented in this encounterUniversity Hospitals Health System01-17-2025 Telephone encounter Note * Telephone Encounter - Nikky Villanueva RN - 11/14/2024 2:05 PM EST Patient notified and voiced understanding. Appointment scheduled. Please file pended colposcopy order. Nikky Villanueva RN [facility]01-17-2025 Telephone encounter Note* Telephone Encounter - Nikky Villanueva RN - 11/14/2024 2:05 PM EST ----- Message from Tona Mack APRN.CNM sent at 11/14/2024 1:01 PM EST ----- Pap smear abnormal. Recommend colposcopy 6 weeks after missed . Tona Mack APRN.CNM [facility]01-16-2025 NoteHNO ID: [id number] Author: DEMI BLACKBURN, FELIZ Service: ? Author Type: Registered Nurse Type: Nursing Progress Note Filed: 11/13/2024 16:34 Note Text: Patient given non-perishable food items from food pantry prior to discharge. [facility]01-16-2025 NoteHNO ID: [id number] Author: DEMI BLACKBURN, FELIZ Service: ? Author Type: Registered Nurse Type: Nursing Progress Note Filed: 11/13/2024 16:33 Note Text: Remains taken to histology. Paperwork given for release to [place] following. [facility]01-16-2025 NoteHNO ID: [id number] Author: JADEN HER LSW Service: Care Management Author Type: Proteomics Scientist Type: Care Mgt Progress Note Filed: 11/13/2024 11:38 Note Text: CARE MANAGEMENT DISCHARGE NOTE SERVICE DATE: 11/13/2024 SERVICE TIME: 11:37 AM LOS: 1 day Plan for patient to discharge to the community. Previous SW provided housing resources. approved a cab voucher to transport patient to an address she provided. [facility] contacted at 11:35. No Further SW needs. SIGNATURE: SHRUTI White PATIENT NAME: Selma Poon DATE: November 13, 2024 TIME: 11:37 AM[facility] NoteHNO ID: [id number] Author: MEME FAULKNER MD Service: Obstetrics Author [...] this AM Homeless - Currently working with [employer] and [employer], living with a friend - Care management [...] Poon DATE: November 13, 2024 TIME: 3:40 [facility]01-15-2025 NoteHNO ID: [id number] Author: DEMARIO MUSE RN Service: Nursing Author Type: Registered Nurse Type: Nursing Progress Note Filed: 11/12/2024 23:46 Note Text: [employer] notified at this time: reference number: [id number] NoteHNO ID: [id number] Author: MELO BENDER MD Service: Obstetrics Author Type: Resident Type: Progress Notes Filed: 11/12/2024 18:29 Note Text: Patient toelrating induction well. Pain well controlled with tylenol and toradol at this time. Cytotec #2 placed vaginally at 1830. Melo Bender [facility]orth [facility]01-15-2025 NoteHNO ID: [id number] Author: ELVER SYED LSW Service: Care Management Author Type: Proteomics Scientist Type: Care Mgt Progress Note Filed: 11/12/2024 18:04 Note Text: CARE MANAGEMENT PROGRESS NOTE SERVICE DATE: 11/12/2024 SERVICE TIME: 2:00 PM LOS: 0 days Follow Up The patient reports she is working with [facility] in [facility] for housing and has case management. The patient reports she is on 3 lists for housing. She is #1 in house list, #38 in [facility] [facility] list, and # 8 in [facility] housing list. 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 Social work offered support [...] November 12, 2024 TIME: 5:57 [facility]01-15-2025 NoteHNO ID: [id number] Author: DEMARIO RINALDI MD Service: Obstetrics Author Type: Resident Type: Progress Notes Filed: 11/12/2024 13:52 Note Text: 800 mcg buccal misoprostol administered at 1340 by RN. Plan for recheck and additional dose after 1640. Demario Rinaldi MD Pager # [phone] CREATIVE LEAD Resident PGY-3 11/12/2024 1:52 [facility]01-15-2025 NoteHNO ID: [id number] Author: CHRISSY MONROE MD Service: Obstetrics Author [...] guide for medication us Chrissy Monroe MD 0:48 [facility]01-15-2025 Telephone encounter Note * Telephone Encounter - Loren Zarate RN - 11/12/2024 8:49 AM EST Pt notified. Pt opts for EPT. Please address in REBECCA absence. Loren Zarate RN [facility]01-15-2025 Miscellaneous Notes* Telephone Encounter - Loren Zarate [...] EPT. Tona Mack APRN.CNM documented in this encounterUniversity Hospitals Health System01-15-2025 Telephone encounter Note * Telephone Encounter - [...] no more than two sexual partners. Selma A Leighty's sexual partner(s) have been contacted: Yes Sexual partner(s) have been informed by Pt that he may have been exposed to trichomoniasis. Sexual partner(s) have been encouraged to seek treatment and testing from a healthcare professional. Treatment options available have been explained. [facility]01-15-2025 Telephone encounter Note* Telephone Encounter - Loren Zarate RN - 11/12/2024 8:44 AM EST ----- Message from Tona Mack APRN.CNM sent at 11/11/2024 4:18 PM EST ----- Positive trichomonas. [email or web address] Networkst message sent to patient for treatment information. Will treat with Flagyl 500mg PO BID x 7 days. Will need partners information for EPT. Tona Mack APRN.CNM [facility]01-15-2025 Instructions* Patient Instructions* Loren Zarate RN - [...] to prevent other STIs. documented in this encounterUniversity Hospitals Health System01-13-2025 Telephone encounter Note * Telephone Encounter - Tona Mack APRN.CNM - 11/10/2024 3:56 PM EST Thank you so much. Please follow up on and make sure we get a follow up visit made in about 1-2 weeks with patient. I am happy to see her. Tona Mack APRN.CNM [facility]01-13-2025 Miscellaneous Notes* Telephone Encounter - Tona Mack APRN.CNM - 11/10/2024 3:56 PM EST Thank you so much. Please follow up on and make sure we get a follow up visit made in about 1-2 weeks with patient. I am happy to see her. Tona Mack APRN.CNM * Telephone Encounter - Karine Kelly RN - 11/10/2024 3:10 PM EST Patient is now scheduled at [facility] on 11/12 @ 12:00 PM. Patient to arrive at 10:00 AM. Patient made aware. Karine Kelly RN * Telephone Encounter - Kelsey Jackson RN - 11/10/2024 3:02 PM EST Spoke to Jazmyne. She may be able to be scheduled 11/12/24 at 12pm. She is going to check and will call the office back. Kelsey Jackson RN * Telephone Encounter - Kelsey Jackson RN - 11/10/2024 1:43 PM EST Left message for Jazmyne at [facility] to schedule IUFD induction for Sunday11/12/24 at 8am. Kelsey Jackson RN documented in this encounterUniversity Hospitals Health System01-13-2025 NoteHNO ID: [id number] Author: TONA MACK APRN.CNM Service: ? 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 History LMP: 06/27/2024, Age at Menarche: Age at First : Age at Menopause: Singe Machine Operator History Comments: Sexual Activity: Yes; No partner data on record Contraception: No contraception data on record PAST MEDICAL HISTORY Diagnosis Date Eczema 04/30/2017 Generalized anxiety disorder 04/30/2017 Hypertension Irritable bowel syndrome with diarrhea 02/25/2020 [facility],2020,[facility]21 ER reports hemorrhage received 2 units [...] Never Current Outpatient Medications Medication Sig VITS 1-SNBI-IASZF-DHA ORAL DAILY gabapentin (NEURONTIN) 300 mg capsule [...] plan of care and to complete at [facility]. Homeless and issues with transportation. Will notify patient options for IOL at [facility]. Emotional support provided. Will follow up in office 1-2 weeks after delivery Tona Mack APRN.[facility]01-13-2025 History of Present illness Narrative* Tona Mack APRN.[facility] - 11/10/2024 3:29 PM EST Selma Poon [...] options with complex family planning physician Dr.Ashley aVlles and option for D&E or induction. Electing forinduction of labor. OB History T3 L3 SAB1 IAB0 Ectopic0 Multiple0 Live Births3 Singe Machine Operator History LMP: 06/27/2024, Age at Menarche: Age at First : Age at Menopause: Singe Machine Operator History Comments: Sexual Activity: Yes; No partner data on record Contraception: No contraception data on record PAST MEDICAL HISTORY Diagnosis Date Eczema 04/30/2017 Generalized anxiety disorder 04/30/2017 Hypertension Irritable bowel syndrome with diarrhea 02/25/2020 [facility] blood [facility] 2018,2020,2021 ER reports hemorrhage received 2 units [...] Never Current Outpatient Medications Medication Sig VITS 2-MBID-CKKSH-DHA ORAL DAILY gabapentin (NEURONTIN) 300 mg capsule [...] plan of care and to complete at [facility]. Homeless and issues with transportation. Will notify patient options for IOL at [facility]. Emotional support provided. Will follow up in office 1-2 weeks after delivery Tona Mack APRN.CNM documented in this encounterUniversity Hospitals Health System01-13-2025 Telephone encounter Note * Telephone Encounter - Karine Kelly RN - 11/10/2024 3:10 PM EST Patient is now scheduled at [facility] on 11/12 @ 12:00 PM. Patient to arrive at 10:00 AM. Patient made aware. Karine Kelly RN [facility]01-13-2025 Telephone encounter Note* Telephone Encounter - Kelsey Jackson RN - 11/10/2024 3:02 PM EST Spoke to Jazmyne. She may be able to be scheduled 11/12/24 at 12pm. She is going to check and will call the office back. Kelsey Jackson RN [facility]01-13-2025 Telephone encounter Note* Telephone Encounter - Kelsey Jackson RN - 11/10/2024 1:43 PM EST Left message for Jazmyne at [facility] to schedule IUFD induction for Sunday11/12/24 at 8am. Kelsey Jackson RN [facility]01-10-2025 Telephone encounter Note* Telephone Encounter - Tona Mack APRN.CNM - 11/07/2024 3:50 PM EST She was going to get insurance for assistance. Thanks, Tona Mack APRN.CNM [facility] Work Phone: [phone] Miscellaneous Notes* Telephone Encounter - Tona Mack APRN.CNM - 11/07/2024 3:50 PM EST She was going to get insurance for assistance. Thanks, Tona Mack APRN.CNM * Telephone Encounter - Kelsey Jackson RN - 11/07/2024 3:38 PM EST Patient notified and scheduled for 11am Sunday11/10/24. She is worried about transportation and will call back if unable to get a ride. If no ride available next dating u/s opening not until as of now. Kelsey Jackson RN * Telephone Encounter - Tona Mack [...] mail. Natasha Castro MA documented in this encounterUniversity Hospitals Health System01-10-2025 Telephone encounter Note * Telephone Encounter - Kelsey Jackson RN - 11/07/2024 3:38 PM EST Patient notified and scheduled for 11am Sunday11/10/24. She is worried about transportation and will call back if unable to get a ride. If no ride available next dating u/s opening not until as of now. Kelsey Jackson RN [facility]01-10-2025 Telephone encounter Note* Telephone Encounter - Tona Mack APRN.CNM - 11/07/2024 2:47 PM EST Please assist patient in scheduling ultrasound for dating and missed prior to induction. I am working on induction plan for her but want this to get scheduled Sunday please. Tona Mack APRN.CNM [facility]01-10-2025 NoteHNO ID: [id number] Author: TONA MACK APRN.CNM Service: ? Author Type: Bank Accountant Type: Progress Notes Filed: 11/10/2024 15:44 Note [...] risk ractors: Obesity (b (more content not included)...[facility]01-10-2025 History of Present illness Narrative* Tona Mack APRN.KHARI - 11/07/2024 1:03 PM EST Images from [...] syndrome with diarrhea 02/25/2020 [facility] 2018,2020,2021 ER reports hemorrhage received 2 units [...] Outpatient Medications Medication Sig Dispense Refill VITS 4-FZDH-MBJAW-DHA ORAL DAILY gabapentin (NEURONTIN) 300 mg capsule [...] discussed with the Patient or Patient's Authorized Supervisor [employer]. As applicable, any other physician, advance practice provider, medical student, or other health professional student that will be observing or involved in the sensitive examination for educational or training purposes was discussed with the Patient or Authorized Supervisor [employer]. The Patient or Authorized Supervisor [employer] has agreed to proceed with the sensitive [...] 15 weeks BPD 14 weeks SBIRT Selma Peralespatty was given the 4's screening tool. Selma answered as follows: OB [...] of blood after her last delivery at [facility]. Tona Mack APRN.CNM Homeless Overview 11/07/24-Homeless and currently staying at a friends apartment. Working with [employer] and [employer] housing.Does not have custody of any of her children due to homelessness per patient. Tona Mack APRN.CNM Late care affecting in second trimester Overview 11/07/24-Patient was incarcerated at the [facility] senior care. Patient states that she will be releasedlater this week. At this time she has no home to go to. Currently working with [employer]. Does not have custody of any of [...] diagnosed sometime between 2014 and 2016 in [place]. She states she discontinued the medication because she felt it made her anxiety worse. She states she last saw radio talk show host in [place] in 2017. Other Visit Diagnoses with uncertain [...] provided. Tona Mack APRN.CNM documented in this encounterUniversity Hospitals Health System01-10-2025 Instructions* Patient Instructions* Tona Mack APRN.CNM - [...] . This information is provided by the [facility] and is not intended to replace the medical advice of your doctor or health care provider. Please consult your health care provider for advice about a specific medical condition. For additional written health information, please contact the HealthInformation Center at the [facility] or toll-free extension [phone] or visit [email or web address] Please select the following link to access the [facility] Your Guide to a Healthy . [email or web address] documented in this encounterUniversity Hospitals Health System01-05-2025 Hospital Discharge instructions Patient Education 11/02/2024 18:01:36 [...] muscle Coronary artery disease High blood pressure Mtc-ulixg-oweqcqz causes: Certain medicines such as asthma inhalers [...] Tell your doctor about any prescription or ihov-fjd-bxkiaov or herbal medicines you take. Follow-up care [...] of the following: Weakness Dizziness Lightheadedness Fainting 3813-9608 [employer]. [address] [place] [address]. All rights reserved. This information is not intended as a substitute for professional medical care. Always follow yourhealthcare professional's instructions. Follow Up Care 11/02/2024 15:38:05 With:Your CREATIVE LEAD Address:Unknown When:11/03/2024 Comments:Schedule appointment as soon as possibleReturn to ED if symptoms worsenFollow-up for outpatient monitor is soon as possibleStop Tomer With:DON ROSARIO Address: [address] [place] [address]- [facility] (1) When:11/03/2024 Comments:Schedule appointment as soon as possibleReturn to ED if symptoms worsenFollow-up for outpatient monitor as soon as possibleStop [facility]ad[facility] 01-05[facility]25 Note Discharge Instructions Thank you for allowing [facility] to assist you with your healthcare needs. The following is importantdischarge information regarding your hospital visit. Diagnosis from Today's Visit Palpitations What to Do Next Instructions from Your Care Team No qualifying data available. Post Acute Orders No qualifying data available. You Need to Schedule the Following Appointments Follow Up with Your CREATIVE LEAD When:11/03/2024 12:00 AM EST Additional Information: Schedule appointment as soon as possible Return to ED if symptoms worsen Follow-up for outpatient monitor is soon as possible Stop Benadryl Follow Up with DON ROSARIO When:11/03/2024 12:00 AM EST Where:[address] [place] [address]- Business (1) Additional Information: Schedule appointment as soon [...] muscle Coronary artery disease High blood pressure Szq-lqbrd-nvcwkbr causes: Certain medicines such as asthma inhalers [...] Tell your doctor about any prescription or mmvm-ywc-tddphym or herbal medicines you take. Follow-up care [...] of the following: Weakness Dizziness Lightheadedness Fainting [phone] [employer]. [address] [place] [address], [place] [address]. All rights reserved. This information is not intended as a substitute for professional medical care. Always follow yourhealthcare professional's instructions. Additional Information VACCINATE! IT SAVES LIVES! Members of the community who have not yet received the COVID-19 vaccine and would like to receive it can visit one of [facility] vaccine clinics. There are many vaccine clinic locations within the [facility]. For locations and available times, please visit www.[email or web address].gov/. It is important to note that some COVID mobile vaccine clinics are held outdoors and may be canceled in rainy or stormy conditions. To learn more about pediatric vaccinations (ages 5-11), we invite you to visit the [facility] webpage. [email or web address] [email or web address] learn more about the COVID-19 vaccine, we invite you to visit the CDC website for a list of frequently asked questions. https://www.cdc.gov/coronavirus/2019-ncov/vaccines/faq.html [facility] Patient Portal Access Instructions: Stay connected with your healthcare team and access your personal medical information anytime with the [facility] [facility] Patient Portal. If you would like a full copy of your medical records please contact the [facility] Medical Records Department Sunday through Sunday between 8a.m. and 4:30p.m. Please follow the directions below to access the portal: 1.Access the email account you provided upon registration to the [facility].2.Look for an invitation email from [facility].3.Open the email and access the invitation link: Accept Invitation to [facility]4.Fill in the required dorsey to create your account. Sign into [email or web address] with your username and password that you [...] you will allow to register on the [employer] Patient Portal for access to your information. You can also access the [facility] Patient Portal on the [employer] selvin. Simply click on Health Records under CaseStack and then click on the Too logo. HOW TO SAFELY DISPOSE OF PRESCRIPTION [...] Call your local pharmacy or go to [email or web address] to find one close to you.3.Make use of household items: Use cat litter or old coffee grounds to dispose medications if other options arenot available. Mix your drugs with these household products, seal them in an airtight container andthrow it into the garbage. Call [facility]: [phone] to be sure your drugs can be [...] aware that I should contact my doctor. 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 [employer] Signature: Date/Time: Relationship to Patient: Witness Name/Signature: Date/Time: [facility]01-05-2025 Note* Exam Date Time Procedure Performing Provider Status 11/02/24 4:07 PM EKG [ED AOH] - CV LINDA CUEVAS MD; A uth (Verified) ECG Final Report Sinus rhythm Baseline wander in lead(s) V2 SEE DICTATION Electronic Signature: LINDA CUEVAS MD 11/02/2024 16:24:55 [facility]12-23-2024 Telephone encounter Note* Telephone Encounter - Karine Kelly RN - 10/20/2024 11:50 AM EST Left detailed message on identified voicemail that tomorrow's appointment has been cancelled with the PATTERN PUNCHER. Advised she will need to reschedule her NOB with a nurse rail layer given how far along she is. Karine Kelly RN [facility]12-23-2024 Miscellaneous Notes* Telephone Encounter - Karine Kelly RN - 10/20/2024 11:50 AM EST Left detailed message on identified voicemail that tomorrow's appointment has been cancelled with the PATTERN PUNCHER. Advised she will need to reschedule her NOB with a nurse rail layer given how far along she is. Karine Kelly RN * Telephone Encounter - Karen Guthrie APRN.CNP - 10/20/2024 8:27 AM EST Patient has an appointment tomorrow at 815 with va she will be 25 weeks she should be scheduled with a rail layer or doc. She has not been seen at all for this with us. Karen Guthrie APRN.CNP documented in this encounterUniversity Hospitals Health System12-23-2024 Telephone encounter Note * Telephone Encounter - Karen Guthrie APRN.CNP - 10/20/2024 8:27 AM EST Patient has an appointment tomorrow at 815 with va she will be 25 weeks she should be scheduled with a rail layer or doc. She has not been seen at all for this with us. Karen Guthrie APRN.CNP [facility] Work Phone: 1(461) 567-898112-20-2024 Telephone encounter Note* Telephone Encounter - Natasha Castro MA - 10/17/2024 12:43 PM EST Attempted to contact patient to go over new ob intake question. No answer. Left a voice mail. Natasha Castro MA [facility]12-20-2024 NoteHNO ID: [id number] Author: KATHY MAYNARD LPN Service: ? Author Type: LICENSED NURSE Type: Progress Notes Filed: 10/17/2024 07:20 Note Text: Scan on 10/16/2024 7:18 PM by ProviderJennifer PA-C: [facility] History of Present illness Narrative* Kathy Maynard LPN - 10/17/2024 7:20 AM EST Scan on 10/16/2024 7:18 PM by Jennifer Foss PA-C: Consultation - Emergency Medicine documented in this encounterUniversity Hospitals Health System11-13-2024 Telephone encounter Note * Telephone Encounter - Tricia Pierre RN - 09/10/2024 2:33 PM EST 1st risk assessment form submitted 09/10/24 Tricia Pierre RN [facility]11-13-2024 Miscellaneous Notes* Telephone Encounter - Tricia Pierre RN - 09/10/2024 2:33 PM EST 1st risk assessment form submitted 09/10/24 Tricia Pierre RN documented in this encounterUniversity Hospitals Health System11-08-2024 Telephone encounter Note * Telephone Encounter - Kelsey Jackson RN - 09/05/2024 10:57 AM EST Patient no showed NOB today. Kelsey Jackson RN [facility]11-08-2024 Miscellaneous Notes* Telephone Encounter - Kelsey Jackson RN - 09/05/2024 10:57 AM EST Patient no showed NOB today. Kelsey Jackosn RN * Telephone Encounter - Kelsey Jackson RN - 09/03/2024 11:24 AM EST Spoke to [facility] and they stated patient was released shortly after PNOB phone call today. Left message for patient to call office on mobile number. Kelsey Jackson RN * Telephone Encounter - Karine Saucedo MD - 09/03/2024 11:12 AM EST Yes. Order signed for US * Telephone Encounter - Rain Warren RN - 09/03/2024 10:38 AM EST Patient had nurse intake questions completed today from [facility]- Contact #[phone]. Patient states that she believes her last [...] uncertain dates? Please advise documented in this encounterUniversity Hospitals Health System11-08-2024 NoteHNO ID: [id number] Author: SPIKE LIU MSW Service: ? Author Type: Proteomics Scientist Type: Procedures Filed: 09/05/2024 10:29 Note Text: Sw stopped to meet with patient for scheduled OB appt due to housing concerns. Patient was a no show for appt.[facility] Procedure note* Spike Liu MSW - 09/05/2024 10:27 AM EST Sw stopped to meet with patient for scheduled OB appt due to housing concerns. Patient was a no show for appt. [facility]11-08-2024 Procedure note* Spike Liu MSW - 09/05/2024 10:27 AM EST Nioc stopped to meet with patient for scheduled OB appt due to housing concerns. Patient was a no show for appt. documented in this encounterUniversity Hospitals Health System11-06-2024 Telephone encounter Note * Telephone Encounter - Kelsey Jackson RN - 09/03/2024 11:24 AM EST Spoke to [facility] and they stated patient was released shortly after PNOB phone call today. Left message for patient to call office on mobile number. Kelsey Jackson RN [facility]11-06-2024 Telephone encounter Note* Telephone Encounter - Karine Saucedo MD - 09/03/2024 11:12 AM EST Yes. Order signed for US [facility] Work Phone: [phone]) 619-739011-06-2024 Telephone encounter Note* Telephone Encounter - Rain Warren RN - 09/03/2024 10:38 AM EST Patient had nurse intake questions completed today from [facility]- Contact #[phone]. Patient states that she believes her last [...] schedule ultrasound for uncertain dates? Please advise [facility]11-06-2024 NoteHNO ID: [id number] Author: KAREN GUTHRIE APRN.AIRCRAFT CHARTER DISPATCHER Service: ? Author Type: Nurse Practitioner Type: Progress Notes Filed: 09/18/2024 10:52 Note Text: *Patient is currently incarcerated at the [facility]. Contact information there is with Renetta the nurse [phone]. Patient states that she will be released later this week. At this time she has no home to go to. Currently working with [employer] [facility]. Does not have custody of any of her children due to homelessness per patient. Patient is agreeable to work with social work at [facility]. I have contacted Spike Liu be present at her visit. *Patient has a history of anxiety diagnosed in 2012. She has been off medications for a year. Most recently treated by Dr. Rosario. Patient would like to go back on medication. *Patient states she has a history of hemorrhage received 2 units of blood after her last delivery at [facility]. Will need to sign a release of [...] diagnosed sometime between 2014 and 2016 in [place]. She states she discontinued the medication because she felt it made her anxiety worse. She states she last saw radio talk show host in [place] in 2016. *Patient took amoxicillin for dental issues in May. She states that she needs to have her teeth pulled but she is reluctant to do that. She was treated at [facility] ER for this. *Patient's half brother born [...] from going to medical (more content not included)...[facility]08-08-2024 NoteHNO ID: [id number] Author: KATHY MAYNARD LPN Service: ? Author Type: LICENSED NURSE Type: Progress Notes Filed: 06/05/2024 08:17 Note Text: Scan on 06/05/2024 7:58 AM by ProviderJennifer PA-C: Consultation - Emergency MedicineFostoria City [facility]08-08-2024 History of Present illness Narrative* Kathy Maynard LPN - 06/05/2024 8:17 AM EDT Scan on 06/05/2024 7:58 AM by ProviderJennifer PA-C: Consultation - Emergency Medicine documented in this encounterUniversity Hospitals Health System07-11-2023 History of Present illness Narrative* Danielle Contreras MA - 05/08/2023 12:40 PM EDT LM for patient to contact office to schedule appointment with PCP. [employer] message sent as well. Danielle Contreras MA documented in this encounterUniversity Hospitals Health System05-25-2022 Miscellaneous Notes* Telephone Encounter - Kathy Maynard [...] call. Left additional voicemail and sent additional msg. Kathy Maynard LPN * Telephone Encounter [...] 03/21/22 Kathy Maynard LPN documented [facility] note No data available for this section [facility] Evaluation noteNo assessment information available [facility] Work Phone: Evaluation note* Diagnosis Generalized anxiety disorder documented in this encounter [facility] note* Diagnosis Pre-operative examination- Primary Preoperative examination, unspecified Bilateral carpal tunnel syndrome Carpal tunnel syndrome Tachycardia Tachycardia, unspecified Smoker Tobacco use disorder Irritable bowel syndrome with diarrhea Irritable bowel syndrome Eczema, unspecified type Generalized anxiety disorder with uncertain dates, antepartum- Primary state, incidental documented in this encounter [facility] note* Diagnosis Pre-operative examination- Primary Preoperative examination, unspecified Bilateral carpal tunnel syndrome Carpal tunnel syndrome Tachycardia Tachycardia, unspecified Smoker Tobacco use disorder Irritable bowel syndrome with diarrhea Irritable bowel syndrome Eczema, unspecified type Generalized anxiety disorder demise before 20 weeks with retention of fetus- Primary documented in this encounter [facility] note* Diagnosis Pre-operative examination- Primary Preoperative examination, unspecified Bilateral carpal tunnel syndrome Carpal tunnel syndrome Tachycardia Tachycardia, unspecified Smoker Tobacco use disorder Irritable bowel syndrome with diarrhea Irritable bowel syndrome Eczema, unspecified type Generalized anxiety disorder Missed - Primary 13 weeks gestation of state, incidental documented in this encounter [facility] note* Diagnosis Pre-operative examination- Primary Preoperative examination, [...] for maternal depression [facility]* Diagnosis Pre-operative examination- Primary Preoperative examination, unspecified Bilateral carpal tunnel syndrome Carpal tunnel syndrome Tachycardia Tachycardia, unspecified Smoker Tobacco use disorder Irritable bowel syndrome with diarrhea Irritable bowel syndrome Eczema, unspecified type Generalized anxiety disorder Trichomoniasis- Primary Trichomoniasis, unspecified documented in this encounter [facility] note* Diagnosis Pre-operative examination- Primary Preoperative examination, [...] Trichomoniasis Trichomoniasis, unspecified documented in this encounter [facility] note* Diagnosis Pre-operative examination- Primary Preoperative examination, [...] DNA test positive documented in this encounter [facility]* Diagnosis Pre-operative examination- Primary Preoperative [...] Trichomoniasis Trichomoniasis, unspecified [facility] Additional Instructions hCG quant 2904. Start prenatals. Pelvic rest. Monitor for bleeding. Follow-up with Dr. Villanueva for recheck hCG.[facility] Work Phone: Hospital Discharge instructions Additional Instructions What you are describing may or may not be a tapeworm. Unlikely but possible. Follow-up with GI for further evaluation. There is no real testing in the emergency department we can do for this. Call their office to get an appointment to be seen in follow-up.[facility] Work Phone: Hospital Discharge instructionsAdditional Instructions Your exam and history is concerning for a proximal Achilles tendon rupture or calf muscle tear. Follow-up with orthopedics to discuss further testing such as MRI to confirm this and/or treatment options and return to the ER should you have any further concernsWSumma Health Work Phone: Hospital Discharge instructions No data available for this section [facility] Progress note No data available for this section [facility] Reason for referral (narrative)* Diagnostic Procedure Only (Routine) - New Request Specialty Diagnoses / Procedures Referred By Sameera castillo Referred To Contact [facility] Diagnoses with uncertain dates, antepartum Procedures OBSTETRIC ULTRASOUND WHI US PREG UTERUS AFTER 1ST TRIMEST GESTATION Karine Saucedo MD [address] [place] [address] [facility] [address] [place] [id number] Referral ID Status Reason Start Date Expiration Date Visits Requested Visits Authorized [id number] New Request Auto-Generat ed Referral 09/03/2024 09/03/2025 1 1 R [facility] System[facility] for referral (narrative)* Outpatient Procedure (Routine) - Authorized Specialty Diagnoses / Procedures Referred By Sameera castillo Referred To Contact [facility] Diagnoses Cervical high risk HPV (human papillomavirus) test positive Procedures COLPOSCOPY COLPOSCOPY CERVIX BX CERVIX & ENDOCRV Tona Dockery APRN.CNM [address] [place] [address] [facility] [address] [place] [address] Referral ID Status Reason Start Date Expiration Date Visits Requested Visits Authorized [id number] Authorized Auto-Generat ed Referral 11/21/2024 11/14/2025 1 1 [facility] for referral (narrative)No reason for referral information availableWSumma Health Work Phone: Summary Purpose Family History No [...] FoundDocuments on File Type Date Recorded 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 Advance Directives and Living Will Documents on File Type Date Recorded 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 Advance Directives and Livin g Will 06/06/2019 10:41 AM Advance Directives and Livin g Will 06/13/2019 7:57 AM Advance Directive Response Recorded Date/ Time Living Will No January 15, 2022 8:16pm Power of Fruit Stuffer No January 15 8:16pm Advance Directive Response Recorded Date/ Time Living Will No March 02, 2022 7: 25pm Power of Fruit Stuffer No March 02, 2022 7:25pm Documents on File Type Date Recorded 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 No November 19, 2024 8:46pm Advance Directive Response Recorded Date/ Time Living Will No November 19 8:46pm Do you have a Healthcare Power of Fruit Stuffer? No November 19, 2024 8:46pm Do you have a Healthcare Power of Fruit Stuffer? No March 10, 2025 5:18pm Advance Directive Response Recorded Date/ Time Do you have a Healthcare Power of Fruit Stuffer? No March 10, 2025 5:18pm Do you have a Healthcare Power of Fruit Stuffer? No May 10, 2025 11:31pm Advance Directive Response Recorded Date/ Time Do you have a Healthcare Power of Fruit Stuffer? No May 10, 2025 11:31pm Instructions * Patient Instructions* Juancho Estrada MD [...] the QR code OR Visit the website [email or web address] Current as of: July 21, 2018 Content Version: [id number] [employer]. Care instructions adapted under license by your healthcare professional. If you have questions about a medical condition or this instruction, always ask your healthcare professional. [employer] disclaims any warranty or liability for your use of this information. documented in this encounter History of Present Illness * Juancho Estrada MD - 06/05/2019 12:43 PM EDT PATIENT NAME: Selma Poon [facility] [address] [facility] [id number] : 1990 DATE OF VISIT: 06/05/2019 #: [...] and Sexual Activity Alcohol use: Yes Comment: occ Drug use: Never Sexual activity: Not on file Lifestyle Physical activity: Days per week: Not on file Minutes per session: Not on file Stress: Not on file Relationships Social connections: Talks on phone: Not on file Gets together: Not on file Attends zoroastrian service: Not on file Active member of [...] sent through Care Everywhere. * Back Pain ([place] Verdean) documented in this encounter Chief Complaint and [...] gi complaint March 10, 2025 5:12p m Chief Complaint Admit Date WORM IN MY BUTT March 09, 2025 9:59p m gi complaint March 10, 2025 5:12p m STRAIN IN LOWER LEFT LEG May 10, 2025 9:19pm Chief Complaint Admit Date STRAIN IN LOWER LEFT LEG May 10, 2025 9:19pm STRAIN OF MUSCLE/TENDON L LOWER LEG. RX HERE July 27, 2025 5:30pm Additional Source Comments INFORMATION SOURCE (unrecogn ized section and content) DATE CREATED AUTHOR 04/24/2018 [facility] DATE CREATED AUTHOR AUTHOR'S ORGANIZ ATION 06/07/2019 [facility] DATE CREATED AUTHOR AUTHOR'S ORGANIZ ATION 06/13/2019 [facility] DATE CREATED AUTHOR AUTHOR'S ORGANIZ ATION 06/11/2020 [facility] DATE CREATED AUTHOR AUTHOR'S ORGANIZ ATION 07/27/2021 [facility] DATE CREATED AUTHOR AUTHOR'S ORGANIZ ATION 07/08/2022 [facility] DATE CREATED AUTHOR AUTHOR'S ORGANIZ ATION 11/21/2024 [facility] DATE CREATED AUTHOR AUTHOR'S ORGANIZ ATION 01/09/2025 [facility] DATE CREATED AUTHOR AUTHOR'S ORGANIZ ATION 05/29/2025 [facility] DATE CREATED AUTHOR AUTHOR'S ORGANIZ ATION 09/04/2025 [facility] Reason for Visit (unrecogniz ed section and [...] [place] Specialty Diagnoses / Procedures Referred By Contbalta t Referred To Contact [facility] Diagnoses with uncertain dates, antepartum Procedures OBSTETRIC ULTRASOUND WHI US PREG UTERUS AFTER 1ST TRIMEST GESTATION Karine Saucedo MD [address] [place] [address] [facility] [address] [place] [address] Referral ID Status Reason Start Date Expiration Date V isits Requested Visits Authorized [id number] Closed Auto-Generate d Referral 09/03/2024 09/03/2025 1 1 Reason Comments Results Reason Comments Early Reason Comments Results Reason Comments Patient Question Reason Comments Colposcopy Bella Sahni, FLEIZ - 06/13/2019 7:05 AM Don Padron PA-Tad - 06/05/2019 11:48 AM Renetta Mccann RN [...] a few days ago. She was in [place] when it first started. She denies any [...] file Gets together: Not on file Attends zoroastrian service: Not on file Active member of [...] expedite correspondence this note was generated by [employer] voice recognition software. This note was partially [...] the patient. I discussed the patient with PATTERN PUNCHER/PA. I agree with the PATTERN PUNCHER/PA treatment plan. I agree with the PATTERN PUNCHER/PA plan of care. I agree with the PATTERN PUNCHER/PA dispo as documented. Patient is a 28-year-old [...] or prosecute any alcohol or drug abuse patient.[facility] SystemIn the event this information is protected by the Federal Confidentiality of Alcohol and Drug Abuse Patient Records regulations: The Federal rules restrict any use of the information to criminally investigate or prosecute any alcohol or drug abuse patient.[facility] SystemIn the event this information is protected by the Federal Confidentiality of Alcohol and Drug Abuse Patient Records regulations: The Federal rules restrict any use of the information to criminally investigate or prosecute any alcohol or drug abuse patient.[facility] SystemIn the event this information is protected by the Federal Confidentiality of Alcohol and Drug Abuse Patient Records regulations: The Federal rules restrict any use of the information to criminally investigate or prosecute any alcohol or drug abuse patient.[facility] SystemIn the event this information is protected by the Federal Confidentiality of Alcohol and Drug Abuse Patient Records regulations: The Federal rules restrict any use of the information to criminally investigate or prosecute any alcohol or drug abuse patient.[facility] SystemIn the event this information is protected by the Federal Confidentiality of Alcohol and Drug Abuse Patient Records regulations: The Federal rules restrict any use of the information to criminally investigate or prosecute any alcohol or drug abuse patient.[facility] SystemIn the event this information is protected by the Federal Confidentiality of Alcohol and Drug Abuse Patient Records regulations: The Federal rules restrict any use of the information to criminally investigate or prosecute any alcohol or drug abuse patient.[facility] SystemIn the event this information is protected by the Federal Confidentiality of Alcohol and Drug Abuse Patient Records regulations: The Federal rules restrict any use of the information to criminally investigate or prosecute any alcohol or drug abuse patient.[facility] the event this information is protected by the Federal Confidentiality of Alcohol and Drug Abuse Patient Records regulations: The Federal rules restrict any use of the information to criminally investigate or prosecute any alcohol or drug abuse patient.[facility] the event this information is protected by the Federal Confidentiality of Alcohol and Drug Abuse Patient Records regulations: The Federal rules restrict any use of the information to criminally investigate or prosecute any alcohol or drug abuse patient.[facility] System[facility] the event this information is protected by the Federal Confidentiality of Alcohol and Drug Abuse Patient Records regulations: The Federal rules restrict any use of the information to criminally investigate or prosecute any alcohol or drug abuse patient.[facility] the event this information is protected by the Federal Confidentiality of Alcohol and Drug Abuse Patient Records regulations: The Federal rules restrict any use of the information to criminally investigate or prosecute any alcohol or drug abuse patient.[facility] System[facility] the event this information is protected by the Federal Confidentiality of Alcohol and Drug Abuse Patient Records regulations: The Federal rules restrict any use of the information to criminally investigate or prosecute any alcohol or drug abuse patient.[facility] System[facility] the event this information is protected by the Federal Confidentiality of Alcohol and Drug Abuse Patient Records regulations: The Federal rules restrict any use of the information to criminally investigate or prosecute any alcohol or drug abuse patient.[facility] System[facility] the event this information is protected by the Federal Confidentiality of Alcohol and Drug Abuse Patient Records regulations: The Federal rules restrict any use of the information to criminally investigate or prosecute any alcohol or drug abuse patient.[facility] System[facility] the event this information is protected by the Federal Confidentiality of Alcohol and Drug Abuse Patient Records regulations: The Federal rules restrict any use of the information to criminally investigate or prosecute any alcohol or drug abuse patient.[facility] System[facility] the event this information is protected by the Federal Confidentiality of Alcohol and Drug Abuse Patient Records regulations: The Federal rules restrict any use of the information to criminally investigate or prosecute any alcohol or drug abuse patient.[facility] System[facility] the event this information is protected by the Federal Confidentiality of Alcohol and Drug Abuse Patient Records regulations: The Federal rules restrict any use of the information to criminally investigate or prosecute any alcohol or drug abuse patient.[facility] Care Teams (unrecognized sec tion and content) Swahili Teacher Relationship Specialty Start Date End Date Don Rosario MD [address] [place], [place] [id number] PCP - General Family Practice 04/30/17 Team Status: Active Member Role Status Dates Dr. Don Rosario MD Family Provider Active Dr. Don Rosario MD Primary Care Provider Active Team Status: Inactive Member Role Status Dates Dr. Don Rosario MD Primary Care Provider Active Ed Physician Provider Emergency Provider Active Swahili Teacher Relationship Specialty Start Date End Date Don Rosario MD [address] [place], [place] [id number] PCP - General Family Medicine 04/30/17 Swahili Teacher Relationship Specialty Start Date End Date Don Rosario MD [address] [place], [place] [id number] PCP - General Family Medicine 04/30/17 Swahili Teacher Relationship Specialty Start Date End Date Don Rosario MD [address] [place] [address] PCP - General Family Medicine 04/30/17 Swahili Teacher Relationship Specialty Start Date End Date Don Rosario MD [address] [place] [address] PCP - General Family Medicine 04/30/17 Swahili Teacher Relationship Specialty Start Date End Date Don Rosario MD [address] [place] [address] PCP - General Family Medicine 04/30/17 Eneida Leigh, JORGE.AIRCRAFT CHARTER DISPATCHER [address] [place] [address] Dividend Deposit Voucher Clerk Family Medicine 10/04/24 Elsie Harris PA-C [address] [place] [address] Dividend Deposit Voucher Clerk Family Medicine 10/04/24 Swahili Teacher Relationship Specialty Start Date End Date Don Rosario MD [address] [place] [address] PCP - General Family Medicine 04/30/17 Eneida Leigh, DATA MODELER.AIRCRAFT CHARTER DISPATCHER [address] [place] [address] Dividend Deposit Voucher Clerk Family Medicine 10/04/24 Elsie Harris PA-C [address] [place] [address] Dividend Deposit Voucher Clerk Family Medicine 10/04/24 Swahili Teacher Relationship Specialty Start Date End Date Don Rosario MD [address] [place], [place] [id number] PCP - General Family Medicine 04/30/17 11/04/24 Eneida Leigh APRN.CNP [address] [place], [place] [id number] Dividend Deposit Voucher Clerk Family Medicine 10/04/24 11/04/24 Elsie Harris PA-C [address] [place] [address] Dividend Deposit Voucher Clerk Family Medicine 10/04/24 11/04/24 Team Status: Active Member Role Status Dates No Primary Care Physician Primary Care Provider Active Team Status: Inactive Member Role Status Dates Dr. Don Rosario MD Primary Care Provider Active Start: November 19, 2024 End: November 19, 2024 Dr. Frieda Jack DO Attending Provider Active Start: November 19, 2024 End: November 19, 2024 Dr. Frieda Jack , Emergency Provider Active Start: November 19, 2024 [...] March 10, 2025 End: March 10, 2025 Team Status: Active Member Role/Relationship Status Dates [facility] Active Team Status: Inactive Member Role/Relationship Status Dates Ed Physician Provider Attending Provider Active Start: March 09, 2025 End: March 09, 2025 Ed Physician Provider Referring Provider Active Start: March 09, 2025 End: March 09, 2025 Ed Physician Provider Emergency Provider Active Start: March 09, 2025 End: March 09, 2025 No Primary Care Physician Primary Care Provider Active Start: March 09, 2025 End: March 09, 2025 Team Status: Inactive Member Role/Relationship Status Dates No Primary Care Physician Primary Care Provider Active Start: March 10, 2025 End: March 10, 2025 Dr. Ash Ortega MD Attending Provider Active S tart: March 10, 2025 End: March 10, 2025 Dr. Ash Ortega MD Emergency Provider Active S tart: March 10, 2025 End: March 10, 2025 Team Status: Inactive Member Role/Relationship Status Dates Oksana MONSIVAIS, DO Primary Care Provider Active Start: May 10, 2025 End: May 11, 2025 Dr. Chapito Villasenor , Emergency Provider Active Start: May 10, 2025 End: May 11, 2025 Team Status: Active Member Role/Relationship Status Dates Oksana MONSIVAIS, DO Primary care physician Active Team Status: Inactive Member Role/Relationship Status Dates Oksana MONSIVAIS, DO Primary care physician Active Start: May 10, 2025 End: May 11, 2025 Dr. Chapito Villasenor DO Attending physician Active Start: May 10, 2025 End: May 11, 2025 Dr. Chapito Villasenor DO Emergency Department Physician A ctive Start: May 10, 2025 End: May 11, 2025 Team Status: Inactive Member Role/Relationship Status Dates Oksana MONSIVAIS DO Primary care physician Active Start: July 02, 2025 End: July 02, 2025 DANIEL Amanda Attending physician Active Start: July 02, 2025 End: July 02, 2025 DANIEL Amanda Referring Provider Active Start: July 02, 2025 End: July 02, 2025 Team Status: Active Member Role/Relationship Status Dates Oksana MONSIVAIS, DO Primary care physician Active Start: July 27, 2025 GÉNESIS Sanchez Attending physician Active Star t: July 27, 2025 GÉNESIS Sanchez Referring Provider Active Start : July 27, 2025 FOR RECORDS PERTAINING TO PATIENTS WHO [...] BE BASED ON THE PRIMARY CLINICAL RECORDS. [facility]. provides no warranty or guarantee of the accuracy or completeness of information in this document.
[2025-10-26] MEDS: Phenol/Sodium Phenolate 180ML 3 SPRAY MUCOUS MEM (22:29)
[2025-10-26 22:33] VITALS: BP 167/92; PULSE 91; RESP 18; TEMP 36; O2SAT 97
--- NOTE | 2025-10-27 00:31 | EX.ED.DYSGE1 ---
HPI History of Present Illness Chief Complaint: Cold Sx Informant: patient and spouse/S.O. Narrative Narrative: 35-year-old female presenting to the emergency room with the chief complaint of cough fever chest pain. Patient states that she is on day 5 of an illness which has caused her to have a lot of coughing sore throat fevers. She notes the right upper chest is sore when she coughs. It is tender. Other family members have also been ill. PFSH PFSH Medical History SVT (supraventricular tachycardia) Eczema Asthma Anxiety Hypertension Carpal tunnel syndrome Pyelonephritis Home Medications ?Medication ?Instructions ?Recorded ?Last Taken ?Type gabapentin 300 mg capsule 300 mg PO TID 04/02/21 Unknown History albuterol sulfate 90 mcg/actuation 1 puff inhalation Q6H PRN PRN 03/09/25 Unknown History aerosol inhaler wheezing hydroxyzine HCl 25 mg tablet 25 - 50 mg PO QHS 09/14/25 Unknown History metoprolol tartrate 50 mg tablet 50 mg PO BID 09/14/25 Unknown History amoxicillin 500 mg capsule 500 mg PO TID 09/18/25 Unknown History budesonide-formoterol HFA 160 2 puff inhalation BID 09/18/25 Unknown History mcg-4.5 mcg/actuation aerosol inhaler (Symbicort) cholecalciferol (vitamin D3) 1,250 1,250 mcg PO QWEEK 09/18/25 Unknown History mcg (50,000 unit) capsule cyanocobalamin (vitamin B-12) 1,000 mcg IM .COMPLEX 09/18/25 Unknown History 1,000 mcg/mL injection solution docusate sodium 100 mg capsule 100 mg PO QDAY 09/18/25 Unknown History ferrous sulfate 325 mg (65 mg 325 mg PO QDAY 09/18/25 Unknown History iron) tablet dexamethasone 6 mg tablet 6 mg PO DAILY #6 tabs 10/26/25 Unknown Rx Allergy/AdvReac Type Severity Reaction Status Date / Time No Known Allergies Allergy Verified 10/26/25 19:25 Family History Mother Hypertension Diabetes Bipolar disorder Surgical History History of carpal tunnel surgery of right wrist History of carpal tunnel surgery of left wrist Hx of appendectomy Social History Smoking Status: Current every day smoker tobacco type: cigarettes and e-cigarettes alcohol intake: current alcohol intake frequency: holidays/special occasions only substance use type: does not use caffeine: Yes (Drinks a 2 liter per day) Type: carbonated beverages ROS ROS ED Constitutional Constitutional ED: Reports fever(s) and subjective; Denies chills or weight loss Eyes Eyes: Denies change in vision or diplopia ENT ENT ED: Reports sore throat; Denies ear pain or rhinorrhea Cardiovascular Cardiovascular: Reports chest pain; Denies orthopnea, palpitations or racing heartbeat Respiratory/Chest Respiratory/Chest: Reports cough and dyspnea; Denies orthopnea Gastrointestinal Gastrointestinal: Denies abdominal pain, diarrhea, nausea or vomiting Genitourinary Genitourinary ED: Denies dysuria, hematuria or urinary frequency Musculoskeletal Musculoskeletal: Denies arthralgias or myalgias Integumentary Denies abscess or rash Neurologic Neurologic: Denies headache(s) or weakness Psychiatric Psychiatric: Denies anxiety, depression, suicidal ideation or suicidal thoughts Endocrine Endocrinology: Denies polydipsia, polyphagia or polyuria Allergic/Immunologic Allergic/Immunologic ED: Denies mouth swelling, tongue swelling or urticaria EXAM Physical Exam Const Vital Signs: 10/26/25 19:25 10/26/25 22:33 10/26/25 22:33 Temperature 96.8 F L 96.8 F L Temperature Source Temporal Pulse Rate 91 91 Respiratory Rate 18 18 Respiratory Effort Normal Respiratory Pattern Normal Blood Pressure 167/92 H 167/92 H Blood Pressure Mean 117 117 Pulse Ox 97 97 Oxygen Delivery Method Room Air Positive well nourished and well developed General Appearance ED: well developed HEENT Reports normocephalic, head/scalp atraumatic and moist mucous membranes HEENT Narrative: Mild turbinate edema Eyes PERRL and EOMs intact bilaterally Neck no lymphadenopathy, supple and no JVD Chest Wall Chest Narrative: Right upper anterior chest wall is tender to palpation reproduces the pain Resp normal respiratory effort and clear to auscultation bilaterally Cardio regular rate, regular rhythm and no murmurs GI normal to inspection, nondistended, normoactive bowel sounds and non-tender Palpation: soft Back/Spine no CVA tenderness and normal ROM Extremity normal to inspection General Extremety ED: Negative for edema General Extremity: Negative for edema Neuro oriented x3 and CN's II-XII intact bilaterally Sensorium / Orientation: alert Motor Exam: strength 5/5 throughout Psych mental status grossly normal Mood & Affect: Negative for depressed or tearful Skin no rashes or lesions noted and no wounds MDM MDM MDM Narrative Medical decision making narrative: Differential diagnosis includes but not limited to pneumonia bronchitis viral syndrome (influenza COVID RSV parainfluenza) prural effusion Patient is COVID-positive. My independent interpretation of the chest x-ray is no acute process. Her chest pain is reproducible and I do not think that this represents pulmonary embolism. She does have a history of wheezing but I do not hear any wheezing currently. On the right for her to have some dexamethasone as well as some Chloraseptic spray for sore throat. Patient states she does not need a work note. Continued supportive care at home History & Record Review Discussion w/independent historian: Patient and Significant other Radiography Diagnostic Testing: Clinical Impression(s) from Imaging Studies Chest X-Ray 10/26/25 19:30 IMPRESSION: No focal consolidations. Reading Location: [facility] Discharge Plan Triage Chief Complaint: Cold Sx ED Provider: Jose J Meng Dx/Rx/DC Orders Clinical Impression: COVID-19, Cough, Strain of chest wall Instructions: Coronavirus Disease 2019 (COVID-19): Overview Prescriptions: New dexamethasone 6 mg tablet 6 mg PO DAILY Qty: 6 0RF No Action metoprolol tartrate 50 mg tablet 50 mg PO BID hydroxyzine HCl 25 mg tablet 25 - 50 mg PO QHS amoxicillin 500 mg capsule 500 mg PO TID cyanocobalamin (vitamin B-12) 1,000 mcg/mL solution 1,000 mcg IM .COMPLEX Patient Comments: inject 1000 mcg by intramuscular injection once weekly for 4 weeks. then once monthly thereafter. (del TO [facility]) Rx Instructions: inject 1000 mcg by intramuscular injection once weekly for 4 weeks. then once monthly thereafter. (del TO [facility]) ferrous sulfate 325 mg (65 mg iron) tablet 325 mg PO QDAY docusate sodium 100 mg capsule 100 mg PO QDAY cholecalciferol (vitamin D3) 1,250 mcg (50,000 unit) capsule 1,250 mcg PO QWEEK budesonide-formoterol [Symbicort] 160-4.5 mcg/actuation HFA aerosol inhaler 2 puff inhalation BID gabapentin 300 mg capsule 300 mg PO TID Patient Comments: take 1 capsule by mouth at bedtime albuterol sulfate 90 mcg/actuation HFA aerosol inhaler 1 puff INHALATION Q6H PRN PRN (Reason: wheezing) Primary Care Provider: Oksana Lindsay Referrals: Oksana Lindsay, DO [Primary Care Provider, Family Practice] - As Needed Print Language: Mexican Disposition Disposition: Home, Self Care Discharge Date/Time: 10/26/25 22:35
== END 2025-10-26 22:35 | disposition home or self-care (01) ==
PROVIDERS: Emergency Provider Emergency Medicine; PCP Family Medicine; Visit Provider Emergency Medicine
DX: U07.1 COVID-19 (principal); S29.011A Strain of muscle and tendon of front wall of thorax, initial encounter; F17.210 Nicotine dependence, cigarettes, uncomplicated; F17.290 Nicotine dependence, other tobacco product, uncomplicated; X58.XXXA Exposure to other specified factors, initial encounter
CPT/HCPCS: 71046; 87631; 99282